=== PATIENT | female | born 1940 | race Caucasian/White ===

== ENCOUNTER 2017-11-13 15:00 | Outpatient (RCR) | payer MEDICARE, SELFPAY ==
--- NOTE | 2017-11-13 15:00 | DT_ITS ---
This patient was seen during an EMR downtime November 13, 2017 - November 20, 2017. This patient may have a combination of paper and electronic documentation or all paper documentation. All documentation is viewable within the e-chart portion of [employer] for each patient visit.
--- NOTE | 2017-11-22 08:08 | HP.PTEVAL_ITS ---
Patient's Visit Information KYLIE ECHAVARRIA is a 76 year old F referred to Physical Therapy by Zia Alex with a diagnosis of Leg length discrepancy. Date of Evaluation: 11/13/17 Physical Therapist: Sammy Loomis PT, - Visit Plan Plan: Skilled therapy is not necessary at this time. Discharge - Subjective Subjective: Pt reports she has noticed a leg length discrepancy for years. Pt reports she never had pain or was bothered by it, so she just put it off. Pt notices when she walks, her L pant leg drags on the ground. Pt believes her L LE is shorter than her R. 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 Pt is not diabetic, but notes since her LB surgery that her LE neuropathy is worse. Pt reports her major goal is to get orthotics fit for her shoe to equal out her legs. - Pain LE's Pain Intensity (Out of 10): 5 - Objective Neuro: B LE sensation is hyposensitive from L4-5. B patellar reflex= 1/3. B LE ROM: B LE ROM is WNL and equal bilaterally. Leg length discr: B LE's are equal in length in both sitting, supine, and standing postures. MMT: 5/5 throughout. Gait: Pt ambulates with mild trendelenberg pattern indicating core weakness - Rehabilitation Potential Physical Therapy Diagnosis: Pt has normal leg length Rehabilitation Potential: Good - Anticipated Interventions Thank you for the opportunity to evaluate your patient. For Medicare and Medicare HMO plans, please review the plan of care and approve it. It will need to be FAXED BACK to us at [phone] for Medicare purposes. Please let me know if there are questions or concerns regarding this plan of care. Physician Signature: Date:
== END 2017-11-13 19:00 | disposition home or self-care (01) ==
LOC: PT 15:00
PROVIDERS: Family Provider Family Medicine; PCP Family Medicine; Visit Provider Family Medicine
DX: M21.70 Unequal limb length (acquired), unspecified site (principal)
CPT/HCPCS: 97161; G8978; G8979; G8980

== ENCOUNTER → 2018-05-17 11:30 | Outpatient (CLI) | payer MEDICARE, SELFPAY ==
[2018-05-17 13:40] LABS: Absolute Neutrophil Count 4.8 X10^3/uL (2.0-7.7); Basophil# 0.05 X10^3/uL; Basophil% 0.6 % (0-1); Eosinophil# 0.29 X10^3/uL; Eosinophils% 3.4 % (0-5); Hematocrit 47.4 % (37-47); Hemoglobin 15.4 g/dl (12.0-15.0); Lymphocyte % 31.9 % (19-41); Mean Corp Hgb Conc 32.5 g/gl (32-36); Mean Corpuscular Hgb 31.2 pg (27.0-32.0); Monocyte# 0.65 X10^3/uL; Monocyte% 7.7 % (0-10); Neutrophil # 4.76 X10^3/uL (2.7-7.7); Neutrophil % 56.3 % (47-70); POSITIVE COUNT NO; POSITIVE DIFFERENTIAL NO; POSITIVE MORPHOLOGY NO; Platelet Count 281 K/mm3 (150-450); RBC Distribution Width CV 12.6 % (11.6-14.6); Red Blood Count 4.94 M/mm3 (4.2-5.4); White Blood Count 8.5 K/mm3 (4.4-11.0)
[2018-05-17 14:09] LABS: ALB/GLOB Ratio 0.8 RATIO (0.9-2.4); AST(SGOT) 45 U/L (15-37); Alanine Aminotransfer ALT/SGPT 49 U/L (13-56); Albumin, Serum 3.7 g/dL (3.2-5.0); Alkaline Phosphatase 98 U/L (45-117); Anion Gap 7 (5-15); BUN 21 mg/dL (7-18); BUN/Creat Ratio 19.3 RATIO (10-20); Calcium,Total 9.9 mg/dL (8.5-10.1); Chloride 103 mmol/L (98-107); Creatinine, Serum 1.09 mg/dL (0.55-1.02); EST Glomerular Filtration Rate 52 mL/min (>60); Est Glom Filt Rate - Afr Amer 63 mL/min (>60); Ferritin 204 ng/mL (8-252); Globulin 4.7 g/dL (2.2-4.2); Glucose 107 mg/dL (74-106); Potassium 4.2 mmol/L (3.5-5.1); Protein, Total 8.4 g/dL (6.4-8.2); Sodium Level 140 mmol/L (136-145); Thyroid Stim Hormone (TSH) 2.11 uIU/mL (0.358-3.74)
[2018-05-17 14:19] LABS: Vitamin B12 519 pg/mL (211-911)
== END ==
PROVIDERS: Family Provider Family Medicine; PCP Family Medicine; Visit Provider Family Medicine
DX: R53.83 Other fatigue (principal)
CPT/HCPCS: 36415; 80053; 82607; 82728; 84443; 85025

== ENCOUNTER → 2018-05-30 13:03 | Outpatient (CLI) | payer MEDICARE, SELFPAY ==
--- NOTE | 2018-05-30 13:06 | ECHOCS_ITS ---
Reason For Study: PHTN Procedure This was a 2D Doppler, Color Flow transthoracic echocardiogram. Exam performed in department. Left Ventricle Normal size and thickness. The estimated ejection fraction is 65 %. Stage 1 diastolic dysfunction. No regional wall motion abnormalities noted. Right Ventricle Normal size and thickness. Normal systolic function. Atria Normal left atrium. Normal right atrium. Normal atrial septum. Mitral Valve The mitral valve is structurally normal. No prolapse or stenosis seen. Tricuspid Valve Normal tricuspid valve. Trivial tricuspid valve insufficiency. Right ventricular systolic pressure estimated to be 31 mmHg. Aortic Valve Trisinus/trileaflet aortic valve. Mild focal aortic valve thickening. There is no aortic stenosis. Pulmonic Valve Normal pulmonic valve. Great Vessels Normal aortic root. Normal arch. Normal inferior vena cava. Inferior vena cava collapse with sniff. Pericardium/Pleural No pericardial effusion. Medication Definity0.4ml given slow IV push to enhance endocardial definition. MMode/2D Measurements & Calculations LVIDd: 4.2 cm IVSd: 0.75 cm Ao root diam: 3.4 cm LVIDs: 2.6 cm LVPWd: 0.77 cm LA dimension: 3.0 cm RVDd: 3.4 cm FS: 37.7 % LAV(MOD-bp): 27.1 ml LVAd ap4: 26.0 cm2 SV(MOD-sp4): 45.5 ml LAV(MOD-bp) Indexed: 13.3 ml/m2 EDV(MOD-sp4): 75.3 ml LAV(MOD-sp2): 29.2 ml EDV(sp4-el): 78.2 ml LAV(MOD-sp4): 25.2 ml LVAs ap4: 14.6 cm2 ESV(MOD-sp4): 29.8 ml ESV(sp4-el): 29.5 ml EF(MOD-sp4): 60.4 % EF(sp4-el): 62.3 % SV(sp4-el): 48.7 ml LA A4 area: 12.5 cm2 RA A4 area: 13.4 cm2 Doppler Measurements & Calculations MV E max olvin: 59.1 cm/sec Lat Peak E' Olvin: 10.0 cm/sec Med Peak E' Olvin: 5.1 cm/sec MV A max olvin: 97.8 cm/sec E/E' lat: 5.9 E/E' med: 11.6 MV E/A: 0.60 Ao V2 max: 146.8 cm/sec LV V1 max: 108.8 cm/sec PA V2 max: 104.1 cm/sec Ao max P.6 mmHg LV V1 max P.7 mmHg Ao V2 mean: 106.3 cm/sec Ao mean P.0 mmHg Ao V2 VTI: 29.0 cm TR max olvin: 255.1 cm/sec TR max P.0 mmHg Interpretation Summary The estimated ejection fraction is 65 %. Stage 1 diastolic dysfunction. Trivial tricuspid valve insufficiency. Right ventricular systolic pressure estimated to be 31 mmHg. Compared to echo report dated 11/23/2011, no appreciable changes noted. Ordering Physician: Zia Alex Referring Physician: Zia Alex Performed By: Yuridia Abbasi, JAZMÍN, RVT
--- OUTSIDE RECORDS SUMMARY | 2018-08-31 18:28 | XMS RPT_ITS ---
:1940 Author Organization [facility] Care Team Providers Name Role Phone JOSE ALEX MD. Primary Care Unavailable VERONICA ROMERO Attending Unavailable VERONICA ROMERO Referring Unavailable Jose Alex Attending Unavailable Jose Alex Referring Unavailable Jose Alex Primary Care Unavailable Jesus Fernandez Attending Unavailable Jose Alex Referring Unavailable Jose Alex Attending Unavailable Jose Alex Primary Care Unavailable Jose Alex Attending Unavailable Jose Alex Primary Care Unavailable PROBLEMS PROBLEMS DATE TYPE CONDITION / CODE ATTENDING STATUS SOURCE 05/21/2018 Unknown R53.83 - Other Jose Alex Active [place] [facility] R53.83(ICD-10) Hospital Repository 01/17/2018 Unknown M21.70 - Unequal Jose Alex Active [place] limb length Community (acquired), Hospital unspecified site Repository / M21.70(ICD-10) PROCEDURES PROCEDURES No Procedure Records FoundRESULTS RESULTS ECHO, COMPLETE W/ Observed: 05/30/2018 Status: F Source: [place] CONTRAST 3:28 PM [facility] REPOSITORY [facility] Cardiovascular Services [address] [place] [address] Echo Complete W/ Contrast 05/30/18 1320 MR#: [id number] Acct: [id number] Name: KYLIE ECHAVARRIA Rep #: [id number] : 1940 77 From: Jesus Fernandez MD Attending Dr: Jose Alex MD Status: REG CLI Ordering Dr: Jose Alex MD Date: 05/30/18 Location: [facility] Sex: F C Admitted: Reason For Study: PHTN Procedure This was a 2D Doppler, Color Flow transthoracic echocardiogram. Exam performed in department. Left Ventricle Normal size and thickness. The estimated ejection fraction is 65 %. Stage 1 diastolic dysfunction. No regional wall motion abnormalities noted. Right Ventricle Normal size and thickness. Normal systolic function. Atria Normal left atrium. Normal right atrium. Normal atrial septum. Mitral Valve The mitral valve is structurally normal. No prolapse or stenosis seen. Tricuspid Valve Normal tricuspid valve. Trivial tricuspid valve insufficiency. Right ventricular systolic pressure estimated to be 31 mmHg. Aortic Valve Trisinus/trileaflet aortic valve. Mild focal aortic valve thickening. There is no aortic stenosis. Pulmonic Valve Normal pulmonic valve. Great Vessels Normal aortic root. Normal arch. Normal inferior vena cava. Inferior vena cava collapse with sniff. Pericardium/Pleural No pericardial effusion. Medication Definity0.4ml given slow IV push to enhance endocardial definition. MMode/2D Measurements AND Calculations LVIDd: 4.2 cm IVSd: 0.75 cm Ao root diam: 3.4 cm LVIDs: 2.6 cm LVPWd: 0.77 cm LA dimension: 3.0 cm RVDd: 3.4 cm FS: 37.7 % LAV(MOD-bp): 27.1 ml LVAd ap4: 26.0 cm2 SV(MOD-sp4): 45.5 ml LAV(MOD-bp) Indexed: 13.3 ml/m2 EDV(MOD-sp4): 75.3 ml LAV(MOD-sp2): 29.2 ml EDV(sp4-el): 78.2 ml LAV(MOD-sp4): 25.2 ml LVAs ap4: 14.6 cm2 ESV(MOD-sp4): 29.8 ml ESV(sp4-el): 29.5 ml EF(MOD-sp4): 60.4 % EF(sp4-el): 62.3 % SV(sp4-el): 48.7 ml LA A4 area: 12.5 cm2 RA A4 area: 13.4 cm2 Doppler Measurements AND Calculations MV E max olvin: 59.1 cm/sec Lat Peak E' Olvin: 10.0 cm/sec Med Peak E' Olvin: 5.1 cm/sec MV A max olvin: 97.8 cm/sec E/E' lat: 5.9 E/E' med: 11.6 MV E/A: 0.60 Ao V2 max: 146.8 cm/sec LV V1 max: 108.8 cm/sec PA V2 max: 104.1 cm/sec Ao max P.6 mmHg LV V1 max P.7 mmHg Ao V2 mean: 106.3 cm/sec Ao mean P.0 mmHg Ao V2 VTI: 29.0 cm TR max olvin: 255.1 cm/sec TR max P.0 mmHg Interpretation Summary The estimated ejection fraction is 65 %. Stage 1 diastolic dysfunction. Trivial tricuspid valve insufficiency. Right ventricular systolic pressure estimated to be 31 mmHg. Compared to echo report dated 11/23/2011, no appreciable changes noted. Ordering Physician: Jose Alex Referring Physician: Jose Alex Performed By: Yuridia Abbais, JAZMÍN, RVT 05/30/18 1528 Date Jesus Fernandez MD CC: Jose Alex MD Date Dictated: 05/30/18 1320 Date Transcribed: 05/30/18 1528 Sample Grinder: Signed CBC W/DIFF, AUTOMATED Collected: 05/17/2018 Status: F Source: [place] 11:31 AM [facility] REPOSITORY TYPE CODE TESTS RESULT OUT OF RANGE REFERENCE UNITS LAB L100.1000 4.4-11.0 K/mm3 Normal WBC 8.5 LAB L100.1200 4.2-5.4 M/mm3 Normal RBC 4.94 LAB L100.1300 12.0-15.0 g/dl High HGB 15.4 LAB L100.1400 37-47 % High HCT 47.4 LAB L100.1500 81-99 fL Normal MCV 96.0 LAB L100.1600 27.0-32.0 pg Normal MCH 31.2 LAB L100.1700 32-36 g/gl Normal MCHC 32.5 LAB L100.1810 11.6-14.6 % Normal RDW CV 12.6 LAB L100.1820 35.1-43.9 fl High RDW SD 44.0 LAB L100.1900 150-450 K/mm3 Normal PLT 281 LAB L100.2000 6.2-12.0 fl Normal MPV 9.0 LAB L100.2100 47-70 % Normal NEUT% 56.3 LAB L100.2200 19-41 % Normal LY% 31.9 LAB L100.2300 0-10 % Normal MONO% 7.7 LAB L100.2400 0-5 % Normal EO% 3.4 LAB L100.2500 0-1 % Normal BASO% 0.6 LAB L100.2550 0.0-0.9 % Normal IM GRAN % 0.100 Result Comment: IG% - Immature Granulocytes (promyelocytes, myelocytes and metamyelocytes) > 1% indicates that a LEFT SHIFT is Present. LAB L100.2620 2.0-7.7 X10 3/uL Normal Absolute Neut 4.8 LAB L100.2720 0.83-4.51 X10 3/ul Normal Absolute Lymph 2.70 Performed By: #### L100.0100 #### [facility] [place], [address] COMPREHENSIVE METABOLIC Collected: 05/17/2018 Status: F Source: [facility] 11:31 AM [facility] REPOSITORY TYPE CODE TESTS RESULT OUT OF RANGE REFERENCE UNITS LAB L501.0100 74-106 mg/dL High GLU 107 Result Comment: Fasting Glucose result from 100 to 125 mg/dL suggests IMPAIRED HOMEOSTASIS per A.D.A. criteria. Please note revised GLUCOSE reference range effective 2017. LAB L501.1000 7-18 mg/dL High BUN 21 LAB L501.1100 0.55-1.02 mg/dL High CREAT,SERUM 1.09 Result Comment: The validity of the calculated GFR AND GFRAA in patients over 70 years has not been determined. Clinical correlation is essential. LAB L501.1110 >60 mL/min Low EST GFR 52 Result Comment: Non- GFR Calc LAB L501.1115 >60 mL/min Normal EST GFR - AA 63 Result Comment: GFR Calc LAB L501.1300 10-20 RATIO Normal BUN/CRE 19.3 LAB L501.1500 6.4-8.2 g/dL High T PROT 8.4 LAB L501.1800 3.2-5.0 g/dL Normal ALB 3.7 LAB L501.1950 2.2-4.2 g/dL High GLOB 4.7 LAB L501.2000 0.9-2.4 RATIO Low A/G 0.8 LAB L501.2200 8.5-10.1 mg/dL CA Normal 9.9 LAB L501.4100 15-37 U/L High AST 45 LAB L501.4305 45-117 U/L Normal ALK P 98 LAB L501.4405 13-56 U/L Normal ALT 49 LAB L501.4600 0.20-1.00 mg/dL T Normal BILI 0.40 LAB L501.5300 136-145 mmol/L NA Normal 140 LAB L501.5600 3.5-5.1 mmol/L K Normal 4.2 LAB L501.5900 98-107 mmol/L CL Normal 103 LAB L501.6100 21.0-32.0 mmol/L Normal CO2 30.0 LAB L501.6200 5-15 Normal GAP 7 Performed By: #### L500.4050, L501.9520, L503.6550 #### [facility] [address] [facility] [place], [place], [id number] THYROID STIM HORMONE Collected: 05/17/2018 Status: F Source: [place] (T[facility]) 11:31 AM [facility] REPOSITORY TYPE CODE TESTS RESULT OUT OF RANGE REFERENCE UNITS LAB L501.9520 0.358-3.74 uIU/mL Normal TSH 2.11 Performed By: #### L500.4050, L501.9520, L503.6550 #### [facility] [address] [facility] [place], [place], [id number] FERRITIN Collected: 05/17/2018 Status: F Source: [place] 11:31 AM [facility] REPOSITORY TYPE CODE TESTS RESULT OUT OF RANGE REFERENCE UNITS LAB L503.6550 8-252 ng/mL Normal FERRITIN 204 Performed By: #### L500.4050, L501.9520, L503.6550 #### [facility] [address] [place], [address] VITAMIN B12 Collected: 05/17/2018 Status: F Source: [place] 11:31 AM [facility] REPOSITORY TYPE CODE TESTS RESULT OUT OF RANGE REFERENCE UNITS LAB L503.0105 211-911 pg/mL Normal Vitamin B12 519 Performed By: #### L503.0105 #### [facility] [address] [place], [address] DOWNTIME REPORT Observed: 11/30/2017 Status: F Source: [place] 12:00 PM [facility] Medical Records Department [address] [address] Downtime Report MR#: [id number] Acct: [id number] Name: KYLIE ECHAVARRIA Rep #: [id number] : 1940 76 From: [place] PCP: Jose Alex MD Status: REG RCR This patient was seen during an EMR downtime November 13, 2017 - November 20, 2017. This patient may have a combination of paper and electronic documentation or all paper documentation. All documentation is viewable within the e-chart portion of [employer] for each patient visit. INITAL EVALUATION (1) Observed: 11/22/2017 Status: F Source: [place] - PT 8:08 AM [facility] Physical Therapy [facility] [address] [facility] [address] [place] [address] Fax REHABILITATION SERVICES INITIAL EVALUATION MR#: [id number] Acct: [id number] Name: KYLIE ECHAVARRIA Rep #: [id number] : 1940 76 From: Sammy Loomis PT, ATC Referring Dr.: Jose Alex MD Status: REG RCR Insurance: [employer] MEDICARE PPO SELF PAY INSURANCE Patient's Visit Information KYLIE ECHAVARRIA is a 76 year old F referred to Physical Therapy by Jose Alex with a diagnosis of Leg length discrepancy. Date of Evaluation: 11/13/17 Physical Therapist: Sammy Loomis PT, - Visit Plan Plan: Skilled therapy is not necessary at this time. Discharge - Subjective Subjective: Pt reports she has noticed a leg length discrepancy for years. Pt reports she never had pain or was bothered by it, so she just put it off. Pt notices when she walks, her L pant leg drags on the ground. Pt believes her L LE is shorter than her R. 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 Pt is not diabetic, but notes since her LB surgery that her LE neuropathy is worse. Pt reports her major goal is to get orthotics fit for her shoe to equal out her legs. - Pain LE's Pain Intensity (Out of 10): 5 - Objective Neuro: B LE sensation is hyposensitive from L4-5. B patellar reflex= 1/3. B LE ROM: B LE ROM is WNL and equal bilaterally. Leg length discr: B LE's are equal in length in both sitting, supine, and standing postures. MMT: 5/5 throughout. Gait: Pt ambulates with mild trendelenberg pattern indicating core weakness - Rehabilitation Potential Physical Therapy Diagnosis: Pt has normal leg length Rehabilitation Potential: Good - Anticipated Interventions Thank you for the opportunity to evaluate your patient. For Medicare and Medicare HMO plans, please review the plan of care and approve it. It will need to be FAXED BACK to us at [phone] for Medicare purposes. Please let me know if there are questions or concerns regarding this plan of care. Physician Signature: Date: <Electronically signed by Sammy Loomis PT, ATC> 11/22/17 0808 CC: Jose Alex MD [facility] Signed For Medicare only, by signing this I certify the plan of care. Physicians Signature Date ALLERGIES ALLERGIES No Allergies Records FoundENCOUNTERS ENCOUNTERS ADMIT/DISCHARGE ACCOUNT NUMBER ADMITTING ENCOUNTER LOCATION SOURCE CLASS 05/30/2018 [id number] Ambulatory [facility] ding:[facility] Repository 05/30/2018 [id number] Ambulatory [facility] Repository 05/17/2018 [id number] Ambulatory [facility] ding:[facility] Repository 11/13/2017/11/14/19 [id number] Ambulatory [address] ding:PT Repository 10/16/2017/03/28/20 [id number] Ambulatory BBuilding:[address] Repository PAYERS PAYERS ENCOUNTER GUARANTOR PAYER SUBSCRIBER SOURCE 05/30/2018 LEYDI Patton Primary KYLIE J [place] [id number] Insurance:HUMANA STRAUSBAUGHDOB: Community [employer] MEDICARE PPOPolicy [id number], Number: Repository [place] [address]Hcs: [id number] Date:9412-64-25[address] ) [id number] [place] [id number]: 05/30/2018 Secondary NOT GIVENUNK [place] Insurance:SELF PAY [facility] Number: Effective Repository Date:2018-05-22 05/30/2018 LEYDI Patton Primary KYLIE J [place] [id number] Insurance:HUMANA STRAUSBAUGHDOB: Community [employer]CH MEDICARE PPOPolicy [id number], Number: Repository [place] [address]Evz: [id number] Date:6152-03-08RT [address] ) [address], [place] [address]DG: 05/30/2018 Secondary NOT GIVENUNK [place] Insurance:SELF PAY [facility] Number: Effective Repository Date:2018-05-30 05/17/2018 LEYDI Patton Primary KYLIE J [place] [id number] Insurance:HUMANA STRAUSBAUGHDOB: Community [employer]CH MEDICARE PPOPolicy [id number], Number: Repository [place] [address]Cfs: [id number] Date:0571-41-14VG [address] () [address] [place] [phone]: 05/17/2018 Secondary NOT GIVENUNK [place] Insurance:SELF PAY [facility] Number: Effective Repository Date:2018-05-17 11/13/2017 DENNIS Primary KYLIE J [place] [id number] Insurance:HUMANA STRAUSBAUGHDOB: Community CH[employer]CH MEDICARE PPOPolicy [id number] [facility], Number: Repository [place] [address]Ind: [id number] Date:1065-41-85XX [address] () [address] [place] [phone]: 11/13/2017 Secondary NOT GIVENUNK [place] Insurance:SELF PAY [facility] Number: Effective Repository Date:2017-11-10 10/16/2017 KYLIE Patton Primary KYLIE Patton [facility] STRAUSBAUGHDOB: Insurance:HUMANA GOLD STRAUSBAUGHDOB: [facility] E CHOICE MEDICAREPolicy [id number] [place] [address] Number: [facility], [id number] [place], [place] [address]Drg: Date:2017-10-16 - [place] [address]Cvi: [id number] () Name:N[address] Box (HP)Tel: [address] [place] [address] [phone] () [phone]:
== END ==
PROVIDERS: Family Provider Family Medicine; PCP Family Medicine; Referring Provider Family Medicine; Visit Provider Family Medicine
DX: I27.0 Primary pulmonary hypertension (principal)
CPT/HCPCS: 93306; Q9957; A4216; C8929

== ENCOUNTER → 2019-02-14 11:24 | Outpatient (CLI) | payer MEDICARE, SELFPAY ==
[2019-02-14 14:22] LABS: Absolute Lymphocyte Count 2.31 X10^3/uL (0.83-4.51); Absolute Neutrophil Count 10.7 X10^3/uL (2.0-7.7); Basophil# 0.06 X10^3/uL; Basophil% 0.4 % (0-1); Eosinophil# 0.31 X10^3/uL; Eosinophils% 2.2 % (0-5); Hemoglobin 14.4 g/dL (12.0-15.0); Lymphocyte # 2.31 X10^3/ul (4.0); Lymphocyte % 16.4 % (19-41); Mean Corp Hgb Conc 32.7 g/dL (32-36); Mean Corpuscular Hgb 30.5 pg (27.0-32.0); Mean Corpuscular Volume 93.2 fL (81-99); Mean Platelet Vol. 9.7 fl (6.2-12.0); Monocyte# 0.68 X10^3/uL; Monocyte% 4.8 % (0-10); NRBC Flagged by Analyzer 0 % (0-5); Neutrophil % 75.8 % (47-70); Platelet Count 241 K/mm3 (150-450); RBC Distribution Width CV 12.8 % (11.6-14.6); RBC Distribution Width SD 44.2 fl (35.1-43.9); Red Blood Count 4.72 M/mm3 (4.2-5.4); White Blood Count 14.1 K/mm3 (4.4-11.0)
[2019-02-14 14:51] LABS: ALB/GLOB Ratio 0.8 RATIO (0.9-2.4); AST(SGOT) 48 U/L (15-37); Alanine Aminotransfer ALT/SGPT 56 U/L (13-56); Albumin, Serum 3.3 g/dL (3.2-5.0); Alkaline Phosphatase 88 U/L (45-117); Anion Gap 7 (5-15); BUN 20 mg/dL (7-18); BUN/Creat Ratio 20.6 RATIO (10-20); Calcium,Total 9.2 mg/dL (8.5-10.1); Chloride 106 mmol/L (98-107); Creatinine, Serum 0.97 mg/dL (0.55-1.02); EST Glomerular Filtration Rate 59 mL/min (>60); Est Glom Filt Rate - Afr Amer 71 mL/min (>60); Globulin 4.4 g/dL (2.2-4.2); Glucose 103 mg/dL (74-106); Protein, Total 7.7 g/dL (6.4-8.2); Sodium Level 140 mmol/L (136-145)
== END ==
PROVIDERS: Family Provider Family Medicine; PCP Family Medicine; Referring Provider Family Medicine; Visit Provider Family Medicine
DX: G25.81 Restless legs syndrome (principal); E88.81 Metabolic syndrome and other insulin resistance
CPT/HCPCS: 36415; 80053; 85025

== ENCOUNTER 2019-07-15 09:37 | Emergency (ER) | payer MEDICARE, SELFPAY ==
[2019-07-15 09:38] VITALS: BP 151/98; PULSE 73; RESP 18; TEMP 36.7; O2SAT 98; BMI 30.7
--- NOTE | 2019-07-15 09:47 | ED.VIS.INJ ---
History of Present Illness Chief Complaint: Fall Informant: Patient, Family Onset: Today Mechanism/Context: Fall Quality of Pain: Dull, Aching, Throbbing Location: Left shoulder/arm Current Severity: Moderate Maximum Severity: Severe Worsened by: Any movement Relieved by: Nothing Associated Symptoms: Loss of function. Negative for: Parasthesias, Weakness, Inability to ambulate, Loss of consciousness Narrative: Patient is an elderly woman who lost her balance and fell onto her left side. She states she fell onto her left shoulder. She is holding her left arm internally rotated and a deducted. She denies head trauma. There is no report of loss of conscious. She denies neck pain. She denies paresthesia, anesthesia or motor weakness. She is not on a anticoagulant. She denies cardiac respiratory symptoms. Prior similar symptoms: No Recent Illness/Hospitalization: No - Past Medical History (1) Restless leg syndrome Status: Acute Past Medical History - Allergies and Home Meds Allergies/Adverse Reactions: Allergies No Known Allergies Allergy (Verified 07/15/19 09:38) Primary Care Physician: Zia Alex MD [Primary Care Provider] - Prior records reviewed: Yes Surgical History: total knee arthroplasty - Right and left Lives: Spouse/ Significant Other Smoking Status: Never smoker Alcohol: None Drugs: None Review of Systems Cardiovascular: Denies: Chest pain, Palpitations Respiratory: Denies: Dyspnea, Cough, Dyspnea on exertion Musculoskeletal: Reports: Swelling, Extremity Pain. Denies: Myalgias, Arthralgias, Neck pain, Back pain Skin: Denies: Rash, Abrasions, Wounds Neurological: Denies: Weakness, Parasthesia, Numbness Hematologic: Denies: Easy bruising, Easy bleeding Physical Exam Vital Signs/Narrative: Vital Signs Temp Pulse Resp BP Pulse Ox 07/15/19 09:38 98.0 F 73 18 151/98 H 98 Inital Vital Signs reviewed: Yes General: Well nourished, Well developed, Obese, - - Patient is in obvious discomfort Head: Normocephalic, Atraumatic. Negative for: Tenderness Eyes: Perrl, EOMI. Negative for: Pale conjunctiva, Scleral icterus ENT: No trauma. Negative for: Otorrhea, Nasal trauma, Nasal septal hematoma Neck: Nontender, Full ROM. Negative for: Spinal Tenderness, Paraspinal Tenderness Cardiovascular: Regular rate, Regular rhythm, No murmurs, Normal S1, Normal S2 Respiratory: No distress, CTA bilaterally, Chest nontender Rectal: Deferred Back: Nontender. Negative for: CVA Tenderness - Right, CVA Tenderness - Left Extremeties: There is pain palpation over the proximal humerus. There is no pain the patient over the clavicle or AC joint. There is no pain the patient over the lateral medial epicondyle. There is no pain the patient over the lateral process. There is no pain the patient over the radial head. There is no pain the patient over the distal radius or ulna. There is no pain the patient over the carpal bones or metacarpal bones. Axillary, median, radial and ulnar function intact. Radial pulses palpable and symmetric. Skin: Normal color, No rash Neurological: Alert, Oriented x3, Cranial nerves II-XII grossly intact, Normal Strength, Normal Sensation Psychological: Normal affect - Glascow Coma Scale Eye Opening: Spontaneous Motor: Obeys Commands Verbal: Oriented Coma Scale Total: 15 Diagnostic/Tx/Re-eval Chest X-Ray - ED: 2 View, Read by ED Physician, - - Three-view x-ray of the shoulder reveals a nondisplaced proximal humeral fracture at the surgical neck. There is no associated fracture of the clavicle and there is no widening of the AC joint. Tray was interpreted by me at 1025. 07/15/19 10:12 Shoulder min 2 Views [RAD] Stat - Medical Decision Making B was established and she was medicated with IV Zofran and morphine for her nausea and pain. X-ray of the shoulder was obtained to evaluate for fracture, fracture dislocation versus ligamentous/soft tissue injury. ED Disposition - Plan for ED Patient: Disposition: Home or Assisted Living Diagnosis: Nondisplaced fracture of proximal end of humerus Instructions: FRACTURE, Shoulder Prescriptions: Hydrocodone Bitart/Apap 5-325 [[place] 5MG-325MG] 1 tab PO Q6H PRN PRN 3 Days #10 tab PRN Reason: Pain Prescription Printed Referrals: Zia Alex MD [Primary Care Provider] - Po Douglass MD [STAFF PHYSICIAN] - 1 Week
[2019-07-15] MEDS: Morphine 4 MG/ML Syringe IV (10:02)
[2019-07-15] MEDS: Ondansetron 4 MG/2 ML Vial IV (10:02)
--- NOTE | 2019-07-15 10:12 | RAD_ITS ---
STUDY: X-RAY - LEFT SHOULDER REASON FOR EXAM: Female, 78 years old. Fell last night TECHNIQUE: 2 view(s) of the shoulder. COMPARISON: None. FINDINGS: Normal glenohumeral articulation. Normal acromioclavicular joint. Normal acromion. Comminuted nondisplaced fracture of the surgical neck of the humerus with extension to the greater tuberosity. Soft tissue swelling. Normal visualized pulmonary apex. RAD/Shoulder min 2 Views IMPRESSION: Nondisplaced transverse fracture of the surgical neck of the humerus with extension to the greater tuberosity. Electronically Signed: Dirk Esparza, at 10:45 EST , Service support ,
== END 2019-07-15 11:03 | disposition home or self-care (01) ==
PROVIDERS: Emergency Provider Emergency Medicine; PCP Family Medicine
DX: S42.215A Unspecified nondisplaced fracture of surgical neck of left humerus, initial encounter for closed fracture (principal); W19.XXXA Unspecified fall, initial encounter; Y93.9 Activity, unspecified; Y92.9 Unspecified place or not applicable; E66.9 Obesity, unspecified; G25.81 Restless legs syndrome
CPT/HCPCS: 73030; 96374; 96375; 99283; J7050; A4216; J2405

== ENCOUNTER → 2019-08-15 11:44 | Outpatient (CLI) | payer MEDICARE, SELFPAY ==
[2019-08-15 15:42] LABS: Absolute Lymphocyte Count 2.43 X10^3/uL (0.83-4.51); Absolute Neutrophil Count 3.2 X10^3/uL (2.0-7.7); Basophil# 0.06 X10^3/uL; Basophil% 0.9 % (0-1); Eosinophil# 0.33 X10^3/uL; Hematocrit 44.7 % (37-47); Hemoglobin 14.4 g/dL (12.0-15.0); Lymphocyte # 2.43 X10^3/ul (4.0); Lymphocyte % 37.1 % (19-41); Mean Corp Hgb Conc 32.2 g/dL (32-36); Mean Corpuscular Hgb 30.8 pg (27.0-32.0); Mean Corpuscular Volume 95.5 fL (81-99); Mean Platelet Vol. 9.1 fl (6.2-12.0); Monocyte# 0.54 X10^3/uL; Monocyte% 8.2 % (0-10); NRBC Flagged by Analyzer 0 % (0-5); Neutrophil # 3.18 X10^3/uL (2.7-7.7); Neutrophil % 48.6 % (47-70); Platelet Count 272 K/mm3 (150-450); RBC Distribution Width CV 13.2 % (11.6-14.6); RBC Distribution Width SD 45.9 fl (35.1-43.9); Red Blood Count 4.68 M/mm3 (4.2-5.4); White Blood Count 6.6 K/mm3 (4.4-11.0)
[2019-08-15 16:11] LABS: ALB/GLOB Ratio 0.9 RATIO (0.9-2.4); AST(SGOT) 30 U/L (15-37); Alanine Aminotransfer ALT/SGPT 34 U/L (13-56); Albumin, Serum 3.7 g/dL (3.2-5.0); Alkaline Phosphatase 99 U/L (45-117); Anion Gap 6 (5-15); BUN 17 mg/dL (7-18); BUN/Creat Ratio 18.7 RATIO (10-20); Calcium,Total 9.1 mg/dL (8.5-10.1); Chloride 105 mmol/L (98-107); Creatinine, Serum 0.91 mg/dL (0.55-1.02); EST Glomerular Filtration Rate 64 mL/min (>60); Est Glom Filt Rate - Afr Amer 77 mL/min (>60); Globulin 4.2 g/dL (2.2-4.2); Glucose 96 mg/dL (74-106); Potassium 3.8 mmol/L (3.5-5.1); Protein, Total 7.9 g/dL (6.4-8.2); Sodium Level 139 mmol/L (136-145); Thyroid Stim Hormone (TSH) 1.27 uIU/mL (0.358-3.74)
[2019-08-15 17:24] LABS: Hemoglobin A1c 5.9 % (4.2-6.3)
== END ==
PROVIDERS: PCP Family Medicine; Referring Provider Family Medicine; Visit Provider Family Medicine
DX: E88.81 Metabolic syndrome and other insulin resistance (principal); R94.6 Abnormal results of thyroid function studies; E66.9 Obesity, unspecified
CPT/HCPCS: 36415; 80053; 83036; 84443; 85025

== ENCOUNTER → 2020-02-18 08:35 | Outpatient (CLI) | payer MEDICARE, SELFPAY ==
[2020-02-18 10:31] LABS: Vitamin D,25 Hydroxy 39.8 ng/mL
[2020-02-18 10:33] LABS: Hemoglobin A1c 5.8 % (3.8-5.6)
[2020-02-18 10:45] LABS: ALB/GLOB Ratio 0.8 RATIO (0.9-2.4); AST(SGOT) 32 U/L (15-37); Alanine Aminotransfer ALT/SGPT 29 U/L (13-56); Albumin, Serum 3.6 g/dL (3.2-5.0); Alkaline Phosphatase 82 U/L (45-117); Anion Gap 6 (5-15); BUN 22 mg/dL (7-18); Calcium,Total 8.8 mg/dL (8.5-10.1); Chloride 104 mmol/L (98-107); EST Glomerular Filtration Rate 51 mL/min (>60); Est Glom Filt Rate - Afr Amer 62 mL/min (>60); Globulin 4.3 g/dL (2.2-4.2); Glucose 106 mg/dL (74-106); Potassium 3.7 mmol/L (3.5-5.1); Protein, Total 7.9 g/dL (6.4-8.2); Sodium Level 138 mmol/L (136-145); Thyroid Stim Hormone (TSH) 2.32 uIU/mL (0.358-3.74)
== END ==
PROVIDERS: PCP Family Medicine; Referring Provider Family Medicine; Visit Provider Family Medicine
DX: E88.81 Metabolic syndrome and other insulin resistance (principal); E55.9 Vitamin D deficiency, unspecified; R53.83 Other fatigue
CPT/HCPCS: 36415; 80053; 82306; 83036; 84443

== ENCOUNTER 2020-07-21 09:49 | Outpatient (RCR) | payer MEDICARE, SELFPAY | END 2020-07-21 23:59 | LOC: IMMUN 09:49 | PROVIDERS: PCP Family Medicine; Referring Provider Family Medicine; Visit Provider Family Medicine | DX: Z23 Encounter for immunization (principal) | CPT/HCPCS: 0011A; 0012A ==

== ENCOUNTER → 2020-08-18 10:09 | Outpatient (CLI) | payer MEDICARE, SELFPAY ==
--- NOTE | 2020-08-18 10:32 | RAD_ITS ---
STUDY: X-RAY CHEST REASON FOR EXAM: Female, 79 years old. PULMONARY HYPERTENSION TECHNIQUE: PA and lateral views of the chest. COMPARISON: 2016 FINDINGS: There are interstitial fibrotic changes of the lungs. There is no demonstrated pleural abnormality. Normal size heart. Normal mediastinum and maggie. Normal visualized pulmonary arteries. Normal visualized aortic arch and descending thoracic aorta. Normal visualized thoracic spine. Old healed left humeral fracture There is no demonstrated abnormality of the visualized soft tissue structures of the upper abdomen. RAD/Chest PA and Lateral IMPRESSION: Chronic interstitial changes, no superimposed acute pulmonary process Electronically Signed: Tarik Shook MD at 10:56 EST , Service support ,
[2020-08-18 12:26] LABS: ALB/GLOB Ratio 0.9 RATIO (0.9-2.4); AST(SGOT) 31 U/L (15-37); Alanine Aminotransfer ALT/SGPT 34 U/L (13-56); Albumin, Serum 3.8 g/dL (3.2-5.0); Alkaline Phosphatase 76 U/L (45-117); Anion Gap 6 (5-15); BUN 19 mg/dL (7-18); BUN/Creat Ratio 17.8 RATIO (10-20); Calcium,Total 9.6 mg/dL (8.5-10.1); Chloride 104 mmol/L (98-107); Creatinine, Serum 1.07 mg/dL (0.55-1.02); EST Glomerular Filtration Rate 53 mL/min (>60); Est Glom Filt Rate - Afr Amer 64 mL/min (>60); Globulin 4.2 g/dL (2.2-4.2); Glucose 100 mg/dL (74-106); Potassium 3.7 mmol/L (3.5-5.1); Sodium Level 139 mmol/L (136-145)
[2020-08-18 12:46] LABS: Hemoglobin A1c 5.6 % (3.8-5.6)
== END ==
PROVIDERS: PCP Family Medicine; Referring Provider Family Medicine; Visit Provider Family Medicine
DX: E88.81 Metabolic syndrome and other insulin resistance (principal); I27.0 Primary pulmonary hypertension
CPT/HCPCS: 36415; 71046; 80053; 83036

== ENCOUNTER → 2020-08-20 09:40 | Outpatient (CLI) | payer MEDICARE, SELFPAY ==
--- NOTE | 2020-08-20 09:45 | NM_ITS ---
CLINICAL: 79-year-old female with reported history of painful partial right knee arthroplasty operated approximately 9 years previous. LIMITED 99m Tc MDP THREE PHASE BONE SCINTIGRAPHY COMPARISON: None available FINDINGS: Following the intravenous administration of 26.0 mCi of 99m Tc MDP, three-phase bone acquisitions of the knee articulations reveal: 1. The flow and immediate static blood pool acquisitions demonstrate symmetric-normal arterial and venous phase distribution of the radiopharmaceutical to the bilateral knee articulations. 2. Delayed images depict increased tracer concentration defined in the femoral and to lesser extent tibial components of the painful right knee and presumably asymptomatic left knee hemiarthroplasties. 3. Facilitated uptake is observed in the lateral tibial compartment of the right knee. The remaining limited skeletal structures are scintigraphically unremarkable. NM/Bone Scan Three Phase IMPRESSION: 1. The increase in tracer uptake defined in the femoral and tibial components of the symptomatic right knee hemiarthroplasty is consistent with a high likelihood of loosening in the setting of operative intervention > 2 years prior to the current presentation. If infection is a diagnostic consideration, correlation with labeled leukocyte imaging is recommended 2. Increased radiopharmaceutical concentration observed in the lateral tibial compartment of the right knee is most consistent with degenerative arthritis. Enhanced tracer distribution defined in the tibial and femoral components of the apparent asymptomatic left knee hemiarthroplasty is most consistent with normal postsurgical change. Electronically Signed: Bill Hammond DO at 23:09 EST Tel , Service support ,
== END ==
PROVIDERS: PCP Family Medicine; Referring Provider Specialist; Visit Provider Specialist
DX: Z96.651 Presence of right artificial knee joint (principal)
CPT/HCPCS: 78315

== ENCOUNTER → 2020-08-31 09:46 | Outpatient (CLI) | payer MEDICARE, SELFPAY ==
[2020-08-31 12:04] LABS: Erythrocyte Sedimentation Rate 13 mm/hr (0-30)
[2020-08-31 12:07] LABS: Absolute Lymphocyte Count 2.78 X10^3/uL (0.83-4.51); Absolute Neutrophil Count 5.1 X10^3/uL (2.0-7.7); Basophil# 0.11 X10^3/uL; Basophil% 1.2 % (0-1); Eosinophil# 0.34 X10^3/uL; Eosinophils% 3.8 % (0-5); Hematocrit 46.4 % (37-47); Hemoglobin 15.1 g/dL (12.0-15.0); Lymphocyte # 2.78 X10^3/ul (4.0); Lymphocyte % 30.9 % (19-41); Mean Corp Hgb Conc 32.5 g/dL (32-36); Mean Corpuscular Hgb 30.9 pg (27.0-32.0); Mean Corpuscular Volume 94.9 fL (81-99); Mean Platelet Vol. 8.9 fl (6.2-12.0); Monocyte# 0.67 X10^3/uL; Monocyte% 7.5 % (0-10); NRBC Flagged by Analyzer 0 % (0-5); Neutrophil # 5.07 X10^3/uL (2.7-7.7); Neutrophil % 56.4 % (47-70); Platelet Count 284 K/mm3 (150-450); RBC Distribution Width CV 12.9 % (11.6-14.6); RBC Distribution Width SD 43.8 fl (35.1-43.9); Red Blood Count 4.89 M/mm3 (4.2-5.4)
[2020-08-31 12:34] LABS: CRP < 2.90 mg/L (0.0-3.0)
== END ==
PROVIDERS: PCP Family Medicine; Referring Provider Specialist; Visit Provider Specialist
DX: T84.032A Mechanical loosening of internal right knee prosthetic joint, initial encounter (principal)
CPT/HCPCS: 36415; 85025; 85652; 86140

== ENCOUNTER → 2020-10-12 12:34 | Outpatient (CLI) | payer MEDICARE, SELFPAY ==
[2020-10-12 15:33] LABS: Anion Gap 7 (5-15); BUN 20 mg/dL (7-18); BUN/Creat Ratio 18.2 RATIO (10-20); Calcium,Total 9.7 mg/dL (8.5-10.1); Chloride 101 mmol/L (98-107); EST Glomerular Filtration Rate 51 mL/min (>60); Est Glom Filt Rate - Afr Amer 62 mL/min (>60); Glucose 99 mg/dL (74-106); Magnesium 2.3 mg/dL (1.6-2.6); Potassium 3.7 mmol/L (3.5-5.1); Sodium Level 138 mmol/L (136-145)
[2020-10-12 15:43] LABS: Microalbumin,Random Urine 18.6 mg/L (NO RANGE EST.); Microalbumin:Creatinine Ratio 13.1 mg/g CRE (<30 mg/g CRE)
== END ==
PROVIDERS: PCP Family Medicine; Referring Provider Family Medicine; Visit Provider Family Medicine
DX: R79.89 Other specified abnormal findings of blood chemistry (principal)
CPT/HCPCS: 80048; 82043; 82570; 83735

== ENCOUNTER → 2021-05-31 12:12 | Outpatient (CLI) | payer MEDICARE, SELFPAY ==
[2021-05-31 15:22] LABS: Absolute Lymphocyte Count 3.28 X10^3/uL (0.83-4.51); Absolute Neutrophil Count 11.5 X10^3/uL (2.0-7.7); Basophil# 0.09 X10^3/uL; Basophil% 0.5 % (0-1); Eosinophil# 0.13 X10^3/uL; Eosinophils% 0.8 % (0-5); Hematocrit 41.9 % (37-47); Hemoglobin 14.2 g/dL (12.0-15.0); Lymphocyte # 3.28 X10^3/ul (0.83-4.51); Lymphocyte % 19.4 % (19-41); Mean Corp Hgb Conc 33.9 g/dL (32-36); Mean Corpuscular Hgb 30.9 pg (27.0-32.0); Mean Corpuscular Volume 91.1 fL (81-99); Mean Platelet Vol. 9.5 fl (6.2-12.0); Monocyte# 1.81 X10^3/uL; Monocyte% 10.7 % (0-10); NRBC Flagged by Analyzer 0 % (0-5); Neutrophil # 11.53 X10^3/uL (2.7-7.7); POSITIVE DIFFERENTIAL YES; Platelet Count 310 K/mm3 (150-450); RBC Distribution Width CV 12.2 % (11.6-14.6); RBC Distribution Width SD 41.1 fl (35.1-43.9)
[2021-05-31 15:24] LABS: Differential Indicated SCAN CRITERIA MET
[2021-05-31 15:48] LABS: Vitamin B12 837 pg/mL (211-911)
[2021-05-31 15:52] LABS: ALB/GLOB Ratio 0.5 RATIO (0.9-2.4); AST(SGOT) 22 U/L (15-37); Alanine Aminotransfer ALT/SGPT 29 U/L (13-56); Alkaline Phosphatase 95 U/L (45-117); Anion Gap 13 (5-15); BUN 13 mg/dL (7-18); BUN/Creat Ratio 9.9 RATIO (10-20); Calcium,Total 9.7 mg/dL (8.5-10.1); Chloride 95 mmol/L (98-107); Creatinine, Serum 1.31 mg/dL (0.55-1.02); EST Glomerular Filtration Rate 42 mL/min (>60); Est Glom Filt Rate - Afr Amer 50 mL/min (>60); Globulin 5.6 g/dL (2.2-4.2); Glucose 99 mg/dL (74-106); Potassium 3.3 mmol/L (3.5-5.1); Protein, Total 8.6 g/dL (6.4-8.2); Sodium Level 133 mmol/L (136-145)
[2021-05-31 15:54] LABS: PTHIN 54.1 pg/mL (18.4-80.1)
[2021-05-31 16:01] LABS: Hemoglobin A1c 5.5 % (3.8-5.6)
[2021-05-31 18:24] LABS: Platelet Estimate ADEQUATE (ADEQ); Red Cell Morphology NORM C+C NORMAL (NORM C&C)
[2021-06-02 09:41] LABS: Pathologist Review Reviewed
[2021-06-02 16:34] LABS: ANTINUCLEAR ANTIBODIES DIRECT Negative (Negative)
[2021-06-06 22:06] LABS: PROEL- A/G Ratio 0.7 (0.7-1.7); PROEL- Albumin 3.1 g/dL (2.9-4.4); PROEL- Alpha-1 Globulin 0.5 g/dL (0.0-0.4); PROEL- Alpha-2 Globulin 1.3 g/dL (0.4-1.0); PROEL- Beta Globulin 1.4 g/dL (0.7-1.3); PROEL- Gamma Globulin 1.4 g/dL (0.4-1.8); PROEL- Globulin, Total 4.6 g/dL (2.2-3.9); PROEL- TOTAL PROTEIN 7.7 g/dL (6.0-8.5)
[2021-06-07 14:53] LABS: Copper, Serum or Plasma 170 ug/dL (80-158); Zinc, Plasma or Serum 74 ug/dL (44-115)
== END ==
PROVIDERS: PCP Family Medicine; Visit Provider Family Medicine
DX: G62.9 Polyneuropathy, unspecified (principal); E88.81 Metabolic syndrome and other insulin resistance; R53.81 Other malaise
CPT/HCPCS: 36415; 80053; 82525; 82607; 82746; 83036; 83970; 84165; 84630; 85025; 86038; 86140

== ENCOUNTER → 2021-06-02 09:07 | Outpatient (CLI) | payer MEDICARE, SELFPAY ==
[2021-06-02 09:12] LABS: Mucous, Urine 0 SEEN /hpf (<or=2+)
--- NOTE | 2021-06-02 09:17 | RAD_ITS ---
EXAM: XR CHEST, 2 VIEWS : 1940 CLINICAL INDICATION: malaise, chills, high CRP and WBC TECHNIQUE: Frontal and lateral views of the chest. This report was created using [employer] report generation technology. COMPARISON: 08/18/2020 FINDINGS: LUNGS AND PLEURAL SPACES: Unremarkable. No consolidation or edema. No pneumothorax. No effusion. HEART: Unremarkable. Cardiac silhouette not enlarged. MEDIASTINUM: Central airways and mediastinal contour are unremarkable. BONES/JOINTS: Unremarkable. SOFT TISSUES: Unremarkable. RAD/Chest PA and Lateral IMPRESSION: No radiographic evidence of acute cardiopulmonary disease. at 1807 Reported and signed by: Tico Cristobal MD Electronically Signed: Tico Cristobal MD at 18:06 EST Tel , Service support ,
[2021-06-02 10:14] LABS: Color, Urine Yellow (Yellow); Glucose, Dipstick Normal (Normal); Ketone-Dipstick Negative (Negative); Leukocyte Esterase-Dipstick 500 /ul (Negative); Nitrite-Dipstick Positive (Negative); Occult Blood-Urine 50 /ul (Negative); Protein-Dipstick 30 mg/dl (Negative); Specific Gravity, Urine 1.005 (1.002-1.030); Urine Bilirubin Dipstick Negative (Negative); Urine Clarity Sl. Cloudy (Clear); Urine Urobilinogen Normal (Normal)
[2021-06-02 10:20] LABS: Bacteria 2+ /hpf (None Seen); Red Blood Cells-Urine 0-5 SEEN /hpf (0-5); Squamous Epithelial Cells - UA 0-5 SEEN /hpf (5-10); White Blood Cells 25-50 SEEN /hpf (0-5)
== END ==
PROVIDERS: PCP Family Medicine; Referring Provider Family Medicine; Visit Provider Family Medicine
DX: R53.81 Other malaise (principal)
CPT/HCPCS: 71046; 81001; 87086; 87088; 87186

== ENCOUNTER → 2021-06-10 08:49 | Outpatient (CLI) | payer MEDICARE, SELFPAY ==
[2021-06-10 10:56] LABS: ALB/GLOB Ratio 0.6 RATIO (0.9-2.4); AST(SGOT) 26 U/L (15-37); Alanine Aminotransfer ALT/SGPT 32 U/L (13-56); Albumin, Serum 3.1 g/dL (3.2-5.0); Alkaline Phosphatase 83 U/L (45-117); Anion Gap 8 (5-15); BUN 16 mg/dL (7-18); BUN/Creat Ratio 14.4 RATIO (10-20); Calcium,Total 9.5 mg/dL (8.5-10.1); Chloride 101 mmol/L (98-107); Creatinine, Serum 1.11 mg/dL (0.55-1.02); EST Glomerular Filtration Rate 50 mL/min (>60); Est Glom Filt Rate - Afr Amer 61 mL/min (>60); Globulin 5.2 g/dL (2.2-4.2); Glucose 122 mg/dL (74-106); Protein, Total 8.3 g/dL (6.4-8.2); Sodium Level 138 mmol/L (136-145)
[2021-06-15 05:07] LABS: Ceruloplasmin 33.5 mg/dL (19.0-39.0)
[2021-06-15 17:58] LABS: Copper, Serum or Plasma 145 ug/dL (80-158)
== END ==
PROVIDERS: PCP Family Medicine; Visit Provider Family Medicine
DX: E88.81 Metabolic syndrome and other insulin resistance (principal); G62.9 Polyneuropathy, unspecified
CPT/HCPCS: 36415; 80053; 82390; 82525

== ENCOUNTER 2021-08-23 10:38 | Outpatient (CLI) | payer MEDICARE, SELFPAY ==
[2021-08-23 12:31] LABS: ALB/GLOB Ratio 0.8 RATIO (0.9-2.4); AST(SGOT) 24 U/L (15-37); Alanine Aminotransfer ALT/SGPT 25 U/L (13-56); Albumin, Serum 3.5 g/dL (3.2-5.0); Alkaline Phosphatase 76 U/L (45-117); Anion Gap 4 (5-15); BUN 20 mg/dL (7-18); BUN/Creat Ratio 17.5 RATIO (10-20); Calcium,Total 9.6 mg/dL (8.5-10.1); Chloride 107 mmol/L (98-107); Creatinine, Serum 1.14 mg/dL (0.55-1.02); EST Glomerular Filtration Rate 49 mL/min (>60); Est Glom Filt Rate - Afr Amer 59 mL/min (>60); Globulin 4.4 g/dL (2.2-4.2); Glucose 102 mg/dL (74-106); Potassium 4.6 mmol/L (3.5-5.1); Protein, Total 7.9 g/dL (6.4-8.2); Sodium Level 140 mmol/L (136-145)
[2021-08-25 06:08] LABS: Ceruloplasmin 24.4 mg/dL (19.0-39.0)
[2021-08-25 13:34] LABS: Copper, Serum or Plasma 109 ug/dL (80-158)
== END 2021-08-23 23:59 | disposition home or self-care (01) ==
LOC: MFPLAB 10:41
PROVIDERS: PCP Family Medicine; Visit Provider Family Medicine
DX: E88.81 Metabolic syndrome and other insulin resistance (principal); G62.9 Polyneuropathy, unspecified
CPT/HCPCS: 36415; 80053; 82390; 82525

== ENCOUNTER → 2021-12-21 | Outpatient (CLI) | payer MEDICARE, SELFPAY ==
--- NOTE | 2021-12-21 13:31 | BI_ITS ---
MAMMOGRAPHY - BILATERAL SCREENING REASON FOR EXAM: Female, 81 years old. Routine annual screening examination. PERTINENT HISTORY: Right retroareolar breast lump. TECHNIQUE: Digital bilateral breast joselito (3D mammographic acquisition) in the CC and MLO projections. 2-D mediolateral oblique (MLO) and craniocaudad (CC) views of both breasts were obtained. CAD: Full Field Digital Mammography with Computer Added Detection was performed. COMPARISON: Comparison is made with prior study dated 04/19/2011. FINDINGS: Breast Composition: The breasts are almost entirely fatty. The palpable lump in the retroareolar region of the right breast corresponds to a 3 cm x 2.8 cm spiculated nodule. There is retraction of the areolar complex. Biopsy recommended. No other significant abnormalities are identified. BI/SCRN MAMM (CAD)W/JOSELITO BILAT IMPRESSION: The palpable abnormality corresponds to a 3 cm x 2.8cm spiculated nodule in the retroareolar region of the right breast with retraction of the overlying areolar complex. Biopsy recommended. ASSESSMENT CATEGORY: BIRADS Category 5: Highly Suggestive of Malignancy - Appropriate Action Should Be Taken. A letter regarding these results will be sent to the patient by the facility within 30 days. Approximately 10% of breast cancers are not detected by mammography. A normal mammogram should not delay biopsy of a clinically suspicious abnormality. [id number] Electronically Signed: Dirk Esparza MD at 14:36 EDT ,
== END | disposition home or self-care (01) ==
PROVIDERS: PCP Family Medicine; Visit Provider Family Medicine
DX: Z12.31 Encounter for screening mammogram for malignant neoplasm of breast (principal)
CPT/HCPCS: 77063; 77067

== ENCOUNTER → 2021-12-27 | Outpatient (CLI) | payer MEDICARE, SELFPAY ==
--- NOTE | 2021-12-27 10:58 | US_ITS ---
STUDY: ULTRASOUND BREAST - RIGHT REASON FOR EXAM: Female, 81 years old. Abnormal screening mammogram. TECHNIQUE: Axial and longitudinal images of the RIGHT breast were performed with a high resolution ultrasound transducer. # OF IMAGES: 25 COMPARISON: Comparison is made with prior mammogram dated 12/21/2021. FINDINGS: RIGHT Breast: The mammographic abnormality corresponds to a 2.2 cm x 1.6 cm x 1.5 cm hypoechoic spiculated heterogeneous mass in the retroareolar region with the nipple retraction. There is increased vascularity within the lesion. Biopsy recommended. US/Breast Limited Unilateral IMPRESSION: The mammographic abnormality corresponds to 2.2 cm x 1.6 cm x 1.5 cm heterogeneous complex irregular mass with retraction of the nipple and increased vascularity in the retroareolar region of the breast. Biopsy is recommended. ASSESSMENT CATEGORY: BIRADS Category 5: Highly Suggestive of Malignancy - Appropriate Action Should Be Taken. A letter regarding these results will be sent to the patient by the facility within 30 days. Electronically Signed: Dirk Esparza MD at 12:02 EDT ,
== END | disposition home or self-care (01) ==
LOC: OPUS 10:57
PROVIDERS: PCP Family Medicine; Visit Provider Surgery
DX: N63.0 Unspecified lump in unspecified breast (principal); R92.8 Other abnormal and inconclusive findings on diagnostic imaging of breast
CPT/HCPCS: 76642

== ENCOUNTER → 2021-12-28 | Outpatient (CLI) | payer MEDICARE, SELFPAY ==
--- NOTE | 2021-12-28 | BRBX_PTH ---
PATIENT: KYLIE ECHAVARRIA [facility] U#:[id number] AGE/SX: 81/F ROOM: RE12/28/[address]: Dr. Marvin Dodd MD : 1940 BED: DIS: 12/28/2021 SPEC #: [id number] RECD: 12/28/21 08:46 STATUS: WILLA REJovani #: [id number] ESTUARDO: 12/28/21 00:[address]: Marvin Dodd DEPT: SURGICAL PATHOLOGY RECD BY: Rodríguez Dickinson ENTERED: 12/28/21 08:46 SP TYPE: BREAST BX OTHR DR: Dr. Zia Alex MD Tissues: Right breast, NOS Procedures: Surgery Specimen Level IV HEADER OPERATION: Right breast biopsy PRE-OP DIAGNOSIS: Abnormal right breast ultrasound TISSUE SUBMITTED: Right breast tissue FIXATION TIME: 6.5 hours MICROSCOPIC DIAGNOSIS Right breast, ultrasound-guided core biopsy: Invasive ductal carcinoma with the following characteristics: Maximal length ? 9.5 millimeters Nuclear grade ? 1 See comment. AM:fabricio 12/29/2021 COMMENT Immunohistochemistry ([id number]) supports the above diagnosis. MICROSCOPIC DESCRIPTION Slides are reviewed. GROSS DESCRIPTION Received in fixative is one container labeled with the patient's name and designated right breast. The specimen consists of a single core of red-garnica tissue measuring 1.3 x 0.1 cm. The specimen is totally submitted in one cassette. / AM:fabricio 12/28/2021 TC:0 CPT: 88156
--- NOTE | 2021-12-28 | IMM_PTH ---
PATIENT: KYLIE ECHAVARRIA LOC: [facility] U#:[id number] AGE/SX: 81/F ROOM: RE12/28/[address]: Dr. Marvin Dodd MD : 1940 BED: DIS: 12/28/2021 SPEC #: [id number] RECD: 12/29/21 12:07 STATUS: WILLA REQ #: [id number] ESTUARDO: 12/28/21 00:[address]: Marvin Dodd DEPT: IMMUNOHISTOCHEMISTRY RECD BY: Margo Lan ENTERED: 12/29/21 12:09 SP TYPE: IMMUNO OTHR DR: Dr. Zia Alex MD Tissues: Right breast, NOS Procedures: CALPONIN-1 (add) CK5-6 (add) CK8 (add) STEINBERG-2 (add) E-CAD (add) HER2 LUKAS (add) KI-67 (add) P53 (add) NM (add) P40 (add) ER (initial) PHYSICIAN & [address] [address] SPECIMEN INFORMATION: Tissue Source: Right breast biopsy Clinical Info: Abnormal right breast ultrasound Specimen Number: [id number] CPT code: 72638, 10129 x7, 65179 x3 METHODOLOGY: Deparaffinized sections of prefer/formalin-fixed tissue or PAP/DQ stained slides are incubated with monoclonal/polyclonal antibodies/oligonucleotide probes. Localization is made via biotin free immunoperoxidase method. Appropriate controls are performed and reacted as expected. Results on target cell population are indicated in the following table: RESULTS: ANTIBODY / CLONE RESULT P53 (DO-7) negative Ki-67 (30-9) positive, 75% CK8 (69wybcX14) positive CK5-6 (D5 & 1684) negative Calponin-1 (TY347H) negative P40 (BC28) negative E-Cad (ECH-6) positive STEINBERG-2 (SP21) positive MORPHOMETRIC ANALYSIS ER (clone 6F11) >90%, strong intensity NM (clone 16/1E2) 2% Her-2Neu (clone CB11) 0 The prognostic test for HER2 is performed on formalin-fixed paraffin embedded tissue. A 3+ (positive) staining pattern is defined as intense, homogeneous, complete, circumferential membranous staining in >10% of contiguous tumor cells. A similar weak (2+) staining pattern is interpreted as equivocal. JAVIER follow-up testing is recommended for all equivocal cases. Positivity/negativity for ER/NM is reported if > or < 1% of the tumor cells are immuno- reactive, respectively. The ASCO/CAP criteria is used for scoring. Reference: Journal of Clinical Oncology, 2013; 31:4559-9341 & 2010; 16:6488-7411. Duration of fixation: 6.5 Hrs; Sample Adequate: Yes. These assays have not been validated on decalcified tissues. Results should be interpreted with caution given the likelihood of false negativity on decalcified specimens. These tests were developed and their performance characteristics determined by [facility]. They may not have been cleared or approved by the U.S. Food and Drug Administration. The FDA has determined that such clearance or approval is not necessary. The above immunohistochemical/dualISH markers are ordered and reviewed by the Pathologist. INTERPRETATION: Right breast, core biopsy: Invasive ductal carcinoma, nuclear grade I. Positive for estrogen receptors (favorable prognostic indicator). Positive for progesterone receptors (favorable prognostic indicator). Negative for overexpression of RCW6hff. AM:fabricio 12/30/2021
== END | disposition home or self-care (01) ==
PROVIDERS: PCP Family Medicine; Visit Provider Surgery
DX: C50.911 Malignant neoplasm of unspecified site of right female breast (principal)
CPT/HCPCS: 88305; 88341; 88342

== ENCOUNTER → 2022-01-05 | Outpatient (CLI) | payer MEDICARE, SELFPAY ==
--- NOTE | 2022-01-05 08:08 | BD_ITS ---
STUDY: DUAL ENERGY X-RAY ABSORPTIOMETRY / DXA REASON FOR EXAM: Female, 81 years old. SCREENING TECHNIQUE: Bone Mineral Density (BMD) measurements of lumbar spine and left hip were obtained. COMPARISON: Comparison is made with prior study dated 04/19/2011. FINDINGS: Lumbar Spine (L1-L4): g/cm2 (0.819) / T-score (-1.5) / Z-score (1.1) Findings are suggestive of osteopenia with a low fracture risk. Left Femur Total: g/cm2 (0.747) / T-score (-1.6) / Z-score (0.5) Left Femoral Neck: g/cm2 (0.633) / T-score (-1.9) / Z-score (0.4) The T-Scores on the most recent prior examination were: Lumbar Spine (L1-L4): There has been improvement of bone density since the previous examination. Left Femur Total: which represents a worsening of 6.7%. BD/Dexa Bone Density Study IMPRESSION: The patient is considered osteopenic as outlined below according to World [place]int[place] Organization (WHO) criteria with a moderate fracture risk. There has been worsening of bone density since the previous examination. Reference Information: The T-score is the number of standard deviations above or below the standard which is normal for young adults at their peak bone mineral density. The World Health Organization (WHO) interprets the T-scores as follows: Above -1 Normal bone density Between -1 and -2.5 Osteopenia Equal to / or below -2.5 Osteoporosis As a practical clinical guideline, osteopenia may be graded as follows: Mild -1 through -1.5 Moderate -1.6 through -2.0 Severe -2.1 through -2.4 The Z-score is the number of standard deviations above or below age-matched controls. A Z-score of less than -1.5 would be considered abnormal. References: 1. NIH Osteoporosis and Related Bone Diseases www osteo.org 2. International Society for Clinical Densitometry www iscd.org 3. National Osteoporosis Foundation www nof.org Electronically Signed: Dirk Esparza MD at 10:21 EDT ,
== END | disposition home or self-care (01) ==
PROVIDERS: PCP Family Medicine; Visit Provider Internal Medicine Medical Oncology
DX: C50.919 Malignant neoplasm of unspecified site of unspecified female breast (principal); Z13.820 Encounter for screening for osteoporosis; Z78.0 Asymptomatic menopausal state
CPT/HCPCS: 36415; 77080; 80053; 83615; 85025

== ENCOUNTER → 2022-01-06 | Outpatient (CLI) | payer MEDICARE, SELFPAY ==
--- NOTE | 2022-01-06 16:22 | CT_ITS ---
STUDY: CT CHEST, ABDOMEN T PELVIS WITH CONTRAST REASON FOR EXAM: Female, 81 years old. Staging breast ca RADIATION DOSAGE (If Supplied By Facility): CTDIvol = ( 17.85 ) mGy, DLP = ( 1683.47 ) mGycm TECHNIQUE: Transaxial imaging was performed following intravenous administration of IV 100mL Isovue-300. Individualized dose optimization techniques were used for this CT. COMPARISON: No relevant priors. FINDINGS: CHEST There is a 3.3 cm x 2.3 cm mass in the retroareolar region of the right breast. A tissue clip marker is seen within it. There is a 9.2 mm hypodensity in the anterior aspect of the right lobe of liver as well as a subcentimeter hypodensity in the lateral aspect of the midpole. Mild degree of increased interstitial markings at the lung bases suggests a mild degree of scarring. There is no demonstrated pleural abnormality. There are calcifications of the coronary arteries. Normal mediastinum. Normal hilar regions. Normal unenhanced pulmonary arteries. Atherosclerotic plaque formation of the aortic arch. There are multi-level degenerative changes of the thoracic spine. There is no demonstrated abnormality of the visualized upper abdomen. ABDOMEN Mild linear scarring at the lung bases. Coronary artery calcification. Normal liver. Normal gallbladder and extrahepatic biliary system. Normal spleen. Normal pancreas. Normal bilateral adrenal glands. Small bilateral parapelvic cysts. There is a small hiatal hernia. Normal small intestine. There are scattered colonic diverticula consistent with diverticulosis. The appendix is visualized and appears normal. There is diffuse atherosclerotic calcification of the abdominal aorta, without a demonstrated aneurysm. Normal inferior vena cava. Normal retroperitoneum. Normal abdominal wall. There are diffuse degenerative changes of the visualized lumbar spine. PELVIS Normal urinary bladder. There is no pelvic fluid. There is no pelvic lymphadenopathy or mass lesion. There is diffuse atherosclerotic calcification of the pelvic arteries. CT/CT Chest, Abd, Pel w/Contrast IMPRESSION: 3.3 cm x 2.3 cm right retroareolar breast mass. Small bilateral parapelvic renal cysts. Scattered sigmoid diverticula. Electronically Signed: Dirk Esparza MD at 8:42 EDT ,
[2022-01-06 16:55] LABS: CREATININE FINGERSTICK < 0.9 mg/dL (0.55-1.02); EGFR FINGERSTICK > 60.0000 mL/min (>60)
== END | disposition home or self-care (01) ==
LOC: CT 16:21
PROVIDERS: PCP Family Medicine; Referring Provider Internal Medicine Medical Oncology; Visit Provider Internal Medicine Medical Oncology
DX: C50.111 Malignant neoplasm of central portion of right female breast (principal)
CPT/HCPCS: 71260; 74177; Q9967

== ENCOUNTER → 2022-01-11 | Outpatient (CLI) | payer MEDICARE, SELFPAY ==
--- NOTE | 2022-01-11 08:04 | NM_ITS ---
CLINICAL: 81-year-old female with history of carcinoma of the breast. WHOLE BODY 99m Tc MDP RADIONUCLIDE BONE SCINTIGRAPHY COMPARISON: Limited bone scan report 08/20/2020 FINDINGS: Following the intravenous administration of 25.1 mCi of 99m Tc MDP, whole body bone images reveal: 1. Increased radiopharmaceutical concentration is identified in the third-fifth lumbar vertebra, the left sacroiliac joint, the acromioclavicular, sternoclavicular and glenohumeral compartments of both shoulders, the bilateral mid and forefoot, the patellofemoral compartment of the right knee. 2. Enhanced radiopharmaceutical concentration is identified in the medial, lateral femoral and proximal and distal tibial components of the right knee arthroplasty, the medial component of the left knee hemiarthroplasty. 3. The remaining skeletal structures are with normal-appearing renal images and urinary bladder activity identified. NM/Bone Scan Whole Body IMPRESSION: 1. The increase in tracer concentration identified in the lumbar spine, bilateral shoulders, the left sacroiliac joint, the mid and forefoot bilaterally and patellofemoral compartment of the right knee is most consistent with degenerative arthritis. 2. Increased uptake identified in the femoral and tibial components of the right knee arthroplasty and medial component of the left knee hemiarthroplasty are most consistent with normal postsurgical change in the absence of pain and discomfort. If an infectious etiology is a diagnostic consideration, correlation with labeled leukocyte imaging is recommended. 3. Compared to the limited bone scintigraphy study dated 08/20/2020, there is interim performance of a right knee total arthroplasty demonstrate increased uptake in the tibial component and unchanged increased activity in the left knee hemiarthroplasty. Electronically Signed: Bill Hammond, at 14:58 EDT ,
== END | disposition home or self-care (01) ==
PROVIDERS: PCP Family Medicine; Referring Provider Internal Medicine Medical Oncology; Visit Provider Internal Medicine Medical Oncology
DX: C50.111 Malignant neoplasm of central portion of right female breast (principal)
CPT/HCPCS: 78306; A9503

== ENCOUNTER 2022-01-13 15:23 | Observation (INO) | payer MEDICARE, SELFPAY ==
--- NOTE | 2022-01-11 10:53 | EKG12_ITS ---
Test Reason : PREOP Blood Pressure : / mmHG Vent. Rate : 090 BPM Atrial Rate : 090 BPM P-R Int : 184 ms QRS Dur : 074 ms QT Int : 350 ms P-R-T Axes : 086 020 036 degrees QTc Int : 428 ms Normal sinus rhythm Normal ECG Confirmed by DOM LARRY, BRENDON ([id number]), script editor CODY LEWIS ([id number]) on 01/12/2022 9:11:54 AM Referred By: Marvin Dodd Confirmed By:BRENDON FERNANDES MD
--- NOTE | 2022-01-11 10:54 | RAD_ITS ---
INDICATION: PREOP EXAMINATION/TECHNIQUE: X-RAY - XR Chest 2 Views COMPARISON: None. FINDINGS: LINES/DEVICES: None. LUNGS: No consolidation, edema or effusion. No pneumothorax. MEDIASTINUM AND CARDIOVASCULAR STRUCTURES: Cardiac silhouette not enlarged. Central airways and mediastinal contour are unremarkable. BONES AND SOFT TISSUES: Unremarkable. RAD/Chest PA and Lateral IMPRESSION: No radiographic evidence of acute cardiopulmonary disease. Electronically Signed: Gato Blake MD at 12:55 EDT ,
[2022-01-13] VITALS (9 sets, daily range): BP systolic 140–159; BP diastolic 66–83; PULSE 72–88; RESP 16–18; TEMP 35.9–37.1; O2SAT 93–100; BMI 29.4
--- NOTE | 2022-01-13 | AXNB_PTH ---
PATIENT: KYLIE ECHAVARRIA LOC: [facility] U#:[id number] AGE/SX: 81/F [place] [facility] [place]: Dr. Marvin Dodd MD : 1940 BED: 1 DIS: 01/14/2022 SPEC #: [id number] RECD: 01/13/22 13:12 STATUS: WILLA PRATTJovani #: [id number] ESTUARDO: 01/13/22 00:[address]: Marvin Dodd DEPT: SURGICAL PATHOLOGY RECD BY: Margo Lan ENTERED: 01/13/22 13:58 SP TYPE: AX NODE BX OTHR DR: Dr. Zia Alex MD Tissues: A - Axillary lymph node, NOS B - Right breast, NOS Procedures: Frozen Section (charge) Frozen Section Add'l ([facility]) Surgery Specimen Level V Surgery Specimen Level HEADER OPERATION: Mastectomy with sentinel lymph node biopsy, radiotracer PRE-OP DIAGNOSIS: Lump of right breast TISSUE SUBMITTED: A - Right axillary sentinel lymph node, FS, B ? Right breast, additional sentinel lymph node marked with double silk suture attached to specimen, single silk suture morales apex of axillary lymph node dissection FROZEN SECTION DIAGNOSIS A. Right axillary sentinel lymph node, biopsy: One lymph node, positive for metastatic carcinoma. SJ:fabricio 01/13/2022 Case has been reviewed in consultation with Dr. Deras who concurs with the above diagnosis. IDC:AM MICROSCOPIC DIAGNOSIS A. Right axillary sentinel lymph node, biopsy: One lymph node, positive for macrometastatic carcinoma. See comment. B. Right breast, radical mastectomy: Invasive ductal carcinoma. Five lymph nodes positive for macrtometastatic carcinoma, one lymph node positive for micrometastatic carcinoma and one lymph node positive for isolated tumor cells out of 21 lymph nodes. See cancer summary in the comment section. :fabricio 01/18/2022 COMMENT A. The metastatic focus measures 1.6 cm in greatest dimension (measured microscopically). Focal necrosis is also noted. Focal extranodal extension is noted measuring 0.3 cm in greatest dimension. B. The additional sentinel lymph node is also positive for metastatic carcinoma and the metastatic focus measures 1 cm in greatest dimension. Focal extranodal extension s also noted measuring 0.4 x 0.3 cm (measured microscopically). Please also see immunohistochemistry report ([id number]). INVASIVE BREAST CANCER SUMMARY: Procedure ? radical mastectomy Specimen laterality - right Tumor: Site ? central Size ? 3.5 x 2.5 x 2.5 cm Histologic type - invasive ductal carcinoma, not otherwise specified. Histologic Grade ([place] grade): Glandular/tubular differentiation - score 2 Nuclear pleomorphism - score 1 Mitotic count ? score 1 Overall grade - 1 (score of 4) Focality - single focus of invasive carcinoma. Ductal carcinoma in situ ? not identified Lobular carcinoma in situ (LCIS) ? not identified Tumor extension: Skin ? present, invasive carcinoma directly invades into the dermis without skin ulceration in the area of nipple areolar complex. Nipple ? ductal carcinoma in situ does not involve nipple epidermis. Skeletal muscle ? no skeletal muscle is present. Margins: Invasive carcinoma margin ? uninvolved by invasive carcinoma. Distance from closest margin - Invasive carcinoma is 4.0 cm away closest posterior margin. Regional lymph nodes: Number of lymph nodes examined ? 22 Number of sentinel lymph nodes examined - 2 Number of lymph nodes with macrometastases ? 6 (including 2 sentinel lymph nodes, specimens A & B) Number of lymph nodes with micrometastases ? 1 Number of lymph nodes with isolated tumor cells ? 1 Size of largest metastatic deposit ? 1.6 cm Extranodal extension ? present Extent of extranodal extension ? 0.4 x 0.3 cm. Distant metastasis ? not applicable Additional pathologic findings ? focal minimal fibrocystic changes. Ancillary studies - previously performed ([id number] / [id number]). ER ? positive (>95%, strong intensity) IA ? positive (2%) Her2 deb ? negative (0) Microcalcifications ? not identified Clinical history - Please make reference to previous specimen ([id number]) right breast, ultrasound-guided core biopsy with diagnosis of invasive ductal carcinoma. Radiologic findings ? abnormal right breast ultrasound. PATHOLOGIC STAGE: pT2 pN2a pMx The above summary is in compliance with [employer] [place] [employer] [employer] (CAP) Cancer Protocols Checklist and [place] Joint Committee on Cancer (AJCC), Staging Manual, 8th Ed. Case has been reviewed in consultation with Dr. Deras who concurs with the above diagnosis. IDC:AM MICROSCOPIC DESCRIPTION Slides are reviewed. GROSS DESCRIPTION A - Received fresh for frozen section diagnosis labeled with the patient's name is a specimen designated sentinel lymph node. The specimen consists of three pieces of adipose tissue measuring in aggregate 8.5 x 5.5 x 2 cm. One lymph node is identified measuring 3 cm in greatest dimension. Cell[employer]per sections are submitted in four cassettes as follows: 1-3 - one serially sectioned lymph node, FS, 4??fibrous tissue. / SJ:rg 01/13/2022 B - Received in fixative is one container labeled with the patient's name and designated right breast. The specimen consists of a radical mastectomy with attached axillary fat tail. A sentinel lymph node is identified by a suture. The breast specimen measures 23 x 14 x 7 cm and weighs 832 gm. The axillary fat tail measures 25 x 4 x 2 cm. An ellipse of pink-garnica skin is present on the anterior surface measuring 19.5 x 12 cm. The nipple and areola are indurated and firm in appearance. The area of induration in this region measures 3.3 x 1.5 cm. The specimen is differentially inked as follows: posterior - black, superior - blue, inferior - green. The specimen is serially sectioned to reveal a firm, egv-qbom-fuiqm mass in the subareolar region measuring 3.5 x 2.5 x 2.5 cm. The tumor is 4.0 cm away from closest posterior margin. The remainder of the breast parenchyma is garnica-yellow with occasional fibrous streaks. No other mass lesions are identified. The central lymph node at suture is?identified. Cell[employer] Helper sections are submitted in 18 cassettes as follows: 1 - nipple and areola, 2??perpendicular superior, inferior and posterior margins, 3 - perpendicular medial margin, 4??perpendicular lateral margin, 5-7 - tumor, 8-10 - credit representative sections of uninvolved breast parenchyma adjacent to and away from tumor, 12 - central lymph node identified by suture, 13-18 - nodule from axillary fat pad as follows: 13 - multiple nodules, 14?- multiple nodules, 15 - multiple nodules, 16 - multiple nodules, 17 - multiple nodules, 18 - one possible nodule. Note, sections will be submitted after additional fixation. / AM:fabricio 01/14/2022 TC:0 CPT: 32889, 31419, 17090, [id number]
--- NOTE | 2022-01-13 | IMM_PTH ---
PATIENT: KYLIE ECHAVARRIA LOC: MS3 U#:[id number] AGE/SX: 81/F ROOM: MS307 RE01/13/[address]: Dr. Marvin Dodd MD : 1940 BED: 1 DIS: 01/14/2022 SPEC #: [id number] RECD: 01/18/22 12:31 STATUS: WILLA RIANNA #: [id number] ESTUARDO: 01/13/22 00:[address]: Marvin Dodd DEPT: IMMUNOHISTOCHEMISTRY RECD BY: Margo Lan ENTERED: 01/18/22 12:32 SP TYPE: IMMUNO OTHR DR: Dr. Zia Alex MD Tissues: B - Right breast, NOS Procedures: CK7 (add) CK8 (add) Pankeratin (initial) Pankeratin (add) PHYSICIAN & INSTITUTION [place] [id number] SPECIMEN INFORMATION: Tissue Source: B ? Right breast Clinical Info: Right breast lump Specimen Number: [id number] B13, B15-B18 CPT code: 47185, 33639 x12 METHODOLOGY: Deparaffinized sections of prefer/formalin-fixed tissue or PAP/DQ stained slides are incubated with monoclonal/polyclonal antibodies/oligonucleotide probes. Localization is made via biotin free immunoperoxidase method. Appropriate controls are performed and reacted as expected. Results on target cell population are indicated in the following table: RESULTS: ANTIBODY / CLONE RESULT Block B13 AE1-3 (AE1/AE3/PCK26) positive (micrometastasis) CK7 (OV-TL12/30) positive, rare cells CK8 ([id number]) positive (micrometastasis) Block B15 AE1-3 (AE1/AE3/PCK26) negative CK7 (OV-TL12/30) negative Block B16 AE1-3 (AE1/AE3/PCK26) negative CK7 (OV-TL12/30) negative Block B17 AE1-3 (AE1/AE3/PCK26) positive (isolated tumor cells) CK7 (OV-TL12/30) negative CK8 ([id number]) positive (isolated tumor cells) Block B18 AE1-3 (AE1/AE3/PCK26) negative CK7 (OV-TL12/30) negative CK8 ([id number]) negative These tests were developed and their performance characteristics determined by [facility]. They may not have been cleared or approved by the U.S. Food and Drug Administration. The FDA has determined that such clearance or approval is not necessary. The above immunohistochemical/dualISH markers are ordered and reviewed by the Pathologist. INTERPRETATION: Right breast, radical mastectomy: One lymph node positive for micrometastasis and one lymph nodes positive for isolated tumor cells out of 16 lymph nodes. SJ:fabricio 01/19/2022 Case has been reviewed in consultation with Dr. Deras who concurs with the above diagnosis. IDC:AM
[2022-01-13] MEDS: Lactated Ringers 1,000 ML 15 ML IV (09:18)
--- NOTE | 2022-01-13 09:30 | NM_ITS ---
STUDY: NM Injection Procedure. DATE OF EXAM: 01/13/2022. CLINICAL INDICATION: ] Breast cancer. COMPARISON: Comparison is made to previous films from RADIOPHARMACEUTICAL: 1.1 mCi FINDINGS: The procedure, risks, alternatives and complications were explained to the patient and informed consent was obtained. The patient was placed supine on the table. Physical examination of the right breast was performed and the mass was delineated after which the periareolar region was prepped and draped in the usual sterile manner. The TECHNETIUM radiopharmaceutical loaded in 4 different syringes was then injected subcutaneously in the periareolar tissues at 12, 3, 6 and 9 o''clock positions with no immediate complications. . Sterile dressing was placed. The patient tolerated the procedure well with no immediate complications. NM/Lymph Node Injection Only IMPRESSION: Periareolar injection for Adams lymph node biopsy. Electronically Signed: Gato Blake MD at 11:34 EDT ,
--- NOTE | 2022-01-13 09:55 | HP.PCM_ITS ---
History and Physical Date of Admission: 01/13/22 Dental Practitioner Required: No Is patient in pain?: No Allergies No Known Allergies Allergy (Verified 12/30/21 14:27) Medications ergocalciferol (vitamin D2) 1,250 mcg (50,000 unit) capsule PO 12/28/21 [History Confirmed 12/30/21] ropinirole 5 mg tablet 5 mg PO QHS 12/28/21 [History Confirmed 12/30/21] PFSH Surgical History? History of colonoscopy (~09/2020) History of total right knee replacement Family History? Father Diabetes Kidney disease Social History? Smoking Status:? Never smoker HPI HPI HPI: KYLIE ECHAVARRIA, is a 81 F who presents to the office today for surgical follow-up of an ultrasound-guided needle core right retroareolar breast biopsy that I performed for her on December 28, 2021. 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 Progesterone receptor only 2%.? HER2/deb is 0. My notes from December 28 2021 reflect the following Visit Reasons:?R BREAST BIRADS 5 Chief Complaint: right breast biopsy Dental Practitioner Required: No Is patient in pain?: No Allergies No Known Allergies Allergy (Verified 12/28/21 07:04) Medications ergocalciferol (vitamin D2) 1,250 mcg (50,000 unit) capsule PO 12/28/21 [History Confirmed 12/28/21] ropinirole 5 mg tablet 5 mg PO QHS 12/28/21 [History Confirmed 12/28/21] Is last menstrual period known: No Post menopausal: Yes Patient : No PFSH Surgical History?(Updated 12/28/21 @ 07:03 by Patricia Berkowitz) History of colonoscopy (~09/2020) History of total right knee replacement Family History?(Updated 12/28/21 @ 07:03 by Patricia Berkowitz) Father Diabetes Kidney disease Social History Smoking Status:? Never smoker HPI HPI HPI: KYLIE ECHAVARRIA, is a 81 F who presents to the office today for consultation regarding an abnormal right breast mammogram and right breast mass.? The patient is referred by Dr. Zia Alex and a written copy of my surgical consult recommendations will be returned to him.? The patient had immunologic's testing there was no monoclonal protein identified.? On December 21, 2021 at the [facility] she had bilateral screening mammography.? There was a 3 x 2.8 cm spiculated nodule retroareolar right breast with retraction of the areolar complex.? BI-RADS Category 5.Ultrasound was performed December 27, 2021.? This demonstrates a 2.2 x 1.6 x 1.5 cm hypoechoic spiculated heterogenous mass in the retroareolar area of the right breast with nipple retraction.? Biopsy recommended BI-RADS Category 5.? Her previously obtained mammogram was April 19, 2011. 81-year-old female.? G3, .? Menarche at age 14.? First child born when she was 20.? She did not breast-feed.? No previous breast biopsies.? Not been on any estrogen replacement therapy 3.? Family history negative for breast cancer but positive with the daughter had ovarian cancer. Patient literally just couple weeks ago noticed tenderness of the right breast.? She then obtained the right breast mammogram and ultrasound as noted above.? She is not seek medical attention very often and it is apparent from above that her previous mammogram was 2010. She otherwise states that she enjoys good health.? She denies chest pain or shortness of breath no unexpected weight loss. She has not had a recent colonoscopy ROS General General: No weight change, appetite, fatigue, colon cancer, breast cancer or weakness HEENT HEENT: No difficulty swallowing, eye injury, eye surgery, swollen glands or hoarseness Endo Endocrine: No thyroid disease, diabetes mellitus, thyroid cancer, Hair loss, heat intolerance or cold intolerance Breast Breast: Yes right breast lump, abnormal mammogram and abnormal US; No left breast lump, nipple discharge, breast pain or breast enlargement Musc Musculoskeletal: No back problems, arthritis, rheumatoid arthritis, gout or joint pain Cardio Cardiovascular: No murmur, pacemaker, heart disease, atrial fibrillation, high blood pressure, heart attack, heart stent, palpitations, shortness of breat with exertion or chest pain Psych Psychiatric: No depression, anxiety or hearing voices Resp Respiratory: No shortness of breath, No sleep apnea, No cough, No COPD, No asthma, No emphysema and No wheezing Gastro Gastrointestinal: No abdominal pain, No nausea or vomiting, No diarrhea, No constipation, No blood in stool, No acid reflux, No hemorrhoids, No ulcers, No gallbladder problem and No black,tarry stools Thierry Hematologic: No blood thinners, No blood disorders, No bleeding, No anemia and No blood clots Neuro Neurologic: No weakness Exam Const General: cooperative, healthy appearing, comfortable and no acute distress Nutritional Appearance: overweight Orientation: alert, awake and oriented x3 HENMT Head: normal to inspection Eyes General: appearance normal, both eyes and all related structures Neck Neck: normal visual inspection Carotids: normal carotid upstroke and no bruits Chest Other: Right breast: Retraction the nipple involvement of the nipple areolar complex with a firm mass, the remainder of the outer aspect of the breast unremarkable.? I am absolutely unable to palpate right axillary or clavicular lymph nodes Left breast: No focal mass, no nipple discharge, no axillary clavicular adenopathy Resp Effort & Inspection: normal respiratory effort Auscultation: clear to auscultation bilaterally Cardio Rate: regular rate Rhythm: regular rhythm GI Inspection: normal to inspection Other: Soft, nontender, no hepatosplenomegaly Musc Cervical Spine: normal cervical lordosis Skin General: no rashes or lesions noted Neuro General: patient alert, patient awake and patient oriented x3 Extrem General: normal to inspection and no calf tenderness bilaterally Psych Appearance: grossly normal Office Procedures Biopsy Provider Documentation Ultrasound-guided needle core right breast retroareolar biopsy Timeout and informed consent was obtained.? The patient taken the procedure room placed supine the table.? A right shoulder roll was placed.? The right breast was sterilely prepped and draped.? 1% lidocaine mixed 50-50 with 0.5% Marcaine was used as local anesthetic.? 5 cc was used.? A small stab incision was made at 9:00 14-gauge Monopty needle was advanced under ultrasound guidance single core was obtained.? The core appeared to be solid throughout.? A marking clip was left in position.? Pressure was held for hemostasis.? Steri-Strip Telfa OpSite dressing applied.? She was given activity wound care instructions.? The specimen was immediately submitted in formalin for analysis. Marvin Dodd M.D., F.A.C.S. Biopsy Breast Biopsy: [id number] US Guidance Procedure Time Out Time Out Informed consent given: Yes Consent signed: Yes Time out checklist: patient, procedure, site marked/identified, positioning of patient, supplies available, allergies confirmed and team agrees on procedure Time out staff in room: Yes Time out verified: Yes Time out date: 12/28/21 Time out time: 07:07 Assessment and Plan Assessment and Plan (1) Lump of right breast: ?Status:?Acute ?Plan: 81-year-old female with findings highly suspicious for right retroareolar breast cancer with involvement of the nipple areolar complex. We had a brief discussion comparing contrasting breast conservation surgery and mastectomy.? The patient is leaning toward mastectomy with sentinel lymph node biopsy. I will want to involve hematology oncology preprocedure.? She has had previous experience with Dr Kemp and requests the same. She has had an opportunity ask and have questions answered.? We will scheduled return to the office to help confirm surgical technique.? We will obtain the hematology oncology consultation.? I very much appreciate the opportunity of assisting with her surgical care.? She otherwise appears to be a good surgical candidate. Copy: Dr. Zia Dodd M.D., F.A.C.S. ROS General General: No weight change, appetite, fatigue, colon cancer, breast cancer or weakness HEENT HEENT: No difficulty swallowing, eye injury, eye surgery, swollen glands or h oarseness Endo Endocrine: No thyroid disease, diabetes mellitus, thyroid cancer, Hair loss, heat intolerance or cold intolerance Breast Breast: Yes right breast lump, abnormal mammogram and abnormal US; No left breast lump, nipple discharge, breast pain or breast enlargement Musc Musculoskeletal: No back problems, arthritis, rheumatoid arthritis, gout or joint pain Cardio Cardiovascular: No murmur, pacemaker, heart disease, atrial fibrillation, high blood pressure, heart attack, heart stent, palpitations, shortness of breat with exertion or chest pain Psych Psychiatric: No depression, anxiety or hearing voices Resp Respiratory: No shortness of breath, No sleep apnea, No cough, No COPD, No asthma, No emphysema and No wheezing Gastro Gastrointestinal: No abdominal pain, No nausea or vomiting, No diarrhea, No constipation, No blood in stool, No acid reflux, No hemorrhoids, No ulcers, No gallbladder problem and No black,tarry stools Thierry Hematologic: No blood thinners, No blood disorders, No bleeding, No anemia and No blood clots Neuro Neurologic: No weakness Assessment and Plan Assessment and Plan (1) Breast cancer: ?Status:?Acute ?Plan: With the patient's daughter present we discussed treatment options.? The patient has a at least 2.2 cm diameter invasive ductal carcinoma involving the areolar tissue with retraction of the nipple.? I have discussed with her the potential for breast conservation treatment surgery but that would require a transverse elliptical excision that would remove the nipple and areola and a significant mount of breast tissue.? I compared and contrasted that to a right total mastectomy.? We discussed nuclear tracer and blue dye sentinel lymph node biopsy as well as conversion to a level 1 and 2 axillary lymph node dissection if indicated.? The patient obviously is very much interested in her stage and is interested in whether there is any metastatic disease.? Clinically I am not detecting anything in her right axilla. At the completion of discussion I recommended the patient that we obtain a bilateral breast MRI.? I recommend to her that we obtain consultation from Dr. Gordon Kemp and she concurs.? She has decided however that she would like to have a right total mastectomy.? This would be done in conjunction with nuclear tracer and blue dye right axillary sentinel lymph node biopsy with axillary lymph node dissection if indicated.? She is aware of the technique, benefit, risk, alternatives.? We will obtain MRI in consultation preoperatively however. I appreciate the ongoing opportunity of assisting with her surgical care Copy: Dr. Zia Alex and Dr. Gordon Dodd M.D., F.A.C.S. I have re-examined the patient. There are no clinical changes since date of exam. Marvin Dodd M.D., F.A.C.S.
--- NOTE | 2022-01-13 11:55 | DCINST_ITS ---
Discharge Instructions Procedure Breast Surgery Diet Discharge Diet: No restrictions Activity Discharge Activity: May Not Drive (for 2-3 days or while taking narcotic pain meds.) and May Not Shower May shower in (days): 1 Lifting Restrictions: 10 pounds for 1 week. Dressing / Incision Call your doctor if your incision/area has: Continuous Slow Oozing and Sudden Increased Bleeding Call your doctor if you observe: Fever of 101 or Higher Suture Line Care: Avoid Pulling/Pushing and Avoid Pinching/Bending Remove Dressing in: 1 day Additional Dressing/Incision Instructions:: Please remove your dressings daily. Drain sites should be cleansed with a Q-tip and peroxide at the site. Apply dry gauze and tape back to the drain site and dry gauze to simply gently protect the incision. Reapply the elastic bias ply wrap. Follow Up Care Please Follow Up With: Marvin Dodd MD When: Wednesday 01/17; please call [phone] for appt. Please call also 1 hour prior to appt to notify us of amount of drain output Test Results: Test results from this visit will be discussed in further detail at your follow- up appointment, if applicable. Discharge Plan Admission Admit Date/Time: 01/13/22 15:23 Primary Reason for Your Visit: Right breast cancer Attending Provider: Marvin Dodd Primary Care Provider: Zia Alex Discharge Orders/Prescriptions Prescriptions: New hydrocodone-acetaminophen 5-325 mg tablet 1 tab PO Q6H PRN (Reason: pain) 2 Days Qty: 5 0RF Continued ergocalciferol (vitamin D2) 1,250 mcg (50,000 unit) capsule 50,000 unit PO QWEEK ropinirole 5 mg tablet 5 mg PO QHS Rx Instructions: administer 1-3 hours before bedtime multivitamin Tablet 1 tab PO DAILY Held omega-3 fatty acids Capsule 1,000 mg PO DAILY Hold Instructions: Resume on 02/05/22. Referrals / Follow Up: Zia Alex MD [Primary Care Provider] - Disposition Disposition (needs filled in before D/C Order can be placed): Home, Self Care
[2022-01-13] MEDS: Cefazolin 2 GM in 0.9% Normal Saline 100 ML IV (12:05)
[2022-01-13] MEDS: Isosulfan Blue 1% 5 ML Vial (12:20)
--- NOTE | 2022-01-13 15:02 | OP.PCM_ITS ---
Report of Operation Date of Procedure: 01/13/22 Pre-Operative Diagnosis: Invasive ductal carcinoma right breast retroareolar 11 o'clock position Post-Operative Diagnosis: This is Dr. Carcinoma right breast retroareolar 11 o'clock position with positive sentinel lymph node metastasis Surgery/Procedure Performed:: Right axillary blue dye and nuclear tracer sentinel lymph node biopsy with subsequent conversion of right total mastectomy to a right modified radical mastectomy including level 1 and level 2 axillary lymph node dissection Description of Surgical Findings:: Timeout informed consent was obtained. 81-year-old female was taken to the operating room placed supine on the table underwent general anesthesia the right arm was carefully wrapped with soft roll and placed at right angles to the table she had already had nuclear tracer injected the right breast was prepped with alcohol and then 2 and half cc of isosulfan blue dye was injected. Massage was performed for 3 minutes. The right breast and axilla were sterilely prepped and draped. A transverse elliptical excision was drawn out and then the superior flap was created using sharp and electrocautery dissection. This allowed access then to the axilla and using both blue dye and neoprobe nuclear tracer a sentinel node was identified it was dissected free and sent immediately for frozen section. By palpation there appeared to be a secondary sentinel node but it this point in the procedure we have received notification that the first sentinel node was positive. Therefore a level 1 level 2 axillary lymph node dissection was felt to be warranted. A double-ended silk suture was placed to estrella the secondary sentinel node which was left in the lymph node packet to be taken out en bloc. Superior and inferior flaps had been created while awaiting for the frozen section. The breast tissue was taken off the pectoralis major taking the pectoralis fascia with the specimen. Having dissected now over to the right chest I would like to do a level 1 2 axillary lymph node dissection. The axillary vein and subscapularis and serratus anterior chest wall and latissimus dorsi were used as margins. The tissue within these margins were dissected free with blunt sharp and electrocautery dissection. Generous use of hemostatic clips were used for hemostasis. The thoracodorsal nerve was clearly identified and protected. Long thoracic nerve of Camacho identified and protected. The dissection was then inserted from superior to inferior. Unfortunately a branch of the intercostal brachial cutaneous nerve to the upper arm had to be sacrificed due to involvement. The more inferior branch was preserved and dissected free to upper arm. Then swept the tissue from the posterior attachments with ongoing sharp dissection careful electrocautery dissection and generous use of hemoclips. The tissue was excised en bloc with the breast specimen. A single silk suture was placed at the apex of the axillary dissection. There was felt to be an additional firm palpable node within this packet of material. The chest wall was irrigated with sterile water. Hemostasis was assured with electrocautery. Because of the dissection in the right axilla I did place Flose al high in the right axillary area. I exited 2 LAUREANO drains through stab incisions inferior to the lower flap in a lateral position. I secured this to the skin with 3-0 nylon. The axillary drain was cut to the and shortened. The medial drain was placed to the inferior and superior flaps. I then used 3-0 Vicryl in a pleating technique to try to pleat both the superior and inferior skin flaps to the chest wall. The subdermal tissues were approximated with the same as the skin edges were approximated. Skin edges appear to be nicely viable. Good approximation was achieved. There was not felt to be any undue tension. Skin prep Steri-Strips Telfa 4 x 4's ABDs and then bias ply wrap was applied. Sponge and instrument and needle counts were reported to certainly be correct. Specimen included right axillary sentinel lymph node followed by right modified radical mastectomy specimen including level 1 and level 2 lymph nodes excised en bloc. Drains included to 15 round LAUREANO drains 1 to the chest wall and 1 to the axilla The patient was taken to recovery room in satisfactory edition apparent complication Synoptic Portion: Element Response Options Operation performed with curative intent. Yes Tracer(s) used to identify sentinel nodes in the upfront surgery (non- neoadjuvant) setting (select all that apply). Dye and radioactive tracer Tracer(s) used to identify sentinel nodes in the neoadjuvant setting (select all that apply). Not applicable All nodes (colored or non-colored) present at the end of a dye-filled lymphatic channel were removed. Yes All significantly radioactive nodes were removed. Yes All palpably suspicious nodes were removed. He has Biopsy-proven positive nodes marked with clips prior to chemotherapy were identified and removed. Not applicable Synoptic Portion: Element Response Options Operation performed with curative intent. Yes Resection was performed within the boundaries of the axillary vein, chest wall (serratus anterior), and latissimus dorsi. Yes Nerves identified and preserved during dissection (select all that apply) long thoracic nerve of Camacho and thoracodorsal nerve and branches of the intercostal brachial cutaneous nerve as dictated Level III nodes were removed. No Surgeon: Marvin Dodd Type of Anesthesia: General Anesthesiologist: Jose Rafael Ding
[2022-01-13] MEDS: Pramipexole Di-HCl 0.5 MG Tablet 1.5 MG PO (20:57)
[2022-01-14 00:44] VITALS: BMI 29.4
[2022-01-14 03:04] VITALS: BP 128/53; PULSE 74; RESP 16; TEMP 37.1; O2SAT 94
[2022-01-14 04:44] VITALS: BP 120/51; PULSE 70; RESP 18; TEMP 37.1; O2SAT 96; BMI 29.4
--- NOTE | 2022-01-14 05:55 | PN.SURG_ITS ---
Subjective Subjective Patient states that she is doing well. She is comfortable. No specific concerns Objective Data Objective Data Vital Signs: Vital Signs Temp Pulse Resp BP Pulse Ox O2 Del Method 98.8 F 74 16 128/53 H 94 Room Air 01/14/22 03:04 01/14/22 03:04 01/14/22 03:04 01/14/22 03:04 01/14/22 03:04 01/14/22 03:04 Oxygen Delivery Method Room Air Weight: 184 lb 15.485 oz Body Mass Index (BMI) 29.4 Intake & Output: Intake and Output for Last 24 Hours 01/12/22 01/13/22 01/14/22 23:59 23:59 23:59 Intake Total 110 / 110 Output Total 50 / 50 Balance 60 / 60 Radiography Diagnostic Testing: Radiology Impression Mccune Node 01/13/22 09:30 IMPRESSION: Periareolar injection for Mccune lymph node biopsy. Electronically Signed: Gato Blake MD at 11:34 EDT Reading Location ID and State: [facility] / [place] Tel , Service support , Physical Exam Narrative Right chest wall skin flaps appear to be clean and dry. LAUREANO output is moderate and serosanguineous. No evidence of blood Assessment & Plan Assessment/Plan (1) Breast cancer: PLAN: Clinically patient is doing well status post right axillary sentinel node biopsy with then subsequent conversion to a right modified radical mastectomy including a right axillary level 1 and level 2 lymph node dissection. Anticipate dressing change today and subsequent discharge. Anticipate likely office follow-up on Monday. Marvin Dodd M.D., F.A.C.S.
[2022-01-14] MEDS: 0.9% Saline Lock 10 ML Syringe IV (10:51)
[2022-01-14] MEDS: HYDROcodone Bitartrate/Apap 5/325 Tablet PO (11:07)
[2022-01-14 11:27] VITALS: BP 117/68; PULSE 74; RESP 18; TEMP 36.8; O2SAT 94
--- NOTE | 2022-01-14 13:37 | WOUNDNOTE ---
Dressing change and LAUREANO drain care completed with daughter. drain sites cleaned with peroxide. placed split gauze followed by woven gauze pads and secured the entire dressings with paper tape. placed ABD pad across the right chest incision. steri strips are dry and intact. reapplied the soft cotton roll. pt and daughter aware to record LAUREANO drainage and bring the record to the follow up visit. pt denies further questions or concerns at this time.
== END 2022-01-14 13:38 | disposition home or self-care (01) ==
LOC: MS3 17:40 → SDC 01-14 10:58
PROVIDERS: Admitting Provider Surgery; PCP Family Medicine; Referring Provider Surgery; Visit Provider Surgery
PROC: (CPT 19307; principal; 2022-01-13 11:45)
DX: C50.411 Malignant neoplasm of upper-outer quadrant of right female breast (principal); C77.3 Secondary and unspecified malignant neoplasm of axilla and upper limb lymph nodes; G25.81 Restless legs syndrome; G47.30 Sleep apnea, unspecified
CPT/HCPCS: 19307; 00404; 38792; 71046; 88305; 88307; 88309; 88331; 88332; 88341; 88342; 93005; 99218; 99251; A9541; J7120; A4216; G0378; G0463; J2405; Q9968

== ENCOUNTER → 2022-01-21 | Outpatient (CLI) | payer MEDICARE, SELFPAY ==
--- NOTE | 2022-01-21 | FLU_PTH ---
PATIENT: KYLIE ECHAVARRIA LOC: [facility] U#:[id number] AGE/SX: 81/F ROOM: RE01/21/[address]: Dr. Marvin Dodd MD : 1940 BED: DIS: 01/21/2022 SPEC #: [id number] RECD: 01/21/22 11:54 STATUS: WILLA REJovani #: [id number] ESTUARDO: 01/21/22 00:[address]: Marvin Dodd DEPT: CYTOLOGY RECD BY: Daisy Gongora ENTERED: 01/24/22 10:46 SP TYPE: Fluid OTHR DR: Dr. Zia Alex MD Tissues: Chest wall, NOS Procedures: Special Stain Group II Surgery Specimen Level IV Cytospin Fluid HEADER OPERATION: Right mastectomy PRE-OP DIAGNOSIS: Right chest wall seroma TISSUE SUBMITTED: Right chest wall seroma DIAGNOSIS CYTOLOGY Right chest wall seroma (cytospins and cell block): Negative for malignant cells. Acute inflammation. AM:am 01/25/2022 CYTOLOGY STUDY Slides are reviewed. CYTOLOGY GROSS Received is 50 ml of red radha cloudy fluid labeled with the patient's name and and designated per the requisition as right chest wall seroma. Submitted for cytology preparation including cell block. CW:yamilka 01/24/22 TC:2 CPT: 45820, 90784
== END | disposition home or self-care (01) ==
LOC: LABSPEC 13:07
PROVIDERS: PCP Family Medicine; Visit Provider Surgery
DX: S20.211A Contusion of right front wall of thorax, initial encounter (principal)
CPT/HCPCS: 87070; 87075; 87205; 88108; 88305; 88313

== ENCOUNTER 2022-03-08 13:36 | Outpatient (RCR) | payer MEDICARE, SELFPAY ==
--- NOTE | 2022-03-09 08:24 | HP.OTEVAL_ITS ---
Patient's Visit Information KYLIE ECHAVARRIA is a 81 year old F, referred to Occupational Therapy by Dr. Gordon Kemp MD, with a diagnosis of Malignant neoplasm of female breast unspecified site. Date of Evaluation: 03/08/22 Occupational Therapist: Kinga Wyatt, CELIR/Sharif, CHT - Subjective This 81 year old female was seen for OT eval with dx of malignant neoplam female breast- pt underwent post right axillary sentinel node biopsy with then subsequent conversion to a right modified radical mastectomy including a right axillary level 1 and level 2 lymph node dissection on 2021. Pt arrives today as precaution for 22 lymph node removal during procedure- Pt states she feels she is doing well- no concerns but would like to know precautions and what she needs to do if she develops swelling in her right UE. - ROM ROM Comments: pt demo ROM WNL - Lymphedema (Circumferential Measure) MCP: right 19.5cm left 19cm Wrist: right 15cm left 15cm Lower forearm: right 18.5cm left 18.5cm Largest forearm: right 24cm left 23.5cm Elbow: right 25cm left 25cm Largest humerus: right 30cm left 29.5cm Axcillary: right 32cm left 30cm - Sensation Sensation Comments: denies - Quick DASH-Disab of Arm,Shoulder& Hand Quick DASH Score: 11.3625 - Goals Demonstrate adequate knowledge of self-massage by 2nd week: Yes Demonstrate adequate knowledge skin care/prec by 2nd week: Yes Demonstrate adequate knowledge therapeutic exercises by d/c: Yes Select approp compression garment w/donning/care/wear by d/c: Yes Voice need to replace compression garment every 4-6mo by dc: Yes - Rehabilitation General Assessment: Pt arrives to OT in need of ed. on OT services to ed. pt on lymphedema precautions, signs , symptoms and use of compression garment of 20-30 mmHg if she develops swelling of her right arm. pt receptive to information and agreed to keep an eye on her arm for swelling or concerns. Therapist also ed. pt on lymph stimulation exercises and self manual lymph massage and scar massage- pt was given handout and demo understanding and agree to HEP. Rehabilitation Potential: Good - Anticipated Interventions Education re Diagnosis, Manual Lymph Drainage, Education re Life-long lymphedema Management, Education re Skin Care and Precautions, Education re Self Massage Techniques, Education re Correct Donning Tech,Care&Wearing Sched Comp Garments, Home Program - Visit Plan TEXT: Thank you for the opportunity to evaluate your patient. For Medicare and Medicare HMO plans, please review the plan of care and approve it. It will need to be FAXED BACK to us at [phone] for Medicare purposes. Please let me know if there are questions or concerns regarding this plan of care. Physician Signature: Date:
--- NOTE | 2022-05-24 13:20 | HP.OT.NRP ---
KYLIE ECHAVARRIA was seen in my office for initial evaluation on 03/08/22. The following Plan of Care was established for this patient: Anticipated Interventions: Education re Diagnosis, Manual Lymph Drainage, Education re Life-long lymphedema Management, Education re Skin Care and Precautions, Education re Self Massage Techniques, Education re Correct Donning Tech,Care&Wearing Sched Comp Garments, Home Program This patient was last seen in our office 03/08/22. Pertinent comments regarding their Occupational therapy will appear below: Pt was seen for OT eval only. no further apts have been scheduled and at this time pt is d/c due to time lapse in services. At this point I will be discontinuing this patient from occupational therapy. I would be happy to see this patient again in the future if found appropriate by the physician. Thank you! Kinga Wyatt, OTR/L, CHT
== END 2022-03-08 19:00 | disposition home or self-care (01) ==
LOC: OT 13:36
PROVIDERS: PCP Family Medicine; Referring Provider Internal Medicine Medical Oncology; Visit Provider Internal Medicine Medical Oncology
DX: C50.919 Malignant neoplasm of unspecified site of unspecified female breast (principal)
CPT/HCPCS: 97166; 97530

== ENCOUNTER → 2022-09-28 | Outpatient (CLI) | payer MEDICARE, SELFPAY ==
[2022-09-28 10:15] LABS: Absolute Lymphocyte Count 2.18 X10^3/uL (0.83-4.51); Absolute Neutrophil Count 5.5 X10^3/uL (2.0-7.7); Basophil# 0.09 X10^3/uL; Eosinophil# 0.61 X10^3/uL; Eosinophils% 6.7 % (0-5); Hematocrit 44.8 % (37-47); Hemoglobin 14.4 g/dL (12.0-15.0); Lymphocyte # 2.18 X10^3/ul (0.83-4.51); Lymphocyte % 23.8 % (19-41); Mean Corp Hgb Conc 32.1 g/dL (32-36); Mean Corpuscular Volume 99.6 fL (81-99); Mean Platelet Vol. 8.9 fl (6.2-12.0); Monocyte# 0.68 X10^3/uL; Monocyte% 7.4 % (0-10); NRBC Flagged by Analyzer 0 % (0-5); Neutrophil # 5.54 X10^3/uL (2.7-7.7); Neutrophil % 60.4 % (47-70); Platelet Count 250 K/mm3 (150-450); RBC Distribution Width CV 11.6 % (11.6-14.6); RBC Distribution Width SD 42.3 fl (35.1-43.9); White Blood Count 9.2 K/mm3 (4.4-11.0)
[2022-09-28 10:32] LABS: ALB/GLOB Ratio 0.8 RATIO (0.9-2.4); AST(SGOT) 25 U/L (15-37); Alanine Aminotransfer ALT/SGPT 25 U/L (13-56); Albumin, Serum 3.3 g/dL (3.2-5.0); Alkaline Phosphatase 68 U/L (45-117); Anion Gap 4 (5-15); BUN 26 mg/dL (7-18); BUN/Creat Ratio 24.1 RATIO (10-20); Calcium,Total 9.3 mg/dL (8.5-10.1); Chloride 107 mmol/L (98-107); Creatinine, Serum 1.08 mg/dL (0.55-1.02); EST Glomerular Filtration Rate 52 mL/min (>60); Est Glom Filt Rate - Afr Amer 63 mL/min (>60); Globulin 4.4 g/dL (2.2-4.2); Glucose 112 mg/dL (74-106); Potassium 3.9 mmol/L (3.5-5.1); Protein, Total 7.7 g/dL (6.4-8.2); Sodium Level 136 mmol/L (136-145)
[2022-09-28 11:12] LABS: Hemoglobin A1c 5.4 % (3.8-5.6)
== END | disposition home or self-care (01) ==
LOC: MFPLAB 08:45
PROVIDERS: PCP Family Medicine; Referring Provider Family Medicine; Visit Provider Family Medicine
DX: E88.81 Metabolic syndrome and other insulin resistance (principal)
CPT/HCPCS: 36415; 80053; 83036; 85025

== ENCOUNTER → 2023-11-15 | Outpatient (CLI) | payer MEDICARE, SELFPAY ==
--- NOTE | 2023-11-15 14:49 | VDLE_ITS ---
Reason For Study: BLE Swelling RIGHT LEFT GSV is normal. GSV is normal. CFV is compressible, spontaneous, phasic, CFV is compressible, spontaneous, phasic, competent and demonstrates normal competent, and demonstrates normal augmentation. augmentation. FV is compressible, spontaneous, phasic, FV is compressible, spontaneous, phasic, competent and demonstrates normal competent and demonstrates normal augmentation. augmentation. POP V is compressible, spontaneous, phasic, POP V is compressible, spontaneous, phasic, competent and demonstrates normal competent and demonstrates normal augmentation. augmentation. T/P Trunk is compressible. T/P Trunk is compressible. PTV is compressible. PTV is compressible. RT PerV is compressible. LT PerV is compressible. Procedure This is a venous duplex using B-mode, color flow and spectral Doppler. Exam performed in department. The exam was diagnostic. A preliminary report was called and/or faxed to [facility] / Dr. Kemp. VL/Venous Duplex US - Mihir Extrem Interpretation Summary Deep veins of the lower extremities are bilaterally patent and compressible seg mentally. There is no evidence of deep vein thrombosis on either side. Valvular competence appears in tact within the proximal deep venous systems bilaterally. The great saphenous veins appear bila terally patent and compressible segmentally. Ordering Physician: Gordon Kemp Referring Physician: Gordon Kemp Performed By: Jose Rafael Rosales, RVT
--- NOTE | 2023-11-15 15:30 | RAD_ITS ---
STUDY: X-RAY CHEST REASON FOR EXAM: Female, 82 years old. HX OF BREAST CA TECHNIQUE: Frontal and lateral views of the chest. COMPARISON: None. FINDINGS: The lungs are hyperexpanded. There are coarsened interstitial markings suggestive of mild chronic fibrosis. No gross focal infiltrates. No gross effusions. Normal size heart. Normal mediastinum and maggie. Normal visualized pulmonary arteries. Normal visualized aortic arch and descending thoracic aorta. Normal visualized thoracic spine. Normal visualized ribs, clavicles, and shoulders. There is no demonstrated abnormality of the visualized soft tissue structures of the upper abdomen. There are clips in the right axilla consistent with lymphadenectomy for breast cancer. RAD/Chest PA and Lateral IMPRESSION: There are findings consistent with COPD. There is no evidence of acute chest disease. Electronically Signed: James Logna MD at 17:09 EDT ,
== END | disposition home or self-care (01) ==
PROVIDERS: PCP Family Medicine; Referring Provider Internal Medicine Medical Oncology; Visit Provider Internal Medicine Medical Oncology
DX: C50.111 Malignant neoplasm of central portion of right female breast (principal); Z17.0 Estrogen receptor positive status [ER+]; M79.89 Other specified soft tissue disorders
CPT/HCPCS: 71046; 93970

== ENCOUNTER → 2024-10-15 | Outpatient (CLI) | payer MEDICARE, SELFPAY ==
[2024-10-15 17:48] LABS: Absolute Lymphocyte Count 3.06 X10^3/uL (0.83-4.51); Absolute Neutrophil Count 3.8 X10^3/uL (2.0-7.7); Basophil# 0.07 X10^3/uL; Basophil% 0.9 % (0-1); Eosinophil# 0.27 X10^3/uL; Eosinophils% 3.4 % (0-5); Hematocrit 44.6 % (37-47); Lymphocyte # 3.06 X10^3/ul (0.83-4.51); Mean Corp Hgb Conc 33.6 g/dL (32-36); Mean Corpuscular Hgb 31.3 pg (27.0-32.0); Mean Corpuscular Volume 93.1 fL (81-99); Monocyte# 0.59 X10^3/uL; Monocyte% 7.5 % (0-10); NRBC Flagged by Analyzer 0 % (0-5); Neutrophil # 3.83 X10^3/uL (2.7-7.7); Neutrophil % 48.9 % (47-70); Platelet Count 235 K/mm3 (150-450); RBC Distribution Width CV 12.6 % (11.6-14.6); RBC Distribution Width SD 43.2 fl (35.1-43.9); Red Blood Count 4.79 M/mm3 (4.2-5.4); White Blood Count 7.8 K/mm3 (4.4-11.0)
[2024-10-15 19:12] LABS: Anion Gap 12 (5-15); BUN 11 mg/dL (4-19); BUN/Creat Ratio 9.4 RATIO (10-20); Calcium,Total 10.1 mg/dL (7.6-11.0); Carbon Dioxide 26.6 mmol/L (21.0-32.0); Chloride 101 mmol/L (98-108); EST Glomerular Filtration Rate 45 (>60); Ferritin 309 ng/mL (22-378); Glucose 88 mg/dL (70-99); Magnesium 2.1 mg/dL (1.5-2.2); Potassium 3.5 mmol/L (3.3-5.1); Sodium Level 139 mmol/L (133-145); Vitamin B12 527 pg/mL (180-914)
[2024-10-15 19:57] LABS: Hemoglobin A1c 5.6 % (<=5.6)
== END | disposition home or self-care (01) ==
LOC: MFPLAB 14:16
PROVIDERS: PCP Family Medicine; Referring Provider Family Medicine; Visit Provider Family Medicine
DX: E87.6 Hypokalemia (principal); E88.810 Metabolic syndrome; F98.8 Other specified behavioral and emotional disorders with onset usually occurring in childhood and adolescence; R53.83 Other fatigue
CPT/HCPCS: 36415; 80048; 82607; 82728; 82746; 83036; 83735; 84443; 85025

== ENCOUNTER → 2025-01-24 | Outpatient (CLI) | payer MEDICARE, SELFPAY ==
[2025-01-24 15:26] LABS: Hematocrit 42.4 % (37-47); Hemoglobin 14.1 g/dL (12.0-15.0); Immature Granulocytes Count 0.020 X10^3/uL (0.0-0.0); Mean Corp Hgb Conc 33.3 g/dL (32-36); Mean Corpuscular Volume 93.4 fL (81-99); Mean Platelet Vol. 9.2 fl (6.2-12.0); NRBC Flagged by Analyzer 0 % (0-5); Platelet Count 197 K/mm3 (150-450); RBC Distribution Width CV 12.6 % (11.6-14.6); RBC Distribution Width SD 43.2 fl (35.1-43.9); Red Blood Count 4.54 M/mm3 (4.2-5.4); White Blood Count 8.1 K/mm3 (4.4-11.0)
[2025-01-24 15:51] LABS: Anion Gap 12 (5-15); BUN 16 mg/dL (4-19); BUN/Creat Ratio 13.3 RATIO (10-20); Calcium,Total 9.5 mg/dL (7.6-11.0); Carbon Dioxide 25.5 mmol/L (21.0-32.0); Chloride 101 mmol/L (98-108); Glucose 104 mg/dL (70-99); Potassium 3.9 mmol/L (3.3-5.1)
== END | disposition home or self-care (01) ==
LOC: MTLAB 13:50
PROVIDERS: PCP Family Medicine; Referring Provider Urology; Visit Provider Urology
DX: F98.8 Other specified behavioral and emotional disorders with onset usually occurring in childhood and adolescence (principal); R35.1 Nocturia
CPT/HCPCS: 36415; 80048; 85025

== ENCOUNTER 2025-03-05 22:20 | Inpatient (IN) | payer MEDICARE, SELFPAY ==
--- OUTSIDE RECORDS SUMMARY | 2025-03-05 22:27 | XMS RPT_ITS | CCD ---
Author Organization [facility] Care Team Providers Care Paving Rammer Name Role Phone Blaien LARRY, Augustin Olivia Unavailable JOSE ALEX MD Primary Care Physician Ubaldo PT, Kalpana Unavailable Unavailable Dr. Jose Alex Primary Care Provider Dr. Jose Alex Referring Provider Dr. Marvin Dodd Attending Provider Dr. Gordon Kemp Attending Provider Dr. Marvin Dodd Referring Provider Dr. Marvin Dodd Other Provider Dr. Marvin Dodd Admit Provider CASANDRA Robertson Attending Provider Dinorah Colon Attending Provider Unavailabl e Dr. Jose Alex Primary Care Provider [phone] Marvin Dodd Attending Provider Dr. Marvin Dodd Referring Provider Dr. Jose Alex Referring Provider CASANDRA Robertson Attending Provider Dr. Gordon Kemp Attending Provider LAURO Dixon NP Attending Provider Dr. Jose Alex Primary Care Provider [phone] Jose Alex Referring Provider Dr. Gordon Kemp Attending Provider Alex MD, Dr. Jose Primary Care Provider Isai LARRY, Dr. Lizarraga Attending Provider Isai LARRY, Dr. Lizarraga Referring Provider Viridiana LARRY, Dr. Leyva Attending Provider Viridiana LARRY, Dr. Leyva Referring Provider Montserrat LARRY, Dr. Hearn Attending Provider Montserrat LARRY, Dr. Hearn Attending Provider Montserrat LARRY, Dr. Hearn Referring Provider Alex, Jose Referring Unavailable Alex, Jose Primary Care Unavailable Nadiya Mariano Attending Unavailable Nadiya Mariano Attending Unavailable Alex, Jose Referring Unavailable Alex, Jose Primary Care Unavailable Alex, Jose Attending Unavailable Alex, Jose Referring Unavailable Alex, Jose Primary Care Unavailable Nadiya Mariano Attending Unavailable Nadiya Mariano Referring Unavailable Alex, Jose Primary Care Unavailable Alex, Jose Primary Care Unavailable PraGordon marti Attending Unavailable PraGordon marti Referring Unavailable Gordon Kemp Attending Unavailable Alex, Jose Referring Unavailable Alex, Jose Primary Care Unavailable Prafigueroa, Gordon Attending Unavailable Alex, Jose Referring Unavailable Alex, Jose Primary Care Unavailable Allergies Allergy Classification Reported Allergen(s) Allergy Type Date of Onset Reaction(s) Facility (1 source) LEAVES; Translations: [LEAVES] allergy to substance 7 [facility] Work Phone: Medications Current Medications Medication Drug Class(es) Dates Sig (Normalized) Sig (Original) aspirin 81 mg chewable tablet (2 sources) Platelet Aggregation Inhibitor, Nonsteroidal Anti-inflammatory Drug Start: 09-23-2020 take 1 tablet by mouth twice daily at mealtime aspirin 81 mg oral tablet, chewable Dose : 81 mg = 1 tab(s), Oral, BIDM, Take 81 mg aspirin twice daily with food for 4 weeks postoperatively for DVT prophylaxis, # 60 tab(s), 0 Refill(s), Pharmacy: [facility]/pharmacy #[id number], 165.1, cm, 09/22/20 16:42:00 EDT, Height, kg, 09/22/20 16:42:00 EDT,... Start Date: 09/23/20 Status: Ordered celecoxib 200 mg oral capsule (1 source) Nonsteroidal Anti-inflammatory Drug Start: 02-11-2025 Celecoxib 200 mg capsule Active mg PO February 11, 2025 12:00am Cholecalciferol (2 sources) Vitamin D Start: 09-07-2020 Vitamin D (3) 45 units oral capsule qDay, 0 Refill(s) Start Date: 09/07/20 Status: Ordered desmopressin acetate 0.2 mg oral tablet (3 sources) Vasopressin Analog, Factor VIII Activator Start: 01-13-2025 take 1 tablet by mouth once Desmopressin 0.2 mg tablet Active 0.2 mg PO ONCE 30 0 January 13, 2025 12:00am oxyquinoline sulfate 0.06411 mg/mg / sodium dodecyl sulfate 0.0001 mg/mg vaginal gel (1 source) Start: 02-11-2025 Oxyquinoline-Sod.Pascual ryl Sulfat (Trimo-Huertas Jelly) 0.025-0.01 % gel Active NMA VAGINAL February 11, 2025 12:00am famotidine 20 mg oral tablet (2 sources) Histamine-2 Receptor Antagonist Start: 09-23-2020 famotidine 20 mg oral tablet Dose : 20 mg = 1 tab(s), Oral, qDay, # 30 tab(s), 0 Refill(s), Pharmacy: [facility]/pharmacy #[id number], 165.1, cm, 09/22/20 16:42:00 EDT, Height, kg, 09/22/20 16:42:00 EDT, Dosing Weight Start Date: 09/23/20 Status: Ordered gabapentin 600 mg oral tablet (5 sources) Anti-epileptic Agent Start: 05-15-2024 take 1 tablet by mouth at bedtime Gabapentin 600 mg tablet Active 600 mg PO AT BEDTIME May 15, 2024 1:00am Lidocaine 4 % adhesive patch,medicated (5 sources) Start: 05-27-2024 Lidocaine 4 % adhesive patch,medicated Active 1 NMA TOPICAL daily as needed for pain 10 May 27, 2024 1:00am Start: 05-27-2024 Lidocaine 4 % adhesive patch,medicated Active 1 NMA TOPICAL daily as needed for pain May 27, 2024 1:00am mastectomy bra (17 sources) Start: 12-13-2023 mastectomy bra Active 0 .Route .MEDSUPPLY 3 0 May 24, 2023 4:23pm Malignant neoplasm of breast History of right mastectomy Malignant neoplasm of unspecified site of unspecified female breast Acquired absence of right breast and nipple As directed Start: 05-24-2023 mastectomy bra Active 0 .Route .MEDSUPPLY 3 May 24, 2023 4:23pm As directed Start: 12-08-2022 End: 05-24-2023 mastectomy bra Discontinued 0 .Route .MEDSUPPLY 3 0 December 08, 2022 8:39am May 24, 2023 4:23pm Malignant neoplasm of breast History of right mastectomy Malignant neoplasm of unspecified site of unspecified female breast Acquired absence of right breast and nipple As directed Start: 12-08-2022 End: 05-24-2023 mastectomy bra Discontinued 0 .Route .MEDSUPPLY 3 December 08, 2022 8:39am May 24, 2023 4:23pm As directed Start: 02-24-2022 End: 12-08-2022 mastectomy bra Discontinued 0 .Route .MEDSUPPLY 3 0 February 24, 2022 12:00am December 08, 2022 8:39am Malignant neoplasm of breast History of right mastectomy Malignant neoplasm of unspecified site of unspecified female breast Acquired absence of right breast and nipple As directed Start: 02-24-2022 End: 12-08-2022 mastectomy bra Discontinued 0 .Route .MEDSUPPLY 3 February 24, 2022 12:00am December 08, 2022 8:39am As directed Start: 02-24-2022 mastectomy bra Active 0 .Route .MEDSUPPLY 3 February 24, 2022 12:00am As directed Start: 02-24-2022 mastectomy bra Active 0 .Route .MEDSUPPLY 3 February 23, 2022 11:00pm As directed 24 hr methylphenidate hydrochloride 54 mg extended release oral tablet (2 sources) Central Nervous System Stimulant Start: 09-07-2020 take 1 tablet by mouth every hour, then take 1 tablet by mouth once daily in the morning Concerta 54 mg/24 hr oral tablet, extended release Dose : 54 mg = 1 tab(s), Oral, qAM, 0 Refill(s) Start Date: 09/07/20 Status: Ordered Multivitamin preparation (9 sources) Start: 01-06-2022 take 1 tablet by mouth once daily Multivitamin Active 1 TABLET PO DAILY January 05, 2022 11:00pm Start: 01-06-2022 take 1 tablet by julissa th once daily Multivitamin Active 1 TABLET PO DAILY January 06, 2022 12:00am Start: 09-07-2020 take 1 tablet by julissa th once daily Multivitamin Dose = 1 tab(s), Oral, Daily, 0 Refill(s) Start Date: 09/07/20 Status: Ordered Multivitamin Tablet (5 sources) Start: 01-06-2022 Multivitamin Tablet Active 1 {tbl} PO DAILY January 06, 2022 12:00am nabumetone 750 mg oral tablet (5 sources) Nonsteroidal Anti-inflammatory Drug Start: 05-15-2024 take 1 tablet by mouth twice daily Nabumetone 750 mg tablet Active 750 mg PO TWICE A DAY May 15, 2024 1:00am nystatin 100 unt/mg topical ointment (1 source) Polyene Antifungal Start: 02-11-2025 Nystatin 10 0,000 unit/gram ointment Active TOPICAL February 11, 2025 12:00am [place]-3 Fatty Acids (5 sources) Start: 01-06-2022 take 1000 mg by mouth once daily [place]-3 Fatty Acids Active 1000 MG PO DAILY January 05, 2022 11:00pm Start: 01-06-2022 take 1000 mg by mouth once marcos ly [place]-3 Fatty Acids Active 1000 MG PO DAILY January 06, 2022 12:00am [place]-3 Fatty Acids (Fish Oil) Capsule (2 sources) Start: 01-06-2022 take 1 capsule by mouth once daily [place]-3 Fatty Acids (Fish Oil) Capsule Active 1000 MG PO DAILY January 06, 2022 12:00am [place]-3 Fatty Acids Capsule (5 sources) Start: 01-06-2022 take 1 capsule by mouth once daily [place]-3 Fatty Acids Capsule Active 1000 mg PO DAILY January 06, 2022 12:00am On Hold: Resume on 02/05/22. potassium chloride 20 meq extended release oral tablet (20 sources) Start: 11-15-2023 take 1 tablet by mouth once daily Potassium Chloride 20 mEq tablet extended release Active 20 meq PO DAILY 7 0 November 15, 2023 12:00am Start: 06-02-2022 End: 12-07-2022 take 2 tablets by mouth once daily Potassium Chloride 20 mEq tablet extended release Discontinued 40 meq PO DAILY 60 0 July 06, 2022 9:27am December 07, 2022 1:57pm Start: 06-02-2022 End: 07-06-2022 take 40 mEq by mouth once daily Potassium Chloride Act errol 40 MEQ PO DAILY 60 July 06, 2022 9:27am Start: 03-31-2022 End: 06-02-2022 take 1 tablet by mouth once daily Potassium Chloride 20 mEq tablet extended release Discontinued 20 meq PO DAILY 14 0 April 14, 2022 4:26pm June 02, 2022 5:15pm Right breast prosthesis (12 sources) Start: 05-24-2023 Right breast p rosthesis Active 0 .Route .MEDSUPPLY 1 0 May 24, 2023 4:22pm Malignant neoplasm of breast History of right mastectomy Malignant neoplasm of unspecified site of unspecified female breast Acquired absence of right breast and nipple As directed Start: 05-24-2023 Right breast p rosthesis Active 0 .Route .MEDSUPPLY 1 May 24, 2023 4:22pm As directed Start: 02-24-2022 End: 05-24-2023 Right breast prosthesis Disc ontinued 0 .Route .MEDSUPPLY 1 0 February 24, 2022 12:00am May 24, 2023 4:23pm Malignant neoplasm of breast History of right mastectomy Malignant neoplasm of unspecified site of unspecified female breast Acquired absence of right breast and nipple As directed Start: 02-24-2022 End: 05-24-2023 Right breast prosthesis Disc ontinued 0 .Route .MEDSUPPLY 1 February 24, 2022 12:00am May 24, 2023 4:23pm As directed Start: 02-24-2022 Right breast p rosthesis Active 0 .Route .MEDSUPPLY February 24, 2022 12:00am As directed Start: 02-24-2022 Right breast p rosthesis Active 0 .Route .MEDSUPPLY February 23, 2022 11:00pm As directed rOPINIRole 5 mg oral tablet (20 sources) Nonergot Dopamine Agonist Start: 12-28-2021 End: 12-04-2024 take 1 tablet by mouth in the morning, then take 1 tablet by mouth in the evening, then take 2 tablets by mouth at bedtime Ropinirole 5 mg tablet Active 0.5 mg PO AT BEDTIME May 15, 2024 2:34pm 1 tab in am, 1 tab in evening, and 2 tabs at bedtime Start: 09-07-2020 rOPINIRole 0.5 mg oral tablet Dose : 0.5 mg = 1 tab(s), Oral, TID, 0 Refill(s) Start Date: 09/07/20 Status: Ordered Start: 05-22-2017 ROPINIROLE HCL 0.5 MG TABS takes 1 tablet at bedtime ROPINIROLE HCL [id number] Nydia Chen LPN Completed/Discontinued Medications Medication Drug Class(es) Dates Sig (Normalized) Sig (Original) abemaciclib 150 mg oral tablet (7 sources) Start: 04-14-2022 End: 12-07-2022 take 1 tablet by mouth once daily Abemaciclib (Verzenio) 150 mg tablet Discontinued 150 mg PO DAILY April 14, 2022 12:00am December 07, 2022 1:56pm acetaminophen 325 mg / HYDROcodone bitartrate 5 mg oral tablet (20 sources) Opioid Agonist Start: 01-21-2022 End: 01-24-2022 Hydrocodone-Acetami nophen 5-325 mg tablet Discontinued 1 {tbl} PO EVERY 6 HOURS as needed for pain 10 3 0 January 21, 2022 January 23, 2022 12:00am January 24, 2022 12:04am Malignant neoplasm of breast Malignant neoplasm of unspecified site of unspecified female breast Start: 01-21-2022 End: 01-24-2022 take 1 tablet by mouth every six hours Hydrocodone-Acetaminophen Discontinued 1 TABLET PO EVERY 6 HOURS 10 3 January 21, 2022 January 24, 2022 12:04am Start: 01-14-2022 End: 01-19-2022 Hydrocodone-Acetaminophen 5- 325 mg tablet Discontinued 1 {tbl} PO EVERY 6 HOURS as needed for pain 5 2 0 January 14, 2022 January 19, 2022 8:12am Malignant neoplasm of breast Malignant neoplasm of unspecified site of unspecified female breast Start: 01-14-2022 End: 01-19-2022 take 1 tablet by mouth every six hours Hydrocodone-Acetaminophen Discontinued 1 TABLET PO EVERY 6 HOURS 5 2 January 14, 2022 January 19, 2022 8:12am Start: 07-15-2019 End: 07-18-2019 Hydrocodone-Acetaminophen 1 TABLET tablet Discontinued 1 {tbl} PO EVERY 6 HOURS NEEDED as needed for Pain 10 3 0 July 15, 2019 July 17, 2019 1:00am July 18, 2019 1:08am Nondisplaced fracture of proximal end of humerus Start: 07-15-2019 End: 07-18-2019 take 1 tablet by mouth every six hours as needed Hydrocodone-Acetaminophen Discontinued 1 TABLET PO EVERY 6 HOURS NEEDED 10 3 July 15, 2019 July 18, 2019 1:08am amoxicillin 875 mg / clavulanate 125 mg oral tablet (15 sources) Penicillin-class Antibacterial Start: 01-21-2022 End: 03-01-2022 Amoxicillin-Pot Clavulanate 875-125 mg tablet Discontinued 1 {tbl} PO TWICE A DAY 6 0 January 27, 2022 12:00am March 01, 2022 1:03pm Start: 01-21-2022 End: 03-01-2022 take 1 tablet by mouth twice daily Amoxicillin-Pot Clavulanate Discontinued 1 TABLET PO TWICE A DAY 6 January 27, 2022 12:00am March 01, 2022 1:03pm anastrozole 1 mg oral tablet (14 sources) Aromatase Inhibitor Start: 02-18-2022 End: 12-07-2022 take 1 tablet by mouth once daily Anastrozole 1 mg tablet Discontinued 1 mg PO DAILY 90 3 May 12, 2022 5:23pm December 07, 2022 1:56pm ergocalciferol 1.25 mg oral capsule (14 sources) Provitamin D2 Compound Start: 12-28-2021 End: 12-07-2022 Ergocalciferol (Vitamin D2) 1,250 mcg (50,000 unit) capsule Discontinued 30061 U PO EVERY WEEK December 28, 2021 12:00am December 07, 2022 1:56pm Start: 12-28-2021 take 49778 [IU] by m outh every week Ergocalciferol (Vitamin D2) Active 13448 UNIT PO EVERY WEEK December 28, 2021 12:00am furosemide 20 mg oral tablet (1 source) Loop Diuretic Start: 05-22-2017 FUROSEMIDE 20 MG TABS takes 1 tablet as needed for swelling FUROSEMIDE [id number] Nydia Chen PERSONNEL INTERVIEWER ibuprofen 200 mg oral tablet (1 source) Nonsteroidal Anti-inflammatory Drug Start: 10-09-2017 ADVIL 200 MG TABS take 1 to 2 tablets every 6 hours as needed IBUPROFEN [id number] Augustin Valladares MD LORazepam 1 mg oral tablet (1 source) Benzodiazepine Start: 05-22-2017 LORAZEPAM 1 MG TABS takes 1 tablet at bedtime LORAZEPAM [id number] Nydia Chen PERSONNEL INTERVIEWER ondansetron 8 mg disintegrating oral tablet (14 sources) Serotonin-3 Receptor Antagonist Start: 02-24-2022 End: 12-07-2022 Ondansetron 8 mg tablet,disintegra ting Discontinued 0 .ROUTE .COMPLEX 30 2 May 16, 2022 1:00pm December 07, 2022 1:57pm Malignant neoplasm of breast Malignant neoplasm of unspecified site of unspecified female breast DISSOLVE 1 TABLET ON THE TONGUE EVERY 8 HOURS NEEDED FOR NAUSEA AND VOMITING potassium gluconate 2 meq oral tablet (1 source) Start: 05-22-2017 POTASSIUM GLUCONATE 2 MEQ TABS take 1 tablet when taking lasix POTASSIUM GLUCONATE [id number] Augustin Valladares MD predniSONE 10 mg oral tablet (12 sources) Start: 08-31-2022 End: 12-07-2022 take 1 tablet by mouth once Prednisone 10 mg tablet Discontinued 10 mg PO ONCE 14 0 September 01, 2022 4:47pm December 07, 2022 1:57pm tamoxifen 20 mg oral tablet (20 sources) Estrogen Agonist/Antagonist Start: 05-24-2024 End: 11-26-2024 take 1 tablet by mouth twice daily Tamoxifen 20 mg tablet Discontinued 20 mg PO TWICE A DAY 180 90 3 June 03, 2024 1:34pm November 26, 2024 3:04pm Start: 02-07-2024 End: 05-07-2024 take 1 tablet by mouth twice daily Tamoxifen 20 mg tablet Discontinued 20 mg PO TWICE A DAY 180 90 0 February 07, 2024 12:00am May 06, 2024 1:00am May 07, 2024 1:08am Start: 12-07-2022 End: 08-18-2023 take 1 tablet by mouth twice daily Tamoxifen 20 mg tablet Discontinued 20 mg PO TWICE A DAY 180 30 0 July 19, 2023 1:27pm August 17, 2023 1:00am August 18, 2023 1:05am Problems Active Problems Problem Classification Problem Date Documented Date Episodic/Chronic Administrative/social admission (8 sources) Patient encounter status; Translations: [Counseling, unspecified] Episodic Allergic reactions (9 sources) Hand eczema; Translations: [Dermatitis, unspecified] 09-14-2022 Episodic Comment on above: Has resolved. Cancer of breast (20 sources) Malignant tumor of breast ; Translations: [Malignant neoplasm of unspecified site of unspecified female breast] Chronic Comment on above: S/P R mastectomy, Tu mor size 3.5cm, central portion, grade 1, Lymph nodes 6/22 involved, ER positive 95%, MT positive 2%, Her2 negative, Ki-67 positive 75%.Pathology stage pT2 pN2a. Prognostic stage IIIA.Started Anastrozole and Verzenio on 03/03/2022, stopped on 08/03/2022 because of stiffness in joints, rashes on the dorsum of fingers.Lost her hair.Rashes on the hands healed.ctDNA on 08/03/2022 is negative. ctDNA on 11/09/2022 was 44.Stated Tamoxifen on 12/07/2022. ctDNA on 01/04/2023 was 0.78.ctDNA on 03/12/2023 was 0.Comes for follow up. Feeling well.Labs reviewed, OK for therapy. S/P R mastectomy, Tu mor size 3.5cm, central portion, grade 1, Lymph nodes 6/22 involved, ER positive 95%, MT positive 2%, Her2 negative, Ki-67 positive 75%.Pathology stage pT2 pN2a. Prognostic stage IIIA.Started Anastrozole and Verzenio on 03/03/2022, stopped on 08/03/2022 because of stiffness in joints, rashes on the dorsum of fingers.Lost her hair.Rashes on the hands healed.ctDNA on 08/03/2022 is negative. ctDNA on 11/09/2022 was 44.Stated Tamoxifen on 12/07/2022. ctDNA on 01/04/2023 was 0.78.ctDNA on 03/12/2023 was 0.Comes for follow up. Feeling well.No evidence of disease clinically.Labs reviewed, OK for therapy. Complications of surgical procedures or medical care (13 sources) Postoperative seroma; Translations: [Postoperative seroma] Episodic Disorders usually diagnosed in infancy, childhood, or adolescence (1 source) Other specified behavioral and emotional disorders with onset usually occurring in childhood and adolescence; Translations: [Other specified behavioral and emotional disorders with onset usually occurring in childhood and adolescence] Onset: 02-01-2025 Chronic Fracture of upper limb (15 sources) Fracture of upper end of humerus; Translations: [Unspecified fracture of upper end of unspecified humerus, initial encounter for closed fracture] 07-16-2019 Episodic Genitourinary symptoms and ill-defined conditions (6 sources) Urge incontinence of urine; Translations: [Urge incontinence] Onset: 02-11-2025 01-16-2025 Chronic Genitourinary symptoms and ill-defined conditions (12 sources) Nocturia; Translations: [Nocturia] Onset: 01-13-2025 01-13-2025 Episodic Nonmalignant breast conditions (20 sources) Breast lump; Translations: [Unspecified lump in the right breast, unspecified quadrant] Episodic Other connective tissue disease (5 sources) Swelling of right lower limb; Translations: [Other specified soft tissue disorders] 11-15-2023 Episodic Other hereditary and degenerative nervous system conditions (15 sources) Restless legs; Translations: [Restless legs syndrome] 07-15-2019 Chronic Other nervous system disorders (8 sources) Post-mastectomy pain; Translations: [Other acute postprocedural pain] 01-21-2022 Episodic Other nervous system disorders (1 source) Other acute postprocedural pain; Translations: [Other acute postoperative pain] Episodic Other non-traumatic joint disorders (1 source) Pain in right knee; Translations: [Pain of joint of knee] Episodic Other non-traumatic joint disorders (7 sources) Joint pain; Translations: [Pain in unspecified joint] 09-14-2022 Episodic Comment on above: Has resolved. Other non-traumatic joint disorders (7 sources) Pain in unspecified joint; Translations: [Pain in joint, site unspecified] Episodic Other skin disorders (6 sources) Loss of hair; Translations: [Nonscarring hair loss, unspecified] 07-20-2022 Episodic Comment on above: May be due to Anastr berthaole and Verfrandyio. It is better now. Other skin disorders (4 sources) Nonscarring hair loss, unspecified; Translations: [Alopecia, unspecified] 07-20-2022 Episodic Spondylosis; intervertebral disc disorders; other back problems (1 source) Degeneration of lumbar intervertebral disc; Translations: [Other intervertebral disc degeneration, lumbar region] Onset: 05-22-2017 05-22-2017 Chronic Unclassified (1 source) Other specified postprocedural states; Translations: [Other specified postprocedural states] Onset: 07-07-2017 07-10-2017 Past or Other Problems Problem Classification Problem Date Documented Da te Episodic/Chronic Cancer of breast (2 sources) Personal history of malignant neoplasm of breast; Translations: [Personal history of malignant neoplasm of breast] Onset: 11-26-2024 Episodic Fluid and electrolyte disorders (16 sources) Hypokalemia; Translations: [Hypokalemia] Onset: 10-20-2024 Episodic Residual codes; unclassified (7 sources) History of right mastectomy; Translations: [Acquired absence of right breast and nipple] Onset: 06-12-2021 02-24-2022 Episodic Residual codes; unclassified (1 source) Acquired absence of right breast and nipple; Translations: [Acquired absence of breast and nipple] Onset: 06-12-2021 Episodic Unclassified (1 source) Problem Results Test Name Value Interpretation Reference Range Facility MR/GAILroland 02-11-2025 MR/ELAINE [facility] [address] [place] [address], [address] [place] [address] OFFICE VISIT Date of Service: 02/11/25 MR#: [id number] Acct: [id number] Name: KYLIE ECHAVARRIA Rep #: [id number] : 1940 Provider: Dr. Nadiya Bey i, MD Age/Sex: 84/F Location: [facility] [place] Status: Signed Intake Vital Signs 11/26/24 14:38 01/13/25 11:47 02/11/25 11:01 Height 5 ft 6 in 5 ft 6 in 5 ft 6 in Weight: 164 lb 164 lb BMI 26.4 26.4 BP 116/66 122/82 H Pulse 78 64 Temp 98 F 98 F Intake Visit Reasons: PTNS Chief Complaint: PTNS Vehicle Damage Appraiser Required: No Is patient in pain?: No Allergies No Known Allergies Allergy (Verified 11/26/24 14:42) Medications ???Medication ???Instructions ???Recorded ???Confirmed ???Type multivitamin 1 tab PO DAILY 01/06/22 02/11/25 H istory omega-3 fatty acids 1,000 mg PO DAILY 01/06/22 5 History Held on 01/14/22. Instructions: Resume on 02/05/22. Right breast prosthesis #1 ea 05/24/23 02/11/25 Rx mastectomy bra #3 ea 05/24/23 02/11/25 Rx potassium chloride 20 mEq 20 meq PO DAILY #7 tabs 11/15/23 0 02/11/25 Rx tablet,extended release gabapentin 600 mg tablet 600 mg PO QHS 05/15/24 02/11/25 Hi story nabumetone 750 mg tablet 750 mg PO BID 05/15/24 02/11/25 Hi story ropinirole 5 mg tablet 0.5 mg PO QHS 05/15/24 02/11/25 Hi story lidocaine 4 % topical patch 1 patch topical QDAY PRN pain #10 05/27/24 02/11/25 Rx ea tamoxifen 20 mg tablet 20 mg PO BID 90 days #180 tabs 02/11/25 Rx celecoxib 200 mg capsule mg PO 02/11/25 02/11/25 History desmopressin 0.2 mg tablet 0.2 mg PO ONCE #90 tabs 02/11/25 Rx nystatin 100,000 unit/gram topical topical 02/11/25 02/11/25 Histor y ointment oxyquinoline 0.025 %-sodium lauryl 1 ea vaginal 2XW #113.4 grams Rx sulfate 0.01 % vaginal gel (Trimo-Huertas Jelly) oxyquinoline 0.025 %-sodium lauryl ea vaginal 02/11/25 02/11/25 His tory sulfate 0.01 % vaginal gel (Trimo-Huertas Jelly) Have you fallen in the past year?: No Nurse's Note: Patient wanted her pessary put back in today. [facility] Medical History Urge incontinence Urgency of micturition Aromatase inhibitor-associat ed arthralgia Encounter for education Wears hearing aid Post-menopausal Restless legs Non-smoker Sleep apnea History of pain when walking History of edema History of echocardiogram Surgical History History of right mastectomy ( 01/2022) History of lumbar surgery History of colonoscopy ( 09/2020) History of total right knee replacement Family History Father Diabetes Kidney disease Daughter Cancer Mets ovarian Social History Smoking Status: Never smoker HPI HPI Urology Chief Complaint: PTNS Details: KYLIE ECHAVARRIA, is a 84 F. She is voiding about 6-8 time during the day and 2 times at night. The incontinence is improving. She is going through 0-2 pads a day. She is continuing to work on level one management with diet, fluid control and bladder training. She is not having any issues with her skin or ankle after treatments. She would like the pessary reinserted today. ROS Const Constitutional: No chills, fatigue, fever(s), headache(s), night sweats, weakness, weight change, abnormal sleep pattern or change in appetite Eyes Eyes: No change in vision ENT ENT: No headache(s) or dry mouth Resp Respiratory: No cough, chest congestion, shortness of breath or wheezing Cardio Cardiology: Positive for other (No chest pain.); No shortness of breath, irregular heart rhythm or lightheadedness Gastro GI: Positive for other (No nausea.); No abdominal pain, change in bowel habits, constipation, diarrhea or vomiting Musc Musculoskeletal: No abnormal gait Skin Skin: No yellowing of the eye, lesions, itchy eyes, rash or skin ulcer Neuro Neurology: No abnormal gait, confusion, dizziness, weakness, headache(s) or memory loss Psych Psychiatric: No abnormal sleep pattern, No change in appetite, No confusion and No memory loss Endo Endocrine: No fatigue, increased thirst/drinking or weight change Aller/Imm Allergy/Immunologi c: No itchy eyes or wheezing Thierry/Lymp Hematologic/Lympha tic: No easy bleeding, easy bruising or enlarged lymph nodes Exam Const General: cooperative, healthy appearing, comfortable and no acute distress [facility] Head: normocephalic and atraumatic Ears: hearing grossly normal bilaterally and external ears normal Nose: external nose normal Eyes General: appearance normal, both eyes and all related structures Neck Neck: normal visual inspection and trach (more content not included)... Normal [facility] Absolute lymphocyte countOrd ered By: Nadiya Mariano on 01-24-2025 Lymphocytes Auto (Unsp spec) [#/Vol] 3.34 10*3/uL 0.83-4.51 [facility] Absolute neutrophil countOrd ered By: Nadiya Mariano on 01-24-2025 Neutrophils (Bld) [#/Vol] 3.5 10*3/uL 2.0-7.7 [facility] Anion gap in Serum or Plasma Ordered By: Nadiya Mariano on 01-24-2025 Anion gap [Moles/Vol] 12 mmol/L 10-24 [facility] Automated lymphocyte count a s percentage of total leukocytesOrdered By: Nadiya Mariano on 01-24-2025 Lymphocytes/100 WBC Auto (Unsp spec) 41.2 % High 19-41 [facility] BUN/creatinine ratioOrdered By: Nadiya Mariano on 01-24-2025 Urea nitrogen/Creatinine [Mass ratio] 13.3 mg/mg 03-31 [facility] Basic Metabolic Profile (BMP )on 01-24-2025 BUN/CRE 13.3 RATIO Normal 03-31 [facility] Comment on above: Order Comment: DR. Lilo JEFFREY ORDERED CBCD Performed By: #### L 500.2500, L100.0100 ####[facility] [address] [place], [address] Calcium [Mass/Vol] 9.5 mg/dL Normal 7.6-11.0 [facility] Comment on above: Order Comment: DR. Lilo JEFFREY ORDERED CBCD Performed By: #### L 500.2500, L100.0100 ####[facility] [address] [place], [address] Chloride [Moles/Vol] 101 mmol/L Normal 98-108 [facility] [place] Comment on above: Order Comment: DR. Lilo JEFFREY ORDERED CBCD Performed By: #### L 500.2500, L100.0100 ####[facility] [address] [place], [address] CO2 [Moles/Vol] 25.5 mmol/L Normal 21.0-32.0 [facility] Comment on above: Order Comment: DR. Lilo JEFFREY ORDERED CBCD Performed By: #### L 500.2500, L100.0100 ####[facility] [address] [place], [address] Creatinine [Mass/Vol] 1.20 mg/dL Normal 0.70-1.20 [facility] Comment on above: Order Comment: DR. Lilo JEFFREY ORDERED CBCD Performed By: #### L 500.2500, L100.0100 ####[facility] [address] [place], [address] GAP 12 Normal 5-15 [facility] Comment on above: Order Comment: DR. Lilo JEFFREY ORDERED CBCD Performed By: #### L 500.2500, L100.0100 ####[facility] [address] [place], [address] GFR/1.73 sq M.predicted among non-blacks MDRD (S/P/Bld) [Vol rate/Area] 45 mL/min/{1.73_m2} Low >60 [facility] Comment on above: Order Comment: DR. Lilo JEFFREY ORDERED CBCD Result Comment: mL/m in/1.73m2 CKD-EPI Creatinine Equation (2020) Performed By: #### L 500.2500, L100.0100 ####[facility] [address] [place], [address] Glucose [Mass/Vol] 104 mg/dL High 70-99 [facility] Comment on above: Order Comment: DR. Lilo JEFFREY ORDERED CBCD Performed By: #### L 500.2500, L100.0100 ####[facility] [address] [place], [address] Potassium [Moles/Vol] 3.9 mmol/L Normal 3.3-5.1 [facility] Comment on above: Order Comment: DR. Lilo JEFFREY ORDERED CBCD Performed By: #### L 500.2500, L100.0100 ####[facility] [address] [place], [address] Sodium [Moles/Vol] 138 mmol/L Normal 133-145 [facility] Comment on above: Order Comment: DR. Lilo JEFFREY ORDERED CBCD Performed By: #### L 500.2500, L100.0100 ####[facility] [address] [place], [address] Urea nitrogen [Mass/Vol] 16 mg/dL Normal 4-19 [facility] Comment on above: Order Comment: DR. Lilo JEFFREY ORDERED CBCD Performed By: #### L 500.2500, L100.0100 ####[facility] [address] [place], [address] Basophil percentageOrdered B y: Nadiya Mariano on 01-24-2025 Basophils/100 WBC (Bld) 0.7 % 0-1 [facility] CBC W/Diff, Automatedon 01-10 Absolute Lymph 3.34 X10 3/uL Normal 0.83-4.51 [facility] Comment on above: Order Comment: DR. Lilo JEFFREY ORDERED CBCD Performed By: #### L 500.2500, L100.0100 ####[facility] [address] [place], [address] Absolute Neut 3.5 X10 3/uL Normal 2.0-7.7 [facility] Comment on above: Order Comment: DR. Lilo JEFFREY ORDERED CBCD Performed By: #### L 500.2500, L100.0100 ####[facility] [address] [place], [address] Basophils/100 WBC (Bld) 0.7 % Normal 0-1 [facility] Comment on above: Order Comment: DR. Liol JEFFREY ORDERED CBCD Performed By: #### L 500.2500, L100.0100 ####[facility] [address] [place], [address] Eosinophils/100 WBC (Bld) 4.8 % Normal 0-5 [facility] Comment on above: Order Comment: DR. Lilo JEFFREY ORDERED CBCD Performed By: #### L 500.2500, L100.0100 ####[facility] [address] [place], [address] Erythrocyte distribution width (RBC) [Ratio] 12.6 % Normal 11.6-14.6 [facility] Comment on above: Order Comment: DR. Lilo JEFFREY ORDERED CBCD Performed By: #### L 500.2500, L100.0100 ####[facility] [address] [place], [address] Hematocrit (Bld) [Volume fraction] 42.4 % Normal 37-47 [facility] Comment on above: Order Comment: DR. Lilo JEFFREY ORDERED CBCD Performed By: #### L 500.2500, L100.0100 ####[facility] [address] [place], [address] Hemoglobin (Bld) [Mass/Vol] 14.1 g/dL Normal 12.0-15.0 [facility] Comment on above: Order Comment: DR. Lilo JEFFREY ORDERED CBCD Performed By: #### L 500.2500, L100.0100 ####[facility] [address] [place], [address] IG% 0.200 Normal 0.0-0.9 [facility] Comment on above: Order Comment: DR. Lilo JEFFREY ORDERED CBCD Result Comment: IG% - Immature Granulocytes (promyelocytes, myelocytes and metamyelocytes) > 1% indicates that a LEFT SHIFT is Present. Performed By: #### L 500.2500, L100.0100 ####[facility] [address] [place], [address] Lymphocytes/100 WBC (Bld) 41.2 % High 19-41 [facility] Comment on above: Order Comment: DR. Lilo JEFFREY ORDERED CBCD Performed By: #### L 500.2500, L100.0100 ####[facility] [address] [place], [address] MCH (RBC) [Entitic mass] 31.1 pg Normal 27.0-32.0 [facility] Comment on above: Order Comment: DR. Llio JEFFREY ORDERED CBCD Performed By: #### L 500.2500, L100.0100 ####[facility] [address] [place], [address] MCHC (RBC) [Mass/Vol] 33.3 g/dL Normal 32-36 [facility] Comment on above: Order Comment: DR. Lilo JEFFREY ORDERED CBCD Performed By: #### L 500.2500, L100.0100 ####[facility] [address] [place], [address] MCV (RBC) [Entitic vol] 93.4 fL Normal 81-99 [facility] [place] Comment on above: Order Comment: DR. Lilo JEFFREY ORDERED CBCD Performed By: #### L 500.2500, L100.0100 ####[facility] [address] [place], [address] Monocytes/100 WBC (Bld) 9.6 % Normal 0-10 [facility] [place] Comment on above: Order Comment: DR. Lilo JEFFREY ORDERED CBCD Performed By: #### L 500.2500, L100.0100 ####[facility] [address] [place], [address] Neutrophils/100 WBC (Bld) 43.5 % Low 47-70 [facility] Comment on above: Order Comment: DR. Lilo JEFFREY ORDERED CBCD Performed By: #### L 500.2500, L100.0100 ####[facility] [address] [place], [address] Nucleated RBC (Bld) [#/Vol] 0 10*3/uL Normal 0-5 [facility] Comment on above: Order Comment: DR. Lilo JEFFREY ORDERED CBCD Performed By: #### L 500.2500, L100.0100 ####[facility] [address] [place], [address] Platelet mean volume (Bld) [Entitic vol] 9.2 fL Normal 6.2-12.0 [facility] Comment on above: Order Comment: DR. Lilo JEFFREY ORDERED CBCD Performed By: #### L 500.2500, L100.0100 ####[facility] [address] [place], [address] Platelets (Bld) [#/Vol] 197 10*3/uL Normal 150-450 [facility] Comment on above: Order Comment: DR. Lilo JEFFREY ORDERED CBCD Performed By: #### L 500.2500, L100.0100 ####[facility] [address] [place], [address] RBC (Bld) [#/Vol] 4.54 10*6/uL Normal 4.2-5.4 [facility] Comment on above: Order Comment: DR. Lilo JEFFREY ORDERED CBCD Performed By: #### L 500.2500, L100.0100 ####[facility] [address] [place], [address] RDW SD 43.2 fl Normal 35.1-43.9 [facility] Comment on above: Order Comment: DR. Lilo JEFFREY ORDERED CBCD Performed By: #### L 500.2500, L100.0100 ####[facility] [address] [place], [place], [address] WBC (Bld) [#/Vol] 8.1 10*3/uL Normal 4.4-11.0 [facility] Comment on above: Order Comment: DR. Lilo JEFFREY ORDERED CBCD Performed By: #### L 500.2500, L100.0100 ####[facility] [address] [place], [place], [address] Carbon dioxide, total [Moles /volume] in Central venous bloodOrdered By: Nadiya Mariano on 01-24-2025 CO2 [Moles/Vol] 25.5 mmol/L 21.0-32.0 [facility] Chloride assayOrdered By: Modesto Mariano on 01-24-2025 Chloride [Moles/Vol] 101 mmol/L 98-108 [facility] [place] Eosinophil percentageOrdered By: Nadiya Mariano on 01-24-2025 Eosinophils/100 WBC (Bld) 4.8 % 0-5 [facility] Erythrocyte distribution wid th ratioOrdered By: Nadiya Mariano on 01-24-2025 Erythrocyte distribution width (RBC) [Ratio] 12.6 % 11.6-14.6 [facility] Erythrocyte distribution wid th standard deviationOrdered By: Nadiya Mariano on 01-24-2025 Erythrocyte distribution width (RBC) [Ratio] 43.2 fl 35.1-43.9 [facility] Glomerular filtration rate ( GFR) estimation/1.73 sq m using serum, plasma, or whole bOrdered By: Nadiya Mariano on 01-24-2025 GFR/1.73 sq M.predicted among non-blacks MDRD (S/P/Bld) [Vol rate/Area] 45 mL/min/{1.73_m2} Low >60 [facility] Comment on above: mL/min/1.73m2 CKD-EP I Creatinine Equation (2020) Hematocrit Auto (Bld) [Volum e fraction]Ordered By: Nadiya Mariano on 01-24-2025 Hematocrit (Bld) [Volume fraction] 42.4 % 37-47 [facility] Hemoglobin measurementOrdere d By: Nadiya Mariano on 01-24-2025 Hemoglobin (Bld) [Mass/Vol] 14.1 g/dL 12.0-15.0 [facility] Immature granulocytes/100 WB C Auto (Bld)Ordered By: Nadiya Mariano on 01-24-2025 Immature granulocytes/100 WBC (Bld) 0.200 % 0.0-0.9 [facility] Comment on above: IG% - Immature Granu locytes (promyelocytes, myelocytes and metamyelocytes) > 1% indicates that a LEFT SHIFT is Present. MCV (mean corpuscular volume ) determinationOrdered By: Nadiya Mariano on 01-24-2025 MCV (RBC) [Entitic vol] 93.4 fL 81-99 [facility] Mean corpuscular hemoglobin (MCH) determinationOrdered By: Nadiya Mariano on 01-24-2025 MCH (RBC) [Entitic mass] 31.1 pg 27.0-32.0 [facility] Mean corpuscular hemoglobin concentration (MCHC) determinationOrdered By: Nadiya Mariano on 01-24-2025 MCHC (RBC) [Mass/Vol] 33.3 g/dL 32-36 [facility] Mean platelet volume determi nationOrdered By: Nadiya Mariano on 01-24-2025 Platelet mean volume (Bld) [Entitic vol] 9.2 fL 6.2-12.0 [facility] Monocyte percentageOrdered B y: Nadiya Mariano on 01-24-2025 Monocytes/100 WBC (Bld) 9.6 % 0-10 [facility] Neutrophil percentageOrdered By: Nadiya Mariano on 01-24-2025 Neutrophils/100 WBC (Bld) 43.5 % Low 47-70 [facility] Nucleated red blood cell per centageOrdered By: Nadiya Mariano on 01-24-2025 Nucleated RBC/100 WBC (Bld) [Ratio] 0 % 0-5 [facility] Platelet countOrdered By: Modesto Mariano on 01-24-2025 Platelets (Bld) [#/Vol] 197 10*3/uL 150-450 [facility] Potassium measurement (mass/ volume)Ordered By: Nadiya Mariano on 01-24-2025 Potassium (Unsp spec) [Mass/Vol] 3.9 mmol/L 3.3-5.1 [facility] RBC Auto (Bld) [#/Vol]Ordere d By: Nadiya Mariano on 01-24-2025 RBC (Bld) [#/Vol] 4.54 10*6/uL 4.2-5.4 [facility] Serum creatinine measurement (mass/volume)Ordered By: Nadiya Mariano on 01-24-2025 Creatinine [Mass/Vol] 1.20 mg/dL 0.70-1.20 [facility] Serum glucose measurement (m ass/volume)Ordered By: Nadiya Mariano on 01-24-2025 Glucose [Mass/Vol] 104 mg/dL High 70-99 [facility] Serum or plasma calcium alie urement (mass/volume)Ordered By: Nadiya Mariano on 01-24-2025 Calcium [Mass/Vol] 9.5 mg/dL 7.6-11.0 [facility] Serum or plasma urea nitroge n measurement (mass/volume)Ordered By: Nadiya Mariano on 01-24-2025 Urea nitrogen [Mass/Vol] 16 mg/dL 4-19 [facility] Sodium levelOrdered By: Ksota Mariano on 01-24-2025 Sodium [Moles/Vol] 138 mmol/L 133-145 [facility] White blood cell (WBC) count Ordered By: Nadiya Mariano on 01-24-2025 WBC (Bld) [#/Vol] 8.1 10*3/uL 4.4-11.0 [facility] MR/BMSFrancine 01-13-2025 MR/BMSSHAKEEL [facility] [address] [facility], [address] [place] [address] OFFICE VISIT Date of Service: 01/13/25 MR#: [id number] Acct: [id number] Name: KYLIE ECHAVARRIA Rep #: [id number] : 1940 Provider: Dr. 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 Nadiya Mariano MD) Urge incontinence Urgency of micturition Aromatase inhibitor-associat ed arthralgia Encounter for education Wears hearing aid Post-menopausal Restless legs Non-smoker Sleep apnea History of pain when walking History of edema History of echocardiogram Surgical History History of right mastectomy ( 01/2022) History of lumbar surgery History of colonoscopy ( 09/2020) History of total right knee replacement Family History Father Diabetes Kidney disease Daughter Cancer Mets ovarian Social History Smoking Status: Never smoker HPI HPI Urology Chief Complaint: Monthly PTNS Details: KYLIE ECHAVARRIA, is a 84 F. She is voiding about 6-8 time during the day and 1-2 times at night. The incontinence is improving. She is going through 1-2 pads a day. She is really frustrated with most of the leakage happening during the night. We discussed different options. She has failed multiple medications. She is agreeable to a trial of low-dose desmopressin. The side effects were discussed including the delusional effect with neurologic changes. She knows that she needs to have her blood work performed in 1 week. She is continuing to work on level one management with diet, fluid control and bladder training. She is not having any issues with her skin or ankle after treatments. She is happy with this treatment plan. ROS Const Constitutional: No chills, fatigue, fever(s), headache(s), night sweats, weakness, weight change, abnormal sleep pattern or change in appetite Eyes Eyes: No change in vision ENT ENT: No headache(s) or dry mouth Resp Respiratory: No cough, chest congestion, shortness of breath or wheezing Cardio Cardiology: Positive for other (No chest pain.); No shortness of breath, irregular heart rhythm or lightheadedness Gastro GI: Positive for other (No nausea.); No abdominal pain, change in bowel habits, constipation, diarrhea or vomiting Musc Musculoskeletal: No abnormal gait Skin Skin: No yellowing of the eye, lesions, itchy eyes, rash or skin ulcer Neuro Neurology: No abnormal gait, confusion, dizziness, weakness, headache(s) or memory loss Psych Psychiatric: No abnormal sleep pattern, No change in appetite, No confusion and No memory loss Endo Endocrine: No fatigue, increased thirst/drinking or weight change Aller/Imm Allergy/Immunologi c: No itchy eyes or wheezing Thierry/Lymp Hematologic/Lympha tic: No easy bleeding, easy bruising or enlarged lymph nodes Exam Const General: cooperative, healthy appearing, comfortable and no acute distress [facility] Head: normocephalic and atraumatic Ears: hearing grossly normal bilaterally and external ears normal Nose: external nose normal Eyes General: appearance normal, both eyes and all related structures Neck Neck: normal visual inspection and trachea midline Chest Chest palpation inspection: normal inspection of the chest Resp Effort Inspection: normal respiratory effort, able to speak in complete sentences and symmetric chest movement Cardio Rate: regular rate GI Inspection: normal to inspection Palpation: soft and nontender General: No CVA tenderness Skin General: no rashes or lesions noted Neuro General: patient alert, patient awake, patient oriented x3 and CN's II-XI intact bilaterally Extrem General: normal to inspection Psych Appearance: grossly normal and well kempt Mental Status: mental status grossly normal Office Procedures PTNS Procedure Completed: Yes PTNS: Percutaneous tibial nerve stimulation (PTNS) was prescribed for overactive bladder symptoms of urinary urgency, frequency and urge incontinence.???Th e needle electrode was inserted into the lower, inner aspec (more content not included)... Normal [facility] Absolute lymphocyte countOrd ered By: Gordon Kemp on 11-26-2024 Lymphocytes Auto (Unsp spec) [#/Vol] 2.98 10*3/uL 0.83-4.51 [facility] Absolute neutrophil countOrd ered By: Gordon Diopfigueroa on 11-26-2024 Neutrophils (Bld) [#/Vol] 2.9 10*3/uL 2.0-7.7 [facility] Anion gap in Serum or Plasma Ordered By: Gordon Kemp on 11-26-2024 Anion gap [Moles/Vol] 12 mmol/L 5-15 [facility] Automated lymphocyte count a s percentage of total leukocytesOrdered By: Gordon Chikisfigueroa on 11-26-2024 Lymphocytes/100 WBC Auto (Unsp spec) 43.6 % High 19-41 [facility] BUN/creatinine ratioOrdered By: [facility] on 11-26-2024 Urea nitrogen/Creatinine [Mass ratio] 7.2 mg/mg Low 10-20 [facility] Basophil percentageOrdered B y: Gordon Kemp on 11-26-2024 Basophils/100 WBC (Bld) 1.0 % 0-1 [facility] Bilirubin, totalOrdered By: Gordon Kemp on 11-26-2024 Bilirubin [Mass/Vol] 0.30 mg/dL 0.00-1.30 [facility] CBC W/Diff, Automatedon 11-10 Absolute Lymph 2.98 X10 3/uL Normal 0.83-4.51 [facility] Comment on above: Performed By: #### L 100.0100, L500.4050, L504.2610 ####[facility] [address] [place], [address] Absolute Neut 2.9 X10 3/uL Normal 2.0-7.7 [facility] Comment on above: Performed By: #### L 100.0100, L500.4050, L504.2610 ####[facility] [address] [place], [address] Basophils/100 WBC (Bld) 1.0 % Normal 0-1 [facility] Comment on above: Performed By: #### L 100.0100, L500.4050, L504.2610 ####[facility] [address] [place], [address] Eosinophils/100 WBC (Bld) 4.1 % Normal 0-5 [facility] Comment on above: Performed By: #### L 100.0100, L500.4050, L504.2610 ####[facility] [address] [place], [address] Erythrocyte distribution width (RBC) [Ratio] 12.8 % Normal 11.6-14.6 [facility] Comment on above: Performed By: #### L 100.0100, L500.4050, L504.2610 ####[facility] [address] [place], [address] Hematocrit (Bld) [Volume fraction] 44.6 % Normal 37-47 [facility] Comment on above: Performed By: #### L 100.0100, L500.4050, L504.2610 ####[facility] [address] [place], [address] Hemoglobin (Bld) [Mass/Vol] 14.6 g/dL Normal 12.0-15.0 [facility] Comment on above: Performed By: #### L 100.0100, L500.4050, L504.2610 ####[facility] [address] [place], [address] IG% 0.300 Normal 0.0-0.9 [facility] Comment on above: Result Comment: IG% - Immature Granulocytes (promyelocytes, myelocytes and metamyelocytes) > 1% indicates that a LEFT SHIFT is Present. Performed By: #### L 100.0100, L500.4050, L504.2610 ####[facility] [address] [place], [address] Lymphocytes/100 WBC (Bld) 43.6 % High 19-41 [facility] Comment on above: Performed By: #### L 100.0100, L500.4050, L504.2610 ####[facility] [address] [place], [address] MCH (RBC) [Entitic mass] 30.5 pg Normal 27.0-32.0 [facility] Comment on above: Performed By: #### L 100.0100, L500.4050, L504.2610 ####[facility] [address] [place], [address] MCHC (RBC) [Mass/Vol] 32.7 g/dL Normal 32-36 [facility] Comment on above: Performed By: #### L 100.0100, L500.4050, L504.2610 ####[facility] [address] [place], [address] MCV (RBC) [Entitic vol] 93.1 fL Normal 81-99 [facility] Comment on above: Performed By: #### L 100.0100, L500.4050, L504.2610 ####[facility] [address] [place], [address] Monocytes/100 WBC (Bld) 8.5 % Normal 0-10 [facility] Comment on above: Performed By: #### L 100.0100, L500.4050, L504.2610 ####[facility] [address] [place], [address] Neutrophils/100 WBC (Bld) 42.5 % Low 47-70 [facility] Comment on above: Performed By: #### L 100.0100, L500.4050, L504.2610 ####[facility] [address] [place], [address] Nucleated RBC (Bld) [#/Vol] 0 10*3/uL Normal 0-5 [facility] Comment on above: Performed By: #### L 100.0100, L500.4050, L504.2610 ####[facility] [address] [place], [address] Platelet mean volume (Bld) [Entitic vol] 8.6 fL Normal 6.2-12.0 [facility] Comment on above: Performed By: #### L 100.0100, L500.4050, L504.2610 ####[facility] [address] [place], [address] Platelets (Bld) [#/Vol] 218 10*3/uL Normal 150-450 [facility] Comment on above: Performed By: #### L 100.0100, L500.4050, L504.2610 ####[facility] [address] [place], [address] RBC (Bld) [#/Vol] 4.79 10*6/uL Normal 4.2-5.4 [facility] Comment on above: Performed By: #### L 100.0100, L500.4050, L504.2610 ####[facility] [address] [place], [address] RDW SD 43.8 fl Normal 35.1-43.9 [facility] Comment on above: Performed By: #### L 100.0100, L500.4050, L504.2610 ####[facility] [address] [place], [address] WBC (Bld) [#/Vol] 6.8 10*3/uL Normal 4.4-11.0 [facility] Comment on above: Performed By: #### L 100.0100, L500.4050, L504.2610 ####[facility] [address] [place], [address] Carbon dioxide, total [Moles /volume] in Central venous bloodOrdered By: Gordon Kemp on 11-26-2024 CO2 [Moles/Vol] 24.5 mmol/L 21.0-32.0 [facility] Chloride assayOrdered By: Karen Kemp on 11-26-2024 Chloride [Moles/Vol] 101 mmol/L 98-108 [facility] [place] Comprehensive Metabolic Prof ilon 11-26-2024 Albumin [Mass/Vol] 4.1 g/dL Normal 3.4-4.8 [facility] Comment on above: Performed By: #### L 100.0100, L500.4050, L504.2610 ####[facility] [address] [place], [address] Albumin/Globulin [Mass ratio] 1.1 {ratio} Normal 0.9-2.4 [facility] Comment on above: Performed By: #### L 100.0100, L500.4050, L504.2610 ####[facility] [address] [place], [address] ALK PHOS 59 U/L Normal 35-104 [facility] Comment on above: Performed By: #### L 100.0100, L500.4050, L504.2610 ####[facility] [address] [place], [address] ALT [Catalytic activity/Vol] 30 U/L Normal <=34 [facility] Comment on above: Performed By: #### L 100.0100, L500.4050, L504.2610 ####[facility] [address] [place], [address] AST [Catalytic activity/Vol] 40 U/L High <=31 [facility] Comment on above: Performed By: #### L 100.0100, L500.4050, L504.2610 ####[facility] [address] [place], [address] Bilirubin [Mass/Vol] 0.30 mg/dL Normal 0.00-1.30 [facility] Comment on above: Performed By: #### L 100.0100, L500.4050, L504.2610 ####[facility] [address] [place], [address] BUN/CRE 7.2 RATIO Low 10-20 [facility] Comment on above: Performed By: #### L 100.0100, L500.4050, L504.2610 ####[facility] [address] [place], [address] Calcium [Mass/Vol] 9.5 mg/dL Normal 7.6-11.0 [facility] Comment on above: Performed By: #### L 100.0100, L500.4050, L504.2610 ####[facility] [address] [place], [address] Chloride [Moles/Vol] 101 mmol/L Normal 98-108 [facility] Comment on above: Performed By: #### L 100.0100, L500.4050, L504.2610 ####[facility] [address] [place], [address] CO2 [Moles/Vol] 24.5 mmol/L Normal 21.0-32.0 [facility] Comment on above: Performed By: #### L 100.0100, L500.4050, L504.2610 ####[facility] [address] [place], [address] Creatinine [Mass/Vol] 1.20 mg/dL Normal 0.70-1.20 [facility] Comment on above: Performed By: #### L 100.0100, L500.4050, L504.2610 ####[facility] [address] [place], [address] ECRCL 39.14 ml/min Low 50-250 [facility] Comment on above: Performed By: #### L 100.0100, L500.4050, L504.2610 ####[facility] [address] [place], [address] GAP 12 Normal 5-15 [facility] Comment on above: Performed By: #### L 100.0100, L500.4050, L504.2610 ####[facility] [address] [place], [address] GFR/1.73 sq M.predicted among non-blacks MDRD (S/P/Bld) [Vol rate/Area] 45 mL/min/{1.73_m2} Low >60 [facility] Comment on above: Result Comment: mL/m in/1.73m2 CKD-EPI Creatinine Equation (2020) Performed By: #### L 100.0100, L500.4050, L504.2610 ####[facility] [address] [place], [address] Globulin (S) [Mass/Vol] 3.6 g/dL Normal 2.2-4.2 [facility] Comment on above: Performed By: #### L 100.0100, L500.4050, L504.2610 ####[facility] [address] [place], [address] Glucose [Mass/Vol] 113 mg/dL High 70-99 [facility] Comment on above: Performed By: #### L 100.0100, L500.4050, L504.2610 ####[facility] [address] [place], [address] Potassium [Moles/Vol] 3.5 mmol/L Normal 3.3-5.1 [facility] Comment on above: Performed By: #### L 100.0100, L500.4050, L504.2610 ####[facility] [address] [place], [address] Sodium [Moles/Vol] 137 mmol/L Normal 133-145 [facility] Comment on above: Performed By: #### L 100.0100, L500.4050, L504.2610 ####[facility] [address] [place], [address] T PROT 7.7 g/dL Normal 5.9-8.4 [facility] Comment on above: Performed By: #### L 100.0100, L500.4050, L504.2610 ####[facility] [address] [place], [address] Urea nitrogen [Mass/Vol] 9 mg/dL Normal 4-19 [facility] Comment on above: Performed By: #### L 100.0100, L500.4050, L504.2610 ####[facility] [address] [place], [address] Eosinophil percentageOrdered By: Gordon Kemp on 11-26-2024 Eosinophils/100 WBC (Bld) 4.1 % 0-5 [facility] Erythrocyte distribution wid th ratioOrdered By: Gordon Kemp on 11-26-2024 Erythrocyte distribution width (RBC) [Ratio] 12.8 % 11.6-14.6 [facility] Erythrocyte distribution wid th standard deviationOrdered By: Gordon Kemp on 11-26-2024 Erythrocyte distribution width (RBC) [Ratio] 43.8 fl 35.1-43.9 [facility] Glomerular filtration rate ( GFR) estimation/1.73 sq m using serum, plasma, or whole bOrdered By: Gordon Kemp on 11-26-2024 GFR/1.73 sq M.predicted among non-blacks MDRD (S/P/Bld) [Vol rate/Area] 45 mL/min/{1.73_m2} Low >60 [facility] Comment on above: mL/min/1.73m2 CKD-EP I Creatinine Equation (2020) Hematocrit Auto (Bld) [Volum e fraction]Ordered By: Gordon Kemp on 11-26-2024 Hematocrit (Bld) [Volume fraction] 44.6 % 37-47 [facility] Hemoglobin measurementOrdere d By: Gordon Kemp on 11-26-2024 Hemoglobin (Bld) [Mass/Vol] 14.6 g/dL 12.0-15.0 [facility] Immature granulocytes/100 WB C Auto (Bld)Ordered By: Gordon Kemp on 11-26-2024 Immature granulocytes/100 WBC (Bld) 0.300 % 0.0-0.9 [facility] Comment on above: IG% - Immature Granu locytes (promyelocytes, myelocytes and metamyelocytes) > 1% indicates that a LEFT SHIFT is Present. LDHon 11-26-2024 LDH 197 U/L Normal 84-246 [facility] Comment on above: Order Comment: 1 Performed By: #### L 100.0100, L500.4050, L504.2610 ####[facility] [address] [place], [address] Laboratory - Chemistry and C hemistry - challengeOrdered By: Gordon Kemp on 11-26-2024 AST [Catalytic activity/Vol] 40 U/L High <32 [facility] Lactate dehydrogenase (LDH) measurementOrdered By: Gordon Kemp on 11-26-2024 LDH [Catalytic activity/Vol] 197 U/L 84-246 [facility] MCV (mean corpuscular volume ) determinationOrdered By: Gordon Kemp on 11-26-2024 MCV (RBC) [Entitic vol] 93.1 fL 81-99 [facility] Mean corpuscular hemoglobin (MCH) determinationOrdered By: Gordon Kemp on 11-26-2024 MCH (RBC) [Entitic mass] 30.5 pg 27.0-32.0 [facility] Mean corpuscular hemoglobin concentration (MCHC) determinationOrdered By: Gordon Kemp on 11-26-2024 MCHC (RBC) [Mass/Vol] 32.7 g/dL 32-36 [facility] Mean platelet volume determi nationOrdered By: Gordon Kemp on 11-26-2024 Platelet mean volume (Bld) [Entitic vol] 8.6 fL 6.2-12.0 [facility] Monocyte percentageOrdered B y: Gordon Kemp on 11-26-2024 Monocytes/100 WBC (Bld) 8.5 % 0-10 [facility] Neutrophil percentageOrdered By: Gordon Kemp on 11-26-2024 Neutrophils/100 WBC (Bld) 42.5 % Low 47-70 [facility] Nucleated red blood cell per centageOrdered By: Gordon Kemp on 11-26-2024 Nucleated RBC/100 WBC (Bld) [Ratio] 0 % 0-5 [facility] Oncology Visit Reporton 11-10 Oncology Visit Report [facility] [place] [address] OFFICE VISIT Date of Service: 11/26/24 1438 MR#: [id number] Acct: [id number] Name: KYLIE ECHAVARRIA Rep #: [id number] : 1940 From: Gordon Kemp MD Age/Sex: 83/F Location: [facility] Status: Signed HPI Subjective Date of Service 11/26/24 Chief Complaint F/u for R breast cancer and therapy. History of Present Illness 83-year-old woman felt a lump in the right breast, mammogram on 12/21/2021 showed a 3 cm of retroareolar mass. Ultrasound on 12/27/2021 showed 2.2 cm retroareolar mass. She had an ultrasound guided core biopsy of the right breast mass on 12/28/2021. Pathology showed invasive ductal carcinoma, grade 1, ER positive, HER2 negative. CT showed R breast mass with no evidence of metastatic disease. She had R MRM and axillary dissection on 01/13/2022. Still has dressing on the R mastectomy wound. S/P R mastectomy and axillary dissection, Tumor size 3.5cm, central portion, grade 1, Lymph nodes 12/01 involved, ER positive 95%, MT positive??? 2%, Her2??? negative, Ki-67 positive 75%. Pathology stage pT2 pN2a. Prognostic stage IIIA. She had a seroma on the mastectomy fossa which was drained. Declined adjuvant chemotherapy and radiation. She started Anastrozole and Verzenio on 03/03/2022. She started with Verzenio 150mg daily, and start twice daily on 04/28/2022. Verzenio was decreased to 150mg daily because of tiredness, joint stiffness, redness of the fingers on 07/20/2022. Had joint stiffness and redness, desquamation on dorsum of fingers with ulceration which is making it difficult for her to function so Verzenio and Anastrozole was put on hold on 08/03/2022. ct DNA was requested which was negative. She was on observation. ct DNA was repeated on 11/09/2022 which was 44. She started Tamoxifen on 12/07/2022. ct DNA in March 2023 was negative. Remains on Tamoxifen and comes for follow up. Feels well. [facility] Medical History Aromatase inhibitor-associat ed arthralgia Encounter for education Wears hearing aid Post-menopausal Restless legs Non-smoker Sleep apnea History of pain when walking History of edema History of echocardiogram Surgical History History of right mastectomy ( 01/2022) History of lumbar surgery History of colonoscopy ( 09/2020) History of total right knee replacement Family History Father Diabetes Kidney disease Daughter Cancer Mets ovarian Social History Smoking Status: Never smoker ROS Constitutional Constitutional: Reports systems reviewed and no addt'l complaints, except as documented Eyes Eyes: Reports systems reviewed and no addt'l complaints, except as documented ENT HEENT: Reports systems reviewed and no addt'l complaints, except as documented Cardiovascular Cardiovascular: Reports systems reviewed and no addt'l complaints, except as documented Respiratory/Chest Respiratory/Chest: Reports systems reviewed and no addt'l complaints, except as documented Gastrointestinal Gastrointestinal: Reports systems reviewed and no addt'l complaints, except as documented Genitourinary Genitourinary: Reports systems reviewed and no addt'l complaints, except as documented Musculoskeletal Musculoskeletal: Reports systems reviewed and no addt'l complaints, except as documented Integumentary Integumentary: Reports systems reviewed and no addt'l complaints, except as documented Neurologic Neurologic: Reports systems reviewed and no addt'l complaints, except as documented Psychiatric Psychiatric: Reports systems reviewed and no addt'l complaints, except as documented Endocrine Endocrinology: Reports systems reviewed and no addt'l complaints, except as documented Hematologic/Lympha tic Hematologic/Lympha tic: Reports systems reviewed and no addt'l complaints, except as documented Allergic/Immunolog ic Allergic/Immunolog ic: Reports systems reviewed and no addt'l complaints, except as documented Intake Vital Signs 05/15/24 13:26 11/26/24 14:38 Height 5 ft 6 in 5 ft 6 in Weight: 78.953 kg BMI 28.0 BP 149/68 H Blood Pressure Location Lt brachial Position Sitting Respiration 18 Pulse 94 Pulse Source Monitor Temp 98.1 F Temperature Source Temporal Artery Pulse Oximetry (%) 96 Oxygen Delivery Method room air Intake Is patient in pain?: No Allergies No Known Allergies Allergy (Verified 11/26/24 14:42) Medications ???Medication ???Instructions ???Recorded ???Confirmed ???Type multivitamin 1 tab PO DAILY 01/06/22 11/26/24 H istory omega-3 fatty acids 1,000 mg PO DAILY 01/06/22 5 History He (more content not included)... Normal [facility] Platelet countOrdered By: Karen Kemp on 11-26-2024 Platelets (Bld) [#/Vol] 218 10*3/uL 150-450 [facility] Potassium measurement (mass/ volume)Ordered By: Gordon Kemp on 11-26-2024 Potassium (Unsp spec) [Mass/Vol] 3.5 mmol/L 3.3-5.1 [facility] RBC Auto (Bld) [#/Vol]Ordere d By: Gordon Kemp on 11-26-2024 RBC (Bld) [#/Vol] 4.79 10*6/uL 4.2-5.4 [facility] Serum creatinine measurement (mass/volume)Ordered By: Gordon Kemp on 11-26-2024 Creatinine [Mass/Vol] 1.20 mg/dL 0.70-1.20 [facility] Serum globulin measurementOr dered By: Gordon Kemp on 11-26-2024 Globulin (S) [Mass/Vol] 3.6 g/dL 2.2-4.2 [facility] Serum glucose measurement (m ass/volume)Ordered By: Gordon Kemp on 11-26-2024 Glucose [Mass/Vol] 113 mg/dL High 70-99 [facility] Serum or plasma alanine medel otransferase (ALT) measurementOrdered By: Gordon Kemp on 11-26-2024 ALT [Catalytic activity/Vol] 30 U/L <35 [facility] Serum or plasma albumin alie urement (mass/volume)Ordered By: Gordon Kemp on 11-26-2024 Albumin [Mass/Vol] 4.1 g/dL 3.4-4.8 [facility] Serum or plasma albumin/glob ulin mass ratioOrdered By: Gordon Kemp on 11-26-2024 Albumin/Globulin [Mass ratio] 1.1 {ratio} 0.9-2.4 [facility] Serum or plasma alkaline anthony sphatase measurementOrdered By: Gordon Kemp on 11-26-2024 ALP [Catalytic activity/Vol] 59 U/L 35-104 [facility] Serum or plasma calcium alie urement (mass/volume)Ordered By: Gordon Kemp on 11-26-2024 Calcium [Mass/Vol] 9.5 mg/dL 7.6-11.0 [facility] Serum or plasma urea nitroge n measurement (mass/volume)Ordered By: Gordon Kemp on 11-26-2024 Urea nitrogen [Mass/Vol] 9 mg/dL 4-19 [facility] Sodium levelOrdered By: Jaydon Kemp on 11-26-2024 Sodium [Moles/Vol] 137 mmol/L 133-145 [facility] Total proteinOrdered By: Felice Kemp on 11-26-2024 Protein [Mass/Vol] 7.7 g/dL 5.9-8.4 [facility] White blood cell (WBC) count Ordered By: Gordon Kemp on 11-26-2024 WBC (Bld) [#/Vol] 6.8 10*3/uL 4.4-11.0 [facility] Absolute lymphocyte countOrd ered By: Jose Alex on 10-15-2024 Lymphocytes Auto (Unsp spec) [#/Vol] 3.06 10*3/uL 0.83-4.51 [facility] Absolute neutrophil countOrd ered By: Jose Alex on 10-15-2024 Neutrophils (Bld) [#/Vol] 3.8 10*3/uL 2.0-7.7 [facility] Anion gap in Serum or Plasma Ordered By: Jose Alex on 10-15-2024 Anion gap [Moles/Vol] 12 mmol/L 5-15 [facility] Automated lymphocyte count a s percentage of total leukocytesOrdered By: Jose Alex on 10-15-2024 Lymphocytes/100 WBC Auto (Unsp spec) 39.0 % -41 [facility] BUN/creatinine ratioOrdered By: Jose Alex on 10-15-2024 Urea nitrogen/Creatinine [Mass ratio] 9.4 mg/mg Low 10-20 [facility] Basic Metabolic Profile (BMP )on 10-15-2024 BUN/CRE 9.4 RATIO Low 10-20 [facility] Comment on above: Order Comment: Order Date: 10/15/24 Order Info: 666-06 - BMP Order Info: [id number] - MG Order Info: 3 - TSH Order Info: [id number] - CARLOS Order Info: 8 - FOLS Performed By: #### L 501.5200, L501.9520, L100.0100, L503.6550, L500.2500, L501.9985 #### [facility] [address] [place], [address] Calcium [Mass/Vol] 10.1 mg/dL Normal 7.6-11.0 [facility] Comment on above: Order Comment: Order Date: 10/15/24 Order Info: 666-06 - BMP Order Info: [id number] - MG Order Info: 3 - TSH Order Info: [id number] - CARLOS Order Info: 8 - FOLS Performed By: #### L 501.5200, L501.9520, L100.0100, L503.6550, L500.2500, L501.9985 #### [facility] [address] [place], [address] Chloride [Moles/Vol] 101 mmol/L Normal 98-108 [facility] Comment on above: Order Comment: Order Date: 10/15/24 Order Info: 666-06 - BMP Order Info: [id number] - MG Order Info: 3 - TSH Order Info: [id number] - CARLOS Order Info: 8 - FOLS Performed By: #### L 501.5200, L501.9520, L100.0100, L503.6550, L500.2500, L501.9985 #### [facility] [address] [place], [address] CO2 [Moles/Vol] 26.6 mmol/L Normal 21.0-32.0 [facility] Comment on above: Order Comment: Order Date: 10/15/24 Order Info: 1 - BMP Order Info: [id number] - MG Order Info: 3 - TSH Order Info: [id number] - CARLOS Order Info: 8 - FOLS Performed By: #### L 501.5200, L501.9520, L100.0100, L503.6550, L500.2500, L501.9985 #### [facility] [address] [place], [place], [id number] (247) Creatinine [Mass/Vol] 1.20 mg/dL Normal 0.70-1.20 [facility] Comment on above: Order Comment: Order Date: 10/15/24 Order Info: 666-06 - BMP Order Info: [id number] - MG Order Info: [id number] - TSH Order Info: [id number] - CARLOS Order Info: 8 - FOLS Performed By: #### L 501.5200, L501.9520, L100.0100, L503.6550, L500.2500, L501.9985 #### [facility] [address] [place], [address] GAP 12 Normal 5-15 [facility] Comment on above: Order Comment: Order Date: 10/15/24 Order Info: 666-1 - BMP Order Info: [id number] - MG Order Info: [id number] - TSH Order Info: [id number] - CARLOS Order Info: [id number] - FOLS Performed By: #### L 501.5200, L501.9520, L100.0100, L503.6550, L500.2500, L501.9985 #### [facility] [address] [place], [address] GFR/1.73 sq M.predicted among non-blacks MDRD (S/P/Bld) [Vol rate/Area] 45 mL/min/{1.73_m2} Low >60 [facility] Comment on above: Order Comment: Order Date: 10/15/24 Order Info: 666-06 - BMP Order Info: [id number] - MG Order Info: 3 - TSH Order Info: 4 - CARLOS Order Info: 228-8 - FOLS Result Comment: mL/m in/1.73m2 CKD-EPI Creatinine Equation (2020) Performed By: #### L 501.5200, L501.9520, L100.0100, L503.6550, L500.2500, L501.9985 #### [facility] [address] [place], [address] Glucose [Mass/Vol] 88 mg/dL Normal 70-99 [facility] Comment on above: Order Comment: Order Date: 10/15/24 Order Info: 666-06 - BMP Order Info: [id number] - MG Order Info: 3 - TSH Order Info: 4 - CARLOS Order Info: [id number] - FOLS Performed By: #### L 501.5200, L501.9520, L100.0100, L503.6550, L500.2500, L501.9985 #### [facility] [address] [place], [address] Potassium [Moles/Vol] 3.5 mmol/L Normal 3.3-5.1 [facility] Comment on above: Order Comment: Order Date: 10/15/24 Order Info: 666-06 - BMP Order Info: [id number] - MG Order Info: 3 - TSH Order Info: 4 - CARLOS Order Info: 228-8 - FOLS Performed By: #### L 501.5200, L501.9520, L100.0100, L503.6550, L500.2500, L501.9985 #### [facility] [address] [place], [address] Sodium [Moles/Vol] 139 mmol/L Normal 133-145 [facility] Comment on above: Order Comment: Order Date: 10/15/24 Order Info: 06- - BMP Order Info: [id number] - MG Order Info: 3 - TSH Order Info: [id number] - CARLOS Order Info: 8 - FOLS Performed By: #### L 501.5200, L501.9520, L100.0100, L503.6550, L500.2500, L501.9985 #### [facility] [address] [place], [place], [id number] Urea nitrogen [Mass/Vol] 11 mg/dL Normal 4-19 [facility] Comment on above: Order Comment: Order Date: 10/15/24 Order Info: 06 - BMP Order Info: [id number] - MG Order Info: 3 - TSH Order Info: [id number] - CARLOS Order Info: [id number] - FOLS Performed By: #### L 501.5200, L501.9520, L100.0100, L503.6550, L500.2500, L501.9985 #### [facility] [address] [place], [place], [id number] Basophil percentageOrdered B y: Jose Alex on 10-15-2024 Basophils/100 WBC (Bld) 0.9 % 0-1 [facility] CBC W/Diff, Automatedon Absolute Lymph 3.06 X10 3/uL Normal 0.83-4.51 [facility] Comment on above: Order Comment: Order Date: 10/15/24 Order Info: [id number] - CBCD Performed By: #### L 501.5200, L501.9520, L100.0100, L503.6550, L500.2500, L501.9985 #### [facility] [address] [place], [address] Absolute Neut 3.8 X10 3/uL Normal 2.0-7.7 [facility] Comment on above: Order Comment: Order Date: 10/15/24 Order Info: [id number] - CBCD Performed By: #### L 501.5200, L501.9520, L100.0100, L503.6550, L500.2500, L501.9985 #### [facility] [address] [place], [address] Basophils/100 WBC (Bld) 0.9 % Normal 0-1 [facility] Comment on above: Order Comment: Order Date: 10/15/24 Order Info: [id number] - CBCD Performed By: #### L 501.5200, L501.9520, L100.0100, L503.6550, L500.2500, L501.9985 #### [facility] [address] [place], [address] Eosinophils/100 WBC (Bld) 3.4 % Normal 0-5 [facility] Comment on above: Order Comment: Order Date: 10/15/24 Order Info: [id number]- - CBCD Performed By: #### L 501.5200, L501.9520, L100.0100, L503.6550, L500.2500, L501.9985 #### [facility] [address] [place], [address] Erythrocyte distribution width (RBC) [Ratio] 12.6 % Normal 11.6-14.6 [facility] Comment on above: Order Comment: Order Date: 10/15/24 Order Info: [id number] - CBCD Performed By: #### L 501.5200, L501.9520, L100.0100, L503.6550, L500.2500, L501.9985 #### [facility] [address] [place], [address] Hematocrit (Bld) [Volume fraction] 44.6 % Normal 37-47 [facility] Comment on above: Order Comment: Order Date: 10/15/24 Order Info: [id number] - CBCD Performed By: #### L 501.5200, L501.9520, L100.0100, L503.6550, L500.2500, L501.9985 #### [facility] [address] [place], [address] Hemoglobin (Bld) [Mass/Vol] 15.0 g/dL Normal 12.0-15.0 [facility] Comment on above: Order Comment: Order Date: 10/15/24 Order Info: [id number] - CBCD Performed By: #### L 501.5200, L501.9520, L100.0100, L503.6550, L500.2500, L501.9985 #### [facility] [address] [place], [address] IG% 0.300 Normal 0.0-0.9 [facility] Comment on above: Order Comment: Order Date: 10/15/24 Order Info: [id number] - CBCD Result Comment: IG% - Immature Granulocytes (promyelocytes, myelocytes and metamyelocytes) > 1% indicates that a LEFT SHIFT is Present. Performed By: #### L 501.5200, L501.9520, L100.0100, L503.6550, L500.2500, L501.9985 #### [facility] [address] [place], [address] Lymphocytes/100 WBC (Bld) 39.0 % Normal 19-41 [facility] Comment on above: Order Comment: Order Date: 10/15/24 Order Info: [id number] - CBCD Performed By: #### L 501.5200, L501.9520, L100.0100, L503.6550, L500.2500, L501.9985 #### [facility] [address] [place], [address] MCH (RBC) [Entitic mass] 31.3 pg Normal 27.0-32.0 [facility] Comment on above: Order Comment: Order Date: 10/15/24 Order Info: [id number]- - CBCD Performed By: #### L 501.5200, L501.9520, L100.0100, L503.6550, L500.2500, L501.9985 #### [facility] [address] [place], [address] MCHC (RBC) [Mass/Vol] 33.6 g/dL Normal 32-36 [facility] Comment on above: Order Comment: Order Date: 10/15/24 Order Info: [id number]- - CBCD Performed By: #### L 501.5200, L501.9520, L100.0100, L503.6550, L500.2500, L501.9985 #### [facility] [address] [place], [address] MCV (RBC) [Entitic vol] 93.1 fL Normal 81-99 [facility] Comment on above: Order Comment: Order Date: 10/15/24 Order Info: [id number]- - CBCD Performed By: #### L 501.5200, L501.9520, L100.0100, L503.6550, L500.2500, L501.9985 #### [facility] [address] [place], [address] Monocytes/100 WBC (Bld) 7.5 % Normal 0-10 [facility] Comment on above: Order Comment: Order Date: 10/15/24 Order Info: 0184- - CBCD Performed By: #### L 501.5200, L501.9520, L100.0100, L503.6550, L500.2500, L501.9985 #### [facility] [address] [place], [address] Neutrophils/100 WBC (Bld) 48.9 % Normal 47-70 [facility] Comment on above: Order Comment: Order Date: 10/15/24 Order Info: [id number] - CBCD Performed By: #### L 501.5200, L501.9520, L100.0100, L503.6550, L500.2500, L501.9985 #### [facility] [address] [place], [address] Nucleated RBC (Bld) [#/Vol] 0 10*3/uL Normal 0-5 [facility] Comment on above: Order Comment: Order Date: 10/15/24 Order Info: [id number]- - CBCD Performed By: #### L 501.5200, L501.9520, L100.0100, L503.6550, L500.2500, L501.9985 #### [facility] [address] [place], [address] Platelet mean volume (Bld) [Entitic vol] 9.0 fL Normal 6.2-12.0 [facility] Comment on above: Order Comment: Order Date: 10/15/24 Order Info: [id number] - CBCD Performed By: #### L 501.5200, L501.9520, L100.0100, L503.6550, L500.2500, L501.9985 #### [facility] [address] [place], [address] Platelets (Bld) [#/Vol] 235 10*3/uL Normal 150-450 [facility] Comment on above: Order Comment: Order Date: 10/15/24 Order Info: [id number] - CBCD Performed By: #### L 501.5200, L501.9520, L100.0100, L503.6550, L500.2500, L501.9985 #### [facility] [address] [place], [address] RBC (Bld) [#/Vol] 4.79 10*6/uL Normal 4.2-5.4 [facility] Comment on above: Order Comment: Order Date: 10/15/24 Order Info: [id number] - CBCD Performed By: #### L 501.5200, L501.9520, L100.0100, L503.6550, L500.2500, L501.9985 #### [facility] [address] [place], [address] RDW SD 43.2 fl Normal 35.1-43.9 [facility] Comment on above: Order Comment: Order Date: 10/15/24 Order Info: [id number] - CBCD Performed By: #### L 501.5200, L501.9520, L100.0100, L503.6550, L500.2500, L501.9985 #### [facility] [address] [place], [place], [id number] [phone] WBC (Bld) [#/Vol] 7.8 10*3/uL Normal 4.4-11.0 [facility] Comment on above: Order Comment: Order Date: 10/15/24 Order Info: [id number] - CBCD Performed By: #### L 501.5200, L501.9520, L100.0100, L503.6550, L500.2500, L501.9985 #### [facility] [address] [place], [address] Carbon dioxide, total [Moles /volume] in Central venous bloodOrdered By: Jose Alex on 10-15-2024 CO2 [Moles/Vol] 26.6 mmol/L 21.0-32.0 [facility] Chloride assayOrdered By: Ted Alex on 10-15-2024 Chloride [Moles/Vol] 101 mmol/L 98-108 [facility] [place] Eosinophil percentageOrdered By: Jose Alex on 10-15-2024 Eosinophils/100 WBC (Bld) 3.4 % 0-5 [facility] Erythrocyte distribution wid th ratioOrdered By: Jose Alex on 10-15-2024 Erythrocyte distribution width (RBC) [Ratio] 12.6 % 11.6-14.6 [facility] Erythrocyte distribution wid th standard deviationOrdered By: Jose Alex on 10-15-2024 Erythrocyte distribution width (RBC) [Ratio] 43.2 fl 35.1-43.9 [facility] Ferritinon 10-15-2024 Ferritin [Mass/Vol] 309 ng/mL Normal 22-378 [facility] Comment on above: Order Comment: Order Date: 10/15/24 Order Info: [id number] - BMP Order Info: [id number] - MG Order Info: [id number] - TSH Order Info: [id number] - CARLOS Order Info: [id number] - FOLS Performed By: #### L 501.5200, L501.9520, L100.0100, L503.6550, L500.2500, L501.9985 #### [facility] [address] [place], [address] Folate [Moles/volume] in Ser um or PlasmaOrdered By: Jose Alex on 10-15-2024 Folate [Moles/Vol] 11.60 ng/mL 4.60-34.80 [facility] Folates,Serum (Folic Acid)on 10-15-2024 FOLATES,SERUM 11.60 ng/mL Normal 4.60-34.80 [facility] Comment on above: Order Comment: N Performed By: #### L 503.0106, L506.0200 ####[facility] [address] [place], [place], [id number] Glomerular filtration rate ( GFR) estimation/1.73 sq m using serum, plasma, or whole bOrdered By: Jose Alex on 10-15-2024 GFR/1.73 sq M.predicted among non-blacks MDRD (S/P/Bld) [Vol rate/Area] 45 mL/min/{1.73_m2} Low >60 [facility] Comment on above: mL/min/1.73m2 CKD-EP I Creatinine Equation (2020) Hematocrit Auto (Bld) [Volum e fraction]Ordered By: Jose Alex on 10-15-2024 Hematocrit (Bld) [Volume fraction] 44.6 % 37-47 [facility] Hemoglobin A1con 10-15-2024 HbA1c (Bld) [Mass fraction] 5.6 % Normal <=5.6 [facility] Comment on above: Order Comment: Order Date: 10/15/24 Order Info: [id number] - A1C Result Comment: Norm al < 5.7 % Prediabetic 5.7 - 6.4 % Diabetic >or= 6.5 % Please note range changes. Performed By: #### L 501.5200, L501.9520, L100.0100, L503.6550, L500.2500, L501.9985 #### [facility] [address] [place], [address] Hemoglobin A1c percentageOrd ered By: Jose Alex on 10-15-2024 HbA1c (Bld) [Mass fraction] 5.6 % <5.7 [facility] Comment on above: Normal < 5.7 % Predi abetic 5.7 - 6.4 % Diabetic >or= 6.5 % Please note range changes. Hemoglobin measurementOrdere d By: Jose Alex on 10-15-2024 Hemoglobin (Bld) [Mass/Vol] 15.0 g/dL 12.0-15.0 [facility] Immature granulocytes/100 WB C Auto (Bld)Ordered By: Jose Alex on 10-15-2024 Immature granulocytes/100 WBC (Bld) 0.300 % 0.0-0.9 [facility] Comment on above: IG% - Immature Granu locytes (promyelocytes, myelocytes and metamyelocytes) > 1% indicates that a LEFT SHIFT is Present. MCV (mean corpuscular volume ) determinationOrdered By: Jose Alex on 10-15-2024 MCV (RBC) [Entitic vol] 93.1 fL 81-99 [facility] Magnesiumon 10-15-2024 Magnesium [Mass/Vol] 2.1 mg/dL Normal 1.5-2.2 [facility] [place] Comment on above: Order Comment: Order Date: 10/15/24 Order Info: [id number] - BMP Order Info: [id number] - MG Order Info: [id number] - TSH Order Info: [id number] - CARLOS Order Info: [id number] - FOLS Performed By: #### L 501.5200, L501.9520, L100.0100, L503.6550, L500.4813, L501.9985 #### [facility] [address] [place], [address] Magnesium measurement (mass/ volume)Ordered By: Jose Alex on 10-15-2024 Magnesium (Unsp spec) [Mass/Vol] 2.1 mg/dL 1.5-2.2 [facility] Mean corpuscular hemoglobin (MCH) determinationOrdered By: Jose Alex on 10-15-2024 MCH (RBC) [Entitic mass] 31.3 pg 27.0-32.0 [facility] Mean corpuscular hemoglobin concentration (MCHC) determinationOrdered By: Jose Alex on 10-15-2024 MCHC (RBC) [Mass/Vol] 33.6 g/dL 32-36 [facility] Mean platelet volume determi nationOrdered By: Jose Alex on 10-15-2024 Platelet mean volume (Bld) [Entitic vol] 9.0 fL 6.2-12.0 [facility] Monocyte percentageOrdered B y: Jose Alex on 10-15-2024 Monocytes/100 WBC (Bld) 7.5 % 0-10 [facility] Neutrophil percentageOrdered By: Jose Alex on 10-15-2024 Neutrophils/100 WBC (Bld) 48.9 % 47-70 [facility] Nucleated red blood cell per centageOrdered By: Jose Alex on 10-15-2024 Nucleated RBC/100 WBC (Bld) [Ratio] 0 % 0-5 [facility] Platelet countOrdered By: Ted Alex on 10-15-2024 Platelets (Bld) [#/Vol] 235 10*3/uL 150-450 [facility] Potassium measurement (mass/ volume)Ordered By: Jose Alex on 10-15-2024 Potassium (Unsp spec) [Mass/Vol] 3.5 mmol/L 3.3-5.1 [facility] RBC Auto (Bld) [#/Vol]Ordere d By: Jose Alex on 10-15-2024 RBC (Bld) [#/Vol] 4.79 10*6/uL 4.2-5.4 [facility] Serum creatinine measurement (mass/volume)Ordered By: Jose Alex on 10-15-2024 Creatinine [Mass/Vol] 1.20 mg/dL 0.70-1.20 [facility] Serum glucose measurement (m ass/volume)Ordered By: Jose Alex on 10-15-2024 Glucose [Mass/Vol] 88 mg/dL 70-99 [facility] Serum or plasma calcium alie urement (mass/volume)Ordered By: Jose Alex on 10-15-2024 Calcium [Mass/Vol] 10.1 mg/dL 7.6-11.0 [facility] Serum or plasma ferritin mer surement (mass/volume)Ordered By: Jose Alex on 10-15-2024 Ferritin [Mass/Vol] 309 ng/mL 22-378 [facility] Serum or plasma urea nitroge n measurement (mass/volume)Ordered By: Jose Alex on 10-15-2024 Urea nitrogen [Mass/Vol] 11 mg/dL 4-19 [facility] Sodium levelOrdered By: Jose Alex on 10-15-2024 Sodium [Moles/Vol] 139 mmol/L 133-145 [facility] TSH DL <= 0.005 mIU/L QnOrde red By: Jose Alex on 10-15-2024 TSH Qn 2.080 uIU/mL 0.300-4.200 [facility] Thyroid Stim Hormone (TSH)on 10-15-2024 TSH 2.080 uIU/mL Normal 0.300-4.200 [facility] Comment on above: Order Comment: Order Date: 10/15/24 Order Info: [id number] - BMP Order Info: [id number] - MG Order Info: [id number] - TSH Order Info: [id number] - CARLOS Order Info: [id number] - FOLS Performed By: #### L 501.5200, L501.9520, L100.0100, L503.6550, L500.2500, L501.9985 #### [facility] [address] [place], [address] Vitamin B12on 10-15-2024 Cobalamin (Vitamin B12) [Mass/Vol] 527 pg/mL Normal 180-914 [facility] Comment on above: Order Comment: Order Date: 10/15/24Order Info: [id number] - BMPOrder Info: [id number] - MGOrder Info: [id number] - TSHOrder Info: [id number] - FEROrder Info: [id number] - FOLS Performed By: #### L 503.0106, L506.0200 ####[facility] [address] [place], [address] Vitamin B12 ser/plasOrdered By: Jose Alex on 10-15-2024 Cobalamin (Vitamin B12) [Mass/Vol] 527 pg/mL 180-914 [facility] White blood cell (WBC) count Ordered By: Jose Alex on 10-15-2024 WBC (Bld) [#/Vol] 7.8 10*3/uL 4.4-11.0 [facility] CBC W/Diff, Automatedon 12-0 Absolute Lymph 2.58 X10 3/uL Normal 0.83-4.51 [facility] Comment on above: Performed By: #### L 504.2610, L100.0100, L500.4050 ####[facility] [address] [place], [address] Absolute Neut 3.6 X10 3/uL Normal 2.0-7.7 [facility] Comment on above: Performed By: #### L 504.2610, L100.0100, L500.4050 ####[facility] [address] [place], [address] Basophils/100 WBC (Bld) 1.0 % Normal 0-1 [facility] Comment on above: Performed By: #### L 504.2610, L100.0100, L500.4050 ####[facility] [address] [place], [address] Eosinophils/100 WBC (Bld) 5.1 % High 0-5 [facility] Comment on above: Performed By: #### L 504.2610, L100.0100, L500.4050 ####[facility] [address] [place], [address] Erythrocyte distribution width (RBC) [Ratio] 13.2 % Normal 11.6-14.6 [facility] Comment on above: Performed By: #### L 504.2610, L100.0100, L500.4050 ####[facility] [address] [place], [address] Hematocrit (Bld) [Volume fraction] 43.3 % Normal 37-47 [facility] Comment on above: Performed By: #### L 504.2610, L100.0100, L500.4050 ####[facility] [address] [place], [address] Hemoglobin (Bld) [Mass/Vol] 14.3 g/dL Normal 12.0-15.0 [facility] Comment on above: Performed By: #### L 504.2610, L100.0100, L500.4050 ####[facility] [address] [place], [address] IG% 0.400 Normal 0.0-0.9 [facility] Comment on above: Result Comment: IG% - Immature Granulocytes (promyelocytes, myelocytes and metamyelocytes) > 1% indicates that a LEFT SHIFT is Present. Performed By: #### L 504.2610, L100.0100, L500.4050 ####[facility] [address] [place], [address] Lymphocytes/100 WBC (Bld) 35.4 % Normal 19-41 [facility] Comment on above: Performed By: #### L 504.2610, L100.0100, L500.4050 ####[facility] [address] [place], [address] MCH (RBC) [Entitic mass] 31.0 pg Normal 27.0-32.0 [facility] Comment on above: Performed By: #### L 504.2610, L100.0100, L500.4050 ####[facility] [address] [place], [address] MCHC (RBC) [Mass/Vol] 33.0 g/dL Normal 32-36 [facility] Comment on above: Performed By: #### L 504.2610, L100.0100, L500.4050 ####[facility] [address] [place], [address] MCV (RBC) [Entitic vol] 93.7 fL Normal 81-99 [facility] [place] Comment on above: Performed By: #### L 504.2610, L100.0100, L500.4050 ####[facility] [address] [place], [address] Monocytes/100 WBC (Bld) 8.6 % Normal 0-10 [facility] Comment on above: Performed By: #### L 504.2610, L100.0100, L500.4050 ####[facility] [address] [place], [address] Neutrophils/100 WBC (Bld) 49.5 % Normal 47-70 [facility] Comment on above: Performed By: #### L 504.2610, L100.0100, L500.4050 ####[facility] [address] [place], [address] Nucleated RBC (Bld) [#/Vol] 0 10*3/uL Normal 0-5 [facility] Comment on above: Performed By: #### L 504.2610, L100.0100, L500.4050 ####[facility] [address] [place], [address] Platelet mean volume (Bld) [Entitic vol] 8.4 fL Normal 6.2-12.0 [facility] Comment on above: Performed By: #### L 504.2610, L100.0100, L500.4050 ####[facility] [address] [place], [address] Platelets (Bld) [#/Vol] 188 10*3/uL Normal 150-450 [facility] Comment on above: Performed By: #### L 504.2610, L100.0100, L500.4050 ####[facility] [address] [place], [address] RBC (Bld) [#/Vol] 4.62 10*6/uL Normal 4.2-5.4 [facility] Comment on above: Performed By: #### L 504.2610, L100.0100, L500.4050 ####[facility] [address] [place], [address] RDW SD 44.7 fl High 35.1-43.9 [facility] Comment on above: Performed By: #### L 504.2610, L100.0100, L500.4050 ####[facility] [address] [place], [address] WBC (Bld) [#/Vol] 7.3 10*3/uL Normal 4.4-11.0 [facility] Comment on above: Performed By: #### L 504.2610, L100.0100, L500.4050 ####[facility] [address] [place], [address] Comprehensive Metabolic Prof ilon 05-15-2024 Albumin [Mass/Vol] 3.3 g/dL Normal 3.2-5.0 [facility] Comment on above: Order Comment: 1 Performed By: #### L 504.2610, L100.0100, L500.4050 ####[facility] [address] [place], [address] Albumin/Globulin [Mass ratio] 0.8 {ratio} Low 0.9-2.4 [facility] Comment on above: Order Comment: 1 Performed By: #### L 504.2610, L100.0100, L500.4050 ####[facility] [address] [place], [address] ALK P 58 U/L Normal 45-117 [facility] Comment on above: Order Comment: 1 Performed By: #### L 504.2610, L100.0100, L500.4050 ####[facility] [address] [place], [address] ALT [Catalytic activity/Vol] 26 U/L Normal 13-56 [facility] Comment on above: Order Comment: 1 Performed By: #### L 504.2610, L100.0100, L500.4050 ####[facility] [address] [place], [address] AST [Catalytic activity/Vol] 27 U/L Normal 15-37 [facility] Comment on above: Order Comment: 1 Performed By: #### L 504.2610, L100.0100, L500.4050 ####[facility] [address] [place], [address] Bilirubin [Mass/Vol] 0.50 mg/dL Normal 0.20-1.00 [facility] [place] Comment on above: Order Comment: 1 Result Comment: For patients on eltrombopag therapy, use of Dimension [place] TBIL is not recommended. Performed By: #### L 504.2610, L100.0100, L500.4050 ####[facility] [address] [place], [address] BUN/CRE 9.2 RATIO Low 10-20 [facility] Comment on above: Order Comment: 1 Performed By: #### L 504.2610, L100.0100, L500.4050 ####[facility] [address] [place], [address] CA,Total 9.0 mg/dL Normal 8.5-10.1 [facility] Comment on above: Order Comment: 1 Performed By: #### L 504.2610, L100.0100, L500.4050 ####[facility] [address] [place], [address] Chloride [Moles/Vol] 106 mmol/L Normal 98-107 [facility] [place] Comment on above: Order Comment: 1 Performed By: #### L 504.2610, L100.0100, L500.4050 ####[facility] [address] [place], [address] CO2 [Moles/Vol] 26.0 mmol/L Normal 21.0-32.0 [facility] Comment on above: Order Comment: 1 Performed By: #### L 504.2610, L100.0100, L500.4050 ####[facility] [address] [place], [address] Creatinine [Mass/Vol] 1.31 mg/dL High 0.55-1.02 [facility] Comment on above: Order Comment: 1 Result Comment: The validity of the calculated GFR GFRAA in patients over 70 years has not been determined. Clinical correlation is essential. Performed By: #### L 504.2610, L100.0100, L500.4050 ####[facility] [address] [place], [address] ECRCL 36.01 ml/min Normal [facility] Comment on above: Order Comment: 1 Performed By: #### L 504.2610, L100.0100, L500.4050 ####[facility] [address] [place], [address] EST GFR - AA 50 mL/min Low >60 [facility] Comment on above: Order Comment: 1 Result Comment: Afri can Citizen [place] GFR Calc Performed By: #### L 504.2610, L100.0100, L500.4050 ####[facility] [address] [place], [address] GAP 8 Normal 5-15 [facility] Comment on above: Order Comment: 1 Performed By: #### L 504.2610, L100.0100, L500.4050 ####[facility] [address] [place], [address] GFR/1.73 sq M.predicted among non-blacks MDRD (S/P/Bld) [Vol rate/Area] 41 mL/min/{1.73_m2} Low >60 [facility] Comment on above: Order Comment: 1 Result Comment: Non- GFR Calc Performed By: #### L 504.2610, L100.0100, L500.4050 ####[facility] [address] [place], [address] Globulin (S) [Mass/Vol] 4.4 g/dL High 2.2-4.2 [facility] Comment on above: Order Comment: 1 Performed By: #### L 504.2610, L100.0100, L500.4050 ####[facility] [address] [place], [address] Glucose [Mass/Vol] 141 mg/dL High 74-106 [facility] Comment on above: Order Comment: 1 Result Comment: Fast ing Glucose result greater than or equal to 126 mg/dL suggests DIABETES MELLITUS per A.D.A. criteria. Performed By: #### L 504.2610, L100.0100, L500.4050 ####[facility] [address] [place], [address] Potassium [Moles/Vol] 3.2 mmol/L Low 3.5-5.1 [facility] Comment on above: Order Comment: 1 Performed By: #### L 504.2610, L100.0100, L500.4050 ####[facility] [address] [place], [address] Sodium [Moles/Vol] 139 mmol/L Normal 136-145 [facility] Comment on above: Order Comment: 1 Performed By: #### L 504.2610, L100.0100, L500.4050 ####[facility] [address] [place], [address] T PROT 7.7 g/dL Normal 6.4-8.2 [facility] Comment on above: Order Comment: 1 Performed By: #### L 504.2610, L100.0100, L500.4050 ####[facility] [address] [place], [address] Urea nitrogen [Mass/Vol] 12 mg/dL Normal 7-18 [facility] Comment on above: Order Comment: 1 Performed By: #### L 504.2610, L100.0100, L500.4050 ####[facility] [address] [place], [address] LDHon 05-15-2024 LDH 185 U/L Normal 84-246 [facility] Comment on above: Order Comment: 1 Performed By: #### L 504.2610, L100.0100, L500.4050 ####[facility] [address] [place], [address] Lactate dehydrogenase (LDH) measurementOrdered By: Gordon Kemp on 05-15-2024 LDH [Catalytic activity/Vol] 185 U/L 84-246 [facility] Oncology Visit Reporton Oncology Visit Report [facility] [facility] [address] [place] [address] OFFICE VISIT Date of Service: 05/15/24 1325 MR#: [id number] Acct: [id number] Name: KYLIE ECHAVARRIA Rep #: [id number] : 1940 From: Gordon Kemp MD Age/Sex: 83/F Location: [facility] Status: Signed HPI Subjective Date of Service 05/15/24 Chief Complaint F/u for R breast cancer and therapy. History of Present Illness 83-year-old woman felt a lump in the right breast, mammogram on 12/21/2021 showed a 3 cm of retroareolar mass. Ultrasound on 12/27/2021 showed 2.2 cm retroareolar mass. She had an ultrasound guided core biopsy of the right breast mass on 12/28/2021. Pathology showed invasive ductal carcinoma, grade 1, ER positive, HER2 negative. CT showed R breast mass with no evidence of metastatic disease. She had R MRM and axillary dissection on 01/13/2022. Still has dressing on the R mastectomy wound. S/P R mastectomy and axillary dissection, Tumor size 3.5cm, central portion, grade 1, Lymph nodes 12/01 involved, ER positive 95%, MT positive??? 2%, Her2??? negative, Ki-67 positive 75%. Pathology stage pT2 pN2a. Prognostic stage IIIA. She had a seroma on the mastectomy fossa which was drained. Declined adjuvant chemotherapy and radiation. She started Anastrozole and Verzenio on 03/03/2022. She started with Verzenio 150mg daily, and start twice daily on 04/28/2022. Verzenio was decreased to 150mg daily because of tiredness, joint stiffness, redness of the fingers on 07/20/2022. Had joint stiffness and redness, desquamation on dorsum of fingers with ulceration which is making it difficult for her to function so Verzenio and Anastrozole was put on hold on 08/03/2022. ct DNA was requested which was negative. She was on observation. ct DNA was repeated on 11/09/2022 which was 44. She started Tamoxifen on 12/07/2022. ct DNA in March 2023 was negative. Remains on Tamoxifen and comes for follow up. Feels well. [facility] Medical History Aromatase inhibitor-associat ed arthralgia Encounter for education Wears hearing aid Post-menopausal Restless legs Non-smoker Sleep apnea History of pain when walking History of edema History of echocardiogram Surgical History History of right mastectomy ( 01/2022) History of lumbar surgery History of colonoscopy ( 09/2020) History of total right knee replacement Family History Father Diabetes Kidney disease Daughter Cancer Mets ovarian Social History Smoking Status: Never smoker Intake Vital Signs 11/15/23 14:08 05/15/24 13:26 Height 5 ft 6 in 5 ft 6 in Weight: 85.531 kg BMI 30.4 BP 144/86 H Blood Pressure Location Lt brachial Position Sitting Respiration 18 Pulse 95 Pulse Source Monitor Temp 98.8 F Temperature Source Temporal Artery Pulse Oximetry (%) 94 Oxygen Delivery Method room air Intake Is patient in pain?: No Allergies No Known Allergies Allergy (Verified 05/15/24 13:33) Medications ???Medication ???Instructions ???Recorded ???Confirmed ???Type multivitamin 1 tab PO DAILY 01/06/22 11/15/23 History omega-3 fatty acids 1,000 mg PO DAILY 01/06/22 11/15/23 History Right breast prosthesis #1 ea 05/24/23 11/15/23 Rx mastectomy bra #3 ea 05/24/23 11/15/23 Rx potassium chloride 20 mEq 20 meq PO DAILY #7 tabs 11/15/23 11/15/23 Rx tablet,extended release gabapentin 600 mg tablet 600 mg PO QHS 05/15/24 05/15/24 History nabumetone 750 mg tablet 750 mg PO BID 05/15/24 05/15/24 History ropinirole 5 mg tablet 0.5 mg PO QHS 05/15/24 05/15/24 History Have you fallen in the past year?: No Central Venous Access Central Venous Access: No Exam Physical Exam Const alert, oriented x3 and no apparent distress HEENT normocephalic, external ears normal and external nose normal Eyes conjunctivae normal and no scleral icterus Neck supple Lymph Lymphatic: no lymphadenopathy noted Chest Chest Narrative: +R mastectomy Resp normal respiratory effort and clear to auscultation bilaterally Cardio regular rate, regular rhythm, S1 normal heart sound and S2 normal heart sound GI normal to inspection, nondistended, normoactive bowel sounds Back/Spine no CVA tenderness and thoracic and lumbar spine normal to inspection Extremity normal to inspection Extremity Narrative: + pitting edema R lower leg. Neuro oriented x3, CN's II-XII intact bilaterally and moves all extremities Psych mental status grossly normal Coding Level of Care Code Off vis,est,level 3 Exam Problem Focused Diagnoses Malignant neoplasm of central portion of right breast in fema (more content not included)... Normal [facility] No Panel InformationOrdered By: Gordon Kemp on 03-08-2023 Miscellaneous Test Comment MAILED SPECIMEN [facility] Absolute lymphocyte countOrd ered By: Dr. Alex on 09-28-2022 Lymphocytes Auto (Unsp spec) [#/Vol] 2.18 10*3/uL 0.83-4.51 [facility] Basophil percentageOrdered B y: Dr. Alex on 09-28-2022 Basophils/100 WBC (Bld) 1.0 % 0-1 [facility] Bilirubin [Mass/Vol] 0.30 mg/dL 0.20-1.00 [facility] Comment on above: For patients on eltr ombopag therapy, use of Dimension [place] TBIL is not recommended. Chloride [Moles/Vol] 107 mmol/L 98-107 [facility] Eosinophils/100 WBC (Bld) 6.7 % 0-5 [facility] Glucose [Mass/Vol] 112 mg/dL 74-106 [facility] Comment on above: Fasting Glucose resu lt from 100 to 125 mg/dL suggests IMPAIRED HOMEOSTASIS per A.D.A. criteria. Neutrophils (Bld) [#/Vol] 5.5 10*3/uL 2.0-7.7 [facility] Neutrophils/100 WBC (Bld) 60.4 % 47-70 [facility] Potassium [Moles/Vol] 3.9 mmol/L 3.5-5.1 [facility] Protein [Mass/Vol] 7.7 g/dL 6.4-8.2 [facility] Sodium [Moles/Vol] 136 mmol/L 136-145 [facility] WBC (Bld) [#/Vol] 9.2 10*3/uL 4.4-11.0 [facility] Blood erythrocytes count (nu mber/volume)Ordered By: Dr. Alex on 09-28-2022 RBC (Bld) [#/Vol] 4.50 10*6/uL 4.2-5.4 [facility] Blood hemoglobin measurement (mass/volume)Ordered By: Dr. Alex on 09-28-2022 Hemoglobin (Bld) [Mass/Vol] 14.4 g/dL 12.0-15.0 [facility] Blood lymphocytes/100 leukoc ytesOrdered By: Dr. Alex on 09-28-2022 Lymphocytes/100 WBC (Bld) 23.8 % 19-41 [facility] Blood monocytes/100 leukocyt esOrdered By: Dr. Alex on 09-28-2022 Monocytes/100 WBC (Bld) 7.4 % 0-10 [facility] Blood platelet mean volumeOr dered By: Dr. Alex on 09-28-2022 Platelet mean volume (Bld) [Entitic vol] 8.9 fL 6.2-12.0 [facility] Determination of erythrocyte mean corpuscular volume (MCV)Ordered By: Dr. Alex on 09-28-2022 MCV (RBC) [Entitic vol] 99.6 fL 81-99 [facility] Hematocrit Auto (Bld) [Volum e fraction]Ordered By: Dr. Alex on 09-28-2022 Hematocrit (Bld) [Volume fraction] 44.8 % 37-47 [facility] Laboratory - Chemistry and C hemistry - challengeOrdered By: Dr. Alex on 09-28-2022 ALP [Catalytic activity/Vol] 68 U/L 45-117 [facility] ALT [Catalytic activity/Vol] 25 U/L 13-56 [facility] CO2 [Moles/Vol] 25.0 mmol/L 21.0-32.0 [facility] Globulin (S) [Mass/Vol] 4.4 g/dL 2.2-4.2 [facility] Urea nitrogen/Creatinine [Mass ratio] 24.1 mg/mg 10-20 [facility] Laboratory - Hematology and Cell countsOrdered By: Dr. Alex on 09-28-2022 Erythrocyte distribution width (RBC) [Entitic vol] 42.3 fL 35.1-43.9 [facility] Erythrocyte distribution width (RBC) [Ratio] 11.6 % 11.6-14.6 [facility] Immature granulocytes/100 WBC (Bld) 0.700 % 0.0-0.9 [facility] Comment on above: IG% - Immature Granu locytes (promyelocytes, myelocytes and metamyelocytes) > 1% indicates that a LEFT SHIFT is Present. MCH (RBC) [Entitic mass] 32.0 pg 27.0-32.0 [facility] Nucleated RBC/100 WBC (Bld) [Ratio] 0 % 0-5 [facility] MCHC Auto (RBC) [Mass/Vol]Or dered By: Dr. Alex on 09-28-2022 MCHC (RBC) [Mass/Vol] 32.1 g/dL 32-36 [facility] No Panel InformationOrdered By: Dr. Alex on 09-28-2022 Estimated GFR (MDRD) Amer 63 mL/min >60 [facility] Comment on above: GFR Calc Estimated GFR (MDRD) Non-Af Amer 52 mL/min >60 [facility] Comment on above: Non- GFR Calc Platelets bldOrdered By: Dr. Alex on 09-28-2022 Platelets (Bld) [#/Vol] 250 10*3/uL 150-450 [facility] Serum or plasma albumin alie urement (mass/volume)Ordered By: Dr. Alex on 09-28-2022 Albumin [Mass/Vol] 3.3 g/dL 3.2-5.0 [facility] Serum or plasma albumin/glob ulin mass ratioOrdered By: Dr. Alex on 09-28-2022 Albumin/Globulin [Mass ratio] 0.8 {ratio} 0.9-2.4 [facility] Serum or plasma calcium alie urement (mass/volume)Ordered By: Dr. Alex on 09-28-2022 Calcium [Mass/Vol] 9.3 mg/dL 8.5-10.1 [facility] Serum or plasma creatinine m easurement (mass/volume)Ordered By: Dr. Alex on 09-28-2022 Creatinine [Mass/Vol] 1.08 mg/dL 0.55-1.02 [facility] Comment on above: The validity of the calculated GFR & GFRAA in patients over 70 years has not been determined. Clinical correlation is essential. Serum or plasma urea nitroge n measurement (mass/volume)Ordered By: Dr. Alex on 09-28-2022 Urea nitrogen [Mass/Vol] 26 mg/dL 7-18 [facility] Thin prep Papanicolaou smear with manual screeningOrdered By: Dr. Alex on 09-28-2022 Thin prep Papanicolaou smear with manual screening 25 U/L 15-37 [facility] Thin prep Papanicolaou smear with manual screening 4 5-15 [facility] Whole blood hemoglobin A1c/t otal hemoglobin ratio (mass fraction)Ordered By: Dr. Alex on 09-28-2022 HbA1c (Bld) [Mass fraction] 5.4 % 3.8-5.6 [facility] Comment on above: Normal < 5.7 % Predi abetic 5.7 - 6.4 % Diabetic >or= 6.5 % Please note range changes. Absolute lymphocyte countOrd ered By: Dr. Kemp on 08-31-2022 Lymphocytes Auto (Unsp spec) [#/Vol] 2.37 10*3/uL 0.83-4.51 [facility] Basophil percentageOrdered B y: Dr. Kemp on 08-31-2022 Basophils/100 WBC (Bld) 1.2 % 0-1 [facility] Bilirubin [Mass/Vol] 0.40 mg/dL 0.20-1.00 [facility] Comment on above: For patients on eltr ombopag therapy, use of Dimension [place] TBIL is not recommended. Chloride [Moles/Vol] 104 mmol/L 98-107 [facility] Eosinophils/100 WBC (Bld) 6.0 % 0-5 [facility] Glucose [Mass/Vol] 122 mg/dL 74-106 [facility] Comment on above: Fasting Glucose resu lt from 100 to 125 mg/dL suggests IMPAIRED HOMEOSTASIS per A.D.A. criteria. LDH [Catalytic activity/Vol] 225 U/L 84-246 [facility] Neutrophils (Bld) [#/Vol] 3.2 10*3/uL 2.0-7.7 [facility] Neutrophils/100 WBC (Bld) 46.8 % 47-70 [facility] Potassium [Moles/Vol] 3.5 mmol/L 3.5-5.1 [facility] Protein [Mass/Vol] 8.1 g/dL 6.4-8.2 [facility] Sodium [Moles/Vol] 138 mmol/L 136-145 [facility] WBC (Bld) [#/Vol] 6.7 10*3/uL 4.4-11.0 [facility] Blood erythrocytes count (nu mber/volume)Ordered By: Dr. Kemp on 08-31-2022 RBC (Bld) [#/Vol] 4.24 10*6/uL 4.2-5.4 [facility] Blood hemoglobin measurement (mass/volume)Ordered By: Dr. Kemp on 08-31-2022 Hemoglobin (Bld) [Mass/Vol] 14.2 g/dL 12.0-15.0 [facility] Blood lymphocytes/100 leukoc ytesOrdered By: Dr. Kemp on 08-31-2022 Lymphocytes/100 WBC (Bld) 35.3 % 19-41 [facility] Blood monocytes/100 leukocyt esOrdered By: Dr. Kemp on 08-31-2022 Monocytes/100 WBC (Bld) 10.0 % 0-10 [facility] Blood platelet mean volumeOr dered By: Dr. Kemp on 08-31-2022 Platelet mean volume (Bld) [Entitic vol] 8.3 fL 6.2-12.0 [facility] Determination of erythrocyte mean corpuscular volume (MCV)Ordered By: Dr. Kemp on 08-31-2022 MCV (RBC) [Entitic vol] 99.8 fL 81-99 [facility] Erythrocyte sedimentation ra teOrdered By: Dr. Kemp on 08-31-2022 ESR (Bld) [Velocity] 27 mm/h 0-30 [facility] Hematocrit Auto (Bld) [Volum e fraction]Ordered By: Dr. Kemp on 08-31-2022 Hematocrit (Bld) [Volume fraction] 42.3 % 37-47 [facility] Laboratory - Chemistry and C hemistry - challengeOrdered By: Dr. Kemp on 08-31-2022 ALP [Catalytic activity/Vol] 73 U/L 45-117 [facility] ALT [Catalytic activity/Vol] 27 U/L 13-56 [facility] CO2 [Moles/Vol] 27.0 mmol/L 21.0-32.0 [facility] Globulin (S) [Mass/Vol] 4.6 g/dL 2.2-4.2 [facility] Urea nitrogen/Creatinine [Mass ratio] 17.1 mg/mg 10-20 [facility] Laboratory - Hematology and Cell countsOrdered By: Dr. Kemp on 08-31-2022 Erythrocyte distribution width (RBC) [Entitic vol] 42.2 fL 35.1-43.9 [facility] Erythrocyte distribution width (RBC) [Ratio] 11.5 % 11.6-14.6 [facility] Immature granulocytes/100 WBC (Bld) 0.700 % 0.0-0.9 [facility] Comment on above: IG% - Immature Granu locytes (promyelocytes, myelocytes and metamyelocytes) > 1% indicates that a LEFT SHIFT is Present. MCH (RBC) [Entitic mass] 33.5 pg 27.0-32.0 [facility] Nucleated RBC/100 WBC (Bld) [Ratio] 0 % 0-5 [facility] MCHC Auto (RBC) [Mass/Vol]Or dered By: Dr. Kemp on 08-31-2022 MCHC (RBC) [Mass/Vol] 33.6 g/dL 32-36 [facility] No Panel InformationOrdered By: Dr. Kemp on 08-31-2022 Estimated GFR (MDRD) Amer 61 mL/min >60 [facility] Comment on above: GFR Calc Estimated GFR (MDRD) Non-Af Amer 50 mL/min >60 [facility] Comment on above: Non- GFR Calc Platelets bldOrdered By: Dr. Kemp on 08-31-2022 Platelets (Bld) [#/Vol] 262 10*3/uL 150-450 [facility] Serum or plasma albumin alie urement (mass/volume)Ordered By: Dr. Kemp on 08-31-2022 Albumin [Mass/Vol] 3.5 g/dL 3.2-5.0 [facility] Serum or plasma albumin/glob ulin mass ratioOrdered By: Dr. Kemp on 08-31-2022 Albumin/Globulin [Mass ratio] 0.8 {ratio} 0.9-2.4 [facility] Serum or plasma calcium alie urement (mass/volume)Ordered By: Dr. Kemp on 08-31-2022 Calcium [Mass/Vol] 9.5 mg/dL 8.5-10.1 [facility] Serum or plasma creatinine m easurement (mass/volume)Ordered By: Dr. Kemp on 08-31-2022 Creatinine [Mass/Vol] 1.11 mg/dL 0.55-1.02 [facility] Comment on above: The validity of the calculated GFR & GFRAA in patients over 70 years has not been determined. Clinical correlation is essential. Serum or plasma urea nitroge n measurement (mass/volume)Ordered By: Dr. Kemp on 08-31-2022 Urea nitrogen [Mass/Vol] 19 mg/dL 7-18 [facility] Thin prep Papanicolaou smear with manual screeningOrdered By: Dr. Kemp on 08-31-2022 Thin prep Papanicolaou smear with manual screening 32 U/L 15-37 [facility] Thin prep Papanicolaou smear with manual screening 7 5-15 [facility] No Panel InformationOrdered By: Dr. Kemp on 08-03-2022 Miscellaneous Test Comment MAILED SPECIMEN [facility] Blood manual differential co mment interpretation (narrative result)Ordered By: Dr. Kemp on 06-02-2022 Manual differential comment Aristides (Bld) [Interp] SCANNED [facility] Comment on above: AUTO DIFF OK Absolute lymphocyte counton 05-12-2022 Lymphocytes Auto (Unsp spec) [#/Vol] 2.64 10*3/uL 0.83-4.51 [facility] Work Phone: Basophil percentageon 2021 Basophils/100 WBC (Bld) 1.9 % 0-1 [facility] Work Phone: Bilirubin [Mass/Vol] 0.40 mg/dL 0.20-1.00 [facility] Work Phone: Comment on above: For patients on eltr ombopag therapy, use of Dimension [place] TBIL is not recommended. Chloride [Moles/Vol] 102 mmol/L 98-107 [facility] Work Phone: [phone] Eosinophils/100 WBC (Bld) 4.7 % 0-5 [facility] Work Phone: [phone] Glucose [Mass/Vol] 94 mg/dL 74-106 [facility] Work Phone: Neutrophils (Bld) [#/Vol] 2.4 10*3/uL 2.0-7.7 [facility] Work Phone: [phone] Neutrophils/100 WBC (Bld) 41.4 % 47-70 [facility] Work Phone: [phone] Potassium [Moles/Vol] 3.0 mmol/L 3.5-5.1 [facility] Work Phone: [phone] Protein [Mass/Vol] 8.3 g/dL 6.4-8.2 [facility] Work Phone: Sodium [Moles/Vol] 139 mmol/L 136-145 [facility] Work Phone: [phone] WBC (Bld) [#/Vol] 5.8 10*3/uL 4.4-11.0 [facility] Work Phone: [phone] Blood erythrocytes count (nu mber/volume)on 05-12-2022 RBC (Bld) [#/Vol] 4.22 10*6/uL 4.2-5.4 [facility] Work Phone: [phone] Blood hemoglobin measurement (mass/volume)on 05-12-2022 Hemoglobin (Bld) [Mass/Vol] 13.2 g/dL 12.0-15.0 [facility] Work Phone: Blood lymphocytes/100 leukoc yteson 05-12-2022 Lymphocytes/100 WBC (Bld) 45.9 % 19-41 [facility] Work Phone: Blood monocytes/100 leukocyt eson 05-12-2022 Monocytes/100 WBC (Bld) 5.4 % 0-10 [facility] Work Phone: Blood platelet adequacy dete ction by light microscopyOrdered By: Dr. Kemp on 05-12-2022 Platelets LM Ql (Bld) ADEQUATE ADEQ [facility] Blood platelet mean volumeon 05-12-2022 Platelet mean volume (Bld) [Entitic vol] 8.8 fL 6.2-12.0 [facility] Work Phone: Determination of erythrocyte mean corpuscular volume (MCV)on 05-12-2022 MCV (RBC) [Entitic vol] 95.7 fL 81-99 [facility] Work Phone: Hematocrit Auto (Bld) [Volum e fraction]on 05-12-2022 Hematocrit (Bld) [Volume fraction] 40.4 % 37-47 [facility] Work Phone: Laboratory - Chemistry and C hemistry - challengeon 05-12-2022 ALP [Catalytic activity/Vol] 74 U/L 45-117 [facility] Work Phone: ALT [Catalytic activity/Vol] 23 U/L 13-56 [facility] Work Phone: CO2 [Moles/Vol] 31.0 mmol/L 21.0-32.0 [facility] Work Phone: Globulin (S) [Mass/Vol] 4.8 g/dL 2.2-4.2 [facility] Work Phone: Urea nitrogen/Creatinine [Mass ratio] 10.9 mg/mg 10-20 [facility] Work Phone: Laboratory - Hematology and Cell countsOrdered By: Dr. Kemp on 05-12-2022 Anisocytosis Ql (Bld) RARE [facility] Laboratory - Hematology and Cell countson 05-12-2022 Erythrocyte distribution width (RBC) [Entitic vol] 51.2 fL 35.1-43.9 [facility] Work Phone: Erythrocyte distribution width (RBC) [Ratio] 14.6 % 11.6-14.6 [facility] Work Phone: Immature granulocytes/100 WBC (Bld) 0.700 % 0.0-0.9 [facility] Work Phone: Comment on above: IG% - Immature Granu locytes (promyelocytes, myelocytes and metamyelocytes) > 1% indicates that a LEFT SHIFT is Present. MCH (RBC) [Entitic mass] 31.3 pg 27.0-32.0 [facility] Work Phone: Nucleated RBC/100 WBC (Bld) [Ratio] 0 % 0-5 [facility] Work Phone: MCHC Auto (RBC) [Mass/Vol]on 05-12-2022 MCHC (RBC) [Mass/Vol] 32.7 g/dL 32-36 [facility] Work Phone: Macrocytes detectionOrdered By: Dr. Kemp on 05-12-2022 Macrocytes Ql (Bld) RARE [facility] No Panel InformationOrdered By: Dr. Kemp on 05-12-2022 Atypical Lymphocytes 1+ % [facility] Reactive Lymphocytes 1+ [facility] No Panel Informationon 05-12 Estimated GFR (MDRD) Amer 51 mL/min >60 [facility] Work Phone: Comment on above: GFR Calc Estimated GFR (MDRD) Non-Af Amer 42 mL/min >60 [facility] Work Phone: Comment on above: Non- GFR Calc Platelets bldon 05-12-2022 Platelets (Bld) [#/Vol] 223 10*3/uL 150-450 [facility] Work Phone: RBC morphologyOrdered By: Dr Alize Kemp on 05-12-2022 RBC morphology finding Nom (Bld) N CHROM NORMAL NORM C&C [facility] Serum or plasma albumin alie urement (mass/volume)on 05-12-2022 Albumin [Mass/Vol] 3.5 g/dL 3.2-5.0 [facility] Work Phone: Serum or plasma albumin/glob ulin mass ratioon 05-12-2022 Albumin/Globulin [Mass ratio] 0.7 {ratio} 0.9-2.4 [facility] Work Phone: Serum or plasma calcium alie urement (mass/volume)on 05-12-2022 Calcium [Mass/Vol] 9.9 mg/dL 8.5-10.1 [facility] Work Phone: Serum or plasma creatinine m easurement (mass/volume)on 05-12-2022 Creatinine [Mass/Vol] 1.29 mg/dL 0.55-1.02 [facility] Work Phone: Comment on above: The validity of the calculated GFR & GFRAA in patients over 70 years has not been determined. Clinical correlation is essential. Serum or plasma urea nitroge n measurement (mass/volume)on 05-12-2022 Urea nitrogen [Mass/Vol] 14 mg/dL 7-18 [facility] Work Phone: Thin prep Papanicolaou smear with manual screeningon 05-12-2022 Thin prep Papanicolaou smear with manual screening 25 U/L 15-37 [facility] Work Phone: Thin prep Papanicolaou smear with manual screening 6 5-15 [facility] Work Phone: Thin prep Papanicolaou smear with manual screening 218 U/L 84-246 [facility] Work Phone: Laboratory - Chemistry and C hemistry - challengeOrdered By: Tisha Dixon on 04-28-2022 Magnesium [Mass/Vol] 2.3 mg/dL 1.6-2.6 [facility] Albumin Elph [Mass/Vol]Order ed By: Dr. Kemp on 03-31-2022 Albumin [Mass/Vol] 4.0 g/dL 2.9-4.4 [facility] Erythrocyte sedimentation ra lizbeth 03-31-2022 ESR (Bld) [Velocity] 70 mm/h 0-30 [facility] Work Phone: Interpretation of serum or p lasma protein pattern by immunofixation (narrative resultOrdered By: Dr. Kemp on 03-31-2022 Protein Fractions Immunofixation Aristides [Interp] See comment [facility] Comment on above: Result: Not Observed No Panel InformationOrdered By: Dr. Kemp on 03-31-2022 Addendum Document Comment . [facility] Comment on above: Protein electrophore sis scan will follow via computer,mail, or insurance verification clerk delivery. Free Lambda Light Chains, Quant 36.3 mg/L High 5.7-26.3 [facility] Serum [id number] measu rement by electrophoresisOrdered By: Dr. Kemp on 03-31-2022 Alpha 1 globulin Elph [Mass/Vol] 0.3 g/dL 0.0-0.4 [facility] Alpha 1 globulin Elph [Mass/Vol] 1.1 g/dL High 0.4-1.0 [facility] Serum immunoglobulin kappa l ight chains/immunoglobulin lambda light chains mass ratioOrdered By: Dr. Kemp on 03-31-2022 Immunoglobulin light chains.kappa/Immunoglobul in light chains.lambda (S) [Mass ratio] 1.46 0.26-1.65 [facility] Comment on above: Performed at: [address] Director: Juan Luis Carrillo PhD, Phone: [phone] Serum or plasma IgA measurem ent (mass/volume)Ordered By: Dr. Kemp on 03-31-2022 IgA [Mass/Vol] 586 mg/dL High 64-422 [facility] Serum or plasma IgG measurem ent (mass/volume)Ordered By: Dr. Kemp on 03-31-2022 IgG [Mass/Vol] 1658 mg/dL High 586-1602 [facility] Serum or plasma IgM measurem ent (mass/volume)Ordered By: Dr. Kemp on 03-31-2022 IgM [Mass/Vol] 119 mg/dL 26-217 [facility] Serum or plasma beta globuli n measurement by electrophoresis (mass/volume)Ordered By: Dr. Kemp on 03-31-2022 Beta globulin Elph [Mass/Vol] 1.4 g/dL High 0.7-1.3 [facility] Serum or plasma gamma globul in measurement by electrophoresis (mass/volume)Ordered By: Dr. Kemp on 03-31-2022 Gamma globulin Elph [Mass/Vol] 1.7 g/dL 0.4-1.8 [facility] Serum or plasma immunoelectr ophoresis interpretation (nominal result)Ordered By: Dr. Kemp on 03-31-2022 Interpretation IEP [Interp] Comment . [facility] Comment on above: No monoclonality det ected. Serum or plasma immunoglobul in kappa light chains measurement (mass/volume)Ordered By: Dr. Kemp on 03-31-2022 Immunoglobulin light chains.kappa [Mass/Vol] 53.0 mg/L High 3.3-19.4 [facility] Thin prep Papanicolaou smear with manual screeningOrdered By: Dr. Kemp on 03-31-2022 Thin prep Papanicolaou smear with manual screening 0.9 0.7-1.7 [facility] Total protein bloodOrdered B y: Dr. Kemp on 03-31-2022 Protein [Mass/Vol] 8.5 g/dL 6.0-8.5 [facility] Basophil percentageon 2021 Basophil percentage < 0.9 mg/dL 0.55-1.02 [facility] [place] Work Phone: No Panel Informationon 01-06 Bedside Estimated GFR (eGFR) > 60.0000 mL/min >60 [facility] Work Phone: Absolute lymphocyte counton 01-05-2022 Lymphocytes Auto (Unsp spec) [#/Vol] 2.22 10*3/uL 0.83-4.51 [facility] Work Phone: Basophil percentageon 2021 Basophils/100 WBC (Bld) 0.4 % 0-1 [facility] Work Phone: Bilirubin [Mass/Vol] 0.50 mg/dL 0.20-1.00 [facility] [place] Work Phone: [phone] Comment on above: For patients on eltr ombopag therapy, use of Dimension [place] TBIL is not recommended. Chloride [Moles/Vol] 104 mmol/L 98-107 [facility] [place] Work Phone: [phone] Eosinophils/100 WBC (Bld) 3.7 % 0-5 [facility] Work Phone: [phone] Glucose [Mass/Vol] 145 mg/dL 74-106 [facility] Work Phone: Comment on above: Fasting Glucose resu lt greater than or equal to 126 mg/dL suggests DIABETES MELLITUS per A.D.A. criteria. Neutrophils (Bld) [#/Vol] 5.9 10*3/uL 2.0-7.7 [facility] Work Phone: [phone] Neutrophils/100 WBC (Bld) 64.3 % 47-70 [facility] Work Phone: [phone] Potassium [Moles/Vol] 3.4 mmol/L 3.5-5.1 [facility] Work Phone: [phone] Protein [Mass/Vol] 8.5 g/dL 6.4-8.2 [facility] Work Phone: [phone] Sodium [Moles/Vol] 138 mmol/L 136-145 [facility] Work Phone: WBC (Bld) [#/Vol] 9.2 10*3/uL 4.4-11.0 [facility] Work Phone: Blood erythrocytes count (nu mber/volume)on 01-05-2022 RBC (Bld) [#/Vol] 4.80 10*6/uL 4.2-5.4 [facility] Work Phone: [phone] Blood hemoglobin measurement (mass/volume)on 01-05-2022 Hemoglobin (Bld) [Mass/Vol] 14.9 g/dL 12.0-15.0 [facility] Work Phone: [phone] Blood lymphocytes/100 leukoc yteson 01-05-2022 Lymphocytes/100 WBC (Bld) 24.2 % 19-41 [facility] Work Phone: Blood monocytes/100 leukocyt eson 01-05-2022 Monocytes/100 WBC (Bld) 6.7 % 0-10 [facility] Work Phone: Blood platelet mean volumeon 01-05-2022 Platelet mean volume (Bld) [Entitic vol] 8.7 fL 6.2-12.0 [facility] Work Phone: Determination of erythrocyte mean corpuscular volume (MCV)on 01-05-2022 MCV (RBC) [Entitic vol] 93.1 fL 81-99 [facility] Work Phone: Hematocrit Auto (Bld) [Volum e fraction]on 01-05-2022 Hematocrit (Bld) [Volume fraction] 44.7 % 37-47 [facility] Work Phone: Laboratory - Chemistry and C hemistry - challengeon 01-05-2022 ALP [Catalytic activity/Vol] 78 U/L 45-117 [facility] Work Phone: ALT [Catalytic activity/Vol] 27 U/L 13-56 [facility] Work Phone: CO2 [Moles/Vol] 29.0 mmol/L 21.0-32.0 [facility] Work Phone: Globulin (S) [Mass/Vol] 4.8 g/dL 2.2-4.2 [facility] Work Phone: Urea nitrogen/Creatinine [Mass ratio] 11.7 mg/mg 10-20 [facility] Work Phone: Laboratory - Hematology and Cell countson 01-05-2022 Erythrocyte distribution width (RBC) [Entitic vol] 43.5 fL 35.1-43.9 [facility]: Erythrocyte distribution width (RBC) [Ratio] 12.7 % 11.6-14.6 [facility] Work Phone: Immature granulocytes/100 WBC (Bld) 0.700 % 0.0-0.9 [facility] Work Phone: Comment on above: IG% - Immature Granu locytes (promyelocytes, myelocytes and metamyelocytes) > 1% indicates that a LEFT SHIFT is Present. MCH (RBC) [Entitic mass] 31.0 pg 27.0-32.0 [facility] Work Phone: Nucleated RBC/100 WBC (Bld) [Ratio] 0 % 0-5 [facility] Work Phone: MCHC Auto (RBC) [Mass/Vol]on 01-05-2022 MCHC (RBC) [Mass/Vol] 33.3 g/dL 32-36 [facility] Work Phone: No Panel Informationon 01-05 Estimated GFR (MDRD) Amer 55 mL/min >60 [facility] Work Phone: Comment on above: GFR Calc Estimated GFR (MDRD) Non-Af Amer 46 mL/min >60 [facility] Work Phone: Comment on above: Non- GFR Calc Platelets bldon 01-05-2022 Platelets (Bld) [#/Vol] 230 10*3/uL 150-450 [facility] Work Phone: Serum or plasma albumin alie urement (mass/volume)on 01-05-2022 Albumin [Mass/Vol] 3.7 g/dL 3.2-5.0 [facility] Work Phone: Serum or plasma albumin/glob ulin mass ratioon 01-05-2022 Albumin/Globulin [Mass ratio] 0.8 {ratio} 0.9-2.4 [facility] Work Phone: Serum or plasma calcium alie urement (mass/volume)on 01-05-2022 Calcium [Mass/Vol] 9.7 mg/dL 8.5-10.1 [facility] Work Phone: Serum or plasma creatinine m easurement (mass/volume)on 01-05-2022 Creatinine [Mass/Vol] 1.20 mg/dL 0.55-1.02 [facility] Work Phone: Comment on above: The validity of the calculated GFR & GFRAA in patients over 70 years has not been determined. Clinical correlation is essential. Serum or plasma urea nitroge n measurement (mass/volume)on 01-05-2022 Urea nitrogen [Mass/Vol] 14 mg/dL 7-18 [facility] Work Phone: Thin prep Papanicolaou smear with manual screeningon 01-05-2022 Thin prep Papanicolaou smear with manual screening 25 U/L 15-37 [facility] Work Phone: Thin prep Papanicolaou smear with manual screening 5 5-15 [facility] Work Phone: Thin prep Papanicolaou smear with manual screening 217 U/L 84-246 [facility] Work Phone: SPEon 10-20-2021 SPE Interpretation Normal serum protein electrophoresis pattern. No abnormality detected. Normal [facility] ([place]) Comment on above: Result Comment: Elec tronically Signed by: NIXON HICKS 10/20/2021 10:07 EDT Performed By: #### E NA1, TSH, VITB6, A1C, MMA #### [address] [address] #### IFES, SPE, B12, FOL #### [address] [address] SPEon 10-19-2021 Albumin 3.8 G/dL Normal 3.3-5.0 [facility] ([place]) Comment on above: Performed By: #### E NA1, TSH, VITB6, A1C, MMA #### [address] [address] #### IFES, SPE, B12, FOL #### [address] [address] Alpha 1 0.2 G/dL Normal 0.1-0.4 [facility] ([place] Comment on above: Performed By: #### E NA1, TSH, VITB6, A1C, MMA #### [place] [address] #### IFES, SPE, B12, FOL #### [place] [address] Alpha 2 1.0 G/dL Normal 0.6-1.2 [facility] ([place] Comment on above: Performed By: #### E NA1, TSH, VITB6, A1C, MMA #### [place] [address] #### IFES, SPE, B12, FOL #### [place] [address] Beta 1.0 G/dL Normal 0.6-1.3 [facility] ([place] Comment on above: Performed By: #### E NA1, TSH, VITB6, A1C, MMA #### [place] [address] #### IFES, SPE, B12, FOL #### [place] [address] Gamma 1.5 G/dL Normal 0.7-1.6 [facility] ([place] Comment on above: Performed By: #### E NA1, TSH, VITB6, A1C, MMA #### [place] [address] #### IFES, SPE, B12, FOL #### [place] [address] IFESon 10-18-2021 IFES Interpretation Immunofixation electrophoresis of serum shows the presence of only polyclonal immunoglobulins (IgG,A,M,[place] and Lambda), No monoclonal protein detected. Normal [facility] ([place]) Comment on above: Result Comment: Elec tronically Signed by: NIXON HICKS 10/18/2021 14:49 EDT Performed By: #### E NA1, TSH, VITB6, A1C, MMA #### [place] [address] #### IFES, SPE, B12, FOL #### [address] [address] RELM2kc 10-16-2021 Vitamin B6 Lvl 77.8 nmol/L Normal 20.0-125.0 [facility] ([place]) Comment on above: Result Comment: INTE RPRETIVE INFORMATION: Vitamin B6 (Pyridoxal 5-Phosphate) Pyridoxal 5'-phosphate measured in a specimen collected following an 8-hour or overnight fast accurately indicates vitamin B6 nutritional status. Non-fasting specimen concentration reflects recent vitamin intake. This test was developed and its performance characteristics determined by [facility] ([facility] It has not been cleared or approved by the [place] Food and Drug Administration. This test was performed in a CLIA certified laboratory and is intended for clinical purposes. Performed By: [facility] ([facility] [address] [place] [id number] Credit Review Officer: Anju Lamb MD Performed By: #### E NA1, TSH, VITB6, A1C, MMA #### [address] [address] #### IFES, SPE, B12, FOL #### [place] [id number] METon 10-14-2021 Methylmalonic Acid 297 nmol/L Normal 79-376 [facility] ([place]) Comment on above: Result Comment: This test was developed and its performance characteristics determined by [facility] It has not been cleared or approved by the FDA. [facility] is regulated under CLIA as qualified to perform high-complexity testing. This test is used for clinical purposes. It should not be regarded as investigational or for research. Performed By: [facility] [address] [place] [address] Animal Sticker: Marco Antonio Kirby III, M.D. CLIA#: [id number] Performed By: #### E NA1, TSH, VITB6, A1C, MMA #### [address] [address] #### IFES, SPE, B12, FOL #### [address] [address] ENA1on 10-13-2021 Centromere <0.2 Normal <1.0 [facility] ([place]) Comment on above: Result Comment: Anti -centromere antibody is used as in aid in diagnosis of systemic sclerosis. Clinical correlation is required. Test Methodology: Multiplex flow immunoassay. Performed By: [place] [address] Animal Sticker: Marco Antonio Kirby III, M.D. CLIA#: [id number] Performed By: #### E NA1, TSH, VITB6, A1C, MMA #### [place] [address] #### IFES, SPE, B12, FOL #### [place] [address] Centromere Ab Qualitative Negative Normal Negative [facility] ([place] Comment on above: Result Comment: Perf ormed By: [place] [address] Animal Sticker: Marco Antonio Kirby III, M.D. CLIA#: [id number] Performed By: #### E NA1, TSH, VITB6, A1C, MMA #### [place] [address] #### IFES, SPE, B12, FOL #### [place] [address] Chromatin Ab Qualitative Negative Normal Negative [facility] ([place] Comment on above: Result Comment: Perf ormed By: [place] [address] Animal Sticker: Marco Antonio Kirby III, M.D. CLIA#: [id number] Performed By: #### E NA1, TSH, VITB6, A1C, MMA #### [place] [address] #### IFES, SPE, B12, FOL #### [place] [address] Chromatin Antibody <0.2 Normal <1.0 [facility] ([place] Comment on above: Result Comment: Test Methodology: Multiplex flow immunoassay. Anti-chromatin antibody is used as an aid in diagnosis of systemic lupus erythematosus. Clinical correlation is required. Test Methodology: Multiplex flow immunoassay. Performed By: [place] [address] Animal Sticker: Marco Antonio Kirby III, M.D. CLIA#: [id number] Performed By: #### E NA1, TSH, VITB6, A1C, MMA #### [place] [address] #### IFES, SPE, B12, FOL #### [address] [address] KAREN 1 Antibody <0.2 Normal <1.0 [facility] ([place] Comment on above: Result Comment: Perf ormed By: [place] [address] Animal Sticker: Marco Antonio Kirby III, M.D. CLIA#: [id number] Performed By: #### E NA1, TSH, VITB6, A1C, MMA #### [place] [address] #### IFES, SPE, B12, FOL #### [place] [address] KAREN 1 Antibody Qual Negative Normal Negative [facility] ([place]) Comment on above: Result Comment: Anti -KAREN-1 antibody is used as an aid in diagnosis of polymyositis and dermatomyositis especially with pulmonary involvement. A negative result cannot rule out polymyositis or dermatomyositis. Clinical correlation is required. Test Methodology: Multiplex flow immunoassay. Performed By: [place] [address] Animal Sticker: Marco Antonio Kirby III, M.D. CLIA#: [id number] Performed By: #### E NA1, TSH, VITB6, A1C, MMA #### [place] [address] #### IFES, SPE, B12, FOL #### [address] [address] Ribosomal INCISING MACHINE OPERATOR <0.2 Normal <1.0 [facility] ([place] Comment on above: Result Comment: Perf ormed By: [place] [address] Animal Sticker: Marco Antonio Kirby III, M.D. CLIA#: [id number] Performed By: #### E NA1, TSH, VITB6, A1C, MMA #### [address] [address] #### IFES, SPE, B12, FOL #### [address] [address] Ribosomal INCISING MACHINE OPERATOR Qualitative Negative Normal Negative [facility] ([place] Comment on above: Result Comment: Anti -Ribosomal RNA (Ribosomal P) antibody is used as an aid in diagnosis of systemic autoimmune diseases especially systemic lupus erythematosus and mixed connective tissue disease. Cross-reactivity with Anti-alex antibody is not uncommon. Clinical correlation is required. Test Methodology: Multiplex flow immunoassay. Performed By: [place] [address] Animal Sticker: Marco Antonio Kirby III, M.D. CLIA#: [id number] Performed By: #### E NA1, TSH, VITB6, A1C, MMA #### [address] [address] #### IFES, SPE, B12, FOL #### [address] [address] INCISING MACHINE OPERATOR Antibody <0.2 Normal <1.0 [facility] ([place] Comment on above: Result Comment: Anti -INCISING MACHINE OPERATOR antibody is used as an aid in diagnosis of systemic autoimmune diseases especially systemic lupus erythematosus and mixed connective tissue disease. Cross-reactivity with Anti-alex antibody is not uncommon. Clinical correlation is required. Test Methodology: Multiplex flow immunoassay. Performed By: [facility] [address] [place] [address] Animal Sticker: Marco Antonio Kirby III, M.D. CLIA#: [id number] Performed By: #### E NA1, TSH, VITB6, A1C, MMA #### [address] [address] #### IFES, SPE, B12, FOL #### [address] [address] INCISING MACHINE OPERATOR Antibody Qualitative Negative Normal Negative [facility] ([place]) Comment on above: Result Comment: Perf ormed By: [place] [address] Animal Sticker: Marco Antonio Kirby III, M.D. CLIA#: [id number] Performed By: #### E NA1, TSH, VITB6, A1C, MMA #### [address] [address] #### IFES, SPE, B12, FOL #### [address] [address] Scleroderma Ab, IgG Qualitative Negative Normal Negative [facility] ([place] Comment on above: Result Comment: Perf ormed By: [place] [address] Animal Sticker: Marco Antonio Kirby III, M.D. CLIA#: [id number] Performed By: #### E NA1, TSH, VITB6, A1C, MMA #### [place] [address] #### IFES, SPE, B12, FOL #### [address] [address] Scleroderma IgG Ab <0.2 Normal <1.0 [facility] ([place] Comment on above: Result Comment: Scl- 70/Scleroderma antibody test is used as an aid in diagnosis of systemic sclerosis especially the diffuse cutaneous form. A negative result cannot rule out systemic sclerosis. The final interpretation should consider clinical picture and other test results such as anti-centromere antibody. Test Methodology: Multiplex flow immunoassay. Performed By: [facility] [address] [place] [address] Animal Sticker: Marco Antonio Kirby III, M.D. CLIA#: [id number] Performed By: #### E NA1, TSH, VITB6, A1C, MMA #### [place] [address] #### IFES, SPE, B12, FOL #### [address] [address] Sm Antibody <0.2 Normal <1.0 [facility] ([place] Comment on above: Result Comment: Perf ormed By: [place] [address] Animal Sticker: Marco Antonio Kirby III, M.D. CLIA#: [id number] Performed By: #### E NA1, TSH, VITB6, A1C, MMA #### [address] [address] #### IFES, SPE, B12, FOL #### [address] [address] Sm Antibody Qual Negative Normal Negative [facility] ([place] Comment on above: Result Comment: Anti -Sm (Alex) antibody is used as an aid in diagnosis of systemic lupus erythematosus and its presence is associated with renal disease. A negative result cannot rule out systemic lupus erythematosus. Clinical correlation is required. Test Methodology: Multiplex flow immunoassay. Performed By: [place] [address] Animal Sticker: Marco Antonio Kirby III, M.D. CLIA#: [id number] Performed By: #### E NA1, TSH, VITB6, A1C, MMA #### [address] [address] #### IFES, SPE, B12, FOL #### [address] [address] SS-A Antibody 0.3 AI Normal <1.0 [facility] ([place] Comment on above: Result Comment: Test Methodology: Multiplex flow immunoassay. Anti-SSA (anti-Ro) antibody is used as an aid in diagnosis of a variety of systemic autoimmune diseases, Sjogren's syndrome among others. Clinical correlation is required. Test Methodology: Multiplex flow immunoassay. Performed By: [place] [address] Animal Sticker: Marco Antonio Kirby III, M.D. CLIA#: [id number] Performed By: #### E NA1, TSH, VITB6, A1C, MMA #### [address] [address] #### IFES, SPE, B12, FOL #### [address] [address] SS-B Antibody <0.2 Normal <1.0 [facility] ([place] Comment on above: Result Comment: Anti -SSB (anti-La) antibody is used as an aid in diagnosis of a variety of systemic autoimmune diseases, especially for Sjogren's syndrome and systemic lupus erythematosus. Clinical correlation is required. Test Methodology: Multiplex flow immunoassay. Performed By: [place] [address] Animal Sticker: Marco Antonio Kirby III, M.D. CLIA#: [id number] Performed By: #### E NA1, TSH, VITB6, A1C, MMA #### [place] [address] #### IFES, SPE, B12, FOL #### [address] [address] SSA Antibody Qualitative Negative Normal Negative [facility] ([place] Comment on above: Result Comment: Perf ormed By: [place] [address] Animal Sticker: Marco Antonio Kirby III, M.D. CLIA#: [id number] Performed By: #### E NA1, TSH, VITB6, A1C, MMA #### [place] [address] #### IFES, SPE, B12, FOL #### [address] [address] SSB Antibody Qualitative Negative Normal Negative [facility] ([place] Comment on above: Result Comment: Perf ormed By: [place] [address] Animal Sticker: Marco Antonio Kirby III, M.D. CLIA#: [id number] Performed By: #### E NA1, TSH, VITB6, A1C, MMA #### [place] [address] #### IFES, SPE, B12, FOL #### [address] [address] A1Con 10-12-2021 HbA1c (Bld) [Mass fraction] 5.8 % Normal 4.3-6.4 [facility] ([place] Comment on above: Performed By: #### E NA1, TSH, VITB6, A1C, MMA #### [address] [address] #### IFES, SPE, B12, FOL #### [address] [address] B12on 10-12-2021 Cobalamin (Vitamin B12) [Mass/Vol] 521 pg/mL Normal 211-911 [facility] ([place] Comment on above: Performed By: #### E NA1, TSH, VITB6, A1C, MMA #### [address] [address] #### IFES, SPE, B12, FOL #### [address] [address] FOLon 10-12-2021 Folate 15.77 ng/mL Normal 5.38-24.00 [facility] ([place] Comment on above: Performed By: #### E NA1, TSH, VITB6, A1C, MMA #### [address] [address] #### IFES, SPE, B12, FOL #### [place] [address] LABORATORYOrdered By: [employer] on 10-12-2021 Cobalamin (Vitamin B12) [Mass/Vol] 521 pg/mL Invalid Interpretation Code 211 - 911 pg/mL ADM SS Folate [Mass/Vol] 15.77 ng/mL Invalid Interpretation Code 5.38 - 24.00 ng/mL ADM SS LABORATORYOrdered By: Chitra Lindsay on 10-12-2021 HbA1c (Bld) [Mass fraction] 5.8 % Invalid Interpretation Code 4.3 - 6.4 % AO ADM SS TSH Qn 1.72 m[IU]/L Invalid Interpretation Code 0.36 - 3.74 mcIU/mL AO ADM SS LABORATORYOrdered By: Connie Ruiz on 10-12-2021 Protein [Mass/Vol] 7.6 G/dL Invalid Interpretation Code 5.7 - 8.2 G/dL AH ADM SS SPEon 10-12-2021 Total Protein 7.6 G/dL Normal 5.7-8.2 [facility] ([place] Comment on above: Result Comment: No te - New Reference Range in effect 19 Performed By: #### E NA1, TSH, VITB6, A1C, MMA #### [place] [address] [place], [place] [address] #### IFES, SPE, B12, FOL #### [place] [address] TSHon 10-12-2021 TSH Qn 1.72 m[IU]/L Normal 0.36-3.74 [facility] ([place] Comment on above: Performed By: #### E NA1, TSH, VITB6, A1C, MMA #### [place] [address] [place], [place] [address] #### IFES, SPE, B12, FOL #### [place] [address] Clinical Summary: HMSPatient IDon 10-09-2017 OOP Invalid Interpretation Code [facility] [place] [facility] Work Phone: Office Visit: Postop - subse quent visit, Rm: 23on 10-09-2017 NEGATED: Highlighted rowDocumentation of current medications (procedure) Done Invalid Interpretation Code [facility] [place] [facility] Work Phone: Gram stain for investigation of transfusion reaction Microscopic observation Gram stain Nom (Unsp spec) [facility] Work Phone: Vital Signs Date Time Vital Sign Value Performing Clinician Facility 02-11-2025 11:01-0400 Body height 167.[address] Jose Alex MD Work Phone: [facility] 02-11-2025 11:01-0400 Body mass index (BMI) [Ratio] 26.4 kg/m2 Dr. Jose Alex MD Work Phone: [facility] 02-11-2025 11:01-0400 Body temperature 98 [degF] Dr. Jose Alex MD Work Phone: [facility] 02-11-2025 11:01-0400 Body weight 74.[address] Jose Alex MD Work Phone: [facility] 02-11-2025 11:01-0400 Diastolic blood pressure 82 mm[Hg] Dr. Jose Alex MD Work Phone: [facility] 02-11-2025 11:01-0400 Heart rate 64 /min Dr. Jose Alex MD Work Phone: 3(572)703-177[address] [place] [address] 02-11-2025 11:01-0400 Systolic blood pressure 122 mm[Hg] Dr. Jose Alex MD Work Phone: 2(708)224-202128 [address] 01-13-2025 11:47-0400 Body height 167.[address] Jose Alex MD Work Phone: 8(978)072-074598 [place] [address] 01-13-2025 11:47-0400 Body mass index (BMI) [Ratio] 26.4 kg/m2 Dr. Jose Alex MD Work Phone: 4(073)113-158728 [address] 01-13-2025 11:47-0400 Body temperature 98 [degF] Dr. Jose Alex MD Work Phone: 8(857)669-330228 [address] 01-13-2025 11:47-0400 Body weight 74.[address] Jose Alex MD Work Phone: 9(763)076-431996 [place] [address] 01-13-2025 11:47-0400 Diastolic blood pressure 66 mm[Hg] Dr. Jose Alex MD Work Phone: 6(979)252-369796 [place] [address] 01-13-2025 11:47-0400 Heart rate 78 /min Dr. Jose Alex MD Work Phone: 3(549)636-179296 [place] [address] 01-13-2025 11:47-0400 Systolic blood pressure 116 mm[Hg] Dr. Jose Alex MD Work Phone: 3(723)275-727696 [place] [address] 11-26-2024 14:38-0400 Body height 167.[address] Jose Alex MD Work Phone: 0(213)309-020096 [place] [address] 11-26-2024 14:38-0400 Body mass index (BMI) [Ratio] 28 kg/m2 Dr. Jose Alex MD Work Phone: 9(666)908-426696 [place] [address] 11-26-2024 14:38-0400 Body temperature 98.1 [degF] Dr. Jose Alex MD Work Phone: [phone] [address] [place] [address] 11-26-2024 14:38-0400 Body weight 78.[address] Jose Alex MD Work Phone: 0(345)[phone] [place] [address] 11-26-2024 14:38-0400 Diastolic blood pressure 68 mm[Hg] Dr. Jose Alex MD Work Phone: 2(616)006-102498 [place] [address] 11-26-2024 14:38-0400 Heart rate 94 /min Dr. Jose Alex MD Work Phone: 6(434)003-647798 [place] [address] 11-26-2024 14:38-0400 Respiratory rate 18 /min Dr. Jose Alex MD Work Phone: 2(499)094-346998 [place] [address] 11-26-2024 14:38-0400 SaO2% (BldA) [Mass fraction] 96 % Dr. Jose Alex MD Work Phone: 6(914)324-069798 [place] [address] 11-26-2024 14:38-0400 Systolic blood pressure 149 mm[Hg] Dr. Jose Alex MD Work Phone: 2(270)522-508298 [place] [address] 09-14-2022 15:09-0400 Body height 168.[address] oJse Alex Work Phone: 5(204)637-469998 [place] [address] 09-14-2022 15:03-0400 Body mass index (BMI) [Ratio] 28.3 kg/m2 Dr. Jose Alex Work Phone: 0(610)102-779798 [place] [address] 09-14-2022 15:03-0400 Body temperature 98.2 [degF] Dr. Jose Alex Work Phone: 9(290)648-325298 [place] [address] 09-14-2022 15:03-0400 Body weight 80.[address] Jose Alex Work Phone: 8(673)532-066496 [place] [address] 09-14-2022 15:03-0400 Diastolic blood pressure 87 mm[Hg] Dr. Jose Alex Work Phone: [facility] 09-14-2022 15:03-0400 Heart rate 90 /min Dr. Jose Alex Work Phone: [facility] 09-14-2022 15:03-0400 Respiratory rate 17 /min Dr. Jose Alex Work Phone: [facility] 09-14-2022 15:03-0400 SaO2% (BldA) [Mass fraction] 97 % Dr. Jose Alex Work Phone: [facility] 09-14-2022 15:03-0400 Systolic blood pressure 160 mm[Hg] Dr. Jose Alex Work Phone: [facility] 08-31-2022 14:48-0400 Body mass index (BMI) [Ratio] 28.1 kg/m2 Dr. Jose Alex Work Phone: [facility] 08-31-2022 14:48-0400 Body temperature 98.2 [degF] Dr. Jsoe Alex Work Phone: [facility] 08-31-2022 14:48-0400 Body weight 80.[address] Jose Alex Work Phone: [facility] 08-31-2022 14:48-0400 Diastolic blood pressure 91 mm[Hg] Dr. Jose Alex Work Phone: [facility] 08-31-2022 14:48-0400 Heart rate 92 /min Dr. Jose Alex Work Phone: [facility] 08-31-2022 14:48-0400 Respiratory rate 17 /min Dr. Jose Alex Work Phone: [facility] 08-31-2022 14:48-0400 SaO2% (BldA) [Mass fraction] 94 % Dr. Jose Alex Work Phone: [facility] 08-31-2022 14:48-0400 Systolic blood pressure 157 mm[Hg] Dr. Jose Alex Work Phone: [facility] 08-03-2022 13:19-0500 Body mass index (BMI) [Ratio] 27.3 kg/m2 Dr. Jose Alex Work Phone: [facility] 08-03-2022 13:19-0500 Body temperature 98.2 [degF] Dr. Jose Alex Work Phone: [facility] 08-03-2022 13:19-0500 Body weight 78.[address] Jose Alex Work Phone: [facility] 08-03-2022 13:19-0500 Diastolic blood pressure 73 mm[Hg] Dr. Jose Alex Work Phone: 3(633)537-691296 [place] [address] 08-03-2022 13:19-0500 Heart rate 80 /min Dr. Jose Alex Work Phone: 7(757)571-110696 [place] [address] 08-03-2022 13:19-0500 Respiratory rate 17 /min Dr. Jose Alex Work Phone: [facility] 08-03-2022 13:19-0500 SaO2% (BldA) [Mass fraction] 97 % Dr. Jose Alex Work Phone: [facility] 08-03-2022 13:19-0500 Systolic blood pressure 151 mm[Hg] Dr. Jose Alex Work Phone: [facility] 07-20-2022 14:56-0500 Body mass index (BMI) [Ratio] 27.5 kg/m2 Dr. Jose Alex Work Phone: [facility] 07-20-2022 14:56-0500 Body temperature 97.5 [degF] Dr. Jose Alex Work Phone: [facility] 07-20-2022 14:56-0500 Body weight 78.[address] Jose Alxe Work Phone: [facility] 07-20-2022 14:56-0500 Diastolic blood pressure 87 mm[Hg] Dr. Jose Alex Work Phone: [facility] 07-20-2022 14:56-0500 Heart rate 95 /min Dr. Jose Alex Work Phone: [facility] 07-20-2022 14:56-0500 Respiratory rate 17 /min Dr. Jose Alex Work Phone: [facility] 07-20-2022 14:56-0500 SaO2% (BldA) [Mass fraction] 94 % Dr. Jose Alex Work Phone: [facility] 07-20-2022 14:56-0500 Systolic blood pressure 144 mm[Hg] Dr. Jose Alex Work Phone: [facility] 05-12-2022 16:12-0500 Body height 168.[address] Jose Alex Work Phone: [facility] Work Phone: 05-12-2022 16:03-0500 Body mass index (BMI) [Ratio] 29.2 kg/m2 Dr. Jose Alex Work Phone: [facility] Work Phone: 05-12-2022 16:03-0500 Body temperature 98.2 [degF] Dr. Jose Alex Work Phone: [facility] Work Phone: 05-12-2022 16:03-0500 Body weight 83.[address] Jose Alex Work Phone: [facility] Work Phone: 05-12-2022 16:03-0500 Diastolic blood pressure 88 mm[Hg] Dr. Jose Alex Work Phone: [facility] Work Phone: 05-12-2022 16:03-0500 Heart rate 105 /min Dr. Jose Alex Work Phone: [facility] Work Phone: 05-12-2022 16:03-0500 Respiratory rate 16 /min Dr. Jose Alex Work Phone: [facility] Work Phone: 05-12-2022 16:03-0500 Systolic blood pressure 169 mm[Hg] Dr. Jose Alex Work Phone: [facility] Work Phone: 04-28-2022 16:19-0500 Body mass index (BMI) [Ratio] 28.3 kg/m2 Dr. Jose Alex Work Phone: [facility] Work Phone: 04-28-2022 16:19-0500 Body temperature 89.6 [degF] Dr. Jose Alex Work Phone: [facility] Work Phone: 04-28-2022 16:19-0500 Body weight 80.[address] Jose Alex Work Phone: [facility] Work Phone: 04-28-2022 16:19-0500 Diastolic blood pressure 79 mm[Hg] Dr. Jose Alex Work Phone: [facility] Work Phone: 04-28-2022 16:19-0500 Heart rate 82 /min Dr. Jose Alex Work Phone: [facility] Work Phone: 04-28-2022 16:19-0500 Respiratory rate 16 /min Dr. Jose Alex Work Phone: [facility] Work Phone: 04-28-2022 16:19-0500 SaO2% (BldA) [Mass fraction] 98 % Dr. Jose Alex Work Phone: [facility] Work Phone: 04-28-2022 16:19-0500 Systolic blood pressure 131 mm[Hg] Dr. Jose Alex Work Phone: [facility] Work Phone: 04-14-2022 15:55-0400 Body mass index (BMI) [Ratio] 29.2 kg/m2 Dr. Jose Alex Work Phone: [facility] Work Phone: 04-14-2022 15:55-0400 Body temperature 97.4 [degF] Dr. Jose Alex Work Phone: [facility] Work Phone: 04-14-2022 15:55-0400 Body weight 83.[address] Jose Alex Work Phone: [facility] Work Phone: 04-14-2022 15:55-0400 Diastolic blood pressure 78 mm[Hg] Dr. Jose Alex Work Phone: [facility] Work Phone: 04-14-2022 15:55-0400 Heart rate 87 /min Dr. Jose Alex Work Phone: [facility] Work Phone: 04-14-2022 15:55-0400 Respiratory rate 16 /min Dr. Jose Alex Work Phone: [facility] Work Phone: 04-14-2022 15:55-0400 SaO2% (BldA) [Mass fraction] 94 % Dr. Jose Alex Work Phone: [facility] Work Phone: 04-14-2022 15:55-0400 Systolic blood pressure 144 mm[Hg] Dr. Jose Alex Work Phone: [facility] Work Phone: 03-31-2022 15:43-0400 Body mass index (BMI) [Ratio] 28.5 kg/m2 Dr. Jose Alex Work Phone: [facility] Work Phone: 03-31-2022 15:43-0400 Body temperature 97.3 [degF] Dr. Jose Alex Work Phone: [facility] Work Phone: 03-31-2022 15:43-0400 Body weight 81.[address] Jose Alex Work Phone: [facility] Work Phone: 03-31-2022 15:43-0400 Diastolic blood pressure 83 mm[Hg] Dr. Jose Alex Work Phone: [facility] Work Phone: 03-31-2022 15:43-0400 Heart rate 99 /min Dr. Jose Alex Work Phone: [facility] Work Phone: 03-31-2022 15:43-0400 Respiratory rate 15 /min Dr. Jose Alex Work Phone: [facility] Work Phone: 03-31-2022 15:43-0400 SaO2% (BldA) [Mass fraction] 98 % Dr. Jose Alex Work Phone: [facility] Work Phone: 03-31-2022 15:43-0400 Systolic blood pressure 136 mm[Hg] Dr. Jose Alex Work Phone: [facility] Work Phone: 03-17-2022 16:00-0400 Body mass index (BMI) [Ratio] 28.8 kg/m2 Dr. Jose Alex Work Phone: [facility] Work Phone: 03-17-2022 16:00-0400 Body temperature 98.3 [degF] Dr. Jose Alex Work Phone: [facility] Work Phone: 03-17-2022 16:00-0400 Body weight 82.[address] Jose Alex Work Phone: [facility] Work Phone: 03-17-2022 16:00-0400 Heart rate 90 /min Dr. Jose Alex Work Phone: [facility] Work Phone: 03-17-2022 16:00-0400 Respiratory rate 16 /min Dr. Jose Alex Work Phone: [facility] Work Phone: 03-17-2022 16:00-0400 SaO2% (BldA) [Mass fraction] 96 % Dr. Jose Alex Work Phone: [facility] Work Phone: 02-24-2022 15:37-0400 Body mass index (BMI) [Ratio] 28.8 kg/m2 Dr. Jose Alex Work Phone: [facility] Work Phone: 02-24-2022 15:37-0400 Body temperature 98.5 [degF] Dr. Jose Alex Work Phone: [facility] Work Phone: 02-24-2022 15:37-0400 Body weight 82.[address] Jose Alex Work Phone: [facility] Work Phone: 02-24-2022 15:37-0400 Diastolic blood pressure 72 mm[Hg] Dr. Jose Alex Work Phone: [facility] Work Phone: 02-24-2022 15:37-0400 Heart rate 81 /min Dr. Jose Alex Work Phone: [facility] Work Phone: 02-24-2022 15:37-0400 Respiratory rate 16 /min Dr. Jose Alex Work Phone: [facility] Work Phone: 02-24-2022 15:37-0400 SaO2% (BldA) [Mass fraction] 98 % Dr. Jose Alex Work Phone: [facility] Work Phone: 02-24-2022 15:37-0400 Systolic blood pressure 127 mm[Hg] Dr. Jose Alex Work Phone: [facility] Work Phone: 02-16-2022 16:32-0400 Body mass index (BMI) [Ratio] 28.8 kg/m2 Dr. Jose Alex Work Phone: [facility] Work Phone: 02-16-2022 16:32-0400 Body temperature 98.2 [degF] Dr. Jose Alex Work Phone: [facility] Work Phone: 02-16-2022 16:32-0400 Body weight 82.[address] Jose Alex Work Phone: [facility] Work Phone: 02-16-2022 16:32-0400 Diastolic blood pressure 74 mm[Hg] Dr. Jose Alex Work Phone: [facility] Work Phone: 02-16-2022 16:32-0400 Heart rate 92 /min Dr. Jose Alex Work Phone: [facility] Work Phone: 02-16-2022 16:32-0400 Respiratory rate 16 /min Dr. Jose Alex Work Phone: [facility] Work Phone: 02-16-2022 16:32-0400 SaO2% (BldA) [Mass fraction] 98 % Dr. Jose Alex Work Phone: [facility] Work Phone: 02-16-2022 16:32-0400 Systolic blood pressure 126 mm[Hg] Dr. Jose Alex Work Phone: [facility] Work Phone: 02-10-2022 10:24-0400 Body mass index (BMI) [Ratio] 28.7 kg/m2 Dr. Jose Alex Work Phone: [facility] Work Phone: 02-10-2022 10:24-0400 Body temperature 98.6 [degF] Dr. Jose Alex Work Phone: [facility] Work Phone: 02-10-2022 10:24-0400 Body weight 81.[address] Jose Alex Work Phone: [facility] Work Phone: 02-10-2022 10:24-0400 Diastolic blood pressure 87 mm[Hg] Dr. Jose Alex Work Phone: [facility] Work Phone: 02-10-2022 10:24-0400 Heart rate 92 /min Dr. Jose Alex Work Phone: [facility] Work Phone: 02-10-2022 10:24-0400 Respiratory rate 15 /min Dr. Jose Alex Work Phone: [facility] Work Phone: 02-10-2022 10:24-0400 SaO2% (BldA) [Mass fraction] 98 % Dr. Jose Alex Work Phone: [facility] Work Phone: 02-10-2022 10:24-0400 Systolic blood pressure 147 mm[Hg] Dr. Jose Alex Work Phone: [facility] Work Phone: 01-21-2022 09:51-0400 Body temperature 97.6 [degF] Dr. Jose Alex Work Phone: [facility] Work Phone: 01-21-2022 09:51-0400 Diastolic blood pressure 78 mm[Hg] Dr. Jose Alex Work Phone: [facility] Work Phone: 01-21-2022 09:51-0400 Heart rate 105 /min Dr. Jose Alex Work Phone: [facility] Work Phone: 01-21-2022 09:51-0400 Respiratory rate 16 /min Dr. Jose Alex Work Phone: [facility] Work Phone: 01-21-2022 09:51-0400 SaO2% (BldA) [Mass fraction] 96 % Dr. Jose Alex Work Phone: [facility] Work Phone: 01-21-2022 09:51-0400 Systolic blood pressure 138 mm[Hg] Dr. Jose Alex Work Phone: [facility] Work Phone: 01-14-2022 11:27-0400 Body temperature 98.2 [degF] Dr. Jose Alex Work Phone: [facility] Work Phone: 01-14-2022 11:27-0400 Diastolic blood pressure 68 mm[Hg] Dr. Jose Alex Work Phone: [facility] Work Phone: 01-14-2022 11:27-0400 Heart rate 74 /min Dr. Jose Alex Work Phone: [facility] Work Phone: 01-14-2022 11:27-0400 Respiratory rate 18 /min Dr. Jose Alex Work Phone: [facility] Work Phone: 01-14-2022 11:27-0400 SaO2% (BldA) [Mass fraction] 94 % Dr. Jose Alex Work Phone: [facility] Work Phone: 01-14-2022 11:27-0400 Systolic blood pressure 117 mm[Hg] Dr. Jose Alex Work Phone: [facility] Work Phone: 01-13-2022 16:44-0400 Body height 168.[address] Jose Alex Work Phone: [facility] Work Phone: 01-13-2022 16:44-0400 Body mass index (BMI) [Ratio] 29.4 kg/m2 Dr. Jose Alex Work Phone: [facility] Work Phone: 01-13-2022 16:44-0400 Body weight 83.[address] Jose Alex Work Phone: [facility] Work Phone: 01-03-2022 16:15-0400 Body height 168.[address] Jose Alex Work Phone: [facility] Work Phone: 01-03-2022 16:15-0400 Body mass index (BMI) [Ratio] 29.5 kg/m2 Dr. Jose Alex Work Phone: [facility] Work Phone: 01-03-2022 16:15-0400 Body temperature 98.2 [degF] Dr. Jose Alex Work Phone: [facility] Work Phone: 01-03-2022 16:15-0400 Body weight 84.[address] Jose Alex Work Phone: [facility] Work Phone: 01-03-2022 16:15-0400 Diastolic blood pressure 83 mm[Hg] Dr. Jose Alex Work Phone: [facility] Work Phone: 01-03-2022 16:15-0400 Heart rate 85 /min Dr. Jose Alex Work Phone: [facility] Work Phone: 01-03-2022 16:15-0400 Respiratory rate 15 /min Dr. Jose Alex Work Phone: [facility] Work Phone: 01-03-2022 16:15-0400 SaO2% (BldA) [Mass fraction] 97 % Dr. Jose Alex Work Phone: [facility] Work Phone: 01-03-2022 16:15-0400 Systolic blood pressure 140 mm[Hg] Dr. Jose Alex Work Phone: [facility] Work Phone: 12-28-2021 07:03-0400 Body height 168.[address] Jose Alex Work Phone: [facility] Work Phone: 12-28-2021 07:03-0400 Body mass index (BMI) [Ratio] 29.6 kg/m2 Dr. Jose Alex Work Phone: [facility] Work Phone: 12-28-2021 07:03-0400 Body temperature 97.8 [degF] Dr. Jose Alex Work Phone: [facility] Work Phone: 12-28-2021 07:03-0400 Body weight 84.[address] Jose Alex Work Phone: [facility] Work Phone: 12-28-2021 07:03-0400 Diastolic blood pressure 76 mm[Hg] Dr. Jose Alex Work Phone: [facility] Work Phone: 12-28-2021 07:03-0400 Heart rate 96 /min Dr. Jose Alex Work Phone: [facility] Work Phone: 12-28-2021 07:03-0400 Respiratory rate 18 /min Dr. Jose Alex Work Phone: [facility] Work Phone: 12-28-2021 07:03-0400 SaO2% (BldA) [Mass fraction] 98 % Dr. Jose Alex Work Phone: [facility] Work Phone: 12-28-2021 07:03-0400 Systolic blood pressure 136 mm[Hg] Dr. Jose Alex Work Phone: [facility] Work Phone: NEGATED: Highlighted [id number] 08:53-0400 BMI (Body Mass Index) 33.8 kg/m2 Kaliemarisela Corona PERSONNEL INTERVIEWER [facility] [place] [facility] Work Phone: NEGATED: Highlighted [id number] 08:53-0400 BP Diastolic 79 mm[Hg] Kalie Chloe PERSONNEL INTERVIEWER [facility] [place] [facility] Work Phone: NEGATED: Highlighted [id number] 08:53-0400 BP Diastolic 83 mm[Hg] Kalie Chloe PERSONNEL INTERVIEWER [facility] Work Phone: NEGATED: Highlighted [id number] 08:53-0400 BP Systolic 146 mm[Hg] Kalie Chloe PERSONNEL INTERVIEWER [facility] Work Phone: NEGATED: Highlighted [id number] 08:53-0400 BP Systolic 135 mm[Hg] Kalie Chloe PERSONNEL INTERVIEWER [facility] Work Phone: NEGATED: Highlighted [id number] 08:53-0400 Height 170.18 cm Kalie Chloe PERSONNEL INTERVIEWER [facility] Work Phone: NEGATED: Highlighted [id number] 08:53-0400 Height 170 cm Kalie Chloe PERSONNEL INTERVIEWER [facility] Work Phone: NEGATED: Highlighted [id number] 08:53-0400 Pulse (Heart Rate) 81 /min Kalie Chloe PERSONNEL INTERVIEWER [facility] Work Phone: NEGATED: Highlighted [id number] 08:53-0400 Weight 97.52 kg Kalie Chloe PERSONNEL INTERVIEWER [facility] Work Phone: NEGATED: Highlighted [id number] 08:53-0400 Weight 98 kg Kalie Chloe PERSONNEL INTERVIEWER [facility] [place] [facility] Work Phone: Encounters Encounter Date Encounter Type Care Provider Facility Start: 02-11-2025 End: 02-11-[address] Nadiya Mariano MD -[facility] Work Phone: Start: 02-11-2025 End: 02-11-[address] Jose Alex MD Work Phone: -[facility] Start: 01-24-2025 End: 01-24-[address] Jose Alex MD Work Phone: -[facility] Start: 01-24-2025 End: 01-24-[address] Nadiya Mariano MD -[facility] Work Phone: Start: 01-24-2025 End: 01-24-2025 ambulatory Nadiya Mariano Facility:[facility] Start: 01-13-2025 End: 01-13-[address] Nadiya Mariano MD -[facility] Work Phone: Start: 01-13-2025 End: 01-13-[address] Jose Alex MD Work Phone: -[facility] Start: 12-10-2024 Non-patient / Non-visit Dr. Nadiya osorio MD -[facility] Work Phone: Start: 11-26-[address] Gordon Kemp MD -[facility] Start: 11-26-2024 End: 11-26-[address] Gordon Kemp MD -[facility] Work Phone: Start: 11-26-2024 End: 11-26-[address] Jose Alex MD Work Phone: [facility] Work Phone: Start: 10-15-2024 End: 10-15-[address] Jose Alex MD Work Phone: [facility] Work Phone: Start: 10-15-2024 End: 10-15-[address] [facility] Start: 10-15-2024 End: 10-15-2024 ambulatory Jose Alex Facility:[facility] Start: 05-15-2024 End: 05-15-2024 ambulatory Gordon Chikisfigueroa Facility:[facility] Start: 09-28-2022 End: 09-28-[address] Jose Alex Work Phone: [facility] Work Phone: Start: 09-28-2022 End: 09-28-[address] Jose Alex Work Phone: [facility] Start: 09-14-2022 End: 09-14-[address] Jose Alex Work Phone: [facility] Start: 08-31-[address] Jose Alex Work Phone: [facility] Start: 08-31-2022 End: 08-31-[address] Jose Alex Work Phone: [facility] Start: 08-03-2022 End: 08-03-[address] Jose Alex Work Phone: [facility] Start: 07-20-2022 End: 07-20-[address] Jose Alex Work Phone: [facility] Start: 05-12-2022 End: 05-12-[address] Jose Alex Work Phone: [facility] Start: 05-12-[address] Jose Alex Work Phone: [facility] Start: 04-28-2022 End: 04-28-[address] Jose Alex Work Phone: [facility] Start: 04-14-2022 End: 04-14-[address] Jose Alex Work Phone: [facility] Start: 03-31-2022 End: 03-31-[address] Jose Alex Work Phone: [facility] Start: 03-17-2022 End: 03-17-[address] Jose Alex Work Phone: [facility] Start: 03-08-2022 End: 03-08-[address] Jose Alex Work Phone: [facility] Work Phone: Start: 03-08-2022 End: 03-08-[address] Jose Alex Work Phone: [facility] Start: 03-01-2022 End: 03-01-[address] Jose Alex Work Phone: [facility] Start: 02-24-2022 End: 02-24-[address] Jose Alex Work Phone: [facility] Start: 02-16-2022 End: 02-16-[address] Jose Alex Work Phone: [facility] Start: 02-10-2022 End: 02-10-[address] Jose Alex Work Phone: [facility] Start: 02-10-2022 End: 02-10-[address] Jose Alex Work Phone: [facility] Start: 02-01-2022 End: 02-01-[address] Jose Alex Work Phone: [facility] Start: 01-27-2022 End: 01-27-[address] Jose Alex Work Phone: [facility] Start: 01-24-2022 End: 01-24-[address] Jose Alex Work Phone: [facility] Start: 01-21-2022 End: 01-21-[address] Jose Alex Work Phone: [facility]-Laboratory, Specimen Start: 01-21-2022 Non-patient / Non-visit Dr. Ted Alex Work Phone: [facility] Start: 01-21-2022 End: 01-21-[address] Jose Alex Work Phone: [facility] Start: 01-19-2022 End: 01-19-[address] Jose Alex Work Phone: [facility] Start: 01-14-2022 Non-patient / Non-visit Dr. Ted Alex Work Phone: [facility] Start: 01-13-2022 End: 01-14-2022 Evaluation and management of inpatient Dr. Jose Alex Work Phone: [facility]Medical Surgical 3 Start: 01-13-2022 Non-patient / Non-visit Dr. Ted Alex Work Phone: [facility] Start: 01-11-2022 End: 01-11-[address] Jose Alex Work Phone: [facility] [facility] Start: 01-06-2022 End: 01-06-[address] Jose Alex Work Phone: [facility]-Cat Scan, [facility] Start: 01-05-2022 End: 01-05-[address] Jose Alex Work Phone: [facility]-Outpatient Bone Densitometry Start: 01-05-[address] Jose Alex Work Phone: [facility] Start: 01-03-2022 End: 01-03-[address] Jose Alex Work Phone: [facility] Start: 12-30-2021 End: 12-30-[address] Jose Alex Work Phone: [facility] Start: 12-28-2021 End: 12-28-[address] Jose Alex Work Phone: [facility]-Laboratory, Specimen Start: 12-28-2021 End: 12-28-[address] Jose Alex Work Phone: [facility] Start: 12-27-2021 End: 12-27-[address] Jose Alex Work Phone: [facility]-Outpatient Pavilion Ultrasound Start: 12-21-2021 End: 12-21-2021 Patient encounter procedure [facility]-Outpatient Breast Imaging Start: 10-29-2021 End: 11-16-2021 Physical therapy management MARIANGEL BOOTHE PA-C [facility] Start: 10-12-2021 End: 10-12-2021 Patient encounter procedure ARIEL ROMAN MD [facility] Start: 10-09-2017 End: 10-09-2017 Patient encounter procedure Augustin Valladares MD Work Phone: [facility] Work Phone: Start: 10-09-2017 End: 10-09-2017 Pt evaluation Augustin Valladares MD Work Phone: [facility] Work Phone: Procedures Date Procedure Procedure Detail Performing Clinician Start: 11-26-[address] Jose Alex MD Work Phone: Start: 05-15-2024 Measurement of renal function Dr. Jose Alex MD Work Phone: Comment on above: GFR Calc Start: 03-31-2022 Allergen spec ige cr ude allergen extract each Dr. Jose Alex MD Work Phone: Start: 01-13-2022 Mastectomy Modified Radical Axil Node (Right) Dr. Jose Alex Work Phone: Start: 01-13-2022 Radionuclide sentine l lymph node study Dr. Jose Alex Work Phone: Start: 01-11-2022 Plain chest X-ray Dr. Marquita Alex Work Phone: Start: 01-11-2022 Radionuclide whole b graciela bone study Dr. Jose Alex Work Phone: Start: 01-06-2022 CT of chest and abdomen Dr. Jose Alex Work Phone: Start: 01-05-2022 Dual energy X-ray absorptiometry Dr. Jose Alex Work Phone: Start: 12-27-[address] Jose Alex Work Phone: Start: 12-21-2021 Screening mammography Start: 09-22-2020 Structure of right k nee (body structure) ARIEL ROMAN MD Start: 10-09-2017 End: 10-09-2017 BMI documented as above normal parameters - follow-up documented Augustin Valladares MD Work Phone: Start: 10-09-2017 End: 10-09-2017 Current medications documented Augustin Valladares MD Work Phone: Start: 10-09-2017 End: 10-09-2017 Pain assessment documented as positive - follow-up documented Augustin Valladares MD Work Phone: Start: 10-09-2017 End: 10-09-2017 Tobacco non-user Augustin Valladares MD Work Phone: Bacterial culture Dr. Jose jeffrey Work Phone: Colonoscopy ARIEL ROMAN MD Investigation of tra nsfusion reaction Dr. Jose Alex Work Phone: Laminectomy ARIEL ROMAN MD Comment on above: LUMBAR Unicompartmental kne e joint prosthesis (physical object) ARIEL ROMAN MD Comment on above: JOSE Plan of Treatment Date Care Activity Detail Author Start: 11-26-2024 [facility] Start: 02-17-2022 Patient referral [facility] Work Phone: Start: 01-21-2022 Bacteria identified in Body fluid by Culture [facility] Work Phone: Start: 01-14-2022 Patient discharge [facility] Work Phone: Start: 01-14-2022 [facility] Work Phone: Start: 01-13-2022 Following clinical pathway protocol [facility] Work Phone: Start: 01-13-2022 End: 01-13-2022 [facility] Work Phone: Start: 01-13-2022 Catheterization of vein [facility] Work Phone: Start: 01-13-2022 Deep breathing and coughing exercises [facility] Work Phone: Start: 01-13-2022 Elevation of head of bed [facility] Work Phone: Start: 01-13-2022 Following clinical pathway protocol [facility] Work Phone: Start: 01-13-2022 Incentive spirometry [facility] Work Phone: Start: 01-13-2022 Patient education [facility] Work Phone: Start: 01-13-2022 Taking patient vital signs [facility] Work Phone: Start: 01-13-2022 Vital signs measurements [facility] Work Phone: Start: 01-13-2022 Wound care [facility] Work Phone: Start: 01-13-2022 Admission procedure [facility] Work Phone: Start: 01-13-2022 Anesthesia radical/modified radical breast ANESTH SURGERY OF BREAST [facility] Work Phone: Start: 01-13-2022 Mast modf rad w/ax lymph nod w/wo pect/marc min MAST MOD RAD [facility] Work Phone: Start: 01-13-2022 Patient referral to dietitian [facility] Work Phone: Start: 12-28-2021 Patient referral [facility] Work Phone: Start: 10-09-2017 End: 10-09-2017 Appointment [facility] [place] [facility] Work Phone: Anaerobic microbial culture [facility] Work Phone: Basic metabolic 2008 panel with ionized calcium - Serum or Plasma [facility] Blood chemistry [facility] Work Phone: Cancer Ag 125 [Units/volume] in Serum or Plasma [facility] Cancer Ag 15-3 [Pres ence] in Serum or Plasma [facility] Cancer Ag 27-29 [Pre sence] in Serum or Plasma [facility] Carcinoembryonic Ag [Mass/volume] in Serum or Plasma [facility] CBC W Auto Different ial panel - Blood [facility] Work Phone: CBC W Auto Different ial panel - Blood [facility] Comprehensive metabo lic 2000 panel - Serum or Plasma [facility] Lactate dehydrogenas e measurement [facility] Lactate dehydrogenas e measurement [facility] LDH [facility] Work Phone: MR Breast - bilatera l WO and W contrast IV [facility] Work Phone: NM Lymph node Views [facility] Work Phone: NM Whole body Bone Views [facility] Work Phone: Patient Education \[email or web address] PtEduc ation\[email or web address].pdf [facility] Work Phone: Patient referral [facility] Work Phone: Immunizations Immunization Date Immunization Notes Care Provider Fa cility 08-21-2020 Covid ([facility]) [facility] 07-21-2020 Covid ([facility]) [facility] No information available. Kalie Corona LPN [facility] Work Phone: Payers Date Payer Category Payer Self-pay [id number] 2013 Medicare [id number] Medicare [id number] Unknown [id number] Unknown [id number] Unknown [id number] Unknown [id number] Unknown [id number] Unknown [id number] Unknown [id number] Social History Date Type Detail Facility Start: 07-15-2019 End: 01-24-2022 Assertion Unknown if ever smoked [facility] Work Phone: Start: 09-07-2020 End: 01-24-2022 Tobacco smoking status Never smoked tobacco (finding) [facility] Sex Assigned At Sex [facility] Start: 07-15-2019 None [facility] Start: 07-15-2019 Spouse/ Signif icant Other [facility] Start: 1940 Sex Assigned At Female [facility] Medical Equipment Procedure Code Equipment Code Equipment Origin al Text Equipment Identifier Dates SEALANT,FLOSEAL HEMOSTATIC 5ML FDA Start: 01-13-2022 SUTURE,LIGA CLIP SM LT-100 FDA Start: 01-13-2022 SUTURE,LIGA CLIP SM LT-100 FDA Start: 01-13-2022 SUTURE,LIGA CLIP MED LT200 FDA Start: 01-13-2022 SUTURE,LIGA CLIP MED LT200 FDA Start: 01-13-2022 SUTURE,LIGA CLIP MED LT200 FDA Start: 01-13-2022 SUTURE,LIGA CLIP MED LT200 FDA Start: 01-13-2022 SUTURE,LIGA CLIP MED LT200 FDA Start: 01-13-2022 SUTURE,LIGA CLIP MED LT200 FDA Start: 01-13-2022 SUTURE,LIGA CLIP SM LT-100 FDA Start: 01-13-2022 SUTURE,LIGA CLIP SM LT-100 FDA Start: 01-13-2022 SEALANT,FLOSEAL HEMOSTATIC 5ML FDA Start: 01-13-2022 SUTURE,LIGA CLIP SM LT-100 FDA Start: 01-13-2022 SUTURE,LIGA CLIP SM LT-100 FDA Start: 01-13-2022 SUTURE,LIGA CLIP MED LT200 FDA Start: 01-13-2022 SUTURE,LIGA CLIP MED LT200 FDA Start: 01-13-2022 SUTURE,LIGA CLIP MED LT200 FDA Start: 01-13-2022 SUTURE,LIGA CLIP MED LT200 FDA Start: 01-13-2022 SUTURE,LIGA CLIP MED LT200 FDA Start: 01-13-2022 SUTURE,LIGA CLIP MED LT200 FDA Start: 08-04-2022 SUTURE,LIGA CLIP SM LT-100 FDA Start: 01-13-2022 SUTURE,LIGA CLIP SM LT-100 FDA Start: 01-13-2022 SEALANT,FLOSEAL HEMOSTATIC 5ML FDA Start: 01-13-2022 SUTURE,LIGA CLIP SM LT-100 FDA Start: 01-13-2022 SUTURE,LIGA CLIP SM LT-100 FDA Start: 01-13-2022 SUTURE,LIGA CLIP MED LT200 FDA Start: 01-13-2022 SUTURE,LIGA CLIP MED LT200 FDA Start: 01-13-2022 SUTURE,LIGA CLIP MED LT200 FDA Start: 01-13-2022 SUTURE,LIGA CLIP MED LT200 FDA Start: 01-13-2022 SUTURE,LIGA CLIP MED LT200 FDA Start: 01-13-2022 SUTURE,LIGA CLIP MED LT200 FDA Start: 01-13-2022 SUTURE,LIGA CLIP SM LT-100 FDA Start: 01-13-2022 SUTURE,LIGA CLIP SM LT-100 FDA Start: 01-13-2022 SEALANT,FLOSEAL HEMOSTATIC 5ML FDA Start: 01-13-2022 SUTURE,LIGA CLIP SM LT-100 FDA Start: 01-13-2022 SUTURE,LIGA CLIP SM LT-100 FDA Start: 01-13-2022 SUTURE,LIGA CLIP MED LT200 FDA Start: 01-13-2022 SUTURE,LIGA CLIP MED LT200 FDA Start: 01-13-2022 SUTURE,LIGA CLIP MED LT200 FDA Start: 01-13-2022 SUTURE,LIGA CLIP MED LT200 FDA Start: 01-13-2022 SUTURE,LIGA CLIP MED LT200 FDA Start: 01-13-2022 SUTURE,LIGA CLIP MED LT200 FDA Start: 01-13-2022 SUTURE,LIGA CLIP SM LT-100 FDA Start: 01-13-2022 SUTURE,LIGA CLIP SM LT-100 FDA Start: 01-13-2022 SEALANT,FLOSEAL HEMOSTATIC 5ML FDA Start: 01-13-2022 SUTURE,LIGA CLIP SM LT-100 FDA Start: 01-13-2022 SUTURE,LIGA CLIP SM LT-100 FDA Start: 01-13-2022 SUTURE,LIGA CLIP MED LT200 FDA Start: 01-13-2022 SUTURE,LIGA CLIP MED LT200 FDA Start: 01-13-2022 SUTURE,LIGA CLIP MED LT200 FDA Start: 01-13-2022 SUTURE,LIGA CLIP MED LT200 FDA Start: 01-13-2022 SUTURE,LIGA CLIP MED LT200 FDA Start: 01-13-2022 SUTURE,LIGA CLIP MED LT200 FDA Start: 01-13-2022 SUTURE,LIGA CLIP SM LT-100 FDA Start: 01-13-2022 SUTURE,LIGA CLIP SM LT-100 FDA Start: 01-13-2022 SEALANT,FLOSEAL HEMOSTATIC 5ML FDA Start: 01-13-2022 SUTURE,LIGA CLIP SM LT-100 FDA Start: 01-13-2022 SUTURE,LIGA CLIP SM LT-100 FDA Start: 01-13-2022 SUTURE,LIGA CLIP MED LT200 FDA Start: 01-13-2022 SUTURE,LIGA CLIP MED LT200 FDA Start: 01-13-2022 SUTURE,LIGA CLIP MED LT200 FDA Start: 01-13-2022 SUTURE,LIGA CLIP MED LT200 FDA Start: 01-13-2022 SUTURE,LIGA CLIP MED LT200 FDA Start: 01-13-2022 SUTURE,LIGA CLIP MED LT200 FDA Start: 01-13-2022 SUTURE,LIGA CLIP SM LT-100 FDA Start: 01-13-2022 SUTURE,LIGA CLIP SM LT-100 FDA Start: 01-13-2022 SEALANT,FLOSEAL HEMOSTATIC 5ML FDA Start: 01-13-2022 SUTURE,LIGA CLIP SM LT-100 FDA Start: 01-13-2022 SUTURE,LIGA CLIP SM LT-100 FDA Start: 01-13-2022 SUTURE,LIGA CLIP MED LT200 FDA Start: 01-13-2022 SUTURE,LIGA CLIP MED LT200 FDA Start: 01-13-2022 SUTURE,LIGA CLIP MED LT200 FDA Start: 01-13-2022 SUTURE,LIGA CLIP MED LT200 FDA Start: 01-13-2022 SUTURE,LIGA CLIP MED LT200 FDA Start: 01-13-2022 SUTURE,LIGA CLIP MED LT200 FDA Start: 01-13-2022 SUTURE,LIGA CLIP SM LT-100 FDA Start: 01-13-2022 SUTURE,LIGA CLIP SM LT-100 FDA Start: 01-13-2022 SEALANT,FLOSEAL HEMOSTATIC 5ML FDA Start: 01-13-2022 SUTURE,LIGA CLIP SM LT-100 FDA Start: 01-13-2022 SUTURE,LIGA CLIP SM LT-100 FDA Start: 01-13-2022 SUTURE,LIGA CLIP MED LT200 FDA Start: 01-13-2022 SUTURE,LIGA CLIP MED LT200 FDA Start: 01-13-2022 SUTURE,LIGA CLIP MED LT200 FDA Start: 01-13-2022 SUTURE,LIGA CLIP MED LT200 FDA Start: 01-13-2022 SUTURE,LIGA CLIP MED LT200 FDA Start: 01-13-2022 SUTURE,LIGA CLIP MED LT200 FDA Start: 01-13-2022 SUTURE,LIGA CLIP SM LT-100 FDA Start: 01-13-2022 SUTURE,LIGA CLIP SM LT-100 FDA Start: 01-13-2022 SEALANT,FLOSEAL HEMOSTATIC 5ML FDA Start: 01-13-2022 SUTURE,LIGA CLIP SM LT-100 FDA Start: 01-13-2022 SUTURE,LIGA CLIP SM LT-100 FDA Start: 01-13-2022 SUTURE,LIGA CLIP MED LT200 FDA Start: 01-13-2022 SUTURE,LIGA CLIP MED LT200 FDA Start: 01-13-2022 SUTURE,LIGA CLIP MED LT200 FDA Start: 01-13-2022 SUTURE,LIGA CLIP MED LT200 FDA Start: 01-13-2022 SUTURE,LIGA CLIP MED LT200 FDA Start: 01-13-2022 SUTURE,LIGA CLIP MED LT200 FDA Start: 01-13-2022 SUTURE,LIGA CLIP SM LT-100 FDA Start: 01-13-2022 SUTURE,LIGA CLIP SM LT-100 FDA Start: 01-13-2022 SEALANT,FLOSEAL HEMOSTATIC 5ML FDA Start: 01-13-2022 SUTURE,LIGA CLIP SM LT-100 FDA Start: 01-13-2022 SUTURE,LIGA CLIP SM LT-100 FDA Start: 01-13-2022 SUTURE,LIGA CLIP MED LT200 FDA Start: 01-13-2022 SUTURE,LIGA CLIP MED LT200 FDA Start: 01-13-2022 SUTURE,LIGA CLIP MED LT200 FDA Start: 01-13-2022 SUTURE,LIGA CLIP MED LT200 FDA Start: 01-13-2022 SUTURE,LIGA CLIP MED LT200 FDA Start: 01-13-2022 SUTURE,LIGA CLIP MED LT200 FDA Start: 01-13-2022 SUTURE,LIGA CLIP SM LT-100 FDA Start: 01-13-2022 SUTURE,LIGA CLIP SM LT-100 FDA Start: 01-13-2022 Goals Date Patient Goal Desired Activity /State Functional Status Date Assessment Result Facility 01-14-2022 Functional status Activity Abili ty With Assist of 1 [facility] Work Phone: 01-13-2022 Functional status Patient Activity Ambula rickie [facility] Work Phone: 10-29-2021 Functional Status Objective: Cardiovascular screen: BP: HR: 84 BPM O2 sat: 94% Gait: Antalgic with stiff legged gait ont he R no excess pronation noted with walking on the R while wearing shoes Weight bearing status: no current restrictions. Observation in standing: no excess varus or valgus noted R knee Effusion: min anterior knee effusion Foot: Pes planus mild on the R. Pt is wearing [employer] 6 shoes with custom orthotics that do provide rigit arch support Functional Strength: ASLR 2-3 deg R Palpation: Tender to Palpation levar medial aspect of R knee joint in the area of pes anserine, Some tenderness noted on the medial aspect of the joint as well. No excess warmth or redness noted or obvious signs of infection. [facility] Mental Status Date Assessment Result Facility 01-14-2022 Cognitive function Voice/Name [facility] Work Phone: Clinical Notes 10-12-2021 to 11-26-2024 Note Date & Type Note Facility 11-26-2024 Evaluation note Diagnosis Onset Date Resolution Breast cancer chronic November 26, 2024 1:38pm Urgency of micturition acute 2024 11:08am [facility] Work Phone: 1(669) 970-402506-17-2025 Evaluation note* Diagnosis Onset Date Resolution Status Admit Date Breast cancer chronic November 26, 2024 1:38pm Nocturia acute January 13 11:08am Urge incontinence acute January 13, 2025 11:08am [facility] Work Phone: [phone] Evaluation note* Diagnosis Onset Date Resolution Status Admit Date Breast cancer chronic November 26, 2024 1:38pm Nocturia acute January 13 11:08am Urge incontinence acute January 13, 2025 11:08am Nocturia acute February 11, 2025 9:22am Urge incontinence acute Sept2024 9:22am [facility] Work Phone: 1(823) 166-908605-03-2022 Evaluation + Plan note Diagnostic Tests Pending * NIMCO (serum) 10/12/21 * Methylmalonic Acid 10/12/21 * ENA1 Panel 10/12/21 * Vitamin B6 Level 10/12/21 [facility] Evaluation noteNo assessment information available [facility] Work Phone: evaluation note* Diagnosis Onset Date Resolution Status Lump of right breast acute [facility] Work Phone: evaluation note* Diagnosis Onset Date Resolution Status Lump of right breast acute Breast cancer acute [facility] Work Phone: Evaluation note* Diagnosis Onset Date Resolution Status Lump of right breast acute Breast cancer acute Breast cancer acute [facility] Work Phone: evaluation note* Diagnosis Onset Date Resolution Status Lump of right breast acute Breast cancer acute Breast cancer acute Breast cancer acute [facility] Work Phone: Evaluation note* Diagnosis Onset Date Resolution Status Lump of right breast acute Breast cancer acute Breast cancer acute Breast cancer acute Breast cancer acute Post-mastectomy pain acute Breast cancer acute Seroma, postoperative acute [facility] Work Phone: Evaluation note* Diagnosis Onset Date Resolution Status Breast cancer acute Seroma, postoperative acute Seroma, postoperative acute Seroma, postoperative acute Breast cancer acute Seroma, postoperative acute Breast cancer acute Breast cancer acute Encounter for education acut e History of right mastectomy 2021 acute Breast cancer acute Breast cancer acute Hypokalemia acute Aromatase inhibitor-associated arthralgia acute Breast cancer acute Hypokalemia acute Aromatase inhibitor-associated arthralgia acute Breast cancer acute Aromatase inhibitor-associated arthralgia acute Breast cancer acute [facility] Work Phone: Evaluation note* Diagnosis Onset Date Resolution Status Loss of hair acute 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 Hand dermatitis acute Loss of hair acute 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 Hand dermatitis acute Loss of hair acute 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 Hand dermatitis acute Loss of hair acute Aromatase inhibitor-associated arthralgia chronic Breast cancer [facility] Work Phone: Evaluation note* Diagnosis Onset Date Resolution Status Admit Date Breast cancer chronic November 26, 2024 1:38pm [facility] Work Phone: Hospital course Narrative No data available for this section [facility] Hospital Discharge instructions No data available for this section [facility] Progress note No data available for this section [facility] Reason for referral (narrative)No reason for referral [facility]: Instructions Instruction Description Start Date CompletedPlease follow-up wi th Primary Care Physician or Feller Operator for treatment or adjustment of medication regarding elevated blood pressure.Patient advised to follow-up with Primary Care Physician for BMI management. Advance Directives No Advanced Directives Records Found Advance Directive Response Recorded Date/ Time Living Will Yes July 15 11:04am Power of Maintenance Of Way Superintendent Yes July 15, 2019 11:04am Advance Directive Response Recorded Date/ Time Living Will Yes January 06, 2022 1:08pm Power of Maintenance Of Way Superintendent Yes January 06 1:08pm Advance Directive Response Recorded Date/ Time Name of Medical Power of Maintenance Of Way Superintendent DAUGHTER-PARUL STANLEY January 13, 2022 4:44pm Living Will Yes January 13, 2022 4:44pm Power of Maintenance Of Way Superintendent Yes January 13 4:44pm Advance Directive Response Recorded Date/ Time Living Will Yes January 13, 2022 3:44pm Power of Maintenance Of Way Superintendent Yes January 13 3:44pm Advance Directive Response Recorded Date/ Time Living Will Yes January 13, 2022 4:44pm Power of Maintenance Of Way Superintendent Yes January 13 4:44pm Advance Directive Response Recorded Date/ Time Living Will Yes July 15 11:04am Do you have a Healthcare Power of Maintenance Of Way Superintendent? Yes July 15, 2019 11:04am Assessments There may be information available, but it has not been provided by the sender. Review of System There may be information available, but it has not been provided by the sender. Family History No Family History Records Found Relationship Condition Age at Onset Recorded Date/T sil father Diabetes mellitus Unknown Kidney disorder Unknown Relationship Condition Age at Onset Recorded Date/T sil father Diabetes mellitus Unknown Kidney disorder Unknown daughter Malignant neoplasm Unknown Summary Purpose Chief Complaint and Reason for Visit Chief Complaint SCREENING Chief Complaint SCREENING Other abnormal and inconclusive findings on diagno R BREAST BIRADS 5 ABNORMAL BREAST US- RIGHT Reason for Visit Lump of right breast Chief Complaint SCREENING Other abnormal and inconclusive findings on diagno R BREAST BIRADS 5 ABNORMAL BREAST US- RIGHT BREAST BIOPSY 12/28 Reason for Visit Lump of right breast Breast cancer Chief Complaint SCREENING Other abnormal and inconclusive findings on diagno R BREAST BIRADS 5 ABNORMAL BREAST US- RIGHT BREAST BIOPSY 12/28 NEW-BREAST CA C50.111 IV CONTRAST ONLY C50.111 Reason for Visit Lump of right breast Breast cancer Breast cancer Chief Complaint SCREENING Other abnormal and inconclusive findings on diagno R BREAST BIRADS 5 ABNORMAL BREAST US- RIGHT BREAST BIOPSY 12/28 NEW-BREAST CA C50.111 IV CONTRAST ONLY C50.111 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 WITH SLN BX RADIOTRACER INJ RT MASTECTOMY WITH SLN BX RADIOTRACER INJ RT MASTECTOMY WITH SLN BX RADIOTRACER INJ Reason for Visit Lump of right breast Breast cancer Breast cancer Breast cancer Chief Complaint SCREENING Other abnormal and inconclusive findings on diagno R BREAST BIRADS 5 ABNORMAL BREAST US- RIGHT BREAST BIOPSY 12/28 NEW-BREAST CA C50.111 IV CONTRAST ONLY C50.111 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 WITH SLN BX RADIOTRACER INJ RT MASTECTOMY WITH SLN BX RADIOTRACER INJ RT MASTECTOMY WITH SLN BX RADIOTRACER INJ Mastectomy & SLN BX 01/13 RC CK Drains post op pain/swelling Amb Documentation f/u 01/21 ov post op pain/swelling Reason for Visit Lump of right breast Breast cancer Breast cancer Breast cancer Breast cancer Post-mastectomy pain Breast cancer Seroma, postoperative Chief Complaint f/u 8/12 ov post op pain/swelling PAIN / SWELLING WOUND CHECK 4WKS NO LABS WOUND CHECK 1WK NO LABS CHEMO ED - ANASTROZOLE WOUND CHECK LYMPHEDEMA/RX HERE 4WKS NO LABS 2WKS LABS 2WKS LABS 2WK LABS MED ONC 2 WKS - LABS Reason for Visit Breast cancer Seroma, postoperative Seroma, postoperative Seroma, postoperative Breast cancer Seroma, postoperative Breast cancer Breast cancer Encounter for education History of right mastectomy Breast cancer Breast cancer Hypokalemia Aromatase inhibitor-associated arthralgia Breast cancer Hypokalemia Aromatase inhibitor-associated arthralgia Breast cancer Aromatase inhibitor-associated arthralgia Breast cancer Chief Complaint 4WKS LABS 2WKS LABS(RESIDUAL DISEASE TEST TO BE DONE) 4WKS LABS MED ONC 2WKS NO LABS MUST RESIDUAL TEST Reason for Visit Loss of hair Aromatase inhibitor-associated arthralgia Breast cancer Hand dermatitis Loss of hair Aromatase inhibitor-associated arthralgia Breast cancer Hand dermatitis Loss of hair Aromatase inhibitor-associated arthralgia Breast cancer Hand dermatitis Loss of hair Aromatase inhibitor-associated arthralgia Breast cancer Chief Complaint Admit Date 6MO LABS November 26, 2024 1:38 pm MED ONC November 26, 2024 2:15 pm Reason for Visit Admit Date Breast cancer November 26, 2024 1:38 pm Chief Complaint Admit Date 6MO LABS November 26, 2024 1:38 pm MED ONC November 26, 2024 2:15 pm PTNS monthly January 13, 2025 11: 08am Reason for Visit Admit Date Breast cancer November 26, 2024 1:38 pm Urgency of micturition January 13, 2025 11:08am Chief Complaint Admit Date 6MO LABS November 26, 2024 1:38 pm MED ONC November 26, 2024 2:15 pm PTNS monthly January 13, 2025 11: 08am EDMUNDO HIGH January 24, 2 025 1:48pm Reason for Visit Admit Date Breast cancer November 26, 2024 1:38 pm Nocturia January 13, 2025 11: 08am Urge incontinence January 13, 2025 11: 08am Chief Complaint Admit Date 6MO LABS November 26, 2024 1:38 pm MED ONC November 26, 2024 2:15 pm PTNS monthly January 13, 2025 11: 08am EDMUNDO HIGH January 24, 2 025 1:48pm PTNS February 11, 2025 9:22am Reason for Visit Admit Date Breast cancer November 26, 2024 1:38 pm Nocturia January 13, 2025 11: 08am Urge incontinence January 13, 2025 11: 08am Nocturia February 11, 2025 9:22am Urge incontinence February 11, 2025 9:22am Additional Source Comments Care Team (unrecognized sect ion and content) Team Status: Active Member Role Status Dates Dr. Jose Alex MD Family Provider Active Dr. Jose Alex MD Primary Care Provider Active Team Status: Inactive Member Role Status Dates Dr. Jose Alex MD Primary Care Provider, Referring P rovider Active Dr. Gordon Kemp MD Attending Provider Active Team Status: Active Member Role Status Dates Dr. Jose Alex MD Primary Care Provider Active Dr. Gordon Kemp MD Attending Provider, Referring Pro vider Active Team Status: Inactive Member Role Status Dates Dr. Jose Alex MD Primary Care Provide r, Attending Provider, Referring Provider Active Team Status: Inactive Member Role Status Dates Dr. Jose Alex MD Primary Care Provider Active Start: October 15, 2024 End: October 15, 2024 Dr. oJse Alex MD Attending Provider Active St art: October 15, 2024 End: October 15, 2024 Dr. Jose Alex MD Referring Provider Active St art: October 15, 2024 End: October 15, 2024 Team Status: Active Member Role Status Dates Dr. Jose Alex MD Primary Care Provider Active Team Status: Inactive Member Role Status Dates Dr. Jose Alex MD Primary Care Provider Active Start: November 26, 2024 End: November 26, 2024 Dr. Jose Alex MD Referring Provider Active St art: November 26, 2024 End: November 26, 2024 Dr. Gordon Kemp MD Attending Provider Active S tart: November 26, 2024 End: November 26, 2024 Team Status: Active Member Role Status Dates Dr. Jose Alex MD Primary Care Provider Active Start: November 26, 2024 Dr. Gordon Kemp MD Attending Provider Active S tart: November 26, 2024 Dr. Gordon Kemp MD Referring Provider Active S tart: November 26, 2024 Team Status: Active Member Role/Relationship Status Dates Dr. Jose Alex MD Primary Care Provider Active Team Status: Inactive Member Role/Relationship Status Dates Dr. Jose Alex MD Primary Care Provider Active Start: October 15, 2024 End: October 15, 2024 Dr. Jose Alex MD Attending Provider Active St art: October 15, 2024 End: October 15, 2024 Dr. Jose Alex MD Referring Provider Active St art: October 15, 2024 End: October 15, 2024 Team Status: Inactive Member Role/Relationship Status Dates Dr. Jose Alex MD Primary Care Provider Active Start: November 26, 2024 End: November 26, 2024 Dr. Jose Alex MD Referring Provider Active St art: November 26, 2024 End: November 26, 2024 Dr. Gordon Kemp MD Attending Provider Active S tart: November 26, 2024 End: November 26, 2024 Team Status: Active Member Role/Relationship Status Dates Dr. Jose Alex MD Primary Care Provider Active Start: November 26, 2024 Dr. Gordon Kemp MD Attending Provider Active S tart: November 26, 2024 Dr. Gordon Kemp MD Referring Provider Active S tart: November 26, 2024 Team Status: Inactive Member Role/Relationship Status Dates Dr. Jose Alex MD Primary Care Provider Active Start: December 10, 2024 Dr. Nadiya Mariano MD Attending Provider Active Start: December 10, 2024 Team Status: Inactive Member Role/Relationship Status Dates Dr. Jose Alex MD Primary Care Provider Active Start: January 13, 2025 End: January 13, 2025 Dr. oJse Alex MD Referring Provider Active St art: January 13, 2025 End: January 13, 2025 Dr. Nadiya Mariano MD Attending Provider Active Start: January 13, 2025 End: January 13, 2025 Team Status: Inactive Member Role/Relationship Status Dates Dr. Jose Alex MD Primary Care Provider Active Start: January 24, 2025 End: January 24, 2025 Dr. Nadiya Mariano MD Attending Provider Active Start: January 24, 2025 End: January 24, 2025 Dr. Nadiya Mariano MD Referring Provider Active Start: January 24, 2025 End: January 24, 2025 Team Status: Inactive Member Role/Relationship Status Dates Dr. Jose Alex MD Primary Care Provider Active Start: February 11, 2025 End: February 11, 2025 Dr. Jose Alex MD Referring Provider Active St art: February 11, 2025 End: February 11, 2025 Dr. Nadiya Mariano MD Attending Provider Active Start: February 11, 2025 End: February 11, 2025 INFORMATION SOURCE (unrecogn ized section and content) DATE CREATED AUTHOR 11/17/2021 [facility] ([place] DATE CREATED AUTHOR AUTHOR'S ORGANIZ ATION 03/01/2025 [facility] Goals (unrecognized section and content) Goals may be documented in a n alternate section FOR RECORDS PERTAINING TO PATIENTS WHO ARE OR HAVE BEEN ENROLLED IN A CHEMICAL DEPENDENCY/SUBSTANCEABUSE PROGRAM, SOME INFORMATION MAY BE OMITTED. This clinical summary was aggregated from multiple sources. Caution should be exercised in using it in the provision of clinical care. This summary normalizes information from multiple sources, and as a consequence, information in this document may materially change the coding, format and clinical context of patient data. In addition, data may be omitted in some cases. CLINICAL DECISIONS SHOULD BE BASED ON THE PRIMARY CLINICAL RECORDS. [employer] [facility]. provides no warranty or guarantee of the accuracy or completeness of information in this document.
[2025-03-05 22:28] VITALS: BP 138/103; PULSE 69; RESP 16; TEMP 36.7; O2SAT 96
[2025-03-05 22:32] VITALS: BMI 28.0
[2025-03-05 22:35] VITALS: BP 99/52; PULSE 67; RESP 22; O2SAT 94
--- NOTE | 2025-03-05 22:35 | ECHOD_ITS ---
Reason For Study Reason For Study: HTN, SEPSIS Procedure This was a 2D Doppler, Color Flow transthoracic echocardiogram. Exam performed portable in ICU/CCU. Left Ventricle Normal LV size. Left ventricular systolic function is normal. Stage 1 diastolic dysfunction. No regional wall motion abnormalities noted. Right Ventricle Normal RV size. Normal systolic function. Atria Normal left atrium. Normal right atrium. Mitral Valve Normal mitral valve. Tricuspid Valve Normal tricuspid valve. Mild (1+) tricuspid valve insufficiency. Pulmonary artery systolic pressure is 35 mmHg. Aortic Valve Trisinus/trileaflet aortic valve. Mild focal aortic valve calcification. Pulmonic Valve Normal pulmonic valve. Great Vessels Normal aortic root. The pulmonary artery is normal size. Inferior vena cava collapse with respiration. Pericardium/Pleural No pericardial effusion. MMode/2D Measurements & Calculations LVIDd: 4.4 cm IVSd: 1.0 cm Ao root diam: 3.0 cm LVIDs: 2.6 cm LVPWd: 1.0 cm RVDd: 3.6 cm FS: 40.8 % asc Aorta Diam: 3.4 cm LAV(MOD-bp): 56.9 ml LVAd ap4: 19.8 cm2 LAV(MOD-bp) Indexed: 29.8 ml/m2 LVLd ap4: 7.8 cm LAV(MOD-sp2): 55.1 ml EDV(MOD-sp4): 43.2 ml LAV(MOD-sp4): 53.2 ml EDV(sp4-el): 42.8 ml LVAs ap4: 10.0 cm2 LVLs ap4: 6.5 cm ESV(MOD-sp4): 14.1 ml ESV(sp4-el): 13.0 ml EF(MOD-sp4): 67.4 % EF(sp4-el): 69.6 % LVAd ap2: 21.5 cm2 SV(MOD-sp4): 29.1 ml SV(MOD-sp2): 32.4 ml LVLd ap2: 8.0 cm SI(MOD-sp4): 15.3 ml/m2 SI(MOD-sp2): 17.0 ml/m2 EDV(MOD-sp2): 48.0 ml EDV(sp2-el): 49.4 ml LVAs ap2: 11.0 cm2 LVLs ap2: 6.8 cm ESV(MOD-sp2): 15.6 ml ESV(sp2-el): 15.1 ml EF(MOD-sp2): 67.5 % SV(sp4-el): 29.8 ml LA dimension(2D): 3.7 cm LA A4 area: 18.3 cm2 TAPSE: 2.1 cm Time Measurements MV dec time: 0.21 sec Doppler Measurements & Calculations MV E max olvin: 78.4 cm/sec Lat Peak E' Olvin: 9.2 cm/sec Med Peak E' Olvin: 9.0 cm/sec MV A max olvin: 103.7 cm/sec E/E' lat: 8.6 E/E' med: 8.7 MV E/A: 0.76 MV V2 max: 104.4 cm/sec MV P1/2t max olvin: 90.2 cm/sec Ao V2 max: 166.1 cm/sec MV max P.4 mmHg MV P1/2t: 72.9 msec Ao max P.0 mmHg MV V2 mean: 63.7 cm/sec MV dec slope: 362.5 cm/sec2 Ao V2 mean: 118.7 cm/sec MV mean P.8 mmHg Ao mean P.4 mmHg MV V2 VTI: 30.4 cm MVA(P1/2t): 3.0 cm2 Ao V2 VTI: 37.4 cm AV (velocity ratio): 0.64 LV V1 max: 105.3 cm/sec PA V2 max: 87.4 cm/sec TR max olvin: 270.4 cm/sec LV V1 max P.4 mmHg TR max P.9 mmHg LV V1 mean P.6 mmHg LV V1 mean: 74.4 cm/sec LV V1 VTI: 23.8 cm ECHO/Echo Complete Interpretation Summary Normal LV size. Left ventricular systolic function is normal. Mild focal aortic valve calcification. Stage 1 diastolic dysfunction. Pulmonary artery systolic pressure is 35 mmHg. Ordering Physician: Caio Calvert Referring Physician: Zia Alex Performed By: Marnie Terrazas, JAZMÍN, RVT
--- NOTE | 2025-03-05 22:37 | PCM.HP.STD ---
[facility] - General General Date of Admission: 03/05/25 Date of Service: 03/05/25 Chief Complaint: Fall out of Bed with Prolonged Down Time. 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 Kemp of oncology, history of aromatase inhibitor-associated arthralgia, history of urge incontinence and OA; with history of lumbar surgery and Right TKR on nabumetone twice daily who presented to [facility] ER complaining of generalized weakness with fall x 2 over the past 2 days with her last fall out of bed sometime last evening with patient unable to get up for several hours in spite of crawling on the floor trying to get up. She denies loss of consciousness or head trauma with either of her falls. During her initial ER evaluation she was noted to have a Fever of 38.8 °C with a low blood pressure of 91/47 mmHg and a subsequent UA that revealed Acute Cystitis; with microscopic hematuria with corresponding Leukocytosis of 23.2 K with Left-shift of 10% present on admission consistent with Sepsis. She was also diagnosed with Rhabdomyolysis with an elevated CPK of 4,330 U/L in addition to an elevated BNP of 2,792 pg/mL consistent with CHF complicated by elevated initial troponin of 391 ng/L that clyde to 484 ng/L suspected to be due to acute cardiac strain with patient having no symptoms of chest pain, palpitations or heart racing and EKG revealing evidence of old inferior [place] with patient in sinus rhythm. Her COVID/influenza/RSV screen was negative with CT scan of the head showing no acute intracranial abnormality, CT scan of the spine showing no acute fracture or traumatic misalignment and CXR revealing no acute process. She was then treated with a 3 L sepsis fluid bolus in addition to IV ceftriaxone with the ER physician initially contacting [facility] and [facility] with neither having ICU beds immediately available so call was subsequently made to this hospital where she was accepted in transfer for ICU level of care. Review of her records reveal she was noted to have hypokalemia of 3.1 mmol/L present on admission which was replaced with a normal creatinine of 1.4 mg/dL with suspicion for superimposed AVE in spite of normal renal indices with previous laboratory studies here revealing normal creatinine of 1.2 mg/dL on January 24, 2025. Upon arrival patient was noted to be afebrile with a blood pressure of 108/80 mmHg and no other acute complaints. The patient's daughter was present at the bedside and her questions were answered to the best of my ability. She was then admitted to the ICU for ongoing care for stay that is expected to extend beyond 2 midnights. [facility] Medical History (Updated 03/06/25 @ 00:[address] Caio Calvert, ) Urge incontinence Urgency of micturition Aromatase inhibitor-associated arthralgia Encounter for education Wears hearing aid Post-menopausal Restless legs Non-smoker Sleep apnea History of pain when walking History of edema History of echocardiogram Home Medications Medication Instructions Recorded Last Taken Type multivitamin 1 tab PO DAILY 01/06/22 Unknown History omega-3 fatty acids 1,000 mg PO DAILY 01/06/22 Unknown History Held on 01/14/22. Instructions: Resume on 02/05/22. Right breast prosthesis #1 ea 05/24/23 Unknown Rx mastectomy bra #3 ea 05/24/23 Unknown Rx potassium chloride 20 mEq 20 meq PO DAILY #7 tabs 11/15/23 Unknown Rx tablet,extended release gabapentin 600 mg tablet 600 mg PO QHS 05/15/24 Unknown History nabumetone 750 mg tablet 750 mg PO BID 05/15/24 Unknown History ropinirole 5 mg tablet 0.5 mg PO QHS 05/15/24 Unknown History lidocaine 4 % topical patch 1 patch topical QDAY PRN pain #10 05/27/24 Unknown Rx ea tamoxifen 20 mg tablet 20 mg PO BID 90 days #180 tabs 11/26/24 Unknown Rx celecoxib 200 mg capsule mg PO 02/11/25 Unknown History desmopressin 0.2 mg tablet 0.2 mg PO ONCE #90 tabs 02/11/25 Unknown Rx nystatin 100,000 unit/gram topical topical 02/11/25 Unknown History ointment oxyquinoline 0.025 %-sodium lauryl 1 ea vaginal 2XW #113.4 grams 02/11/25 Unknown Rx sulfate 0.01 % vaginal gel (Trimo-Huertas Jelly) oxyquinoline 0.025 %-sodium lauryl ea vaginal 02/11/25 Unknown History sulfate 0.01 % vaginal gel (Trimo-Huertas Jelly) Allergy/AdvReac Type Severity Reaction Status Date / Time No Known Allergies Allergy Verified 11/26/24 14:42 Family History Father Diabetes Kidney disease Daughter Cancer Mets ovarian Surgical History History of right mastectomy (~01/2022) History of lumbar surgery History of colonoscopy (~09/2020) History of total right knee replacement Social History Smoking Status: Never smoker ROS ROS Narrative Review of Systems: Constitutional: Patient was confirmed to have fever as per HPI but she denies chills. Eyes: Patient denies changes in vision or discharge from eyes. ENT: Patient denies runny nose, sore throat or ear pain. Resp: Patient admits to mild nonproductive cough but she denies shortness of breath. CV: Patient denies chest pain, palpitations, heart racing or lower extremity edema. GI: Patient denies abdominal pain, nausea, vomiting, diarrhea or constipation. : Patient admits to discolored urine but she denies dysuria or hematuria. MSK: Patient admits to generalized weakness with falls x 2 in the past 24 hours as per HPI. Skin: Patient denies rash, abscess, wounds or jaundice. Psych: Patient denies symptoms uncontrolled depression or anxiety. Neuro: Patient denies headache, paresthesias or focal neurologic deficits. Allergy: Patient denies lip swelling, tongue swelling or urticaria. Hematology: Patient denies easy bleeding or easy bruisability. Endocrinology: Patient denies polyuria, polydipsia, polyphagia or heat/cold intolerance. 14 point ROS otherwise negative except for positives noted above in HPI. Physical Exam Const alert, oriented x3, no apparent distress, average body habitus and healthy appearing Constitutional Narrative: Elderly patient who is mentally sharp and in good spirits with nontoxic appearance. General Appearance: cooperative HEENT normocephalic, head/scalp atraumatic, hearing grossly normal bilaterally and moist oral mucous membranes Eyes PERRL, EOMs intact bilaterally and conjunctivae normal Neck no lymphadenopathy, supple and no JVD Resp normal respiratory effort, no retractions, no use of accessory muscles and clear to auscultation bilaterally Cardio regular rate and regular rhythm GI normal to inspection, nondistended, normoactive bowel sounds, soft to palpation, non-tender and non-distended Extremity normal to inspection, full ROM and no clubbing, cyanosis or edema Skin Skin Narrative: Patient has no evidence of rash, abscess, wounds or jaundice. Neuro oriented x3, CN's II-XII intact bilaterally, moves all extremities and no focal motor deficits Sensorium / Orientation: awake, alert, oriented to person, oriented to place and oriented to time Speech: speech normal Psych affect normal Results Medical Records Data Attestation: I reviewed the patient's medical records Lab / Micro Data Attestation: I reviewed the patient's lab results. Assessment & Plan Assessment/Plan (1) Sepsis: QUALIFIERS: Sepsis type: sepsis due to unspecified organism Sepsis acute organ dysfunction status: without acute organ dysfunction Qualified Code(s): A41.9 - Sepsis, unspecified organism (2) Acute cystitis with hematuria: (3) Leukocytosis: QUALIFIERS: Leukocytosis type: bandemia Qualified Code(s): D72.825 - Bandemia (4) Fever: QUALIFIERS: Fever type: unspecified Qualified Code(s): R50.9 - Fever, unspecified (5) Rhabdomyolysis: QUALIFIERS: Rhabdomyolysis type: traumatic Encounter type: initial encounter Qualified Code(s): T79.6XXA - Traumatic ischemia of muscle, initial encounter (6) Fall: QUALIFIERS: Encounter type: initial encounter Qualified Code(s): W19.XXXA - Unspecified fall, initial encounter (7) CHF (congestive heart failure): QUALIFIERS: Heart failure type: unspecified Heart failure chronicity: unspecified Qualified Code(s): I50.9 - Heart failure, unspecified (8) Elevated troponin: (9) Hypokalemia: (10) AVE (acute kidney injury): (11) Overweight (BMI 25.0-29.9): (12) Sleep apnea: QUALIFIERS: Sleep apnea type: unspecified type Qualified Code(s): G47.30 - Sleep apnea, unspecified PLAN: Plan 1. Fever of 38.8 °C with a blood pressure of 91/47 mmHg with a subsequent UA that revealed Acute Cystitis; with microscopic hematuria with corresponding Leukocytosis of 23.2 K with Left-shift of 10% present on admission consistent with Sepsis - Admit to ICU for treatment under the Sepsis protocol. Continue empiric IV ceftriaxone begun at previous hospital and await culture and sensitivity data. Give acetaminophen as needed for pain or fever. Give ondansetron IV as needed for nausea or vomiting. Finally, we will consult pulmonary/critical-care see this patient on rounds in the a.m. further recommendations with help appreciated in advance. 2. Rhabdomyolysis with an elevated CPK of 4,330 U/L after Fall out of bed with prolonged downtime due to Generalized Weakness with Ambulatory Dysfunction complicating #1 - Volume resuscitate and serialize CPK to follow trend. PT/OT and Case Management to consult and treat all rounds in the a.m. for further recommendations with help appreciated in advance. 3. Elevated BNP of 2,792 pg/mL consistent with AE CHF; of uncertain type likely due to stress related to #1 & #2 - Check echocardiogram to evaluate LVEF. CXR clear with no signs of volume overload at this time. 4. Elevated initial troponin of 391 ng/L that clyde to 484 ng/L suspected to be due to acute cardiac strain with patient having no symptoms of chest pain, palpitations or heart racing and EKG revealing evidence of old inferior [place] with patient in sinus rhythm compounding #1 - #3 - Give enoxaparin 80 mg sq x 1 and serialize troponin. Doubt ACS. 5. Hypokalemia of 3.1 mmol/L present on admission which was replaced adding to the medical complexity of #1 - #4 - Recheck level in to confirm repletion. 6. Suspected AVE with high-normal creatinine of 1.4 mg/dL present on admission (up from her baseline of 1.2 mg/dL on January 24, 2025) likely due to #2 - Patient volume resuscitated with plan to check renal indices daily to follow trend for improvement. 7. Overweight; BMI of 28.1 this admission plus EMIR; currently not using CPAP - Weight loss will be recommended. Check TSH. This complicates her case and may hamper recovery. 8. 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 Kemp oncology - Noted. 9. History of aromatase inhibitor-associated arthralgia - Noted. 10. Neuropathy; on gabapentin nightly - Maintain current treatment. 11. RLS; on ropinirole nightly - Continue nightly ropinirole. 12. History of urge incontinence - Noted. 13. OA; with history of lumbar surgery and Right TKR on nabumetone twice daily - Stable. We will hold nabumetone in light of #6. Give acetaminophen as needed as outlined in #1. 14. DVT prophylaxis - Patient was treated with enoxaparin x 1 as outlined in #4. Total time: Approximately (but not less than) 75 minutes.
[2025-03-05 22:45] VITALS: BP 108/45; PULSE 65; RESP 19; O2SAT 97
[2025-03-05 23:00] VITALS: BP 100/54; PULSE 64; RESP 18; O2SAT 97
[2025-03-05] MEDS: 0.9% Normal Saline (250mL Bag) 250 ML 15 ML IV (23:11)
[2025-03-05] MEDS: 0.9% Normal Saline (1000mL) 1,000 ML 100 ML IV (23:11)
[2025-03-05] MEDS: Pantoprazole Sodium 40 MG in 0.9% Normal Saline (100mL MB+) 100 ML 330 MG IV (23:11)
[2025-03-05 23:15] VITALS: BP 96/49; PULSE 66; RESP 20; O2SAT 97
--- OUTSIDE RECORDS SUMMARY | 2025-03-05 23:16 | XMS RPT_ITS | CCD ---
Author Organization [facility] Care Team Providers Care Program Schedule Clerk Name Role Phone Blaine LARRY, Augustin Olivia Unavailable [phone] JOSE ALEX MD Primary Care Physician Ubaldo [...] LEAVES; Translations: [LEAVES] allergy to substance 7 [facility] Work Phone: Medications [...] prophylaxis, # 60 tab(s), 0 Refill(s), Pharmacy: [id number], 165.1, cm, 09/22/20 16:42:00 EDT, Height, kg, [...] 0 January 13, 2025 12:00am oxyquinoline sulfate 0.39145 mg/mg / sodium dodecyl sulfate 0.0001 mg/mg vaginal gel (1 source) Start: 02-11-2025 Oxyquinoline-Sod.Pascual ryl Sulfat (Trimo-Huertas Jelly) 0.025-0.01 % gel Active NMA VAGINAL February 11, 2025 12:00am famotidine 20 mg oral tablet (2 sources) Histamine-2 Receptor Antagonist Start: 09-23-2020 famotidine 20 mg oral tablet Dose : 20 mg = 1 tab(s), Oral, qDay, # 30 tab(s), 0 Refill(s), Pharmacy: [facility]acy #[id number], 165.1, cm, 09/22/20 16:42:00 EDT, Height, [...] ointment Active TOPICAL February 11, 2025 12:00am Grandview-3 Fatty Acids (5 sources) Start: 01-06-2022 take 1000 mg by mouth once daily Grandview-3 Fatty Acids Active 1000 MG PO DAILY January 05, 2022 11:00pm Start: 01-06-2022 take 1000 mg by mouth once marcos ly Grandview-3 Fatty Acids Active 1000 MG PO DAILY January 06, 2022 12:00am Grandview-3 Fatty Acids (Fish Oil) Capsule (2 sources) Start: 01-06-2022 take 1 capsule by mouth once daily Grandview-3 Fatty Acids (Fish Oil) Capsule Active 1000 MG PO DAILY January 06, 2022 12:00am Grandview-3 Fatty Acids Capsule (5 sources) Start: 01-06-2022 take 1 capsule by mouth once daily Grandview-3 Fatty Acids Capsule Active 1000 mg PO [...] takes 1 tablet at bedtime ROPINIROLE HCL [id number] Nydia Chen LPN Completed/Discontinued Medications Medication Drug [...] D2) 1,250 mcg (50,000 unit) capsule Discontinued 09629 U PO EVERY WEEK December 28, 2021 12:00am December 07, 2022 1:56pm Start: 12-28-2021 take 23791 [IU] by m outh every week Ergocalciferol (Vitamin D2) Active 11395 UNIT PO EVERY WEEK December 28, 2021 12:00am furosemide 20 mg oral tablet (1 source) Loop Diuretic Start: 05-22-2017 FUROSEMIDE 20 MG TABS takes 1 tablet as needed for swelling FUROSEMIDE [id number] Nydia Chen GENERAL ACCOUNTING MANAGER ibuprofen 200 mg oral tablet (1 source) Nonsteroidal Anti-inflammatory Drug Start: 10-09-2017 ADVIL 200 MG TABS take 1 to 2 tablets every 6 hours as needed IBUPROFEN [id number] Augustin Valladares MD LORazepam 1 mg oral tablet (1 source) Benzodiazepine Start: 05-22-2017 LORAZEPAM 1 MG TABS takes 1 tablet at bedtime LORAZEPAM [id number] Nydia Chen GENERAL ACCOUNTING MANAGER ondansetron 8 mg disintegrating oral tablet (14 [...] 1 tablet when taking lasix POTASSIUM GLUCONATE [id number] Augustin Valladares MD predniSONE 10 mg oral [...] Lymph nodes 6/22 involved, ER positive 95%, NJ positive 2%, Her2 negative, Ki-67 positive 75%.Pathology [...] Lymph nodes 6/22 involved, ER positive 95%, NJ positive 2%, Her2 negative, Ki-67 positive 75%.Pathology [...] Interpretation Reference Range Facility MR/GAILroland 02-11-2025 MR/ELAINE [facility] [address] [place] [address], [address] [place] [address] OFFICE VISIT Date of Service: 02/11/25 MR#: [id number] Acct: [id number] Name: KYLIE ECHAVARRIA Rep #: [id number] : 1940 Provider: Dr. Nadiya Bey i, MD Age/Sex: 84/F Location: [facility] [place] Status: Signed Intake Vital Signs 11/26/24 14:38 01/13/25 11:47 02/11/25 11:01 Height 5 ft 6 in 5 ft 6 in 5 ft 6 in Weight: 164 lb 164 lb BMI 26.4 26.4 BP 116/66 122/82 H Pulse 78 64 Temp 98 F 98 F Intake Visit Reasons: PTNS Chief Complaint: PTNS [employer] Required: No Is patient in pain?: No [...] wanted her pessary put back in today. [facility] Medical History Urge incontinence Urgency of micturition [...] healthy appearing, comfortable and no acute distress [facility] Head: normocephalic and atraumatic Ears: hearing grossly normal bilaterally and external ears normal Nose: external nose normal Eyes General: appearance normal, both eyes and all related structures Neck Neck: normal visual inspection and trach (more content not included)... Normal [facility] Absolute lymphocyte countOrd ered By: Nadiya Mariano on 01-24-2025 Lymphocytes Auto (Unsp spec) [#/Vol] 3.34 10*3/uL 0.83-4.51 [facility] Absolute neutrophil countOrd ered By: Nadiya Mariano on 01-24-2025 Neutrophils (Bld) [#/Vol] 3.5 10*3/uL 2.0-7.7 [facility] Anion gap in Serum or Plasma Ordered By: Nadiya Mariano on 01-24-2025 Anion gap [Moles/Vol] 12 mmol/L 10-24 [facility] Automated lymphocyte count a s percentage of total leukocytesOrdered By: Nadiya Mariano on 01-24-2025 Lymphocytes/100 WBC Auto (Unsp spec) 41.2 % High 19-41 [facility] BUN/creatinine ratioOrdered By: Nadiya Mariano on 01-24-2025 Urea nitrogen/Creatinine [Mass ratio] 13.3 mg/mg 03-31 [facility] Basic Metabolic Profile (BMP )on 01-24-2025 BUN/CRE 13.3 RATIO Normal 03-31 [facility] Comment on above: Order Comment: DR. Lilo JEFFREY ORDERED CBCD Performed By: #### L 500.2500, L100.0100 ####[facility] [address] [place], [address] Calcium [Mass/Vol] 9.5 mg/dL Normal 7.6-11.0 [facility] Comment on above: Order Comment: DR. Lilo JEFFREY ORDERED CBCD Performed By: #### L 500.2500, L100.0100 ####[facility] [address] [place], [address] Chloride [Moles/Vol] 101 mmol/L Normal 98-108 [facility] Comment on above: Order Comment: DR. Lilo JEFFREY ORDERED CBCD Performed By: #### L 500.2500, L100.0100 ####[facility] [address] [place], [address] CO2 [Moles/Vol] 25.5 mmol/L Normal 21.0-32.0 [facility] Comment on above: Order Comment: DR. Lilo JEFFREY ORDERED CBCD Performed By: #### L 500.2500, L100.0100 ####[facility] [address] [place], [address] Creatinine [Mass/Vol] 1.20 mg/dL Normal 0.70-1.20 [facility] Comment on above: Order Comment: DR. Lilo JEFFREY ORDERED CBCD Performed By: #### L 500.2500, L100.0100 ####[facility] [address] [place], [address] GAP 12 Normal 5-15 [facility] Comment on above: Order Comment: DR. Lilo JEFFREY ORDERED CBCD Performed By: #### L 500.2500, L100.0100 ####[facility] [address] [place], [address] GFR/1.73 sq M.predicted among non-blacks MDRD (S/P/Bld) [Vol rate/Area] 45 mL/min/{1.73_m2} Low >60 [facility] Comment on above: Order Comment: DR. Lilo JEFFREY ORDERED CBCD Result Comment: mL/m in/1.73m2 CKD-EPI Creatinine Equation (2020) Performed By: #### L 500.2500, L100.0100 ####[facility] [address] [place], [address] Glucose [Mass/Vol] 104 mg/dL High 70-99 [facility] Comment on above: Order Comment: DR. Lilo JEFFREY ORDERED CBCD Performed By: #### L 500.2500, L100.0100 ####[facility] [address] [place], [address] Potassium [Moles/Vol] 3.9 mmol/L Normal 3.3-5.1 [facility] Comment on above: Order Comment: DR. Lilo JEFFREY ORDERED CBCD Performed By: #### L 500.2500, L100.0100 ####[facility] [address] [place], [address] Sodium [Moles/Vol] 138 mmol/L Normal 133-145 [facility] Comment on above: Order Comment: DR. Lilo JEFFREY ORDERED CBCD Performed By: #### L 500.2500, L100.0100 ####[facility] [address] [place], [address] Urea nitrogen [Mass/Vol] 16 mg/dL Normal 4-19 [facility] Comment on above: Order Comment: DR. Lilo JEFFREY ORDERED CBCD Performed By: #### L 500.2500, L100.0100 ####[facility] [address] [place], [address] Basophil percentageOrdered B y: Nadiya Mariano on 01-24-2025 Basophils/100 WBC (Bld) 0.7 % 0-[address] [facility] CBC W/Diff, Automatedon 01-10 Absolute Lymph 3.34 X10 3/uL Normal 0.83-4.51 [facility] Comment on above: Order Comment: DR. Lilo JEFFREY ORDERED CBCD Performed By: #### L 500.2500, L100.0100 ####[facility] [address] [place], [address] Absolute Neut 3.5 X10 3/uL Normal 2.0-7.7 [facility] Comment on above: Order Comment: DR. Lilo JEFFREY ORDERED CBCD Performed By: #### L 500.2500, L100.0100 ####[facility] [address] [place], [address] Basophils/100 WBC (Bld) 0.7 % Normal 0-[address] [facility] Comment on above: Order Comment: DR. Lilo JEFFREY ORDERED CBCD Performed By: #### L 500.2500, L100.0100 ####[facility] [address] [place], [address] Eosinophils/100 WBC (Bld) 4.8 % Normal 0-5 [facility] Comment on above: Order Comment: DR. Lilo JEFFREY ORDERED CBCD Performed By: #### L 500.2500, L100.0100 ####[facility] [address] [place], [address] Erythrocyte distribution width (RBC) [Ratio] 12.6 % Normal 11.6-14.6 [facility] Comment on above: Order Comment: DR. Lilo JEFFREY ORDERED CBCD Performed By: #### L 500.2500, L100.0100 ####[facility] [address] [place], [address] Hematocrit (Bld) [Volume fraction] 42.4 % Normal 37-47 [facility] Comment on above: Order Comment: DR. Lilo JEFFREY ORDERED CBCD Performed By: #### L 500.2500, L100.0100 ####[facility] [address] [place], [address] Hemoglobin (Bld) [Mass/Vol] 14.1 g/dL Normal 12.0-15.0 [facility] Comment on above: Order Comment: DR. Lilo JEFFREY ORDERED CBCD Performed By: #### L 500.2500, L100.0100 ####[facility] [address] [place], [address] IG% 0.200 Normal 0.0-0.9 [facility] Comment on above: Order Comment: DR. Lilo JEFFREY ORDERED CBCD Result Comment: IG% - Immature Granulocytes (promyelocytes, myelocytes and metamyelocytes) > 1% indicates that a LEFT SHIFT is Present. Performed By: #### L 500.2500, L100.0100 ####[facility] [address] [place], [address] Lymphocytes/100 WBC (Bld) 41.2 % High 19-41 [facility] Comment on above: Order Comment: DR. Lilo JEFFRYE ORDERED CBCD Performed By: #### L 500.2500, L100.0100 ####[facility] [address] [place], [address] MCH (RBC) [Entitic mass] 31.1 pg Normal 27.0-32.0 [facility] Comment on above: Order Comment: DR. Lilo JEFFREY ORDERED CBCD Performed By: #### L 500.2500, L100.0100 ####[facility] [address] [place], [address] MCHC (RBC) [Mass/Vol] 33.3 g/dL Normal 32-36 [facility] Comment on above: Order Comment: DR. Lilo JEFFREY ORDERED CBCD Performed By: #### L 500.2500, L100.0100 ####[facility] [address] [place], [address] MCV (RBC) [Entitic vol] 93.4 fL Normal 81-99 [facility] Comment on above: Order Comment: DR. Lilo JEFFREY ORDERED CBCD Performed By: #### L 500.2500, L100.0100 ####[facility] [address] [place], [address] Monocytes/100 WBC (Bld) 9.6 % Normal 0-10 [facility] Comment on above: Order Comment: DR. Lilo JEFFREY ORDERED CBCD Performed By: #### L 500.2500, L100.0100 ####[facility] [address] [place], [address] Neutrophils/100 WBC (Bld) 43.5 % Low 47-70 [facility] Comment on above: Order Comment: DR. Lilo JEFFREY ORDERED CBCD Performed By: #### L 500.2500, L100.0100 ####[facility] [address] [place], [address] Nucleated RBC (Bld) [#/Vol] 0 10*3/uL Normal 0-5 [facility] Comment on above: Order Comment: DR. Lilo JEFFREY ORDERED CBCD Performed By: #### L 500.2500, L100.0100 ####[facility] [address] [place], [address] Platelet mean volume (Bld) [Entitic vol] 9.2 fL Normal 6.2-12.0 [facility] Comment on above: Order Comment: DR. Lilo JEFFREY ORDERED CBCD Performed By: #### L 500.2500, L100.0100 ####[facility] [address] [place], [address] Platelets (Bld) [#/Vol] 197 10*3/uL Normal 150-450 [facility] Comment on above: Order Comment: DR. Lilo JEFFREY ORDERED CBCD Performed By: #### L 500.2500, L100.0100 ####[facility] [address] [place], [address] RBC (Bld) [#/Vol] 4.54 10*6/uL Normal 4.2-5.4 [facility] Comment on above: Order Comment: DR. Lilo JEFFREY ORDERED CBCD Performed By: #### L 500.2500, L100.0100 ####[facility] [address] [place], [address] RDW SD 43.2 fl Normal 35.1-43.9 [facility] Comment on above: Order Comment: DR. Lilo JEFFREY ORDERED CBCD Performed By: #### L 500.2500, L100.0100 ####[facility] [address] [place], [place], [address] WBC (Bld) [#/Vol] 8.1 10*3/uL Normal 4.4-11.0 [facility] Comment on above: Order Comment: DR. Lilo JEFFREY ORDERED CBCD Performed By: #### L 500.2500, L100.0100 ####[facility] [address] [place], [place], [address] Carbon dioxide, total [Moles /volume] in Central venous bloodOrdered By: Nadiya Mariano on 01-24-2025 CO2 [Moles/Vol] 25.5 mmol/L 21.0-32.0 [facility] Chloride assayOrdered By: Modesto Mariano on 01-24-2025 Chloride [Moles/Vol] 101 mmol/L 98-108 [facility] Eosinophil percentageOrdered By: Nadiya Mariano on 01-24-2025 Eosinophils/100 WBC (Bld) 4.8 % 0-5 [facility] Erythrocyte distribution wid th ratioOrdered By: Nadiya Mariano on 01-24-2025 Erythrocyte distribution width (RBC) [Ratio] 12.6 % 11.6-14.6 [facility] Erythrocyte distribution wid th standard deviationOrdered By: Nadiya Mariano on 01-24-2025 Erythrocyte distribution width (RBC) [Ratio] 43.2 fl 35.1-43.9 [facility] Glomerular filtration rate ( GFR) estimation/1.73 sq m using serum, plasma, or whole bOrdered By: Nadiya Mariano on 01-24-2025 GFR/1.73 sq M.predicted among non-blacks MDRD (S/P/Bld) [Vol rate/Area] 45 mL/min/{1.73_m2} Low >60 [facility] Comment on above: mL/min/1.73m2 CKD-EP I Creatinine Equation (2020) Hematocrit Auto (Bld) [Volum e fraction]Ordered By: Nadiya Mariano on 01-24-2025 Hematocrit (Bld) [Volume fraction] 42.4 % 37-47 [facility] Hemoglobin measurementOrdere d By: Nadiya Mariano on 01-24-2025 Hemoglobin (Bld) [Mass/Vol] 14.1 g/dL 12.0-15.0 [facility] Immature granulocytes/100 WB C Auto (Bld)Ordered By: Nadiya Mariano on 01-24-2025 Immature granulocytes/100 WBC (Bld) 0.200 % 0.0-0.9 [facility] Comment on above: IG% - Immature Granu locytes (promyelocytes, myelocytes and metamyelocytes) > 1% indicates that a LEFT SHIFT is Present. MCV (mean corpuscular volume ) determinationOrdered By: Nadiya Mariano on 01-24-2025 MCV (RBC) [Entitic vol] 93.4 fL 81-[address] [facility] Mean corpuscular hemoglobin (MCH) determinationOrdered By: Nadiya Mariano on 01-24-2025 MCH (RBC) [Entitic mass] 31.1 pg 27.0-32.0 [facility] Mean corpuscular hemoglobin concentration (MCHC) determinationOrdered By: Nadiya Mariano on 01-24-2025 MCHC (RBC) [Mass/Vol] 33.3 g/dL 32-36 [facility] Mean platelet volume determi nationOrdered By: Nadiya Mariano on 01-24-2025 Platelet mean volume (Bld) [Entitic vol] 9.2 fL 6.2-12.0 [facility] Monocyte percentageOrdered B y: Nadiya Mariano on 01-24-2025 Monocytes/100 WBC (Bld) 9.6 % 0-[address] [facility] Neutrophil percentageOrdered By: Nadiya Mariano on 01-24-2025 Neutrophils/100 WBC (Bld) 43.5 % Low 47-70 [facility] Nucleated red blood cell per centageOrdered By: Nadiya Mariano on 01-24-2025 Nucleated RBC/100 WBC (Bld) [Ratio] 0 % 0-5 [facility] Platelet countOrdered By: Modesto Mariano on 01-24-2025 Platelets (Bld) [#/Vol] 197 10*3/uL 150-450 [facility] Potassium measurement (mass/ volume)Ordered By: Nadiya Mariano on 01-24-2025 Potassium (Unsp spec) [Mass/Vol] 3.9 mmol/L 3.3-5.1 [facility] RBC Auto (Bld) [#/Vol]Ordere d By: Nadiya Mariano on 01-24-2025 RBC (Bld) [#/Vol] 4.54 10*6/uL 4.2-5.4 [facility] Serum creatinine measurement (mass/volume)Ordered By: Nadiya Mariano on 01-24-2025 Creatinine [Mass/Vol] 1.20 mg/dL 0.70-1.20 [facility] Serum glucose measurement (m ass/volume)Ordered By: Nadiya Mariano on 01-24-2025 Glucose [Mass/Vol] 104 mg/dL High 70-99 [facility] Serum or plasma calcium alie urement (mass/volume)Ordered By: aNdiya Mariano on 01-24-2025 Calcium [Mass/Vol] 9.5 mg/dL 7.6-11.0 [facility] Serum or plasma urea nitroge n measurement (mass/volume)Ordered By: Nadiya Mariano on 01-24-2025 Urea nitrogen [Mass/Vol] 16 mg/dL 4-19 [facility] Sodium levelOrdered By: Kosta Mariano on 01-24-2025 Sodium [Moles/Vol] 138 mmol/L 133-145 [facility] White blood cell (WBC) count Ordered By: Nadiya Mariano on 01-24-2025 WBC (Bld) [#/Vol] 8.1 10*3/uL 4.4-11.0 [facility] MR/BMSFrancine 01-13-2025 MR/BMSSHAKEEL [facility] [address], [address] [place] [address] OFFICE VISIT Date of Service: 01/13/25 MR#: [id number] Acct: [id number] Name: KYLIE ECHAVARRIA Rep #: [id number] : 1940 Provider: Dr. Nadiya Bey i, MD Age/Sex: 84/F Location: [facility] [place] Status: Signed Intake Vital Signs 11/26/24 14:38 [...] Reasons: PTNS monthly Chief Complaint: Monthly PTNS [employer] Required: No Is patient in pain?: No [...] healthy appearing, comfortable and no acute distress [facility] Head: normocephalic and atraumatic Ears: hearing grossly [...] inner aspec (more content not included)... Normal [facility] Absolute lymphocyte countOrd ered By: Gordon Kemp on 11-26-2024 Lymphocytes Auto (Unsp spec) [#/Vol] 2.98 10*3/uL 0.83-4.51 [facility] Absolute neutrophil countOrd ered By: Gordon Diopfigueroa on 11-26-2024 Neutrophils (Bld) [#/Vol] 2.9 10*3/uL 2.0-7.7 [facility] Anion gap in Serum or Plasma Ordered By: Gordon Kemp on 11-26-2024 Anion gap [Moles/Vol] 12 mmol/L 5-15 [facility] Automated lymphocyte count a s percentage of total leukocytesOrdered By: Gordon Chikisfigueroa on 11-26-2024 Lymphocytes/100 WBC Auto (Unsp spec) 43.6 % High 19-41 [facility] BUN/creatinine ratioOrdered By: [facility] on 11-26-2024 Urea nitrogen/Creatinine [Mass ratio] 7.2 mg/mg Low 10-20 [facility] Basophil percentageOrdered B y: Gordon Kemp on 11-26-2024 Basophils/100 WBC (Bld) 1.0 % 0-[address] [facility] Bilirubin, totalOrdered By: Gordon Kemp on 11-26-2024 Bilirubin [Mass/Vol] 0.30 mg/dL 0.00-1.30 [facility] CBC W/Diff, Automatedon 11-10 Absolute Lymph 2.98 X10 3/uL Normal 0.83-4.51 [facility] Comment on above: Performed By: #### L 100.0100, L500.4050, L504.2610 ####[facility] [address] [place], [address] Absolute Neut 2.9 X10 3/uL Normal 2.0-7.7 [facility] Comment on above: Performed By: #### L 100.0100, L500.4050, L504.2610 ####[facility] [address] [place], [address] Basophils/100 WBC (Bld) 1.0 % Normal 0-[address] [facility] Comment on above: Performed By: #### L 100.0100, L500.4050, L504.2610 ####[facility] [address] [place], [address] Eosinophils/100 WBC (Bld) 4.1 % Normal 0-5 [facility] Comment on above: Performed By: #### L 100.0100, L500.4050, L504.2610 ####[facility] [address] [place], [address] Erythrocyte distribution width (RBC) [Ratio] 12.8 % Normal 11.6-14.6 [facility] Comment on above: Performed By: #### L 100.0100, L500.4050, L504.2610 ####[facility] [address] [place], [address] Hematocrit (Bld) [Volume fraction] 44.6 % Normal 37-47 [facility] Comment on above: Performed By: #### L 100.0100, L500.4050, L504.2610 ####[facility] [address] [place], [address] Hemoglobin (Bld) [Mass/Vol] 14.6 g/dL Normal 12.0-15.0 [facility] Comment on above: Performed By: #### L 100.0100, L500.4050, L504.2610 ####[facility] [address] [place], [address] IG% 0.300 Normal 0.0-0.9 [facility] Comment on above: Result Comment: IG% - Immature Granulocytes (promyelocytes, myelocytes and metamyelocytes) > 1% indicates that a LEFT SHIFT is Present. Performed By: #### L 100.0100, L500.4050, L504.2610 ####[facility] [address] [place], [address] Lymphocytes/100 WBC (Bld) 43.6 % High 19-41 [facility] Comment on above: Performed By: #### L 100.0100, L500.4050, L504.2610 ####[facility] [address] [place], [address] MCH (RBC) [Entitic mass] 30.5 pg Normal 27.0-32.0 [facility] Comment on above: Performed By: #### L 100.0100, L500.4050, L504.2610 ####[facility] [address] [place], [address] MCHC (RBC) [Mass/Vol] 32.7 g/dL Normal 32-36 [facility] Comment on above: Performed By: #### L 100.0100, L500.4050, L504.2610 ####[facility] [address] [place], [address] MCV (RBC) [Entitic vol] 93.1 fL Normal 81-99 [facility] Comment on above: Performed By: #### L 100.0100, L500.4050, L504.2610 ####[facility] [address] [place], [address] Monocytes/100 WBC (Bld) 8.5 % Normal 0-10 [facility] Comment on above: Performed By: #### L 100.0100, L500.4050, L504.2610 ####[facility] [address] [place], [address] Neutrophils/100 WBC (Bld) 42.5 % Low 47-70 [facility] Comment on above: Performed By: #### L 100.0100, L500.4050, L504.2610 ####[facility] [address] [place], [address] Nucleated RBC (Bld) [#/Vol] 0 10*3/uL Normal 0-5 [facility] Comment on above: Performed By: #### L 100.0100, L500.4050, L504.2610 ####[facility] [address] [place], [address] Platelet mean volume (Bld) [Entitic vol] 8.6 fL Normal 6.2-12.0 [facility] Comment on above: Performed By: #### L 100.0100, L500.4050, L504.2610 ####[facility] [address] [place], [address] Platelets (Bld) [#/Vol] 218 10*3/uL Normal 150-450 [facility] Comment on above: Performed By: #### L 100.0100, L500.4050, L504.2610 ####[facility] [address] [place], [address] RBC (Bld) [#/Vol] 4.79 10*6/uL Normal 4.2-5.4 [facility] Comment on above: Performed By: #### L 100.0100, L500.4050, L504.2610 ####[facility] [address] [place], [address] RDW SD 43.8 fl Normal 35.1-43.9 [facility] Comment on above: Performed By: #### L 100.0100, L500.4050, L504.2610 ####[facility] [facility] [address] [place], [address] WBC (Bld) [#/Vol] 6.8 10*3/uL Normal 4.4-11.0 [facility] Comment on above: Performed By: #### L 100.0100, L500.4050, L504.2610 ####[facility] [address] [place], [address] Carbon dioxide, total [Moles /volume] in Central venous bloodOrdered By: Gordon Kemp on 11-26-2024 CO2 [Moles/Vol] 24.5 mmol/L 21.0-32.0 [facility] Chloride assayOrdered By: Karen Kemp on 11-26-2024 Chloride [Moles/Vol] 101 mmol/L 98-108 [facility] Comprehensive Metabolic Prof ilon 11-26-2024 Albumin [Mass/Vol] 4.1 g/dL Normal 3.4-4.8 [facility] Comment on above: Performed By: #### L 100.0100, L500.4050, L504.2610 ####[facility] [address] [place], [address] Albumin/Globulin [Mass ratio] 1.1 {ratio} Normal 0.9-2.4 [facility] Comment on above: Performed By: #### L 100.0100, L500.4050, L504.2610 ####[facility] [address] [place], [address] ALK PHOS 59 U/L Normal 35-104 [facility] Comment on above: Performed By: #### L 100.0100, L500.4050, L504.2610 ####[facility] [address] [place], [address] ALT [Catalytic activity/Vol] 30 U/L Normal <=34 [facility] Comment on above: Performed By: #### L 100.0100, L500.4050, L504.2610 ####[facility] [address] [place], [address] AST [Catalytic activity/Vol] 40 U/L High <=31 [facility] Comment on above: Performed By: #### L 100.0100, L500.4050, L504.2610 ####[facility] [address] [place], [address] Bilirubin [Mass/Vol] 0.30 mg/dL Normal 0.00-1.30 [facility] Comment on above: Performed By: #### L 100.0100, L500.4050, L504.2610 ####[facility] [address] [place], [address] BUN/CRE 7.2 RATIO Low 10-20 [facility] Comment on above: Performed By: #### L 100.0100, L500.4050, L504.2610 ####[facility] [address] [place], [address] Calcium [Mass/Vol] 9.5 mg/dL Normal 7.6-11.0 [facility] Comment on above: Performed By: #### L 100.0100, L500.4050, L504.2610 ####[facility] [address] [place], [address] Chloride [Moles/Vol] 101 mmol/L Normal 98-108 [facility] Comment on above: Performed By: #### L 100.0100, L500.4050, L504.2610 ####[facility] [address] [place], [address] CO2 [Moles/Vol] 24.5 mmol/L Normal 21.0-32.0 [facility] Comment on above: Performed By: #### L 100.0100, L500.4050, L504.2610 ####[facility] [address] [place], [address] Creatinine [Mass/Vol] 1.20 mg/dL Normal 0.70-1.20 [facility] Comment on above: Performed By: #### L 100.0100, L500.4050, L504.2610 ####[facility] [address] [place], [address] ECRCL 39.14 ml/min Low 50-250 [facility] Comment on above: Performed By: #### L 100.0100, L500.4050, L504.2610 ####[facility] [address] [place], [address] GAP 12 Normal 5-15 [facility] Comment on above: Performed By: #### L 100.0100, L500.4050, L504.2610 ####[facility] [address] [place], [address] GFR/1.73 sq M.predicted among non-blacks MDRD (S/P/Bld) [Vol rate/Area] 45 mL/min/{1.73_m2} Low >60 [facility] Comment on above: Result Comment: mL/m in/1.73m2 CKD-EPI Creatinine Equation (2020) Performed By: #### L 100.0100, L500.4050, L504.2610 ####[facility] [address] [place], [address] Globulin (S) [Mass/Vol] 3.6 g/dL Normal 2.2-4.2 [facility] Comment on above: Performed By: #### L 100.0100, L500.4050, L504.2610 ####[facility] [address] [place], [address] Glucose [Mass/Vol] 113 mg/dL High 70-99 [facility] Comment on above: Performed By: #### L 100.0100, L500.4050, L504.2610 ####[facility] [address] [place], [address] Potassium [Moles/Vol] 3.5 mmol/L Normal 3.3-5.1 [facility] Comment on above: Performed By: #### L 100.0100, L500.4050, L504.2610 ####[facility] [address] [place], [address] Sodium [Moles/Vol] 137 mmol/L Normal 133-145 [facility] Comment on above: Performed By: #### L 100.0100, L500.4050, L504.2610 ####[facility] [address] [place], [address] T PROT 7.7 g/dL Normal 5.9-8.4 [facility] Comment on above: Performed By: #### L 100.0100, L500.4050, L504.2610 ####[facility] [address] [place], [address] Urea nitrogen [Mass/Vol] 9 mg/dL Normal 4-19 [facility] Comment on above: Performed By: #### L 100.0100, L500.4050, L504.2610 ####[facility] [address] [place], [address] Eosinophil percentageOrdered By: Gordon Kemp on 11-26-2024 Eosinophils/100 WBC (Bld) 4.1 % 0-5 [facility] Erythrocyte distribution wid th ratioOrdered By: Gordon Kemp on 11-26-2024 Erythrocyte distribution width (RBC) [Ratio] 12.8 % 11.6-14.6 [facility] Erythrocyte distribution wid th standard deviationOrdered By: Gordon Kemp on 11-26-2024 Erythrocyte distribution width (RBC) [Ratio] 43.8 fl 35.1-43.9 [facility] Glomerular filtration rate ( GFR) estimation/1.73 sq m using serum, plasma, or whole bOrdered By: Gordon Kemp on 11-26-2024 GFR/1.73 sq M.predicted among non-blacks MDRD (S/P/Bld) [Vol rate/Area] 45 mL/min/{1.73_m2} Low >60 [facility] Comment on above: mL/min/1.73m2 CKD-EP I Creatinine Equation (2020) Hematocrit Auto (Bld) [Volum e fraction]Ordered By: Gordon Kemp on 11-26-2024 Hematocrit (Bld) [Volume fraction] 44.6 % 37-47 [facility] Hemoglobin measurementOrdere d By: Gordon Kemp on 11-26-2024 Hemoglobin (Bld) [Mass/Vol] 14.6 g/dL 12.0-15.0 [facility] Immature granulocytes/100 WB C Auto (Bld)Ordered By: Gordon Kemp on 11-26-2024 Immature granulocytes/100 WBC (Bld) 0.300 % 0.0-0.9 [facility] Comment on above: IG% - Immature Granu locytes (promyelocytes, myelocytes and metamyelocytes) > 1% indicates that a LEFT SHIFT is Present. LDHon 11-26-2024 LDH 197 U/L Normal 84-246 [facility] Comment on above: Order Comment: 1 Performed By: #### L 100.0100, L500.4050, L504.2610 ####[facility] [address] [place], [address] Laboratory - Chemistry and C hemistry - challengeOrdered By: Gordon Kemp on 11-26-2024 AST [Catalytic activity/Vol] 40 U/L High <32 [facility] Lactate dehydrogenase (LDH) measurementOrdered By: Gordon Kemp on 11-26-2024 LDH [Catalytic activity/Vol] 197 U/L 84-246 [facility] MCV (mean corpuscular volume ) determinationOrdered By: Gordon Kemp on 11-26-2024 MCV (RBC) [Entitic vol] 93.1 fL 81-[address] [facility] Mean corpuscular hemoglobin (MCH) determinationOrdered By: oGrdon Kemp on 11-26-2024 MCH (RBC) [Entitic mass] 30.5 pg 27.0-32.0 [facility] Mean corpuscular hemoglobin concentration (MCHC) determinationOrdered By: Gordon Kemp on 11-26-2024 MCHC (RBC) [Mass/Vol] 32.7 g/dL 32-36 [facility] Mean platelet volume determi nationOrdered By: Gordon Kemp on 11-26-2024 Platelet mean volume (Bld) [Entitic vol] 8.6 fL 6.2-12.0 [facility] Monocyte percentageOrdered B y: Gordon Kemp on 11-26-2024 Monocytes/100 WBC (Bld) 8.5 % 0-[address] [facility] Neutrophil percentageOrdered By: Gordon Kemp on 11-26-2024 Neutrophils/100 WBC (Bld) 42.5 % Low 47-70 [facility] Nucleated red blood cell per centageOrdered By: Gordon Kemp on 11-26-2024 Nucleated RBC/100 WBC (Bld) [Ratio] 0 % 0-5 [facility] Oncology Visit Reporton 11-10 Oncology Visit Report [facility] [place] [facility] [place] [address] OFFICE VISIT Date of Service: 11/26/24 1438 MR#: [id number] Acct: [id number] Name: KYLIE ECHAVARRIA Rep #: [id number] : 1940 From: Gordon Kemp MD Age/Sex: 83/F [place] [facility] [place] Status: Signed HPI Subjective Date of Service [...] Lymph nodes 12/01 involved, ER positive 95%, [place] positive??? 2%, Her2??? negative, Ki-67 positive 75%. [...] and comes for follow up. Feels well. [facility] Medical History Aromatase inhibitor-associat ed arthralgia Encounter [...] History He (more content not included)... Normal [facility] Platelet countOrdered By: Karen Kemp on 11-26-2024 Platelets (Bld) [#/Vol] 218 10*3/uL 150-450 [facility] Potassium measurement (mass/ volume)Ordered By: Gordon Kemp on 11-26-2024 Potassium (Unsp spec) [Mass/Vol] 3.5 mmol/L 3.3-5.1 [facility] RBC Auto (Bld) [#/Vol]Ordere d By: Gordon Kemp on 11-26-2024 RBC (Bld) [#/Vol] 4.79 10*6/uL 4.2-5.4 [facility] Serum creatinine measurement (mass/volume)Ordered By: Gordon Kemp on 11-26-2024 Creatinine [Mass/Vol] 1.20 mg/dL 0.70-1.20 [facility] Serum globulin measurementOr dered By: Gordon Kemp on 11-26-2024 Globulin (S) [Mass/Vol] 3.6 g/dL 2.2-4.2 [facility] Serum glucose measurement (m ass/volume)Ordered By: Gordon Kemp on 11-26-2024 Glucose [Mass/Vol] 113 mg/dL High 70-99 [facility] Serum or plasma alanine medel otransferase (ALT) measurementOrdered By: Gordon Kemp on 11-26-2024 ALT [Catalytic activity/Vol] 30 U/L <35 [facility] Serum or plasma albumin alie urement (mass/volume)Ordered By: Gordon Kemp on 11-26-2024 Albumin [Mass/Vol] 4.1 g/dL 3.4-4.8 [facility] Serum or plasma albumin/glob ulin mass ratioOrdered By: Gordon Kemp on 11-26-2024 Albumin/Globulin [Mass ratio] 1.1 {ratio} 0.9-2.4 [facility] Serum or plasma alkaline anthony sphatase measurementOrdered By: Gordon Kemp on 11-26-2024 ALP [Catalytic activity/Vol] 59 U/L 35-104 [facility] Serum or plasma calcium alie urement (mass/volume)Ordered By: Gordon Kemp on 11-26-2024 Calcium [Mass/Vol] 9.5 mg/dL 7.6-11.0 [facility] Serum or plasma urea nitroge n measurement (mass/volume)Ordered By: Gordon Kemp on 11-26-2024 Urea nitrogen [Mass/Vol] 9 mg/dL 4-19 [facility] Sodium levelOrdered By: Jaydon Kemp on 11-26-2024 Sodium [Moles/Vol] 137 mmol/L 133-145 [facility] Total proteinOrdered By: Felice Kemp on 11-26-2024 Protein [Mass/Vol] 7.7 g/dL 5.9-8.4 [facility] White blood cell (WBC) count Ordered By: Gordon Kemp on 11-26-2024 WBC (Bld) [#/Vol] 6.8 10*3/uL 4.4-11.0 [facility] Absolute lymphocyte countOrd ered By: Jose Alex on 10-15-2024 Lymphocytes Auto (Unsp spec) [#/Vol] 3.06 10*3/uL 0.83-4.51 [facility] Absolute neutrophil countOrd ered By: Jose Alex on 10-15-2024 Neutrophils (Bld) [#/Vol] 3.8 10*3/uL 2.0-7.7 [facility] Anion gap in Serum or Plasma Ordered By: Jose Alex on 10-15-2024 Anion gap [Moles/Vol] 12 mmol/L 5-15 [facility] Automated lymphocyte count a s percentage of total leukocytesOrdered By: Jose Alex on 10-15-2024 Lymphocytes/100 WBC Auto (Unsp spec) 39.0 % -41 [facility] BUN/creatinine ratioOrdered By: Jose Alex on 10-15-2024 Urea nitrogen/Creatinine [Mass ratio] 9.4 mg/mg Low 10-20 [facility] Basic Metabolic Profile (BMP )on 10-15-2024 BUN/CRE 9.4 RATIO Low 10-20 [facility] Comment on above: Order Comment: Order Date: 10/15/24 Order Info: 666-06 - BMP Order Info: 95564-1 - MG Order Info: 3 - TSH Order Info: 2275-09 - CARLOS Order Info: 8 - FOLS Performed By: #### L 501.5200, L501.9520, L100.0100, L503.6550, L500.2500, L501.9985 #### [facility] [address] [place], [address] Calcium [Mass/Vol] 10.1 mg/dL Normal 7.6-11.0 [facility] Comment on above: Order Comment: Order Date: 10/15/24 Order Info: 666-06 - BMP Order Info: 13824-3 - MG Order Info: 3 - TSH Order Info: 2275-09 - CARLOS Order Info: 8 - FOLS Performed By: #### L 501.5200, L501.9520, L100.0100, L503.6550, L500.2500, L501.9985 #### [facility] [address] [place], [address] Chloride [Moles/Vol] 101 mmol/L Normal 98-108 [facility] Comment on above: Order Comment: Order Date: 10/15/24 Order Info: 666-06 - BMP Order Info: 58949-0 - MG Order Info: 3 - TSH Order Info: 2275-09 - CARLOS Order Info: 8 - FOLS Performed By: #### L 501.5200, L501.9520, L100.0100, L503.6550, L500.2500, L501.9985 #### [facility] [address] [place], [address] CO2 [Moles/Vol] 26.6 mmol/L Normal 21.0-32.0 [facility] Comment on above: Order Comment: Order Date: 10/15/24 Order Info: 1 - BMP Order Info: 24520-5 - MG Order Info: 3 - TSH Order Info: 2275-09 - CARLOS Order Info: 8 - FOLS Performed By: #### L 501.5200, L501.9520, L100.0100, L503.6550, L500.2500, L501.9985 #### [facility] [address] [place], [place], [id number] (213) Creatinine [Mass/Vol] 1.20 mg/dL Normal 0.70-1.20 [facility] Comment on above: Order Comment: Order Date: 10/15/24 Order Info: 666-06 - BMP Order Info: 92918-1 - MG Order Info: 3015-3 - TSH Order Info: 2275-09 - CARLOS Order Info: 8 - FOLS Performed By: #### L 501.5200, L501.9520, L100.0100, L503.6550, L500.2500, L501.9985 #### [facility] [address] [place], [address] GAP 12 Normal 5-15 [facility] Comment on above: Order Comment: Order Date: 10/15/24 Order Info: 666-1 - BMP Order Info: 71044-6 - MG Order Info: 3015-3 - TSH Order Info: 2275-09 - CARLOS Order Info: 2288 - FOLS Performed By: #### L 501.5200, L501.9520, L100.0100, L503.6550, L500.2500, L501.9985 #### [facility] [address] [place], [address] GFR/1.73 sq M.predicted among non-blacks MDRD (S/P/Bld) [Vol rate/Area] 45 mL/min/{1.73_m2} Low >60 [facility] Comment on above: Order Comment: Order Date: 10/15/24 Order Info: 666-06 - BMP Order Info: 15851-3 - MG Order Info: 3 - TSH Order Info: 4 - CARLOS Order Info: 228-8 - FOLS Result Comment: mL/m in/1.73m2 CKD-EPI Creatinine Equation (2020) Performed By: #### L 501.5200, L501.9520, L100.0100, L503.6550, L500.2500, L501.9985 #### [facility] [address] [place], [address] Glucose [Mass/Vol] 88 mg/dL Normal 70-99 [facility] Comment on above: Order Comment: Order Date: 10/15/24 Order Info: 666-06 - BMP Order Info: 68765-4 - MG Order Info: 3 - TSH Order Info: 4 - CARLOS Order Info: 2283-8 - FOLS Performed By: #### L 501.5200, L501.9520, L100.0100, L503.6550, L500.2500, L501.9985 #### [facility] [address] [place], [address] Potassium [Moles/Vol] 3.5 mmol/L Normal 3.3-5.1 [facility] Comment on above: Order Comment: Order Date: 10/15/24 Order Info: 666-06 - BMP Order Info: 18263-3 - MG Order Info: 3 - TSH Order Info: 4 - CARLOS Order Info: 228-8 - FOLS Performed By: #### L 501.5200, L501.9520, L100.0100, L503.6550, L500.2500, L501.9985 #### [facility] [address] [place], [address] Sodium [Moles/Vol] 139 mmol/L Normal 133-145 [facility] Comment on above: Order Comment: Order Date: 10/15/24 Order Info: 06- - BMP Order Info: 14775-4 - MG Order Info: 3 - TSH Order Info: 2275-09 - CARLOS Order Info: 8 - FOLS Performed By: #### L 501.5200, L501.9520, L100.0100, L503.6550, L500.2500, L501.9985 #### [facility] [address] [place], [place], [address] Urea nitrogen [Mass/Vol] 11 mg/dL Normal 4-19 [facility] Comment on above: Order Comment: Order Date: 10/15/24 Order Info: 06 - BMP Order Info: 93580-7 - MG Order Info: 3 - TSH Order Info: 2275-09 - CARLOS Order Info: 2284-01 - FOLS Performed By: #### L 501.5200, L501.9520, L100.0100, L503.6550, L500.2500, L501.9985 #### [facility] [address] [place], [place], [id number] Basophil percentageOrdered B y: Jose Alex on 10-15-2024 Basophils/100 WBC (Bld) 0.9 % 0-[address] [facility] CBC W/Diff, Automatedon Absolute Lymph 3.06 X10 3/uL Normal 0.83-4.51 [facility] Comment on above: Order Comment: Order Date: 10/15/24 Order Info: 0184-1 - CBCD Performed By: #### L 501.5200, L501.9520, L100.0100, L503.6550, L500.2500, L501.9985 #### [facility] [address] [place], [address] Absolute Neut 3.8 X10 3/uL Normal 2.0-7.7 [facility] Comment on above: Order Comment: Order Date: 10/15/24 Order Info: 0184-1 - CBCD Performed By: #### L 501.5200, L501.9520, L100.0100, L503.6550, L500.2500, L501.9985 #### [facility] [address] [place], [address] Basophils/100 WBC (Bld) 0.9 % Normal 0-[address] [facility] Comment on above: Order Comment: Order Date: 10/15/24 Order Info: 0184-1 - CBCD Performed By: #### L 501.5200, L501.9520, L100.0100, L503.6550, L500.2500, L501.9985 #### [facility] [address] [place], [address] Eosinophils/100 WBC (Bld) 3.4 % Normal 0-5 [facility] Comment on above: Order Comment: Order Date: 10/15/24 Order Info: 0184- - CBCD Performed By: #### L 501.5200, L501.9520, L100.0100, L503.6550, L500.2500, L501.9985 #### [facility] [address] [place], [address] Erythrocyte distribution width (RBC) [Ratio] 12.6 % Normal 11.6-14.6 [facility] Comment on above: Order Comment: Order Date: 10/15/24 Order Info: 0184-1 - CBCD Performed By: #### L 501.5200, L501.9520, L100.0100, L503.6550, L500.2500, L501.9985 #### [facility] [address] [place], [address] Hematocrit (Bld) [Volume fraction] 44.6 % Normal 37-47 [facility] Comment on above: Order Comment: Order Date: 10/15/24 Order Info: 0184-1 - CBCD Performed By: #### L 501.5200, L501.9520, L100.0100, L503.6550, L500.2500, L501.9985 #### [facility] [address] [place], [address] Hemoglobin (Bld) [Mass/Vol] 15.0 g/dL Normal 12.0-15.0 [facility] Comment on above: Order Comment: Order Date: 10/15/24 Order Info: 0184-1 - CBCD Performed By: #### L 501.5200, L501.9520, L100.0100, L503.6550, L500.2500, L501.9985 #### [facility] [address] [place], [address] IG% 0.300 Normal 0.0-0.9 [facility] Comment on above: Order Comment: Order Date: 10/15/24 Order Info: 0184-1 - CBCD Result Comment: IG% - Immature Granulocytes (promyelocytes, myelocytes and metamyelocytes) > 1% indicates that a LEFT SHIFT is Present. Performed By: #### L 501.5200, L501.9520, L100.0100, L503.6550, L500.2500, L501.9985 #### [facility] [address] [place], [address] Lymphocytes/100 WBC (Bld) 39.0 % Normal 19-41 [facility] Comment on above: Order Comment: Order Date: 10/15/24 Order Info: 0184-1 - CBCD Performed By: #### L 501.5200, L501.9520, L100.0100, L503.6550, L500.2500, L501.9985 #### [facility] [address] [place], [address] MCH (RBC) [Entitic mass] 31.3 pg Normal 27.0-32.0 [facility] Comment on above: Order Comment: Order Date: 10/15/24 Order Info: 0184- - CBCD Performed By: #### L 501.5200, L501.9520, L100.0100, L503.6550, L500.2500, L501.9985 #### [facility] [address] [place], [address] MCHC (RBC) [Mass/Vol] 33.6 g/dL Normal 32-36 [facility] Comment on above: Order Comment: Order Date: 10/15/24 Order Info: 0184- - CBCD Performed By: #### L 501.5200, L501.9520, L100.0100, L503.6550, L500.2500, L501.9985 #### [facility] [address] [place], [address] MCV (RBC) [Entitic vol] 93.1 fL Normal 81-[address] [facility] Comment on above: Order Comment: Order Date: 10/15/24 Order Info: 0184- - CBCD Performed By: #### L 501.5200, L501.9520, L100.0100, L503.6550, L500.2500, L501.9985 #### [facility] [address] [place], [address] Monocytes/100 WBC (Bld) 7.5 % Normal 0-[address] [facility] Comment on above: Order Comment: Order Date: 10/15/24 Order Info: 0184- - CBCD Performed By: #### L 501.5200, L501.9520, L100.0100, L503.6550, L500.2500, L501.9985 #### [facility] [address] [place], [address] Neutrophils/100 WBC (Bld) 48.9 % Normal 47-70 [facility] Comment on above: Order Comment: Order Date: 10/15/24 Order Info: 0184-1 - CBCD Performed By: #### L 501.5200, L501.9520, L100.0100, L503.6550, L500.2500, L501.9985 #### [facility] [address] [place], [address] Nucleated RBC (Bld) [#/Vol] 0 10*3/uL Normal 0-5 [facility] Comment on above: Order Comment: Order Date: 10/15/24 Order Info: 0184- - CBCD Performed By: #### L 501.5200, L501.9520, L100.0100, L503.6550, L500.2500, L501.9985 #### [facility] [address] [place], [address] Platelet mean volume (Bld) [Entitic vol] 9.0 fL Normal 6.2-12.0 [facility] Comment on above: Order Comment: Order Date: 10/15/24 Order Info: 0184-1 - CBCD Performed By: #### L 501.5200, L501.9520, L100.0100, L503.6550, L500.2500, L501.9985 #### [facility] [address] [place], [address] Platelets (Bld) [#/Vol] 235 10*3/uL Normal 150-450 [facility] Comment on above: Order Comment: Order Date: 10/15/24 Order Info: 0184-1 - CBCD Performed By: #### L 501.5200, L501.9520, L100.0100, L503.6550, L500.2500, L501.9985 #### [facility] [address] [place], [address] RBC (Bld) [#/Vol] 4.79 10*6/uL Normal 4.2-5.4 [facility] Comment on above: Order Comment: Order Date: 10/15/24 Order Info: 0184-1 - CBCD Performed By: #### L 501.5200, L501.9520, L100.0100, L503.6550, L500.2500, L501.9985 #### [facility] [address] [place], [address] RDW SD 43.2 fl Normal 35.1-43.9 [facility] Comment on above: Order Comment: Order Date: 10/15/24 Order Info: 0184-1 - CBCD Performed By: #### L 501.5200, L501.9520, L100.0100, L503.6550, L500.2500, L501.9985 #### [facility] [address] [place], [place], [id number] [phone] WBC (Bld) [#/Vol] 7.8 10*3/uL Normal 4.4-11.0 [facility] Comment on above: Order Comment: Order Date: 10/15/24 Order Info: 0184-1 - CBCD Performed By: #### L 501.5200, L501.9520, L100.0100, L503.6550, L500.2500, L501.9985 #### [facility] [address] [place], [address] Carbon dioxide, total [Moles /volume] in Central venous bloodOrdered By: Jose Alex on 10-15-2024 CO2 [Moles/Vol] 26.6 mmol/L 21.0-32.0 [facility] Chloride assayOrdered By: Ted Alex on 10-15-2024 Chloride [Moles/Vol] 101 mmol/L 98-108 [facility] Eosinophil percentageOrdered By: Jose Alex on 10-15-2024 Eosinophils/100 WBC (Bld) 3.4 % 0-5 [facility] Erythrocyte distribution wid th ratioOrdered By: Jose Alex on 10-15-2024 Erythrocyte distribution width (RBC) [Ratio] 12.6 % 11.6-14.6 [facility] Erythrocyte distribution wid th standard deviationOrdered By: Jose Alex on 10-15-2024 Erythrocyte distribution width (RBC) [Ratio] 43.2 fl 35.1-43.9 [facility] Ferritinon 10-15-2024 Ferritin [Mass/Vol] 309 ng/mL Normal 22-378 [facility] Comment on above: Order Comment: Order Date: 10/15/24 Order Info: [id number] - BMP Order Info: [id number] - MG Order Info: [id number] - TSH Order Info: [id number] - CARLOS Order Info: [id number] - FOLS Performed By: #### L 501.5200, L501.9520, L100.0100, L503.6550, L500.2500, L501.9985 #### [facility] [address] [facility] [place], [address] Folate [Moles/volume] in Ser um or PlasmaOrdered By: Jose Alex on 10-15-2024 Folate [Moles/Vol] 11.60 ng/mL 4.60-34.80 [facility] Folates,Serum (Folic Acid)on 10-15-2024 FOLATES,SERUM 11.60 ng/mL Normal 4.60-34.80 [facility] Comment on above: Order Comment: N Performed By: #### L 503.0106, L506.0200 ####[facility] [address] [facility] [place], [place], [id number] Glomerular filtration rate ( GFR) estimation/1.73 sq m using serum, plasma, or whole bOrdered By: Jose Alex on 10-15-2024 GFR/1.73 sq M.predicted among non-blacks MDRD (S/P/Bld) [Vol rate/Area] 45 mL/min/{1.73_m2} Low >60 [facility] Comment on above: mL/min/1.73m2 CKD-EP I Creatinine Equation (2020) Hematocrit Auto (Bld) [Volum e fraction]Ordered By: Jose Alex on 10-15-2024 Hematocrit (Bld) [Volume fraction] 44.6 % 37-47 [facility] Hemoglobin A1con 10-15-2024 HbA1c (Bld) [Mass fraction] 5.6 % Normal <=5.6 [facility] Comment on above: Order Comment: Order Date: 10/15/24 Order Info: [id number] - A1C Result Comment: Norm al < 5.7 % Prediabetic 5.7 - 6.4 % Diabetic >or= 6.5 % Please note range changes. Performed By: #### L 501.5200, L501.9520, L100.0100, L503.6550, L500.2500, L501.9985 #### [facility] [address] [place], [address] Hemoglobin A1c percentageOrd ered By: Jose Alex on 10-15-2024 HbA1c (Bld) [Mass fraction] 5.6 % <5.7 [facility] Comment on above: Normal < 5.7 % Predi abetic 5.7 - 6.4 % Diabetic >or= 6.5 % Please note range changes. Hemoglobin measurementOrdere d By: Jose Alex on 10-15-2024 Hemoglobin (Bld) [Mass/Vol] 15.0 g/dL 12.0-15.0 [facility] Immature granulocytes/100 WB C Auto (Bld)Ordered By: Jose Alex on 10-15-2024 Immature granulocytes/100 WBC (Bld) 0.300 % 0.0-0.9 [facility] Comment on above: IG% - Immature Granu locytes (promyelocytes, myelocytes and metamyelocytes) > 1% indicates that a LEFT SHIFT is Present. MCV (mean corpuscular volume ) determinationOrdered By: Jose Alex on 10-15-2024 MCV (RBC) [Entitic vol] 93.1 fL 81-[address] [facility] Magnesiumon 10-15-2024 Magnesium [Mass/Vol] 2.1 mg/dL Normal 1.5-2.2 [facility] Comment on above: Order Comment: Order Date: 10/15/24 Order Info: [id number] - BMP Order Info: [id number] - MG Order Info: [id number] - TSH Order Info: [id number] - CARLOS Order Info: [id number] - FOLS Performed By: #### L 501.5200, L501.9520, L100.0100, L503.6550, L500.2816, L501.9985 #### [facility] [address] [place], [address] Magnesium measurement (mass/ volume)Ordered By: Jose Alex on 10-15-2024 Magnesium (Unsp spec) [Mass/Vol] 2.1 mg/dL 1.5-2.2 [facility] Mean corpuscular hemoglobin (MCH) determinationOrdered By: Jose Alex on 10-15-2024 MCH (RBC) [Entitic mass] 31.3 pg 27.0-32.0 [facility] Mean corpuscular hemoglobin concentration (MCHC) determinationOrdered By: Jose Alex on 10-15-2024 MCHC (RBC) [Mass/Vol] 33.6 g/dL 32-36 [facility] Mean platelet volume determi nationOrdered By: Jose Alex on 10-15-2024 Platelet mean volume (Bld) [Entitic vol] 9.0 fL 6.2-12.0 [facility] Monocyte percentageOrdered B y: Jose Alex on 10-15-2024 Monocytes/100 WBC (Bld) 7.5 % 0-[address] [facility] Neutrophil percentageOrdered By: Jose Alex on 10-15-2024 Neutrophils/100 WBC (Bld) 48.9 % 47-70 [facility] Nucleated red blood cell per centageOrdered By: Jose Alex on 10-15-2024 Nucleated RBC/100 WBC (Bld) [Ratio] 0 % 0-5 [facility] Platelet countOrdered By: Ted Alex on 10-15-2024 Platelets (Bld) [#/Vol] 235 10*3/uL 150-450 [facility] Potassium measurement (mass/ volume)Ordered By: Jose Alex on 10-15-2024 Potassium (Unsp spec) [Mass/Vol] 3.5 mmol/L 3.3-5.1 [facility] RBC Auto (Bld) [#/Vol]Ordere d By: Jose Alex on 10-15-2024 RBC (Bld) [#/Vol] 4.79 10*6/uL 4.2-5.4 [facility] Serum creatinine measurement (mass/volume)Ordered By: Jose Alex on 10-15-2024 Creatinine [Mass/Vol] 1.20 mg/dL 0.70-1.20 [facility] Serum glucose measurement (m ass/volume)Ordered By: Jose Alex on 10-15-2024 Glucose [Mass/Vol] 88 mg/dL 70-99 [facility] Serum or plasma calcium alie urement (mass/volume)Ordered By: Jose Alex on 10-15-2024 Calcium [Mass/Vol] 10.1 mg/dL 7.6-11.0 [facility] Serum or plasma ferritin mer surement (mass/volume)Ordered By: Jose Alex on 10-15-2024 Ferritin [Mass/Vol] 309 ng/mL 22-378 [facility] Serum or plasma urea nitroge n measurement (mass/volume)Ordered By: Jose Alex on 10-15-2024 Urea nitrogen [Mass/Vol] 11 mg/dL 4-19 [facility] Sodium levelOrdered By: Joes Alex on 10-15-2024 Sodium [Moles/Vol] 139 mmol/L 133-145 [facility] TSH DL <= 0.005 mIU/L QnOrde red By: Jose Alex on 10-15-2024 TSH Qn 2.080 uIU/mL 0.300-4.200 [facility] Thyroid Stim Hormone (TSH)on 10-15-2024 TSH 2.080 uIU/mL Normal 0.300-4.200 [facility] Comment on above: Order Comment: Order Date: 10/15/24 Order Info: [id number] - BMP Order Info: [id number] - MG Order Info: [id number] - TSH Order Info: [id number] - CARLOS Order Info: [id number] - FOLS Performed By: #### L 501.5200, L501.9520, L100.0100, L503.6550, L500.2500, L501.9985 #### [facility] [address] [place], [address] Vitamin B12on 10-15-2024 Cobalamin (Vitamin B12) [Mass/Vol] 527 pg/mL Normal 180-914 [facility] Comment on above: Order Comment: Order Date: 10/15/24Order Info: [id number] - BMPOrder Info: [id number] - MGOrder Info: [id number] - TSHOrder Info: [id number] - FEROrder Info: [id number] - FOLS Performed By: #### L 503.0106, L506.0200 ####[facility] [address] [place], [address] Vitamin B12 ser/plasOrdered By: Jose Alex on 10-15-2024 Cobalamin (Vitamin B12) [Mass/Vol] 527 pg/mL 180-914 [facility] White blood cell (WBC) count Ordered By: Jose Alex on 10-15-2024 WBC (Bld) [#/Vol] 7.8 10*3/uL 4.4-11.0 [facility] CBC W/Diff, Automatedon 12-0 Absolute Lymph 2.58 X10 3/uL Normal 0.83-4.51 [facility] Comment on above: Performed By: #### L 504.2610, L100.0100, L500.4050 ####[facility] [address] [place], [address] Absolute Neut 3.6 X10 3/uL Normal 2.0-7.7 [facility] Comment on above: Performed By: #### L 504.2610, L100.0100, L500.4050 ####[facility] [address] [place], [address] Basophils/100 WBC (Bld) 1.0 % Normal 0-[address] [facility] Comment on above: Performed By: #### L 504.2610, L100.0100, L500.4050 ####[facility] [address] [place], [address] Eosinophils/100 WBC (Bld) 5.1 % High 0-5 [facility] Comment on above: Performed By: #### L 504.2610, L100.0100, L500.4050 ####[facility] [address] [place], [address] Erythrocyte distribution width (RBC) [Ratio] 13.2 % Normal 11.6-14.6 [facility] Comment on above: Performed By: #### L 504.2610, L100.0100, L500.4050 ####[facility] [address] [place], [address] Hematocrit (Bld) [Volume fraction] 43.3 % Normal 37-47 [facility] Comment on above: Performed By: #### L 504.2610, L100.0100, L500.4050 ####[facility] [address] [place], [address] Hemoglobin (Bld) [Mass/Vol] 14.3 g/dL Normal 12.0-15.0 [facility] Comment on above: Performed By: #### L 504.2610, L100.0100, L500.4050 ####[facility] [address] [place], [address] IG% 0.400 Normal 0.0-0.9 [facility] Comment on above: Result Comment: IG% - Immature Granulocytes (promyelocytes, myelocytes and metamyelocytes) > 1% indicates that a LEFT SHIFT is Present. Performed By: #### L 504.2610, L100.0100, L500.4050 ####[facility] [address] [place], [address] Lymphocytes/100 WBC (Bld) 35.4 % Normal 19-41 [facility] Comment on above: Performed By: #### L 504.2610, L100.0100, L500.4050 ####[facility] [address] [place], [address] MCH (RBC) [Entitic mass] 31.0 pg Normal 27.0-32.0 [facility] Comment on above: Performed By: #### L 504.2610, L100.0100, L500.4050 ####[facility] [address] [place], [address] MCHC (RBC) [Mass/Vol] 33.0 g/dL Normal 32-36 [facility] Comment on above: Performed By: #### L 504.2610, L100.0100, L500.4050 ####[facility] [address] [place], [address] MCV (RBC) [Entitic vol] 93.7 fL Normal 81-99 [facility] Comment on above: Performed By: #### L 504.2610, L100.0100, L500.4050 ####[facility] [address] [place], [address] Monocytes/100 WBC (Bld) 8.6 % Normal 0-10 [facility] Comment on above: Performed By: #### L 504.2610, L100.0100, L500.4050 ####[facility] [address] [place], [address] Neutrophils/100 WBC (Bld) 49.5 % Normal 47-70 [facility] Comment on above: Performed By: #### L 504.2610, L100.0100, L500.4050 ####[facility] [address] [place], [address] Nucleated RBC (Bld) [#/Vol] 0 10*3/uL Normal 0-5 [facility] Comment on above: Performed By: #### L 504.2610, L100.0100, L500.4050 ####[facility] [address] [place], [address] Platelet mean volume (Bld) [Entitic vol] 8.4 fL Normal 6.2-12.0 [facility] Comment on above: Performed By: #### L 504.2610, L100.0100, L500.4050 ####[facility] [address] [place], [address] Platelets (Bld) [#/Vol] 188 10*3/uL Normal 150-450 [facility] Comment on above: Performed By: #### L 504.2610, L100.0100, L500.4050 ####[facility] [address] [place], [address] RBC (Bld) [#/Vol] 4.62 10*6/uL Normal 4.2-5.4 [facility] Comment on above: Performed By: #### L 504.2610, L100.0100, L500.4050 ####[facility] [address] [place], [address] RDW SD 44.7 fl High 35.1-43.9 [facility] Comment on above: Performed By: #### L 504.2610, L100.0100, L500.4050 ####[facility] [address] [place], [address] WBC (Bld) [#/Vol] 7.3 10*3/uL Normal 4.4-11.0 [facility] Comment on above: Performed By: #### L 504.2610, L100.0100, L500.4050 ####[facility] [address] [place], [address] Comprehensive Metabolic Prof ilon 05-15-2024 Albumin [Mass/Vol] 3.3 g/dL Normal 3.2-5.0 [facility] Comment on above: Order Comment: 1 Performed By: #### L 504.2610, L100.0100, L500.4050 ####[facility] [address] [place], [address] Albumin/Globulin [Mass ratio] 0.8 {ratio} Low 0.9-2.4 [facility] Comment on above: Order Comment: 1 Performed By: #### L 504.2610, L100.0100, L500.4050 ####[facility] [address] [place], [address] ALK P 58 U/L Normal 45-117 [facility] Comment on above: Order Comment: 1 Performed By: #### L 504.2610, L100.0100, L500.4050 ####[facility] [address] [place], [address] ALT [Catalytic activity/Vol] 26 U/L Normal 13-56 [facility] Comment on above: Order Comment: 1 Performed By: #### L 504.2610, L100.0100, L500.4050 ####[facility] [address] [place], [address] AST [Catalytic activity/Vol] 27 U/L Normal 15-37 [facility] Comment on above: Order Comment: 1 Performed By: #### L 504.2610, L100.0100, L500.4050 ####[facility] [address] [place], [address] Bilirubin [Mass/Vol] 0.50 mg/dL Normal 0.20-1.00 [facility] Comment on above: Order Comment: 1 Result Comment: For patients on eltrombopag therapy, use of Dimension [place] TBIL is not recommended. Performed By: #### L 504.2610, L100.0100, L500.4050 ####[facility] [address] [place], [address] BUN/CRE 9.2 RATIO Low 10-20 [facility] Comment on above: Order Comment: 1 Performed By: #### L 504.2610, L100.0100, L500.4050 ####[facility] [address] [place], [address] CA,Total 9.0 mg/dL Normal 8.5-10.1 [facility] Comment on above: Order Comment: 1 Performed By: #### L 504.2610, L100.0100, L500.4050 ####[facility] [address] [place], [address] Chloride [Moles/Vol] 106 mmol/L Normal 98-107 [facility] Comment on above: Order Comment: 1 Performed By: #### L 504.2610, L100.0100, L500.4050 ####[facility] [address] [place], [address] CO2 [Moles/Vol] 26.0 mmol/L Normal 21.0-32.0 [facility] Comment on above: Order Comment: 1 Performed By: #### L 504.2610, L100.0100, L500.4050 ####[facility] [address] [place], [address] Creatinine [Mass/Vol] 1.31 mg/dL High 0.55-1.02 [facility] Comment on above: Order Comment: 1 Result Comment: The validity of the calculated GFR GFRAA in patients over 70 years has not been determined. Clinical correlation is essential. Performed By: #### L 504.2610, L100.0100, L500.4050 ####[facility] [address] [place], [address] ECRCL 36.01 ml/min Normal [facility] Comment on above: Order Comment: 1 Performed By: #### L 504.2610, L100.0100, L500.4050 ####[facility] [address] [place], [address] EST GFR - AA 50 mL/min Low >60 [facility] Comment on above: Order Comment: 1 Result Comment: Afri can Jordanian GFR Calc Performed By: #### L 504.2610, L100.0100, L500.4050 ####[facility] [address] [place], [address] GAP 8 Normal 5-15 [facility] Comment on above: Order Comment: 1 Performed By: #### L 504.2610, L100.0100, L500.4050 ####[facility] [address] [place], [address] GFR/1.73 sq M.predicted among non-blacks MDRD (S/P/Bld) [Vol rate/Area] 41 mL/min/{1.73_m2} Low >60 [facility] Comment on above: Order Comment: 1 Result Comment: Non- GFR Calc Performed By: #### L 504.2610, L100.0100, L500.4050 ####[facility] [address] [place], [address] Globulin (S) [Mass/Vol] 4.4 g/dL High 2.2-4.2 [facility] Comment on above: Order Comment: 1 Performed By: #### L 504.2610, L100.0100, L500.4050 ####[facility] [address] [place], [address] Glucose [Mass/Vol] 141 mg/dL High 74-106 [facility] Comment on above: Order Comment: 1 Result Comment: Fast ing Glucose result greater than or equal to 126 mg/dL suggests DIABETES MELLITUS per A.D.A. criteria. Performed By: #### L 504.2610, L100.0100, L500.4050 ####[facility] [address] [place], [address] Potassium [Moles/Vol] 3.2 mmol/L Low 3.5-5.1 [facility] Comment on above: Order Comment: 1 Performed By: #### L 504.2610, L100.0100, L500.4050 ####[facility] [address] [place], [address] Sodium [Moles/Vol] 139 mmol/L Normal 136-145 [facility] Comment on above: Order Comment: 1 Performed By: #### L 504.2610, L100.0100, L500.4050 ####[facility] [address] [place], [address] T PROT 7.7 g/dL Normal 6.4-8.2 [facility] Comment on above: Order Comment: 1 Performed By: #### L 504.2610, L100.0100, L500.4050 ####[facility] [address] [place], [address] Urea nitrogen [Mass/Vol] 12 mg/dL Normal 7-18 [facility] Comment on above: Order Comment: 1 Performed By: #### L 504.2610, L100.0100, L500.4050 ####[facility] [address] [place], [address] LDHon 05-15-2024 LDH 185 U/L Normal 84-246 [facility] Comment on above: Order Comment: 1 Performed By: #### L 504.2610, L100.0100, L500.4050 ####[facility] [address] [place], [address] Lactate dehydrogenase (LDH) measurementOrdered By: Gordon Kemp on 05-15-2024 LDH [Catalytic activity/Vol] 185 U/L 84-246 [facility] Oncology Visit Reporton Oncology Visit Report [facility] [place] [facility] [address] [place] [address] OFFICE VISIT Date of Service: 05/15/24 1325 MR#: [id number] Acct: [id number] Name: KYLIE ECHAVARRIA Rep #: [id number] : 1940 From: Gordon Kemp MD Age/Sex: 83/F [place] [facility] [place] [facility] [place] Status: Signed HPI Subjective Date of Service [...] Lymph nodes 12/01 involved, ER positive 95%, [place] positive??? 2%, Her2??? negative, Ki-67 positive 75%. [...] and comes for follow up. Feels well. [facility] Medical History Aromatase inhibitor-associat ed arthralgia Encounter [...] in fema (more content not included)... Normal [facility] No Panel InformationOrdered By: Gordon Kemp on 03-08-2023 Miscellaneous Test Comment MAILED SPECIMEN [facility] Absolute lymphocyte countOrd ered By: Dr. Alex on 09-28-2022 Lymphocytes Auto (Unsp spec) [#/Vol] 2.18 10*3/uL 0.83-4.51 [facility] Basophil percentageOrdered B y: Dr. Alex on 09-28-2022 Basophils/100 WBC (Bld) 1.0 % 0-[address] [facility] Bilirubin [Mass/Vol] 0.30 mg/dL 0.20-1.00 [facility] Comment on above: For patients on eltr ombopag therapy, use of Dim[place] TBIL is not recommended. Chloride [Moles/Vol] 107 mmol/L 98-107 [facility] Eosinophils/100 WBC (Bld) 6.7 % 0-5 [facility] Glucose [Mass/Vol] 112 mg/dL 74-106 [facility] Comment on above: Fasting Glucose resu lt from 100 to 125 mg/dL suggests IMPAIRED HOMEOSTASIS per A.D.A. criteria. Neutrophils (Bld) [#/Vol] 5.5 10*3/uL 2.0-7.7 [facility] Neutrophils/100 WBC (Bld) 60.4 % 47-70 [facility] Potassium [Moles/Vol] 3.9 mmol/L 3.5-5.1 [facility] Protein [Mass/Vol] 7.7 g/dL 6.4-8.2 [facility] Sodium [Moles/Vol] 136 mmol/L 136-145 [facility] WBC (Bld) [#/Vol] 9.2 10*3/uL 4.4-11.0 [facility] Blood erythrocytes count (nu mber/volume)Ordered By: Dr. Alex on 09-28-2022 RBC (Bld) [#/Vol] 4.50 10*6/uL 4.2-5.4 [facility] Blood hemoglobin measurement (mass/volume)Ordered By: Dr. Alex on 09-28-2022 Hemoglobin (Bld) [Mass/Vol] 14.4 g/dL 12.0-15.0 [facility] Blood lymphocytes/100 leukoc ytesOrdered By: Dr. Alex on 09-28-2022 Lymphocytes/100 WBC (Bld) 23.8 % 19-41 [facility] Blood monocytes/100 leukocyt esOrdered By: Dr. Alex on 09-28-2022 Monocytes/100 WBC (Bld) 7.4 % 0-[address] [facility] Blood platelet mean volumeOr dered By: Dr. Alex on 09-28-2022 Platelet mean volume (Bld) [Entitic vol] 8.9 fL 6.2-12.0 [facility] Determination of erythrocyte mean corpuscular volume (MCV)Ordered By: Dr. Alex on 09-28-2022 MCV (RBC) [Entitic vol] 99.6 fL 81-[address] [facility] Hematocrit Auto (Bld) [Volum e fraction]Ordered By: Dr. Alex on 09-28-2022 Hematocrit (Bld) [Volume fraction] 44.8 % 37-47 [facility] Laboratory - Chemistry and C hemistry - challengeOrdered By: Dr. Alex on 09-28-2022 ALP [Catalytic activity/Vol] 68 U/L 45-117 [facility] ALT [Catalytic activity/Vol] 25 U/L 13-56 [facility] CO2 [Moles/Vol] 25.0 mmol/L 21.0-32.0 [facility] Globulin (S) [Mass/Vol] 4.4 g/dL 2.2-4.[address] [facility] Urea nitrogen/Creatinine [Mass ratio] 24.1 mg/mg 10-20 [facility] Laboratory - Hematology and Cell countsOrdered By: Dr. Alex on 09-28-2022 Erythrocyte distribution width (RBC) [Entitic vol] 42.3 fL 35.1-43.9 [facility] Erythrocyte distribution width (RBC) [Ratio] 11.6 % 11.6-14.6 [facility] Immature granulocytes/100 WBC (Bld) 0.700 % 0.0-0.9 [facility] Comment on above: IG% - Immature Granu locytes (promyelocytes, myelocytes and metamyelocytes) > 1% indicates that a LEFT SHIFT is Present. MCH (RBC) [Entitic mass] 32.0 pg 27.0-32.0 [facility] Nucleated RBC/100 WBC (Bld) [Ratio] 0 % 0-5 [facility] MCHC Auto (RBC) [Mass/Vol]Or dered By: Dr. Alex on 09-28-2022 MCHC (RBC) [Mass/Vol] 32.1 g/dL 32-36 [facility] No Panel InformationOrdered By: Dr. Alex on 09-28-2022 Estimated GFR (MDRD) Amer 63 mL/min >60 [facility] Comment on above: GFR Calc Estimated GFR (MDRD) Non-Af Amer 52 mL/min >60 [facility] Comment on above: Non- GFR Calc Platelets bldOrdered By: Dr. Alex on 09-28-2022 Platelets (Bld) [#/Vol] 250 10*3/uL 150-450 [facility] Serum or plasma albumin alie urement (mass/volume)Ordered By: Dr. Alex on 09-28-2022 Albumin [Mass/Vol] 3.3 g/dL 3.2-5.0 [facility] Serum or plasma albumin/glob ulin mass ratioOrdered By: Dr. Alex on 09-28-2022 Albumin/Globulin [Mass ratio] 0.8 {ratio} 0.9-2.4 [facility] Serum or plasma calcium alie urement (mass/volume)Ordered By: Dr. Alex on 09-28-2022 Calcium [Mass/Vol] 9.3 mg/dL 8.5-10.1 [facility] Serum or plasma creatinine m easurement (mass/volume)Ordered By: Dr. Alex on 09-28-2022 Creatinine [Mass/Vol] 1.08 mg/dL 0.55-1.02 [facility] Comment on above: The validity of the calculated GFR & GFRAA in patients over 70 years has not been determined. Clinical correlation is essential. Serum or plasma urea nitroge n measurement (mass/volume)Ordered By: Dr. Alex on 09-28-2022 Urea nitrogen [Mass/Vol] 26 mg/dL 7-18 [facility] Thin prep Papanicolaou smear with manual screeningOrdered By: Dr. Alex on 09-28-2022 Thin prep Papanicolaou smear with manual screening 25 U/L 15-37 [facility] Thin prep Papanicolaou smear with manual screening 4 5-15 [facility] Whole blood hemoglobin A1c/t otal hemoglobin ratio (mass fraction)Ordered By: Dr. Alex on 09-28-2022 HbA1c (Bld) [Mass fraction] 5.4 % 3.8-5.6 [facility] Comment on above: Normal < 5.7 % Predi abetic 5.7 - 6.4 % Diabetic >or= 6.5 % Please note range changes. Absolute lymphocyte countOrd ered By: Dr. Kemp on 08-31-2022 Lymphocytes Auto (Unsp spec) [#/Vol] 2.37 10*3/uL 0.83-4.51 [facility] Basophil percentageOrdered B y: Dr. Kemp on 08-31-2022 Basophils/100 WBC (Bld) 1.2 % 0-1 [facility] Bilirubin [Mass/Vol] 0.40 mg/dL 0.20-1.00 [facility] Comment on above: For patients on eltr ombopag therapy, use of [place] TBIL is not recommended. Chloride [Moles/Vol] 104 mmol/L 98-107 [facility] Eosinophils/100 WBC (Bld) 6.0 % 0-5 [facility] Glucose [Mass/Vol] 122 mg/dL 74-106 [facility] Comment on above: Fasting Glucose resu lt from 100 to 125 mg/dL suggests IMPAIRED HOMEOSTASIS per A.D.A. criteria. LDH [Catalytic activity/Vol] 225 U/L 84-246 [facility] Neutrophils (Bld) [#/Vol] 3.2 10*3/uL 2.0-7.7 [facility] Neutrophils/100 WBC (Bld) 46.8 % 47-70 [facility] Potassium [Moles/Vol] 3.5 mmol/L 3.5-5.1 [facility] Protein [Mass/Vol] 8.1 g/dL 6.4-8.2 [facility] Sodium [Moles/Vol] 138 mmol/L 136-145 [facility] WBC (Bld) [#/Vol] 6.7 10*3/uL 4.4-11.0 [facility] Blood erythrocytes count (nu mber/volume)Ordered By: Dr. Kemp on 08-31-2022 RBC (Bld) [#/Vol] 4.24 10*6/uL 4.2-5.4 [facility] Blood hemoglobin measurement (mass/volume)Ordered By: Dr. Kemp on 08-31-2022 Hemoglobin (Bld) [Mass/Vol] 14.2 g/dL 12.0-15.0 [facility] Blood lymphocytes/100 leukoc ytesOrdered By: Dr. Kemp on 08-31-2022 Lymphocytes/100 WBC (Bld) 35.3 % 19-41 [facility] Blood monocytes/100 leukocyt esOrdered By: Dr. Kemp on 08-31-2022 Monocytes/100 WBC (Bld) 10.0 % 0-[address] [facility] Blood platelet mean volumeOr dered By: Dr. Kemp on 08-31-2022 Platelet mean volume (Bld) [Entitic vol] 8.3 fL 6.2-12.0 [facility] Determination of erythrocyte mean corpuscular volume (MCV)Ordered By: Dr. Kemp on 08-31-2022 MCV (RBC) [Entitic vol] 99.8 fL 81-[address] [facility] Erythrocyte sedimentation ra teOrdered By: Dr. Kemp on 08-31-2022 ESR (Bld) [Velocity] 27 mm/h 0-30 [facility] Hematocrit Auto (Bld) [Volum e fraction]Ordered By: Dr. Kemp on 08-31-2022 Hematocrit (Bld) [Volume fraction] 42.3 % 37-47 [facility] Laboratory - Chemistry and C hemistry - challengeOrdered By: Dr. Kemp on 08-31-2022 ALP [Catalytic activity/Vol] 73 U/L 45-117 [facility] ALT [Catalytic activity/Vol] 27 U/L 13-56 [facility] CO2 [Moles/Vol] 27.0 mmol/L 21.0-32.0 [facility] Globulin (S) [Mass/Vol] 4.6 g/dL 2.2-4.[address] [facility] Urea nitrogen/Creatinine [Mass ratio] 17.1 mg/mg 10-20 [facility] Laboratory - Hematology and Cell countsOrdered By: Dr. Kemp on 08-31-2022 Erythrocyte distribution width (RBC) [Entitic vol] 42.2 fL 35.1-43.9 [facility] Erythrocyte distribution width (RBC) [Ratio] 11.5 % 11.6-14.6 [facility] Immature granulocytes/100 WBC (Bld) 0.700 % 0.0-0.9 [facility] Comment on above: IG% - Immature Granu locytes (promyelocytes, myelocytes and metamyelocytes) > 1% indicates that a LEFT SHIFT is Present. MCH (RBC) [Entitic mass] 33.5 pg 27.0-32.0 [facility] Nucleated RBC/100 WBC (Bld) [Ratio] 0 % 0-5 [facility] MCHC Auto (RBC) [Mass/Vol]Or dered By: Dr. Kemp on 08-31-2022 MCHC (RBC) [Mass/Vol] 33.6 g/dL 32-36 [facility] No Panel InformationOrdered By: Dr. Kemp on 08-31-2022 Estimated GFR (MDRD) Amer 61 mL/min >60 [facility] Comment on above: GFR Calc Estimated GFR (MDRD) Non-Af Amer 50 mL/min >60 [facility] Comment on above: Non- GFR Calc Platelets bldOrdered By: Dr. Kemp on 08-31-2022 Platelets (Bld) [#/Vol] 262 10*3/uL 150-450 [facility] Serum or plasma albumin alie urement (mass/volume)Ordered By: Dr. Kemp on 08-31-2022 Albumin [Mass/Vol] 3.5 g/dL 3.2-5.0 [facility] Serum or plasma albumin/glob ulin mass ratioOrdered By: Dr. Kemp on 08-31-2022 Albumin/Globulin [Mass ratio] 0.8 {ratio} 0.9-2.4 [facility] Serum or plasma calcium alie urement (mass/volume)Ordered By: Dr. Kemp on 08-31-2022 Calcium [Mass/Vol] 9.5 mg/dL 8.5-10.1 [facility] Serum or plasma creatinine m easurement (mass/volume)Ordered By: Dr. Kemp on 08-31-2022 Creatinine [Mass/Vol] 1.11 mg/dL 0.55-1.02 [facility] Comment on above: The validity of the calculated GFR & GFRAA in patients over 70 years has not been determined. Clinical correlation is essential. Serum or plasma urea nitroge n measurement (mass/volume)Ordered By: Dr. Kemp on 08-31-2022 Urea nitrogen [Mass/Vol] 19 mg/dL 7-18 [facility] Thin prep Papanicolaou smear with manual screeningOrdered By: Dr. eKmp on 08-31-2022 Thin prep Papanicolaou smear with manual screening 32 U/L 15-37 [facility] Thin prep Papanicolaou smear with manual screening 7 5-15 [facility] No Panel InformationOrdered By: Dr. Kemp on 08-03-2022 Miscellaneous Test Comment MAILED SPECIMEN [facility] Blood manual differential co mment interpretation (narrative result)Ordered By: Dr. Kemp on 06-02-2022 Manual differential comment Aristides (Bld) [Interp] SCANNED [facility] Comment on above: AUTO DIFF OK Absolute lymphocyte counton 05-12-2022 Lymphocytes Auto (Unsp spec) [#/Vol] 2.64 10*3/uL 0.83-4.51 [facility] Work Phone: Basophil percentageon 2021 Basophils/100 WBC (Bld) 1.9 % 0-[address] [facility] Work Phone: Bilirubin [Mass/Vol] 0.40 mg/dL 0.20-1.00 [facility] Work Phone: Comment on above: For patients on eltr ombopag therapy, use of [place] TBIL is not recommended. Chloride [Moles/Vol] 102 mmol/L 98-107 [facility] Work Phone: [phone] Eosinophils/100 WBC (Bld) 4.7 % 0-5 [facility] Work Phone: [phone] Glucose [Mass/Vol] 94 mg/dL 74-106 [facility] Work Phone: Neutrophils (Bld) [#/Vol] 2.4 10*3/uL 2.0-7.7 [facility] Work Phone: [phone] Neutrophils/100 WBC (Bld) 41.4 % 47-70 [facility] Work Phone: [phone] Potassium [Moles/Vol] 3.0 mmol/L 3.5-5.1 [facility] Work Phone: [phone] Protein [Mass/Vol] 8.3 g/dL 6.4-8.2 [facility] Work Phone: Sodium [Moles/Vol] 139 mmol/L 136-145 [facility] Work Phone: [phone] WBC (Bld) [#/Vol] 5.8 10*3/uL 4.4-11.0 [facility] Work Phone: [phone] Blood erythrocytes count (nu mber/volume)on 05-12-2022 RBC (Bld) [#/Vol] 4.22 10*6/uL 4.2-5.4 [facility] Work Phone: [phone] Blood hemoglobin measurement (mass/volume)on 05-12-2022 Hemoglobin (Bld) [Mass/Vol] 13.2 g/dL 12.0-15.0 [facility] Work Phone: Blood lymphocytes/100 leukoc yteson 05-12-2022 Lymphocytes/100 WBC (Bld) 45.9 % 19-41 [facility] Work Phone: Blood monocytes/100 leukocyt eson 05-12-2022 Monocytes/100 WBC (Bld) 5.4 % 0-[address] [facility] Work Phone: Blood platelet adequacy dete ction by light microscopyOrdered By: Dr. Kemp on 05-12-2022 Platelets LM Ql (Bld) ADEQUATE ADEQ [facility] Blood platelet mean volumeon 05-12-2022 Platelet mean volume (Bld) [Entitic vol] 8.8 fL 6.2-12.0 [facility] Work Phone: Determination of erythrocyte mean corpuscular volume (MCV)on 05-12-2022 MCV (RBC) [Entitic vol] 95.7 fL 81-[address] [facility] Work Phone: Hematocrit Auto (Bld) [Volum e fraction]on 05-12-2022 Hematocrit (Bld) [Volume fraction] 40.4 % 37-47 [facility] Work Phone: Laboratory - Chemistry and C hemistry - challengeon 05-12-2022 ALP [Catalytic activity/Vol] 74 U/L 45-117 [facility] Work Phone: ALT [Catalytic activity/Vol] 23 U/L 13-56 [facility] Work Phone: CO2 [Moles/Vol] 31.0 mmol/L 21.0-32.0 [facility] Work Phone: Globulin (S) [Mass/Vol] 4.8 g/dL 2.2-4.[address] [facility] Work Phone: Urea nitrogen/Creatinine [Mass ratio] 10.9 mg/mg 10-20 [facility] Work Phone: Laboratory - Hematology and Cell countsOrdered By: Dr. Kemp on 05-12-2022 Anisocytosis Ql (Bld) RARE [facility] Laboratory - Hematology and Cell countson 05-12-2022 Erythrocyte distribution width (RBC) [Entitic vol] 51.2 fL 35.1-43.9 [facility] Work Phone: Erythrocyte distribution width (RBC) [Ratio] 14.6 % 11.6-14.6 [facility] Work Phone: Immature granulocytes/100 WBC (Bld) 0.700 % 0.0-0.9 [facility] Work Phone: Comment on above: IG% - Immature Granu locytes (promyelocytes, myelocytes and metamyelocytes) > 1% indicates that a LEFT SHIFT is Present. MCH (RBC) [Entitic mass] 31.3 pg 27.0-32.0 [facility] Work Phone: Nucleated RBC/100 WBC (Bld) [Ratio] 0 % 0-5 [facility] Work Phone: MCHC Auto (RBC) [Mass/Vol]on 05-12-2022 MCHC (RBC) [Mass/Vol] 32.7 g/dL 32-36 [facility] Work Phone: Macrocytes detectionOrdered By: Dr. Kemp on 05-12-2022 Macrocytes Ql (Bld) RARE [facility] No Panel InformationOrdered By: Dr. Kemp on 05-12-2022 Atypical Lymphocytes 1+ % [facility] Reactive Lymphocytes 1+ [facility] No Panel Informationon 05-12 Estimated GFR (MDRD) Amer 51 mL/min >60 [facility] Work Phone: Comment on above: GFR Calc Estimated GFR (MDRD) Non-Af Amer 42 mL/min >60 [facility] Work Phone: Comment on above: Non- GFR Calc Platelets bldon 05-12-2022 Platelets (Bld) [#/Vol] 223 10*3/uL 150-450 [facility] Work Phone: RBC morphologyOrdered By: Dr Alize Kemp on 05-12-2022 RBC morphology finding Nom (Bld) N CHROM NORMAL NORM C&C [facility] Serum or plasma albumin alie urement (mass/volume)on 05-12-2022 Albumin [Mass/Vol] 3.5 g/dL 3.2-5.0 [facility] Work Phone: Serum or plasma albumin/glob ulin mass ratioon 05-12-2022 Albumin/Globulin [Mass ratio] 0.7 {ratio} 0.9-2.4 [facility] Work Phone: Serum or plasma calcium alie urement (mass/volume)on 05-12-2022 Calcium [Mass/Vol] 9.9 mg/dL 8.5-10.1 [facility] Work Phone: Serum or plasma creatinine m easurement (mass/volume)on 05-12-2022 Creatinine [Mass/Vol] 1.29 mg/dL 0.55-1.02 [facility] Work Phone: Comment on above: The validity of the calculated GFR & GFRAA in patients over 70 years has not been determined. Clinical correlation is essential. Serum or plasma urea nitroge n measurement (mass/volume)on 05-12-2022 Urea nitrogen [Mass/Vol] 14 mg/dL 7-18 [facility] Work Phone: Thin prep Papanicolaou smear with manual screeningon 05-12-2022 Thin prep Papanicolaou smear with manual screening 25 U/L 15-37 [facility] Work Phone: Thin prep Papanicolaou smear with manual screening 6 5-15 [facility] Work Phone: Thin prep Papanicolaou smear with manual screening 218 U/L 84-246 [facility] Work Phone: Laboratory - Chemistry and C hemistry - challengeOrdered By: Tisha Dixon on 04-28-2022 Magnesium [Mass/Vol] 2.3 mg/dL 1.6-2.6 [facility] Albumin Elph [Mass/Vol]Order ed By: Dr. Kemp on 03-31-2022 Albumin [Mass/Vol] 4.0 g/dL 2.9-4.4 [facility] Erythrocyte sedimentation ra lizbeth 03-31-2022 ESR (Bld) [Velocity] 70 mm/h 0-30 [facility] Work Phone: Interpretation of serum or p lasma protein pattern by immunofixation (narrative resultOrdered By: Dr. Kemp on 03-31-2022 Protein Fractions Immunofixation Aristides [Interp] See comment [facility] Comment on above: Result: Not Observed No Panel InformationOrdered By: Dr. Kemp on 03-31-2022 Addendum Document Comment . [facility] Comment on above: Protein electrophore sis scan will follow via computer,mail, or cytopathologist delivery. Free Lambda Light Chains, Quant 36.3 mg/L High 5.7-26.3 [facility] Serum [id number] measu rement by electrophoresisOrdered By: Dr. Kemp on 03-31-2022 Alpha 1 globulin Elph [Mass/Vol] 0.3 g/dL 0.0-0.4 [facility] Alpha 1 globulin Elph [Mass/Vol] 1.1 g/dL High 0.4-1.0 [facility] Serum immunoglobulin kappa l ight chains/immunoglobulin lambda light chains mass ratioOrdered By: Dr. Kemp on 03-31-2022 Immunoglobulin light chains.kappa/Immunoglobul in light chains.lambda (S) [Mass ratio] 1.46 0.26-1.65 [facility] Comment on above: Performed at: [address] Director: Juan Luis Carrillo PhD, Phone: [phone] Serum or plasma IgA measurem ent (mass/volume)Ordered By: Dr. Kemp on 03-31-2022 IgA [Mass/Vol] 586 mg/dL High 64-422 [facility] Serum or plasma IgG measurem ent (mass/volume)Ordered By: Dr. Kemp on 03-31-2022 IgG [Mass/Vol] 1658 mg/dL High 586-1602 [facility] Serum or plasma IgM measurem ent (mass/volume)Ordered By: Dr. Kemp on 03-31-2022 IgM [Mass/Vol] 119 mg/dL 26-217 [facility] Serum or plasma beta globuli n measurement by electrophoresis (mass/volume)Ordered By: Dr. Kemp on 03-31-2022 Beta globulin Elph [Mass/Vol] 1.4 g/dL High 0.7-1.3 [facility] Serum or plasma gamma globul in measurement by electrophoresis (mass/volume)Ordered By: Dr. Kemp on 03-31-2022 Gamma globulin Elph [Mass/Vol] 1.7 g/dL 0.4-1.8 [facility] Serum or plasma immunoelectr ophoresis interpretation (nominal result)Ordered By: Dr. Kemp on 03-31-2022 Interpretation IEP [Interp] Comment . [facility] Comment on above: No monoclonality det ected. Serum or plasma immunoglobul in kappa light chains measurement (mass/volume)Ordered By: Dr. Kemp on 03-31-2022 Immunoglobulin light chains.kappa [Mass/Vol] 53.0 mg/L High 3.3-19.4 [facility] Thin prep Papanicolaou smear with manual screeningOrdered By: Dr. Kemp on 03-31-2022 Thin prep Papanicolaou smear with manual screening 0.9 0.7-1.7 [facility] Total protein bloodOrdered B y: Dr. Kemp on 03-31-2022 Protein [Mass/Vol] 8.5 g/dL 6.0-8.5 [facility] Basophil percentageon 2021 Basophil percentage < 0.9 mg/dL 0.55-1.02 [facility] Work Phone: No Panel Informationon 01-06 Bedside Estimated GFR (eGFR) > 60.0000 mL/min >60 [facility] Work Phone: Absolute lymphocyte counton 01-05-2022 Lymphocytes Auto (Unsp spec) [#/Vol] 2.22 10*3/uL 0.83-4.51 [facility] Work Phone: Basophil percentageon 2021 Basophils/100 WBC (Bld) 0.4 % 0-[address] [facility] Work Phone: Bilirubin [Mass/Vol] 0.50 mg/dL 0.20-1.00 [facility] Work Phone: [phone] Comment on above: For patients on eltr ombopag therapy, use of [place] TBIL is not recommended. Chloride [Moles/Vol] 104 mmol/L 98-107 [facility] Work Phone: [phone] Eosinophils/100 WBC (Bld) 3.7 % 0-5 [facility] Work Phone: [phone] Glucose [Mass/Vol] 145 mg/dL 74-106 [facility] Work Phone: Comment on above: Fasting Glucose resu lt greater than or equal to 126 mg/dL suggests DIABETES MELLITUS per A.D.A. criteria. Neutrophils (Bld) [#/Vol] 5.9 10*3/uL 2.0-7.7 [facility] Work Phone: [phone] Neutrophils/100 WBC (Bld) 64.3 % 47-70 [facility] Work Phone: [phone] Potassium [Moles/Vol] 3.4 mmol/L 3.5-5.1 [facility] Work Phone: [phone] Protein [Mass/Vol] 8.5 g/dL 6.4-8.2 [facility] Work Phone: [phone] Sodium [Moles/Vol] 138 mmol/L 136-145 [facility] Work Phone: WBC (Bld) [#/Vol] 9.2 10*3/uL 4.4-11.0 [facility] Work Phone: Blood erythrocytes count (nu mber/volume)on 01-05-2022 RBC (Bld) [#/Vol] 4.80 10*6/uL 4.2-5.4 [facility] Work Phone: [phone] Blood hemoglobin measurement (mass/volume)on 01-05-2022 Hemoglobin (Bld) [Mass/Vol] 14.9 g/dL 12.0-15.0 [facility] Work Phone: [phone] Blood lymphocytes/100 leukoc yteson 01-05-2022 Lymphocytes/100 WBC (Bld) 24.2 % 19-41 [facility] Work Phone: Blood monocytes/100 leukocyt eson 01-05-2022 Monocytes/100 WBC (Bld) 6.7 % 0-[address] [facility] Work Phone: Blood platelet mean volumeon 01-05-2022 Platelet mean volume (Bld) [Entitic vol] 8.7 fL 6.2-12.0 [facility] Work Phone: Determination of erythrocyte mean corpuscular volume (MCV)on 01-05-2022 MCV (RBC) [Entitic vol] 93.1 fL 81-[address] [facility] Work Phone: Hematocrit Auto (Bld) [Volum e fraction]on 01-05-2022 Hematocrit (Bld) [Volume fraction] 44.7 % 37-47 [facility] Work Phone: Laboratory - Chemistry and C hemistry - challengeon 01-05-2022 ALP [Catalytic activity/Vol] 78 U/L 45-117 [facility] Work Phone: ALT [Catalytic activity/Vol] 27 U/L 13-56 [facility] Work Phone: CO2 [Moles/Vol] 29.0 mmol/L 21.0-32.0 [facility] Work Phone: Globulin (S) [Mass/Vol] 4.8 g/dL 2.2-4.[address] [facility] Work Phone: Urea nitrogen/Creatinine [Mass ratio] 11.7 mg/mg 10-20 [facility] Work Phone: Laboratory - Hematology and Cell countson 01-05-2022 Erythrocyte distribution width (RBC) [Entitic vol] 43.5 fL 35.1-43.9 [facility] Work [facility]: Erythrocyte distribution width (RBC) [Ratio] 12.7 % 11.6-14.6 [facility] Work Phone: Immature granulocytes/100 WBC (Bld) 0.700 % 0.0-0.9 [facility] Work Phone: Comment on above: IG% - Immature Granu locytes (promyelocytes, myelocytes and metamyelocytes) > 1% indicates that a LEFT SHIFT is Present. MCH (RBC) [Entitic mass] 31.0 pg 27.0-32.0 [facility] Work Phone: Nucleated RBC/100 WBC (Bld) [Ratio] 0 % 0-5 [facility] Work Phone: MCHC Auto (RBC) [Mass/Vol]on 01-05-2022 MCHC (RBC) [Mass/Vol] 33.3 g/dL 32-36 [facility] Work Phone: No Panel Informationon 01-05 Estimated GFR (MDRD) Amer 55 mL/min >60 [facility] Work Phone: Comment on above: GFR Calc Estimated GFR (MDRD) Non-Af Amer 46 mL/min >60 [facility] Work Phone: Comment on above: Non- GFR Calc Platelets bldon 01-05-2022 Platelets (Bld) [#/Vol] 230 10*3/uL 150-450 [facility] Work Phone: Serum or plasma albumin alie urement (mass/volume)on 01-05-2022 Albumin [Mass/Vol] 3.7 g/dL 3.2-5.0 [facility] Work Phone: Serum or plasma albumin/glob ulin mass ratioon 01-05-2022 Albumin/Globulin [Mass ratio] 0.8 {ratio} 0.9-2.4 [facility] Work Phone: Serum or plasma calcium alie urement (mass/volume)on 01-05-2022 Calcium [Mass/Vol] 9.7 mg/dL 8.5-10.1 [facility] Work Phone: Serum or plasma creatinine m easurement (mass/volume)on 01-05-2022 Creatinine [Mass/Vol] 1.20 mg/dL 0.55-1.02 [facility] Work Phone: Comment on above: The validity of the calculated GFR & GFRAA in patients over 70 years has not been determined. Clinical correlation is essential. Serum or plasma urea nitroge n measurement (mass/volume)on 01-05-2022 Urea nitrogen [Mass/Vol] 14 mg/dL 7-18 [facility] Work Phone: Thin prep Papanicolaou smear with manual screeningon 01-05-2022 Thin prep Papanicolaou smear with manual screening 25 U/L 15-37 [facility] Work Phone: Thin prep Papanicolaou smear with manual screening 5 5-15 [facility] Work Phone: Thin prep Papanicolaou smear with manual screening 217 U/L 84-246 [facility] Work Phone: SPEon 10-20-2021 SPE Interpretation Normal serum protein electrophoresis pattern. No abnormality detected. Normal [facility] ([place]) Comment on above: Result Comment: Elec tronically Signed by: NIXON HICKS 10/20/2021 10:07 EDT Performed By: #### E NA1, TSH, VITB6, A1C, MMA #### [address] [address] #### IFES, SPE, B12, FOL #### [address] [address] SPEon 10-19-2021 Albumin 3.8 G/dL Normal 3.3-5.0 [facility] ([place]) Comment on above: Performed By: #### E NA1, TSH, VITB6, A1C, MMA #### [address] [address] #### IFES, SPE, B12, FOL #### [address] [address] Alpha 1 0.2 G/dL Normal 0.1-0.4 [facility] ([place]) Comment on above: Performed By: #### E NA1, TSH, VITB6, A1C, MMA #### [place] [address] #### IFES, SPE, B12, FOL #### [place] [address] Alpha 2 1.0 G/dL Normal 0.6-1.2 [facility] ([place]) Comment on above: Performed By: #### E NA1, TSH, VITB6, A1C, MMA #### [place] [address] #### IFES, SPE, B12, FOL #### [place] [address] Beta 1.0 G/dL Normal 0.6-1.3 [facility] ([place]) Comment on above: Performed By: #### E NA1, TSH, VITB6, A1C, MMA #### [place] [address] #### IFES, SPE, B12, FOL #### [place] [address] Gamma 1.5 G/dL Normal 0.7-1.6 [facility] ([place]) Comment on above: Performed By: #### E NA1, TSH, VITB6, A1C, MMA #### [place] [address] #### IFES, SPE, B12, FOL #### [place] [address] IFESon 10-18-2021 IFES Interpretation Immunofixation electrophoresis of serum shows the presence of only polyclonal immunoglobulins (IgG,A,M,Novice and Lambda), No monoclonal protein detected. Normal [facility] ([place]) Comment on above: Result Comment: Elec tronically Signed by: NIXON HICKS 10/18/2021 14:49 EDT Performed By: #### E NA1, TSH, VITB6, A1C, MMA #### [place] [address] #### IFES, SPE, B12, FOL #### [address] [address] [id number] 10-16-2021 Vitamin B6 Lvl 77.8 nmol/L Normal 20.0-125.0 [facility] ([place]) Comment on above: Result Comment: INTE RPRETIVE INFORMATION: Vitamin B6 (Pyridoxal 5-Phosphate) Pyridoxal 5'-phosphate measured in a specimen collected following an 8-hour or overnight fast accurately indicates vitamin B6 nutritional status. Non-fasting specimen concentration reflects recent vitamin intake. This test was developed and its performance characteristics determined by [facility]. It has not been cleared or approved by the [place] Food and Drug Administration. This test was performed in a CLIA certified laboratory and is intended for clinical purposes. Performed By: [facility] [address] [place] [id number] [employer] [place] Head Assistant: Anju Lamb MD Performed By: #### E NA1, TSH, VITB6, A1C, MMA #### [address] [address] #### IFES, SPE, B12, FOL #### [place] [id number] METon 10-14-2021 Methylmalonic Acid 297 nmol/L Normal 79-376 [facility] ([place]) Comment on above: Result Comment: This test was developed and its performance characteristics determined by [facility] [place] ([facility]). It has not been cleared or approved by the FDA. [facility] is regulated under CLIA as qualified to perform high-complexity testing. This test is used for clinical purposes. It should not be regarded as investigational or for research. Performed By: [facility] [address] [place] [address] [employer]icopter Pilot Instructor: Marco Antonio Kirby III, M.D. CLIA#: [id number] Performed By: #### E NA1, TSH, VITB6, A1C, MMA #### [address] [address] #### IFES, SPE, B12, FOL #### [address] [address] ENA1on 10-13-2021 Centromere <0.2 Normal <1.0 [facility] ([place]) Comment on above: Result Comment: Anti -centromere antibody is used as in aid in diagnosis of systemic sclerosis. Clinical correlation is required. Test Methodology: Multiplex flow immunoassay. Performed By: [place] [address] Helicopter Pilot Instructor: Marco Antonio Kirby III, M.D. CLIA#: [id number] Performed By: #### E NA1, TSH, VITB6, A1C, MMA #### [place] [address] #### IFES, SPE, B12, FOL #### [place] [address] Centromere Ab Qualitative Negative Normal Negative [facility] ([place]) Comment on above: Result Comment: Perf ormed By: [place] [address] Helicopter Pilot Instructor: Marco Antonio Kirby III, M.D. CLIA#: [id number] Performed By: #### E NA1, TSH, VITB6, A1C, MMA #### [place] [address] #### IFES, SPE, B12, FOL #### [place] [address] Chromatin Ab Qualitative Negative Normal Negative [facility] ([place]) Comment on above: Result Comment: Perf ormed By: [place] [address] Helicopter Pilot Instructor: Marco Antonio Kirby III, M.D. CLIA#: [id number] Performed By: #### E NA1, TSH, VITB6, A1C, MMA #### [place] [address] #### IFES, SPE, B12, FOL #### [place] [address] Chromatin Antibody <0.2 Normal <1.0 [facility] ([place]) Comment on above: Result Comment: Test Methodology: Multiplex flow immunoassay. Anti-chromatin antibody is used as an aid in diagnosis of systemic lupus erythematosus. Clinical correlation is required. Test Methodology: Multiplex flow immunoassay. Performed By: [place] [address] Helicopter Pilot Instructor: Marco Antonio Kirby III, M.D. CLIA#: [id number] Performed By: #### E NA1, TSH, VITB6, A1C, MMA #### [place] [address] #### IFES, SPE, B12, FOL #### [address] [address] KAREN 1 Antibody <0.2 Normal <1.0 [facility] ([place]) Comment on above: Result Comment: Perf ormed By: [place] [address] Helicopter Pilot Instructor: Marco Antonio Kirby III, M.D. CLIA#: [id number] Performed By: #### E NA1, TSH, VITB6, A1C, MMA #### [place] [address] #### IFES, SPE, B12, FOL #### [place] [address] KAREN 1 Antibody Qual Negative Normal Negative [facility] ([place]) Comment on above: Result Comment: Anti -KAREN-1 antibody is used as an aid in diagnosis of polymyositis and dermatomyositis especially with pulmonary involvement. A negative result cannot rule out polymyositis or dermatomyositis. Clinical correlation is required. Test Methodology: Multiplex flow immunoassay. Performed By: [place] [address] Helicopter Pilot Instructor: Marco Antonio Kirby III, M.D. CLIA#: [id number] Performed By: #### E NA1, TSH, VITB6, A1C, MMA #### [place] [address] #### IFES, SPE, B12, FOL #### [address] [address] Ribosomal DISPLAY FABRICATION SUPERVISOR <0.2 Normal <1.0 [facility] ([place]) Comment on above: Result Comment: Perf ormed By: [place] [address] Helicopter Pilot Instructor: Marco Antonio Kirby III, M.D. CLIA#: [id number] Performed By: #### E NA1, TSH, VITB6, A1C, MMA #### [address] [address] #### IFES, SPE, B12, FOL #### [address] [address] Ribosomal DISPLAY FABRICATION SUPERVISOR Qualitative Negative Normal Negative [facility] ([place]) Comment on above: Result Comment: Anti -Ribosomal RNA (Ribosomal P) antibody is used as an aid in diagnosis of systemic autoimmune diseases especially systemic lupus erythematosus and mixed connective tissue disease. Cross-reactivity with Anti-alex antibody is not uncommon. Clinical correlation is required. Test Methodology: Multiplex flow immunoassay. Performed By: [place] [address] Helicopter Pilot Instructor: Marco Antonio Kirby III, M.D. CLIA#: [id number] Performed By: #### E NA1, TSH, VITB6, A1C, MMA #### [address] [address] #### IFES, SPE, B12, FOL #### [address] [address] DISPLAY FABRICATION SUPERVISOR Antibody <0.2 Normal <1.0 [facility] ([place]) Comment on above: Result Comment: Anti -DISPLAY FABRICATION SUPERVISOR antibody is used as an aid in diagnosis of systemic autoimmune diseases especially systemic lupus erythematosus and mixed connective tissue disease. Cross-reactivity with Anti-alex antibody is not uncommon. Clinical correlation is required. Test Methodology: Multiplex flow immunoassay. Performed By: [facility] [email or web address] [address] [place] [address] Helicopter Pilot Instructor: Marco Antonio Kirby III, M.D. CLIA#: [id number] Performed By: #### E NA1, TSH, VITB6, A1C, MMA #### [address] [address] #### IFES, SPE, B12, FOL #### [address] [address] DISPLAY FABRICATION SUPERVISOR Antibody Qualitative Negative Normal Negative [facility] ([place]) Comment on above: Result Comment: Perf ormed By: [place] [address] Helicopter Pilot Instructor: Marco Antonio Kirby III, M.D. CLIA#: [id number] Performed By: #### E NA1, TSH, VITB6, A1C, MMA #### [address] [address] #### IFES, SPE, B12, FOL #### [address] [address] Scleroderma Ab, IgG Qualitative Negative Normal Negative [facility] ([place]) Comment on above: Result Comment: Perf ormed By: [place] [address] Helicopter Pilot Instructor: Marco Antonio Kirby III, M.D. CLIA#: [id number] Performed By: #### E NA1, TSH, VITB6, A1C, MMA #### [place] [address] #### IFES, SPE, B12, FOL #### [address] [address] Scleroderma IgG Ab <0.2 Normal <1.0 [facility] ([place]) Comment on above: Result Comment: Scl- 70/Scleroderma antibody test is used as an aid in diagnosis of systemic sclerosis especially the diffuse cutaneous form. A negative result cannot rule out systemic sclerosis. The final interpretation should consider clinical picture and other test results such as anti-centromere antibody. Test Methodology: Multiplex flow immunoassay. Performed By: [email or web address] [address] [place] [address] Helicopter Pilot Instructor: Marco Antonio Kirby III, M.D. CLIA#: [id number] Performed By: #### E NA1, TSH, VITB6, A1C, MMA #### [place] [address] #### IFES, SPE, B12, FOL #### [address] [address] Sm Antibody <0.2 Normal <1.0 [facility] ([place]) Comment on above: Result Comment: Perf ormed By: [place] [address] Helicopter Pilot Instructor: Marco Antonio Kirby III, M.D. CLIA#: [id number] Performed By: #### E NA1, TSH, VITB6, A1C, MMA #### [address] [address] #### IFES, SPE, B12, FOL #### [address] [address] Sm Antibody Qual Negative Normal Negative [facility] ([place]) Comment on above: Result Comment: Anti -Sm (Alex) antibody is used as an aid in diagnosis of systemic lupus erythematosus and its presence is associated with renal disease. A negative result cannot rule out systemic lupus erythematosus. Clinical correlation is required. Test Methodology: Multiplex flow immunoassay. Performed By: [place] [address] Helicopter Pilot Instructor: Marco Antonio Kirby III, M.D. CLIA#: [id number] Performed By: #### E NA1, TSH, VITB6, A1C, MMA #### [address] [address] #### IFES, SPE, B12, FOL #### [address] [address] SS-A Antibody 0.3 AI Normal <1.0 [facility] ([place]) Comment on above: Result Comment: Test Methodology: Multiplex flow immunoassay. Anti-SSA (anti-Ro) antibody is used as an aid in diagnosis of a variety of systemic autoimmune diseases, Sjogren's syndrome among others. Clinical correlation is required. Test Methodology: Multiplex flow immunoassay. Performed By: [place] [address] Helicopter Pilot Instructor: Marco Antonio Kirby III, M.D. CLIA#: [id number] Performed By: #### E NA1, TSH, VITB6, A1C, MMA #### [address] [address] #### IFES, SPE, B12, FOL #### [address] [address] SS-B Antibody <0.2 Normal <1.0 [facility] ([place]) Comment on above: Result Comment: Anti -SSB (anti-La) antibody is used as an aid in diagnosis of a variety of systemic autoimmune diseases, especially for Sjogren's syndrome and systemic lupus erythematosus. Clinical correlation is required. Test Methodology: Multiplex flow immunoassay. Performed By: [place] [address] Helicopter Pilot Instructor: Marco Antonio Kirby III, M.D. CLIA#: [id number] Performed By: #### E NA1, TSH, VITB6, A1C, MMA #### [place] [address] #### IFES, SPE, B12, FOL #### [address] [address] SSA Antibody Qualitative Negative Normal Negative [facility] ([place]) Comment on above: Result Comment: Perf ormed By: [place] [address] Helicopter Pilot Instructor: Marco Antonio Kirby III, M.D. CLIA#: [id number] Performed By: #### E NA1, TSH, VITB6, A1C, MMA #### [place] [address] #### IFES, SPE, B12, FOL #### [address] [address] SSB Antibody Qualitative Negative Normal Negative [facility] ([place]) Comment on above: Result Comment: Perf ormed By: [place] [address] Helicopter Pilot Instructor: Marco Antonio Kirby III, M.D. CLIA#: [id number] Performed By: #### E NA1, TSH, VITB6, A1C, MMA #### [place] [address] #### IFES, SPE, B12, FOL #### [address] [address] A1Con 10-12-2021 HbA1c (Bld) [Mass fraction] 5.8 % Normal 4.3-6.4 [facility] ([place]) Comment on above: Performed By: #### E NA1, TSH, VITB6, A1C, MMA #### [address] [address] #### IFES, SPE, B12, FOL #### [address] [address] B12on 10-12-2021 Cobalamin (Vitamin B12) [Mass/Vol] 521 pg/mL Normal 211-911 [facility] ([place]) Comment on above: Performed By: #### E NA1, TSH, VITB6, A1C, MMA #### [address] [address] #### IFES, SPE, B12, FOL #### [address] [address] FOLon 10-12-2021 Folate 15.77 ng/mL Normal 5.38-24.00 [facility] ([place]) Comment on above: Performed By: #### E NA1, TSH, VITB6, A1C, MMA #### [address] [address] #### IFES, SPE, B12, FOL #### [place] [address] LABORATORYOrdered By: [employer] SYSTEM on 10-12-2021 Cobalamin (Vitamin B12) [Mass/Vol] [...] 10-12-2021 Total Protein 7.6 G/dL Normal 5.7-8.2 [facility] ([place]) Comment on above: Result Comment: No te - New Reference Range in effect 19 Performed By: #### E NA1, TSH, VITB6, A1C, MMA #### [place] [address] [place], [place] [address] #### IFES, SPE, B12, FOL #### [place] [address] TSHon 10-12-2021 TSH Qn 1.72 m[IU]/L Normal 0.36-3.74 [facility] ([place]) Comment on above: Performed By: #### E NA1, TSH, VITB6, A1C, MMA #### [place] [address] [place], [place] [address] #### IFES, SPE, B12, FOL #### [place] [address] Clinical Summary: HMSPatient IDon 10-09-2017 OOP Invalid Interpretation Code [facility] Work Phone: Office Visit: Postop - subse quent visit, Rm: 23on 10-09-2017 NEGATED: Highlighted rowDocumentation of current medications (procedure) Done Invalid Interpretation Code [facility] Work Phone: Gram stain for investigation of transfusion reaction Microscopic observation Gram stain Nom (Unsp spec) [facility] Work Phone: Vital Signs Date Time Vital Sign Value Performing Clinician Facility 02-11-2025 11:01-0400 Body height 167.[address] Jose Alex MD Work Phone: [facility] 02-11-2025 11:01-0400 Body mass index (BMI) [Ratio] 26.4 kg/m2 Dr. Jose Alex MD Work Phone: [facility] 02-11-2025 11:01-0400 Body temperature 98 [degF] Dr. Jose Alex MD Work Phone: [facility] 02-11-2025 11:01-0400 Body weight 74.[address] Jose Alex MD Work Phone: [facility] 02-11-2025 11:01-0400 Diastolic blood pressure 82 mm[Hg] Dr. Jose Alex MD Work Phone: [facility] 02-11-2025 11:01-0400 Heart rate 64 /min Dr. Jose Alex MD Work Phone: 8(077)478-247711 [place] [address] 02-11-2025 11:01-0400 Systolic blood pressure 122 mm[Hg] Dr. Jose Alex MD Work Phone: 3(280)035-064419 [address] 01-13-2025 11:47-0400 Body height 167.[address] Jose Alex MD Work Phone: 2(249)772-349445 [place] [address] 01-13-2025 11:47-0400 Body mass index (BMI) [Ratio] 26.4 kg/m2 Dr. Jose Alex MD Work Phone: 8(002)999-413919 [address] 01-13-2025 11:47-0400 Body temperature 98 [degF] Dr. Jose Alex MD Work Phone: 2(454)379-102719 [address] 01-13-2025 11:47-0400 Body weight 74.[address] Jose Alex MD Work Phone: 6(335)958-407811 [place] [address] 01-13-2025 11:47-0400 Diastolic blood pressure 66 mm[Hg] Dr. Jose Alex MD Work Phone: 2(750)309-496511 [place] [address] 01-13-2025 11:47-0400 Heart rate 78 /min Dr. Jose Alex MD Work Phone: 2(686)749-370611 [place] [address] 01-13-2025 11:47-0400 Systolic blood pressure 116 mm[Hg] Dr. Jose Alex MD Work Phone: 9(665)631-042111 [place] [address] 11-26-2024 14:38-0400 Body height 167.[address] Jose Alex MD Work Phone: 8(360)131-420111 [place] [address] 11-26-2024 14:38-0400 Body mass index (BMI) [Ratio] 28 kg/m2 Dr. Jose Alex MD Work Phone: 0(045)996-070711 [place] [address] 11-26-2024 14:38-0400 Body temperature 98.1 [degF] Dr. Jose Alex MD Work Phone: 3(677)134-156145 [place] [address] 11-26-2024 14:38-0400 Body weight 78.[address] Jose Alex MD Work Phone: 8(259)079-701245 [place] [address] 11-26-2024 14:38-0400 Diastolic blood pressure 68 mm[Hg] Dr. Jose Alex MD Work Phone: 1(736)913-013745 [place] [address] 11-26-2024 14:38-0400 Heart rate 94 /min Dr. Jose Alex MD Work Phone: 8(515)625-983845 [place] [address] 11-26-2024 14:38-0400 Respiratory rate 18 /min Dr. Jose Alxe MD Work Phone: 0(193)558-868745 [place] [address] 11-26-2024 14:38-0400 SaO2% (BldA) [Mass fraction] 96 % Dr. Jose Alex MD Work Phone: 4(696)978-209045 [place] [address] 11-26-2024 14:38-0400 Systolic blood pressure 149 mm[Hg] Dr. Jose Alex MD Work Phone: 1(566)475-411245 [place] [address] 09-14-2022 15:09-0400 Body height 168.[address] Jsoe Alex Work Phone: 2(855)318-047045 [place] [address] 09-14-2022 15:03-0400 Body mass index (BMI) [Ratio] 28.3 kg/m2 Dr. Jose Alex Work Phone: 9(433)610-890145 [place] [address] 09-14-2022 15:03-0400 Body temperature 98.2 [degF] Dr. Jose Alex Work Phone: 9(343)454-555645 [place] [address] 09-14-2022 15:03-0400 Body weight 80.[address] Jose Alex Work Phone: 4(109)092-993111 [place] [address] 09-14-2022 15:03-0400 Diastolic blood pressure 87 mm[Hg] Dr. Jose Alex Work Phone: [facility] 09-14-2022 15:03-0400 Heart rate 90 /min Dr. Jose Alex Work Phone: [facility] 09-14-2022 15:03-0400 Respiratory rate 17 /min Dr. Jose Alex Work Phone: [facility] 09-14-2022 15:03-0400 SaO2% (BldA) [Mass fraction] 97 % Dr. Jose Alex Work Phone: [facility] 09-14-2022 15:03-0400 Systolic blood pressure 160 mm[Hg] Dr. Jose Alex Work Phone: [facility] 08-31-2022 14:48-0400 Body mass index (BMI) [Ratio] 28.1 kg/m2 Dr. Jose Alex Work Phone: [facility] 08-31-2022 14:48-0400 Body temperature 98.2 [degF] Dr. Jose Alex Work Phone: [facility] 08-31-2022 14:48-0400 Body weight 80.[address] Jose Alex Work Phone: [facility] 08-31-2022 14:48-0400 Diastolic blood pressure 91 mm[Hg] Dr. Jose Alex Work Phone: [facility] 08-31-2022 14:48-0400 Heart rate 92 /min Dr. Jose Alex Work Phone: [facility] 08-31-2022 14:48-0400 Respiratory rate 17 /min Dr. Jose Alex Work Phone: [facility] 08-31-2022 14:48-0400 SaO2% (BldA) [Mass fraction] 94 % Dr. Jose Alex Work Phone: [facility] 08-31-2022 14:48-0400 Systolic blood pressure 157 mm[Hg] Dr. Jose Alex Work Phone: [facility] 08-03-2022 13:19-0500 Body mass index (BMI) [Ratio] 27.3 kg/m2 Dr. Jose Alex Work Phone: [facility] 08-03-2022 13:19-0500 Body temperature 98.2 [degF] Dr. Jsoe Alex Work Phone: [facility] 08-03-2022 13:19-0500 Body weight 78.[address] Jose Alex Work Phone: [facility] 08-03-2022 13:19-0500 Diastolic blood pressure 73 mm[Hg] Dr. Jose Alex Work Phone: 8(230)834-354811 [place] [address] 08-03-2022 13:19-0500 Heart rate 80 /min Dr. Jose Alex Work Phone: 9(865)811-130011 [place] [address] 08-03-2022 13:19-0500 Respiratory rate 17 /min Dr. Jose Alex Work Phone: [facility] 08-03-2022 13:19-0500 SaO2% (BldA) [Mass fraction] 97 % Dr. Jose Alex Work Phone: [facility] 08-03-2022 13:19-0500 Systolic blood pressure 151 mm[Hg] Dr. Jose Alex Work Phone: [facility] 07-20-2022 14:56-0500 Body mass index (BMI) [Ratio] 27.5 kg/m2 Dr. Jose Alex Work Phone: [facility] 07-20-2022 14:56-0500 Body temperature 97.5 [degF] Dr. Jose Alex Work Phone: [facility] 07-20-2022 14:56-0500 Body weight 78.[address] Jose Alex Work Phone: [facility] 07-20-2022 14:56-0500 Diastolic blood pressure 87 mm[Hg] Dr. Jose Alex Work Phone: [facility] 07-20-2022 14:56-0500 Heart rate 95 /min Dr. Jose Alex Work Phone: [facility] 07-20-2022 14:56-0500 Respiratory rate 17 /min Dr. Jose Alex Work Phone: [facility] 07-20-2022 14:56-0500 SaO2% (BldA) [Mass fraction] 94 % Dr. Jose Alex Work Phone: [facility] 07-20-2022 14:56-0500 Systolic blood pressure 144 mm[Hg] Dr. Jose Alex Work Phone: [facility] 05-12-2022 16:12-0500 Body height 168.[address] Jose Alex Work Phone: [facility] Work Phone: 05-12-2022 16:03-0500 Body mass index (BMI) [Ratio] 29.2 kg/m2 Dr. Jose Alex Work Phone: [facility] Work Phone: 05-12-2022 16:03-0500 Body temperature 98.2 [degF] Dr. Jose Alex Work Phone: [facility] Work Phone: 05-12-2022 16:03-0500 Body weight 83.[address] Jose Alex Work Phone: [facility] Work Phone: 05-12-2022 16:03-0500 Diastolic blood pressure 88 mm[Hg] Dr. Jose Alex Work Phone: [facility] Work Phone: 05-12-2022 16:03-0500 Heart rate 105 /min Dr. Jose Alex Work Phone: [facility] Work Phone: 05-12-2022 16:03-0500 Respiratory rate 16 /min Dr. Jose Alex Work Phone: [facility] Work Phone: 05-12-2022 16:03-0500 Systolic blood pressure 169 mm[Hg] Dr. Jose Alex Work Phone: [facility] Work Phone: 04-28-2022 16:19-0500 Body mass index (BMI) [Ratio] 28.3 kg/m2 Dr. Jose Alex Work Phone: [facility] Work Phone: 04-28-2022 16:19-0500 Body temperature 89.6 [degF] Dr. Jose Alex Work Phone: [facility] Work Phone: 04-28-2022 16:19-0500 Body weight 80.[address] Jose Alex Work Phone: [facility] Work Phone: 04-28-2022 16:19-0500 Diastolic blood pressure 79 mm[Hg] Dr. Jose Alex Work Phone: [facility] Work Phone: 04-28-2022 16:19-0500 Heart rate 82 /min Dr. Jose Alex Work Phone: [facility] Work Phone: 04-28-2022 16:19-0500 Respiratory rate 16 /min Dr. Jose Alex Work Phone: [facility] Work Phone: 04-28-2022 16:19-0500 SaO2% (BldA) [Mass fraction] 98 % Dr. Jose Alex Work Phone: [facility] Work Phone: 04-28-2022 16:19-0500 Systolic blood pressure 131 mm[Hg] Dr. Jose Alex Work Phone: [facility] Work Phone: 04-14-2022 15:55-0400 Body mass index (BMI) [Ratio] 29.2 kg/m2 Dr. Jose Alex Work Phone: [facility] Work Phone: 04-14-2022 15:55-0400 Body temperature 97.4 [degF] Dr. Jose Alex Work Phone: [facility] Work Phone: 04-14-2022 15:55-0400 Body weight 83.[address] Jose Alex Work Phone: [facility] Work Phone: 04-14-2022 15:55-0400 Diastolic blood pressure 78 mm[Hg] Dr. Jose Alex Work Phone: [facility] Work Phone: 04-14-2022 15:55-0400 Heart rate 87 /min Dr. Jose Alex Work Phone: [facility] Work Phone: 04-14-2022 15:55-0400 Respiratory rate 16 /min Dr. Jose Alex Work Phone: [facility] Work Phone: 04-14-2022 15:55-0400 SaO2% (BldA) [Mass fraction] 94 % Dr. Jose Alex Work Phone: [facility] Work Phone: 04-14-2022 15:55-0400 Systolic blood pressure 144 mm[Hg] Dr. Jose Alex Work Phone: [facility] Work Phone: 03-31-2022 15:43-0400 Body mass index (BMI) [Ratio] 28.5 kg/m2 Dr. Jose Alex Work Phone: [facility] Work Phone: 03-31-2022 15:43-0400 Body temperature 97.3 [degF] Dr. Jose Alex Work Phone: [facility] Work Phone: 03-31-2022 15:43-0400 Body weight 81.[address] Jose Alex Work Phone: [facility] Work Phone: 03-31-2022 15:43-0400 Diastolic blood pressure 83 mm[Hg] Dr. Jose Alex Work Phone: [facility] Work Phone: 03-31-2022 15:43-0400 Heart rate 99 /min Dr. Jose Alex Work Phone: [facility] Work Phone: 03-31-2022 15:43-0400 Respiratory rate 15 /min Dr. Jose Alex Work Phone: [facility] Work Phone: 03-31-2022 15:43-0400 SaO2% (BldA) [Mass fraction] 98 % Dr. Jose Alex Work Phone: [facility] Work Phone: 03-31-2022 15:43-0400 Systolic blood pressure 136 mm[Hg] Dr. Jose Alex Work Phone: [facility] Work Phone: 03-17-2022 16:00-0400 Body mass index (BMI) [Ratio] 28.8 kg/m2 Dr. Jose Alex Work Phone: [facility] Work Phone: 03-17-2022 16:00-0400 Body temperature 98.3 [degF] Dr. Jose Alex Work Phone: [facility] Work Phone: 03-17-2022 16:00-0400 Body weight 82.[address] Jose Alex Work Phone: [facility] Work Phone: 03-17-2022 16:00-0400 Heart rate 90 /min Dr. Jose Alex Work Phone: [facility] Work Phone: 03-17-2022 16:00-0400 Respiratory rate 16 /min Dr. Jose Alex Work Phone: [facility] Work Phone: 03-17-2022 16:00-0400 SaO2% (BldA) [Mass fraction] 96 % Dr. Jose Alex Work Phone: [facility] Work Phone: 02-24-2022 15:37-0400 Body mass index (BMI) [Ratio] 28.8 kg/m2 Dr. Jose Alex Work Phone: [facility] Work Phone: 02-24-2022 15:37-0400 Body temperature 98.5 [degF] Dr. oJse Alex Work Phone: [facility] Work Phone: 02-24-2022 15:37-0400 Body weight 82.[address] Jose Alex Work Phone: [facility] Work Phone: 02-24-2022 15:37-0400 Diastolic blood pressure 72 mm[Hg] Dr. Jose Alex Work Phone: [facility] Work Phone: 02-24-2022 15:37-0400 Heart rate 81 /min Dr. Jose Alex Work Phone: [facility] Work Phone: 02-24-2022 15:37-0400 Respiratory rate 16 /min Dr. Jose Alex Work Phone: [facility] Work Phone: 02-24-2022 15:37-0400 SaO2% (BldA) [Mass fraction] 98 % Dr. Jose Alex Work Phone: [facility] Work Phone: 02-24-2022 15:37-0400 Systolic blood pressure 127 mm[Hg] Dr. Jose Alex Work Phone: [facility] Work Phone: 02-16-2022 16:32-0400 Body mass index (BMI) [Ratio] 28.8 kg/m2 Dr. Jose Alex Work Phone: [facility] Work Phone: 02-16-2022 16:32-0400 Body temperature 98.2 [degF] Dr. Jose Alex Work Phone: [facility] Work Phone: 02-16-2022 16:32-0400 Body weight 82.[address] Jose Alex Work Phone: [facility] Work Phone: 02-16-2022 16:32-0400 Diastolic blood pressure 74 mm[Hg] Dr. Jose Alex Work Phone: [facility] Work Phone: 02-16-2022 16:32-0400 Heart rate 92 /min Dr. Jose Alex Work Phone: [facility] Work Phone: 02-16-2022 16:32-0400 Respiratory rate 16 /min Dr. Jose Alex Work Phone: [facility] Work Phone: 02-16-2022 16:32-0400 SaO2% (BldA) [Mass fraction] 98 % Dr. Jose Alex Work Phone: [facility] Work Phone: 02-16-2022 16:32-0400 Systolic blood pressure 126 mm[Hg] Dr. Jose Alex Work Phone: [facility] Work Phone: 02-10-2022 10:24-0400 Body mass index (BMI) [Ratio] 28.7 kg/m2 Dr. Jose Alex Work Phone: [facility] Work Phone: 02-10-2022 10:24-0400 Body temperature 98.6 [degF] Dr. Jose Alex Work Phone: [facility] Work Phone: 02-10-2022 10:24-0400 Body weight 81.[address] Jose Alex Work Phone: [facility] Work Phone: 02-10-2022 10:24-0400 Diastolic blood pressure 87 mm[Hg] Dr. Jose Alex Work Phone: [facility] Work Phone: 02-10-2022 10:24-0400 Heart rate 92 /min Dr. Jose Alex Work Phone: [facility] Work Phone: 02-10-2022 10:24-0400 Respiratory rate 15 /min Dr. Jose Alex Work Phone: [facility] Work Phone: 02-10-2022 10:24-0400 SaO2% (BldA) [Mass fraction] 98 % Dr. Jose Alex Work Phone: [facility] Work Phone: 02-10-2022 10:24-0400 Systolic blood pressure 147 mm[Hg] Dr. Jose Alex Work Phone: [facility] Work Phone: 01-21-2022 09:51-0400 Body temperature 97.6 [degF] Dr. Jose Alex Work Phone: [facility] Work Phone: 01-21-2022 09:51-0400 Diastolic blood pressure 78 mm[Hg] Dr. Jose Alex Work Phone: [facility] Work Phone: 01-21-2022 09:51-0400 Heart rate 105 /min Dr. Jose Alex Work Phone: [facility] Work Phone: 01-21-2022 09:51-0400 Respiratory rate 16 /min Dr. Jose Alex Work Phone: [facility] Work Phone: 01-21-2022 09:51-0400 SaO2% (BldA) [Mass fraction] 96 % Dr. Jose Alex Work Phone: [facility] Work Phone: 01-21-2022 09:51-0400 Systolic blood pressure 138 mm[Hg] Dr. Jose Alex Work Phone: [facility] Work Phone: 01-14-2022 11:27-0400 Body temperature 98.2 [degF] Dr. Jose Alex Work Phone: [facility] Work Phone: 01-14-2022 11:27-0400 Diastolic blood pressure 68 mm[Hg] Dr. Jose Alex Work Phone: [facility] Work Phone: 01-14-2022 11:27-0400 Heart rate 74 /min Dr. Jose Alex Work Phone: [facility] Work Phone: 01-14-2022 11:27-0400 Respiratory rate 18 /min Dr. Jose Alex Work Phone: [facility] Work Phone: 01-14-2022 11:27-0400 SaO2% (BldA) [Mass fraction] 94 % Dr. Jose Alex Work Phone: [facility] Work Phone: 01-14-2022 11:27-0400 Systolic blood pressure 117 mm[Hg] Dr. Jose Alex Work Phone: [facility] Work Phone: 01-13-2022 16:44-0400 Body height 168.[address] Jose Alex Work Phone: [facility] Work Phone: 01-13-2022 16:44-0400 Body mass index (BMI) [Ratio] 29.4 kg/m2 Dr. Jose Alex Work Phone: [facility] Work Phone: 01-13-2022 16:44-0400 Body weight 83.[address] Jose Alex Work Phone: [facility] Work Phone: 01-03-2022 16:15-0400 Body height 168.[address] Jose Alex Work Phone: [facility] Work Phone: 01-03-2022 16:15-0400 Body mass index (BMI) [Ratio] 29.5 kg/m2 Dr. Jose Alex Work Phone: [facility] Work Phone: 01-03-2022 16:15-0400 Body temperature 98.2 [degF] Dr. Jose Alex Work Phone: [facility] Work Phone: 01-03-2022 16:15-0400 Body weight 84.[address] Jose Alex Work Phone: [facility] Work Phone: 01-03-2022 16:15-0400 Diastolic blood pressure 83 mm[Hg] Dr. Jose Alex Work Phone: [facility] Work Phone: 01-03-2022 16:15-0400 Heart rate 85 /min Dr. Jose Alex Work Phone: [facility] Work Phone: 01-03-2022 16:15-0400 Respiratory rate 15 /min Dr. Jose Alex Work Phone: [facility] Work Phone: 01-03-2022 16:15-0400 SaO2% (BldA) [Mass fraction] 97 % Dr. Jose Alex Work Phone: [facility] Work Phone: 01-03-2022 16:15-0400 Systolic blood pressure 140 mm[Hg] Dr. Jose Alex Work Phone: [facility] Work Phone: 12-28-2021 07:03-0400 Body height 168.[address] Jose Alex Work Phone: [facility] Work Phone: 12-28-2021 07:03-0400 Body mass index (BMI) [Ratio] 29.6 kg/m2 Dr. Jose Alex Work Phone: [facility] Work Phone: 12-28-2021 07:03-0400 Body temperature 97.8 [degF] Dr. Jose Alex Work Phone: [facility] Work Phone: 12-28-2021 07:03-0400 Body weight 84.[address] Jose Alex Work Phone: [facility] Work Phone: 12-28-2021 07:03-0400 Diastolic blood pressure 76 mm[Hg] Dr. Jose Alex Work Phone: [facility] Work Phone: 12-28-2021 07:03-0400 Heart rate 96 /min Dr. Jose Alex Work Phone: [facility] Work Phone: 12-28-2021 07:03-0400 Respiratory rate 18 /min Dr. Jose Alex Work Phone: [facility] Work Phone: 12-28-2021 07:03-0400 SaO2% (BldA) [Mass fraction] 98 % Dr. Jose Alex Work Phone: [facility] Work Phone: 12-28-2021 07:03-0400 Systolic blood pressure 136 mm[Hg] Dr. Jose Alex Work Phone: [facility] Work Phone: NEGATED: Highlighted [id number] 08:53-0400 BMI (Body Mass Index) 33.8 kg/m2 Kaliemarisela Corona GENERAL ACCOUNTING MANAGER [facility] Work Phone: NEGATED: Highlighted [id number] 08:53-0400 BP Diastolic 79 mm[Hg] Kalie Chloe GENERAL ACCOUNTING MANAGER [facility] Work Phone: NEGATED: Highlighted [id number] 08:53-0400 BP Diastolic 83 mm[Hg] Kalie Chloe GENERAL ACCOUNTING MANAGER [facility] Work Phone: NEGATED: Highlighted [id number] 08:53-0400 BP Systolic 146 mm[Hg] Kalie Chloe GENERAL ACCOUNTING MANAGER [facility] Work Phone: NEGATED: Highlighted [id number] 08:53-0400 BP Systolic 135 mm[Hg] Kalie Chloe GENERAL ACCOUNTING MANAGER [facility] Work Phone: NEGATED: Highlighted [id number] 08:53-0400 Height 170.18 cm Kalie Chloe GENERAL ACCOUNTING MANAGER [facility] Work Phone: NEGATED: Highlighted [id number] 08:53-0400 Height 170 cm Kalie Chloe GENERAL ACCOUNTING MANAGER [facility] Work Phone: NEGATED: Highlighted [id number] 08:53-0400 Pulse (Heart Rate) 81 /min Kalie Chloe GENERAL ACCOUNTING MANAGER [facility] Work Phone: NEGATED: Highlighted [id number] 08:53-0400 Weight 97.52 kg Kalie Chloe GENERAL ACCOUNTING MANAGER [facility] Work Phone: NEGATED: Highlighted [id number] 08:53-0400 Weight 98 kg Kalie Chloe GENERAL ACCOUNTING MANAGER [facility] Work Phone: Encounters Encounter Date Encounter Type Care Provider Facility Start: 02-11-2025 End: 02-11-[address] Nadiya Mariano MD -[facility] Work Phone: Start: 02-11-2025 End: 02-11-[address] Jose Alex MD Work Phone: -[facility] Start: 01-24-2025 End: 01-24-[address] Jose Alex MD Work Phone: -[facility] Start: 01-24-2025 End: 01-24-[address] Nadiya Mariano MD -[facility] Work Phone: Start: 01-24-2025 End: 01-24-2025 ambulatory Nadiya Mariano Facility:[facility] Start: 01-13-2025 End: 01-13-[address] Nadiya Mariano MD -[facility] Work Phone: Start: 01-13-2025 End: 01-13-[address] Jose Alex MD Work Phone: -[facility] Start: 12-10-2024 Non-patient / Non-visit Dr. Nadiya osorio MD -[facility] Work Phone: Start: 11-26-[address] Gordon Kemp MD -[facility] Start: 11-26-2024 End: 11-26-[address] Gordon Kemp MD -[facility] Work Phone: Start: 11-26-2024 End: 11-26-[address] Jose Alex MD Work Phone: [facility] Work Phone: Start: 10-15-2024 End: 10-15-[address] Jose Alex MD Work Phone: [facility] Work Phone: Start: 10-15-2024 End: 10-15-[address] [facility] Start: 10-15-2024 End: 10-15-2024 ambulatory Jose Alex Facility:[facility] Start: 05-15-2024 End: 05-15-2024 ambulatory Gordon Chikisfigueroa [place] Start: 09-28-2022 End: 09-28-[address] Jose Alex Work Phone: [facility] Work Phone: Start: 09-28-2022 End: 09-28-[address] Jose Alex Work Phone: [facility] Start: 09-14-2022 End: 09-14-[address] Jose Alex Work Phone: [facility] Start: 08-31-[address] Jose Alex Work Phone: [facility] Start: 08-31-2022 End: 08-31-[address] Jose Alex Work Phone: [facility] Start: 08-03-2022 End: 08-03-[address] Jose Alex Work Phone: [facility] Start: 07-20-2022 End: 07-20-[address] Jose Alex Work Phone: [facility] Start: 05-12-2022 End: 05-12-[address] Jose Alex Work Phone: [facility] Start: 05-12-[address] Jose Alex Work Phone: [facility] Start: 04-28-2022 End: 04-28-[address] Jose Alex Work Phone: [facility] Start: 04-14-2022 End: 04-14-[address] Jose Alex Work Phone: [facility] Start: 03-31-2022 End: 03-31-[address] Jose Alex Work Phone: [facility] Start: 03-17-2022 End: 03-17-[address] Jose Alex Work Phone: [facility] Start: 03-08-2022 End: 03-08-[address] Jose Alex Work Phone: [facility] Work Phone: Start: 03-08-2022 End: 03-08-[address] Jose Alex Work Phone: [facility]-Occupational Therapy Start: 03-01-2022 End: 03-01-[address] Jose Alex Work Phone: [facility] Start: 02-24-2022 End: 02-24-[address] Jose Alex Work Phone: [facility] Start: 02-16-2022 End: 02-16-[address] Jose Alex Work Phone: [facility] Start: 02-10-2022 End: 02-10-[address] Jose Alex Work Phone: [facility] Start: 02-10-2022 End: 02-10-[address] Jose Alex Work Phone: [facility] Start: 02-01-2022 End: 02-01-[address] Jose Alex Work Phone: [facility] Start: 01-27-2022 End: 01-27-[address] Jose Alex Work Phone: [facility] Start: 01-24-2022 End: 01-24-[address] Jose Alex Work Phone: [facility] Start: 01-21-2022 End: 01-21-[address] Jose Alex Work Phone: [facility]-Laboratory, Specimen Start: 01-21-2022 Non-patient / Non-visit Dr. Ted Alex Work Phone: [facility] Start: 01-21-2022 End: 01-21-[address] Jose Alex Work Phone: [facility] Start: 01-19-2022 End: 01-19-[address] Jose Alex Work Phone: [facility] Start: 01-14-2022 Non-patient / Non-visit Dr. Ted Alex Work Phone: [facility] Start: 01-13-2022 End: 01-14-2022 Evaluation and management of inpatient Dr. Jose Alex Work Phone: [facility]-Medical Surgical 3 Start: 01-13-2022 Non-patient / Non-visit Dr. Ted Alex Work Phone: [facility] Start: 01-11-2022 End: 01-11-[address] Jose Alex Work Phone: [facility]-Nuclear Medicine, [facility] Start: 01-06-2022 End: 01-06-[address] Jose Alex Work Phone: [facility]-Cat Scan, [facility] Start: 01-05-2022 End: 01-05-[address] Jose Alex Work Phone: [facility]-Outpatient Bone Densitometry Start: 01-05-[address] Jose Alex Work Phone: [facility] Start: 01-03-2022 End: 01-03-[address] Jose Alex Work Phone: [facility] Start: 12-30-2021 End: 12-30-[address] Jose Alex Work Phone: [facility] Start: 12-28-2021 End: 12-28-[address] Jose Alex Work Phone: [facility]-Laboratory, Specimen Start: 12-28-2021 End: 12-28-[address] Jose Alex Work Phone: [facility] Start: 12-27-2021 End: 12-27-[address] Jose Alex Work Phone: [facility]-Outpatient Pavilion Ultrasound Start: 12-21-2021 End: 12-21-2021 Patient encounter procedure [facility]-Outpatient Breast Imaging Start: 10-29-2021 End: 11-16-2021 Physical therapy management MARIANGEL BOOTHE PA-C [facility] Start: 10-12-2021 End: 10-12-2021 Patient encounter procedure ARIEL ROMAN MD [facility] Start: 10-09-2017 End: 10-09-2017 Patient encounter procedure Augustin Valladares MD Work Phone: [facility] Work Phone: Start: 10-09-2017 [...] Date Care Activity Detail Author Start: 11-26-2024 [facility] Start: 02-17-2022 Patient referral [facility] Work Phone: Start: 01-21-2022 Bacteria identified in Body fluid by Culture [facility] Work Phone: Start: 01-14-2022 Patient discharge [facility] Work Phone: Start: 01-14-2022 [facility] Work Phone: Start: 01-13-2022 Following clinical pathway protocol [facility] Work Phone: Start: 01-13-2022 End: 01-13-2022 [facility] Work Phone: Start: 01-13-2022 Catheterization of vein [facility] Work Phone: Start: 01-13-2022 Deep breathing and coughing exercises [facility] Work Phone: Start: 01-13-2022 Elevation of head of bed [facility] Work Phone: Start: 01-13-2022 Following clinical pathway protocol [facility] Work Phone: Start: 01-13-2022 Incentive spirometry [facility] Work Phone: Start: 01-13-2022 Patient education [facility] Work Phone: Start: 01-13-2022 Taking patient vital signs [facility] Work Phone: Start: 01-13-2022 Vital signs measurements [facility] Work Phone: Start: 01-13-2022 Wound care [facility] Work Phone: Start: 01-13-2022 Admission procedure [facility] Work Phone: Start: 01-13-2022 Anesthesia radical/modified radical breast ANESTH SURGERY OF BREAST [facility] Work Phone: Start: 01-13-2022 Mast modf rad w/ax lymph nod w/wo pect/marc min MAST MOD RAD [facility] Work Phone: Start: 01-13-2022 Patient referral to dietitian [facility] Work Phone: Start: 12-28-2021 Patient referral [facility] Work Phone: Start: 10-09-2017 End: 10-09-2017 Appointment [facility] Work Phone: Anaerobic microbial culture [facility] Work Phone: Basic metabolic 2008 panel with ionized calcium - Serum or Plasma [facility] Blood chemistry [facility] Work Phone: Cancer Ag 125 [Units/volume] in Serum or Plasma [facility] Cancer Ag 15-3 [Pres ence] in Serum or Plasma [facility] Cancer Ag 27-29 [Pre sence] in Serum or Plasma [facility] Carcinoembryonic Ag [Mass/volume] in Serum or Plasma [facility] CBC W Auto Different ial panel - Blood [facility] Work Phone: CBC W Auto Different ial panel - Blood [facility] Comprehensive metabo lic 2000 panel - Serum or Plasma [facility] Lactate dehydrogenas e measurement [facility] Lactate dehydrogenas e measurement [facility] LDH [facility] Work Phone: MR Breast - bilatera l WO and W contrast IV [facility] Work Phone: NM Lymph node Views [facility] Work Phone: NM Whole body Bone Views [facility] Work Phone: Patient Education [email or web address] [email or web address] [facility] Work Phone: Patient referral [facility] Work Phone: Immunizations Immunization Date Immunization Notes Care Provider Fa cility 08-21-2020 Covid ([facility]) [facility] 07-21-2020 Covid ([facility]) [facility] No information available. Kalie Corona LPN [facility] Work Phone: Payers Date Payer Category Payer Self-pay [id number] 2013 Medicare [id number] Medicare [id number] Unknown [id number] Unknown [id number] Unknown [id number] [id number] Unknown [id number] Unknown [id number] [id number] Unknown [id number] Unknown [id number] Social History Date Type Detail Facility Start: 07-15-2019 End: 01-24-2022 Assertion Unknown if ever smoked [facility] Work Phone: Start: 09-07-2020 End: 01-24-2022 Tobacco smoking status Never smoked tobacco (finding) [facility] Sex Assigned At Sex [facility] Start: 07-15-2019 None [facility] Start: 07-15-2019 Spouse/ Signif icant Other [facility] Start: 1940 Sex Assigned At Female [facility] Medical Equipment Procedure Code Equipment Code Equipment [...] Activity Abili ty With Assist of 1 [facility] Work Phone: 01-13-2022 Functional status Patient Activity Ambula rickie [facility] Work Phone: 10-29-2021 Functional Status Objective: Cardiovascular [...] redness noted or obvious signs of infection. [facility] Mental Status Date Assessment Result Facility 01-14-2022 Cognitive function Voice/Name [facility] Work Phone: Clinical Notes 10-12-2021 to 11-26-2024 Note Date & Type Note Facility 11-26-2024 Evaluation note Diagnosis Onset Date Resolution Breast cancer chronic November 26, 2024 1:38pm Urgency of micturition acute 2024 11:08am [facility] Work Phone: 1(258) 517-915206-17-2025 Evaluation note* Diagnosis Onset Date Resolution Status Admit Date Breast cancer chronic November 26, 2024 1:38pm Nocturia acute January 13 11:08am Urge incontinence acute January 13, 2025 11:08am [facility] Work Phone: [id number] Evaluation note* Diagnosis Onset Date Resolution Status Admit Date Breast cancer chronic November 26, 2024 1:38pm Nocturia acute January 13 11:08am Urge incontinence acute January 13, 2025 11:08am Nocturia acute February 11, 2025 9:22am Urge incontinence acute Sept2024 9:22am [facility] Work Phone: 1(272) 805-493105-03-2022 Evaluation + Plan note Diagnostic Tests Pending * NIMCO (serum) 10/12/21 * Methylmalonic Acid 10/12/21 * ENA1 Panel 10/12/21 * Vitamin B6 Level 10/12/21 [facility] Evaluation noteNo assessment information available [facility] Work Phone: evaluation note* Diagnosis Onset Date Resolution Status Lump of right breast acute [facility] Work Phone: evaluation note* Diagnosis Onset Date Resolution Status Lump of right breast acute Breast cancer acute [facility] Work Phone: Evaluation note* Diagnosis Onset Date Resolution Status Lump of right breast acute Breast cancer acute Breast cancer acute [facility] Work Phone: evaluation note* Diagnosis Onset Date Resolution Status Lump of right breast acute Breast cancer acute Breast cancer acute Breast cancer acute [facility] Work Phone: Evaluation note* Diagnosis Onset Date Resolution Status Lump of right breast acute Breast cancer acute Breast cancer acute Breast cancer acute Breast cancer acute Post-mastectomy pain acute Breast cancer acute Seroma, postoperative acute [facility] Work Phone: Evaluation note* Diagnosis Onset Date [...] Aromatase inhibitor-associated arthralgia acute Breast cancer acute [facility] Work Phone: Evaluation note* Diagnosis Onset Date Resolution Status Loss of hair acute 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 Work Phone: Evaluation note* Diagnosis Onset Date Resolution Status Admit Date Breast cancer chronic November 26, 2024 1:38pm [facility] Work Phone: Hospital course Narrative No data available for this section [facility] Hospital Discharge instructions No data available for this section [facility] Progress note No data available for this section [facility] Reason for referral (narrative)No [facility] for [facility] Work [facility]: Instructions Instruction Description Start Date CompletedPlease follow-up wi th Primary Care Physician or [employer] Dehydrator Operator for treatment or adjustment of medication regarding elevated blood pressure.Patient advised to follow-up with Primary Care Physician for BMI management. Advance Directives No Advanced Directives Records Found Advance Directive Response Recorded Date/ Time Living Will Yes July 15 11:04am Power of Roll Hand Yes July 15, 2019 11:04am Advance Directive Response Recorded Date/ Time Living Will Yes January 06, 2022 1:08pm Power of Roll Hand Yes January 06 1:08pm Advance Directive Response Recorded Date/ Time Name of Medical Power of Roll Hand DAUGHTER-PARUL STANLEY January 13, 2022 4:44pm Living Will Yes January 13, 2022 4:44pm Power of Roll Hand Yes January 13 4:44pm Advance Directive Response Recorded Date/ Time Living Will Yes January 13, 2022 3:44pm Power of Roll Hand Yes January 13 3:44pm Advance Directive Response Recorded Date/ Time Living Will Yes January 13, 2022 4:44pm Power of Roll Hand Yes January 13 4:44pm Advance Directive Response Recorded Date/ Time Living Will Yes July 15 11:04am Do you have a Healthcare Power of Roll Hand? Yes July 15, 2019 11:04am Assessments There [...] 13, 2025 End: January 13, 2025 Dr. Jose Alex MD Referring Provider [...] section and content) DATE CREATED AUTHOR 11/17/2021 [facility] ([place]) DATE CREATED AUTHOR AUTHOR'S ORGANIZ ATION 03/01/2025 [facility] Goals (unrecognized section and content) Goals may [...] BE BASED ON THE PRIMARY CLINICAL RECORDS. [facility]. provides no warranty or guarantee of the accuracy or completeness of information in this document.
[2025-03-05] MEDS: 0.9% Saline Lock 10 ML Syringe IV (23:35)
[2025-03-05 23:39] LABS: Hematocrit 33.8 % (37-47); Hemoglobin 11.7 g/dL (12.0-15.0); Immature Granulocytes Count 0.140 X10^3/uL (0.0-0.0); Mean Corp Hgb Conc 34.6 g/dL (32-36); Mean Corpuscular Volume 92.9 fL (81-99); Mean Platelet Vol. 9.5 fl (6.2-12.0); NRBC Flagged by Analyzer 0 % (0-5); Platelet Count 119 K/mm3 (150-450); RBC Distribution Width CV 13.3 % (11.6-14.6); RBC Distribution Width SD 45.4 fl (35.1-43.9); Red Blood Count 3.64 M/mm3 (4.2-5.4); White Blood Count 19.2 K/mm3 (4.4-11.0)
[2025-03-05 23:45] VITALS: BP 111/47; PULSE 69; RESP 24; O2SAT 100
[2025-03-06] VITALS (14 sets, daily range): BP systolic 96–127; BP diastolic 47–82; PULSE 65–78; RESP 14–24; TEMP 36.6–36.9; O2SAT 93–100; BMI 28.1
[2025-03-06 00:03] LABS: Mucous, Urine 0 SEEN /hpf (<or=2+)
[2025-03-06 00:04] LABS: Color, Urine Yellow (Yellow); Glucose, Dipstick Normal (Normal); Ketone-Dipstick Negative (Negative); Leukocyte Esterase-Dipstick 500 /ul (Negative); Nitrite-Dipstick Positive (Negative); Occult Blood-Urine 150 /ul (Negative); Protein-Dipstick 30 mg/dl (Negative); Specific Gravity, Urine 1.010 (1.002-1.030); Urine Bilirubin Dipstick Negative (Negative)
[2025-03-06 00:08] LABS: Troponin T High Sensitivity 89 ng/L (<=14)
--- NOTE | 2025-03-06 00:09 | NURSING ---
0029- dr. Fields notified that patient troponin was 89. Previous troponins 484, [address] at [facility]. Fields ordered that this RN cancel remaining troponin labs and obtain an EKG for baseline
[2025-03-06 00:10] LABS: D-Dimer Quantitative (DVT/PE) 1.47 FEU/ug/m (0.27-0.49)
--- NOTE | 2025-03-06 00:12 | NURSING ---
2332- Pt's daughter, with permission of patient took patient's watch home with her from bedside
[2025-03-06 00:18] LABS: AST(SGOT) 179 U/L (<=31); Alanine Aminotransfer ALT/SGPT 57 U/L (<=34); Albumin, Serum 3.5 g/dL (3.4-4.8); Alkaline Phosphatase 49 U/L (35-104); Anion Gap 12 (5-15); BUN 17 mg/dL (4-19); BUN/Creat Ratio 13.2 RATIO (10-20); Calcium,Total 7.7 mg/dL (7.6-11.0); Carbon Dioxide 22.4 mmol/L (21.0-32.0); Chloride 107 mmol/L (98-108); Estimated Creatinine Clearance 36.19 ml/min (50-250); Globulin 2.7 g/dL (2.2-4.2); Glucose 122 mg/dL (70-99); Magnesium 2.2 mg/dL (1.5-2.2); Potassium 3.9 mmol/L (3.3-5.1)
[2025-03-06 00:30] LABS: CPK Total, Creatine Kinase 3219 U/L (24-195)
[2025-03-06 00:33] LABS: Red Blood Cells-Urine 5-10 SEEN /hpf (0-5); Squamous Epithelial Cells - UA 0-5 SEEN /hpf (5-10)
[2025-03-06] MEDS: 0.9% Saline Lock 10 ML Syringe IV (06:25)
[2025-03-06 06:28] LABS: Hematocrit 32.9 % (37-47); Hemoglobin 11.3 g/dL (12.0-15.0); Immature Granulocytes Count 0.140 X10^3/uL (0.0-0.0); Mean Corp Hgb Conc 34.3 g/dL (32-36); Mean Corpuscular Volume 92.9 fL (81-99); Mean Platelet Vol. 10.0 fl (6.2-12.0); NRBC Flagged by Analyzer 0 % (0-5); POSITIVE DIFFERENTIAL YES; Platelet Count 115 K/mm3 (150-450); RBC Distribution Width CV 13.3 % (11.6-14.6); RBC Distribution Width SD 45.9 fl (35.1-43.9); Red Blood Count 3.54 M/mm3 (4.2-5.4); White Blood Count 18.1 K/mm3 (4.4-11.0)
[2025-03-06 06:38] LABS: Cholesterol 73 mg/dL (<=200); Low Density Lipoprotein Calc. 25 mg/dL; Triglycerides 75 mg/dL; Very Low Density Lipoprotein 15 mg/dL (5-40); cholesterol:hdl ratio screen 2.19
[2025-03-06 06:39] LABS: AST(SGOT) 153 U/L (<=31); Alanine Aminotransfer ALT/SGPT 51 U/L (<=34); Albumin, Serum 3.1 g/dL (3.4-4.8); Alkaline Phosphatase 44 U/L (35-104); Anion Gap 9 (5-15); BUN 16 mg/dL (4-19); BUN/Creat Ratio 13.4 RATIO (10-20); Calcium,Total 7.3 mg/dL (7.6-11.0); Carbon Dioxide 22.0 mmol/L (21.0-32.0); Chloride 111 mmol/L (98-108); Estimated Creatinine Clearance 39.62 ml/min (50-250); Globulin 2.6 g/dL (2.2-4.2); Glucose 121 mg/dL (70-99); Potassium 3.5 mmol/L (3.3-5.1)
[2025-03-06 06:51] LABS: CPK Total, Creatine Kinase 2454 U/L (24-195)
[2025-03-06 06:58] LABS: Differential Indicated SCAN CRITERIA MET
[2025-03-06 06:59] LABS: Differential Comment SCANNED
--- NOTE | 2025-03-06 07:36 | EX.PCM.CONCC ---
Assessment & Plan Assessment/Plan (1) Cystitis: PLAN: Plan RECOMMENDATIONS: 1. Antimicrobials, pending infectious workup. 2. IV fluid hydration until CK levels normalized. 3. Echocardiogram is pending. 4. Encourage incentive spirometer use and mobilize patient as tolerated. 5. PT/OT evaluations 6. The patient is medically stable for transfer out of the ICU. Will sign off from a critical care perspective. IMPRESSIONS: 1. Acute cystitis Continue empiric antimicrobials, pending infectious workup. The patient remains otherwise hemodynamically stable on room air. 2. Generalized weakness with fall, complicated by rhabdomyolysis CK levels are improving with IV fluid resuscitation. Continue to trend CPK levels. 3. Elevated troponin/BNP Unclear cardiac history. Troponin elevation likely secondary to demand ischemia. However, echocardiogram is currently pending. 4. History of breast CVA/restless leg syndrome/obstructive sleep apnea Complicates care, management, recovery and prognosis. Continue supportive measures as noted above. PT/OT to evaluate the patient. This note was generated with [employer] (formerly [employer]) dictation software. It may contain incorrect words, spelling, and punctuation that were not noted in checking the note before signing. HPI Consult Data Date of Consult: 03/06/25 HPI Narrative Reason for Consultation: "Sepsis" HPI Narrative: The patient is an 84-year-old female, with a history as outlined below, who presented as a transfer of care from [facility] with suspected sepsis. The patient has a known history of breast CVA, restless leg syndrome, and obstructive sleep apnea who initially presented to the outside the emergency department with generalized weakness and fall after laying on the ground for multiple hours. According to documentation, the patient was noted to be febrile on presentation to the outside ED with a blood pressure of 91/47 mmHg. She had elevated white blood cell count along with an elevated CK at 4330. CT head was unremarkable. CT C-spine was also unremarkable. Chest x-ray demonstrated no acute cardiopulmonary process. The patient was ultimately fluid resuscitated and placed on antimicrobials. On presentation to our intensive care unit, the patient was noted to be afebrile and hemodynamically stable. She was maintaining appropriate oxygen saturations on room air. Blood and urine cultures are pending. White blood cell count is elevated at 18,000. Platelet count is stable at 115,000. Creatinine is normal. Total CK has improved to 2454. Echocardiogram is currently pending. The patient has no specific complaints. [facility] Medical History (Updated 03/06/25 @ 09:[address] Se Starkey DO) Urge incontinence Urgency of micturition Aromatase inhibitor-associated arthralgia Encounter for education Wears hearing aid Post-menopausal Restless legs Non-smoker Sleep apnea History of pain when walking History of edema History of echocardiogram Home Medications Medication Instructions Recorded Last Taken Type multivitamin 1 tab PO DAILY 01/06/22 Unknown History omega-3 fatty acids 1,000 mg PO DAILY 01/06/22 Unknown History Held on 01/14/22. Instructions: Resume on 02/05/22. Right breast prosthesis #1 ea 05/24/23 Unknown Rx mastectomy bra #3 ea 05/24/23 Unknown Rx potassium chloride 20 mEq 20 meq PO DAILY #7 tabs 11/15/23 Unknown Rx tablet,extended release gabapentin 600 mg tablet 600 mg PO QHS 05/15/24 Unknown History nabumetone 750 mg tablet 750 mg PO BID 05/15/24 Unknown History ropinirole 5 mg tablet 0.5 mg PO QHS 05/15/24 Unknown History lidocaine 4 % topical patch 1 patch topical QDAY PRN pain #10 05/27/24 Unknown Rx ea tamoxifen 20 mg tablet 20 mg PO BID 90 days #180 tabs 11/26/24 Unknown Rx celecoxib 200 mg capsule mg PO 02/11/25 Unknown History desmopressin 0.2 mg tablet 0.2 mg PO ONCE #90 tabs 02/11/25 Unknown Rx nystatin 100,000 unit/gram topical topical 02/11/25 Unknown History ointment oxyquinoline 0.025 %-sodium lauryl 1 ea vaginal 2XW #113.4 grams 02/11/25 Unknown Rx sulfate 0.01 % vaginal gel (Trimo-Huertas Jelly) oxyquinoline 0.025 %-sodium lauryl ea vaginal 02/11/25 Unknown History sulfate 0.01 % vaginal gel (Trimo-Huertas Jelly) Allergy/AdvReac Type Severity Reaction Status Date / Time No Known Allergies Allergy Verified 11/26/24 14:42 Family History Father Diabetes Kidney disease Daughter Cancer Mets ovarian Surgical History History of right mastectomy (~01/2022) History of lumbar surgery History of colonoscopy (~09/2020) History of total right knee replacement Social History Smoking Status: Never smoker ROS ROS Narrative 10 systems were reviewed with pertinent positives as noted in the HPI above. Physical Exam Const alert, oriented x3 and no apparent distress General Appearance: cooperative HEENT normocephalic and head/scalp atraumatic Eyes PERRL, EOMs intact bilaterally and conjunctivae normal Neck supple General: trachea midline Chest inspection of chest normal Resp normal respiratory effort Cardio regular rate and regular rhythm GI normal to inspection, nondistended, normoactive bowel sounds Extremity no clubbing, cyanosis or edema Skin no rashes or lesions noted Neuro CN's II-XII intact bilaterally, moves all extremities and no focal motor deficits Psych cooperative and affect normal Lab / Micro Data 03/06/25 04:50 03/06/25 04:50 Labs: Laboratory Results - last 24 hr 03/05/25 23:22: WBC 19.2 H, RBC 3.64 L, Hgb 11.7 L, Hct 33.8 L, MCV 92.9, MCH 32.1 H, MCHC 34.6, RDW Std Deviation 45.4 H, RDW Coeff of Austyn 13.3, Plt Count 119 L, MPV 9.5, Immature Gran % (Auto) 0.700, Neut % (Auto) 84.6 H, Lymph % (Auto) 11.4 L, [place] % (Auto) 2.8, Eos % (Auto) 0.1, Baso % (Auto) 0.4, Absolute Neuts (auto) 16.2 H, Absolute Lymphs (auto) 2.18, Nucleated RBC % 0, D-Dimer Quant (PE/DVT) 1.47 H*, Sodium 141, Potassium 3.9, Chloride 107, Carbon Dioxide 22.4, Anion Gap 12, BUN 17, Creatinine 1.27 H, Estim Creat Clear Calc 36.19 L, Est GFR (MDRD) Non-Af 42 L, BUN/Creatinine Ratio 13.2, Glucose 122 H, Lactic Acid 1.9, Calcium 7.7, Phosphorus 2.6 L, Magnesium 2.2, Total Bilirubin 0.65, AST 179 H, ALT 57 H, Alkaline Phosphatase 49, Total Creatine Kinase 3219 H, Troponin T High Sens 89 H*, Total Protein 6.2, Albumin 3.5, Globulin 2.7, Albumin/Globulin Ratio 1.3, TSH 4.180 03/05/25 23:32: Urine Color Yellow, Urine Clarity Clear, Urine pH 6.0, Ur Specific [place] 1.010, Urine Protein 30 H, Urine Glucose (UA) Normal, Urine Ketones Negative, Urine Occult Blood 150 H, Urine Nitrite Positive H, Urine Bilirubin Negative, Urine Urobilinogen Normal, Ur Leukocyte Esterase 500 H, Urine RBC 5-10 SEEN, Urine WBC 25-50 SEEN, Ur Squamous Epith Cells 0-5 SEEN, Amorphous Sediment 1+, Urine Bacteria 2+, Urine Mucus 0 SEEN 03/06/25 04:50: WBC 18.1 H, RBC 3.54 L, Hgb 11.3 L, Hct 32.9 L, MCV 92.9, MCH 31.9, MCHC 34.3, RDW Std Deviation 45.9 H, RDW Coeff of Austyn 13.3, Plt Count 115 L, MPV 10.0, Immature Gran % (Auto) 0.800, Neut % (Auto) 71.1 H, Lymph % (Auto) 16.7 L, [place] % (Auto) 10.4 H, Eos % (Auto) 0.7, Baso % (Auto) 0.3, Absolute Neuts (auto) 12.8 H, Absolute Lymphs (auto) 3.01, Nucleated RBC % 0, Differential Comment SCANNED, Sodium 142, Potassium 3.5, Chloride 111 H, Carbon Dioxide 22.0, Anion Gap 9, BUN 16, Creatinine 1.16, Estim Creat Clear Calc 39.62 L, Est GFR (MDRD) Non-Af 46 L, BUN/Creatinine Ratio 13.4, Glucose 121 H, Calcium 7.3 L, Total Bilirubin 0.44, AST 153 H, ALT 51 H, Alkaline Phosphatase 44, Total Creatine Kinase 2454 H, Total Protein 5.7 L, Albumin 3.1 L, Globulin 2.6, Albumin/Globulin Ratio 1.2, Triglycerides 75, Cholesterol 73, LDL Cholesterol, Calc 25, VLDL Cholesterol 15, HDL Cholesterol 33 L, Cholesterol/HDL Ratio 2.19 Charges/Coding Visit Charges Inpatient E&M: 44765 Init Hosp L2
[2025-03-06] MEDS: Pantoprazole Sodium 40 MG in 0.9% Normal Saline (100mL MB+) 100 ML 330 MG IV (08:22)
[2025-03-06] MEDS: Lactobacillis Acidophilus 1 CAP PO ×4 (08:27→21:06)
--- NOTE | 2025-03-06 09:38 | PCM.PN.HOSP ---
Subjective Subjective Doing well, no issues overnight. Feeling better than when she came in. Objective Data Objective Data Vital Signs: Vital Signs Temp Pulse Resp BP Pulse Ox O2 Del Method 98.1 F 76 20 H 127/63 H 96 Room Air 03/06/25 08:00 03/06/25 08:00 03/06/25 08:00 03/06/25 08:00 03/06/25 08:00 03/06/25 08:00 Oxygen Delivery Method Room Air Weight: 179 lb 7.3 oz Body Mass Index (BMI) 28.1 Intake & Output: Intake and Output for Last 24 Hours 03/05/25 03/06/25 03/07/25 03:59 03:59 03:59 Intake Total 100 / 100 460 / 460 Output Total 400 / 400 Balance 100 / 100 60 / 60 Lab / Micro Data 03/06/25 04:50 03/06/25 04:50 Labs: Laboratory Results - last 24 hr 03/05/25 23:22: WBC 19.2 H, RBC 3.64 L, Hgb 11.7 L, Hct 33.8 L, MCV 92.9, MCH 32.1 H, MCHC 34.6, RDW Std Deviation 45.4 H, RDW Coeff of Austyn 13.3, Plt Count 119 L, MPV 9.5, Immature Gran % (Auto) 0.700, Neut % (Auto) 84.6 H, Lymph % (Auto) 11.4 L, [place] % (Auto) 2.8, Eos % (Auto) 0.1, Baso % (Auto) 0.4, Absolute Neuts (auto) 16.2 H, Absolute Lymphs (auto) 2.18, Nucleated RBC % 0, D-Dimer Quant (PE/DVT) 1.47 H*, Sodium 141, Potassium 3.9, Chloride 107, Carbon Dioxide 22.4, Anion Gap 12, BUN 17, Creatinine 1.27 H, Estim Creat Clear Calc 36.19 L, Est GFR (MDRD) Non-Af 42 L, BUN/Creatinine Ratio 13.2, Glucose 122 H, Lactic Acid 1.9, Calcium 7.7, Phosphorus 2.6 L, Magnesium 2.2, Total Bilirubin 0.65, AST 179 H, ALT 57 H, Alkaline Phosphatase 49, Total Creatine Kinase 3219 H, Troponin T High Sens 89 H*, Total Protein 6.2, Albumin 3.5, Globulin 2.7, Albumin/Globulin Ratio 1.3, TSH 4.180 03/05/25 23:32: Urine Color Yellow, Urine Clarity Clear, Urine pH 6.0, Ur Specific [place] 1.010, Urine Protein 30 H, Urine Glucose (UA) Normal, Urine Ketones Negative, Urine Occult Blood 150 H, Urine Nitrite Positive H, Urine Bilirubin Negative, Urine Urobilinogen Normal, Ur Leukocyte Esterase 500 H, Urine RBC 5-10 SEEN, Urine WBC 25-50 SEEN, Ur Squamous Epith Cells 0-5 SEEN, Amorphous Sediment 1+, Urine Bacteria 2+, Urine Mucus 0 SEEN 03/06/25 04:50: WBC 18.1 H, RBC 3.54 L, Hgb 11.3 L, Hct 32.9 L, MCV 92.9, MCH 31.9, MCHC 34.3, RDW Std Deviation 45.9 H, RDW Coeff of Austyn 13.3, Plt Count 115 L, MPV 10.0, Immature Gran % (Auto) 0.800, Neut % (Auto) 71.1 H, Lymph % (Auto) 16.7 L, [place] % (Auto) 10.4 H, Eos % (Auto) 0.7, Baso % (Auto) 0.3, Absolute Neuts (auto) 12.8 H, Absolute Lymphs (auto) 3.01, Nucleated RBC % 0, Differential Comment SCANNED, Sodium 142, Potassium 3.5, Chloride 111 H, Carbon Dioxide 22.0, Anion Gap 9, BUN 16, Creatinine 1.16, Estim Creat Clear Calc 39.62 L, Est GFR (MDRD) Non-Af 46 L, BUN/Creatinine Ratio 13.4, Glucose 121 H, Calcium 7.3 L, Total Bilirubin 0.44, AST 153 H, ALT 51 H, Alkaline Phosphatase 44, Total Creatine Kinase 2454 H, Total Protein 5.7 L, Albumin 3.1 L, Globulin 2.6, Albumin/Globulin Ratio 1.2, Triglycerides 75, Cholesterol 73, LDL Cholesterol, Calc 25, VLDL Cholesterol 15, HDL Cholesterol 33 L, Cholesterol/HDL Ratio 2.19 Physical Exam Narrative General: Alert, Oriented x3, Cooperative, No apparent distress HEENT: Atraumatic, PERRLA, EOMI, Normocephalic Oral: Moist Mucosa Neck: Supple, No JVD Lungs: Diminished, Normal air movement, No rhonchi, No wheeze, No rales Cardiovascular: Regular rate, Regular Rhythm, Normal S1, Normal S2, No murmurs Abdomen: Soft, Non Tender, Non-Distended, No Hepato-splenomegaly Extremities: No edema, Capillary Refill Less than 3 Seconds Skin: No rashes, No breakdown Musculoskeletal: No Tenderness to Palpation of Joints or Extremities Neurological: No focal neurological deficits, moves all extremities Psych/Mental Status: Normal Affect, Appropriate Assessment & Plan Assessment/Plan (1) Sepsis: QUALIFIERS: Sepsis type: sepsis due to unspecified organism Sepsis acute organ dysfunction status: without acute organ dysfunction Qualified Code(s): A41.9 - Sepsis, unspecified organism (2) Acute cystitis with hematuria: (3) Rhabdomyolysis: QUALIFIERS: Rhabdomyolysis type: traumatic Encounter type: initial encounter Qualified Code(s): T79.6XXA - Traumatic ischemia of muscle, initial encounter PLAN: Plan 1. UTI with gram-negative rohith bacteremia/rhabdomyolysis/hypokalemia – She does not meet septic criteria based on insurance – Continue with IV fluids her, her CPK is improving but she does have rhabdo on admission – It is likely of the muscle degradation from rhabdo that is also leading to the elevation in her troponin however an echo is pending, troponin elevation is of no cardiac significance – Awaiting cultures from outside hospital, they did note gram-negative rods in her blood – Potassium has resolved and no AVE on admission – Continue with Rocephin 2. Right-sided breast cancer history – Continue with tamoxifen though her home med list has not been verified yet Awaiting for her medications to be further verified DVT: Lovenox Charges/Coding Visit Charges Inpatient E&M: 38354 Subs Hosp L2
--- NOTE | 2025-03-06 11:10 | CASEMGMT ---
Addendum entered by Angus Colon 03/06/25 11:32: Pt also states that her daughter lives next door and is able to provide pt with support at home. Original Note: SATHISH MCKNIGHT Assessment Face to Face with patient for initial transition planning/care coordination assessment. SATHISH MCKNIGHT introduced self and role at [facility], pt voices understanding. Pt is A&Ox4 and is resting comfortably in the chair and is calm. Care providers, pharmacy, and demographics verified. Admitting dx: Sepsis, UTI LACE Strata: 2 PCP: Zia Alex Specialists: [place] ([place]) Preferred Pharmacy[facility] Insurance: [employer] [facility] Prescription Benefit: Yes LNOK: Yareli (Daughter) Living Arrangements: Pt lives alone in a 2 story home with 3 steps to enter ADLs/IADLs: Pt states that she is indep at baseline. PT is currently ordered and pending Transportation: Self, daughter DME: Pt states that her daughter is working on getting the pt a medical alert system. Pt states that she is in the process of getting a walk-in shower installed with grab bars and shower chair. Pt states that she has access to a cane and FWW. HHC/SNF: denies hx of Pt’s goal: Return to PLOF Plan: TBD. Anticipate SNF vs home with HHC. At this time, the pt states that she prefers to go home @ the time of DC but is open to further rehab in a facility if warranted. Pt states that she does not want to go to the TCU. Pt states that she had a poor experience in the TCU in the past with her . Current 6-Click score is 20. During ICU rounds, pt's daughter states that she prefers the pt to go to the [facility] Rehab Unit at the time of DC. Daughter states that the pt has the ability to SP. Daughter is aware that the choice is up to the pt as she is A&Ox4. Pt denies further questions or concerns at this time. Awaiting PT evaluation. CM to follow. Joey Colon RN, CM
--- NOTE | 2025-03-06 14:55 | CASEMGMT ---
Social Work Pt's dgt requesting that advance directives be completed with pt. SW met with pt after pt's dgt left the hospital to discuss advance directives. Pt states she has already completed living will and HCPOA naming her daughter Yareli Lee with an spring tacker several years ago. Pt denies need to make changes or update documents. SW informed pt that if dgt has additional questions once she returns, SW can return and answer questions. ZULY Rondon
[2025-03-06] MEDS: Nystatin Ointment 1 APPLIC TOPICAL (21:07)
[2025-03-07 03:05] VITALS: BP 125/49; PULSE 72; RESP 16; TEMP 36.3; O2SAT 94
[2025-03-07 05:14] VITALS: BMI 28.6
[2025-03-07 05:58] LABS: Hematocrit 31.9 % (37-47); Hemoglobin 10.7 g/dL (12.0-15.0); Immature Granulocytes Count 0.040 X10^3/uL (0.0-0.0); Mean Corp Hgb Conc 33.5 g/dL (32-36); Mean Corpuscular Volume 92.2 fL (81-99); Mean Platelet Vol. 9.8 fl (6.2-12.0); NRBC Flagged by Analyzer 0 % (0-5); Platelet Count 112 K/mm3 (150-450); RBC Distribution Width CV 13.7 % (11.6-14.6); RBC Distribution Width SD 46.8 fl (35.1-43.9); Red Blood Count 3.46 M/mm3 (4.2-5.4); White Blood Count 10.3 K/mm3 (4.4-11.0)
[2025-03-07 06:14] LABS: Anion Gap 9 (5-15); BUN 12 mg/dL (4-19); BUN/Creat Ratio 11.8 RATIO (10-20); Calcium,Total 7.9 mg/dL (7.6-11.0); Carbon Dioxide 20.5 mmol/L (21.0-32.0); Chloride 111 mmol/L (98-108); Estimated Creatinine Clearance 45.92 ml/min (50-250); Glucose 128 mg/dL (70-99); Potassium 3.7 mmol/L (3.3-5.1)
[2025-03-07 09:00] VITALS: BP 141/63; PULSE 78; RESP 16; TEMP 36.8; O2SAT 98
[2025-03-07] MEDS: Lactobacillis Acidophilus 1 CAP PO ×3 (09:06→21:13)
--- NOTE | 2025-03-07 09:41 | CASEMGMT ---
Social Work SW spoke with the patient. Patient reported she would like to discharge to inpatient rehab at [facility]. She denied a list of other inpatient rehab facilities. SW explained patient may not be approved for inpatient rehab. Patient reported she might private pay. SW explained other options might being going to a SNF or going home with HH. Patient reported her daughter lives 5 minutes away. Plan: SW to make referral [facility] inpatient rehab and provide the patient a list of SNF facilities. DAIANA No
--- NOTE | 2025-03-07 09:56 | CASEMGMT ---
Discharge Planning A list of SNF providers including quality and resource use data and consistent with the patient's preferred geographic region, medical needs, and insurance network was created in [employer] Guide. This list was provided to the SW. Ifeoma Carpio Discharge Planning Asst.
[2025-03-07] MEDS: 0.9% Normal Saline (250mL Bag) 250 ML 15 ML IV (09:59)
[2025-03-07] MEDS: 0.9% Saline Lock 10 ML Syringe IV ×2 (10:05→21:13)
--- NOTE | 2025-03-07 10:13 | CASEMGMT ---
NANETTE A list of SNF providers including quality and resource use data and consistent with the patient's preferred geographic region, medical needs, and insurance network was created in [employer] Guide. This list was provided to the patient. NANETTE explained the cost of [facility] inpatient rehab private pay is $1581/day 7 days up front. $11,067.00 on admission if insurance does not approve and she still wants to go there. DAIANA Bravo
--- NOTE | 2025-03-07 11:22 | PCM.PN.HOSP ---
Subjective Subjective Doing well, feels much better. Currently awaiting culture data from outside hospital Objective Data Objective Data Vital Signs: Vital Signs Temp Pulse Resp BP Pulse Ox O2 Del Method 98.2 F 78 16 141/63 H 98 Room Air 03/07/25 09:00 03/07/25 09:00 03/07/25 09:00 03/07/25 09:00 03/07/25 09:00 03/07/25 09:00 Oxygen Delivery Method Room Air Weight: 182 lb 15.739 oz Body Mass Index (BMI) 28.6 Intake & Output: Intake and Output for Last 24 Hours 03/06/25 03/07/25 03/08/25 03:59 03:59 03:59 Intake Total 100 / 100 2240 / 2240 50 / 50 Output Total 400 / 400 Balance 100 / 100 1840 / 1840 50 / 50 Lab / Micro Data 03/07/25 05:02 03/07/25 05:02 Labs: Laboratory Results - last 24 hr 03/07/25 05:02: WBC 10.3, RBC 3.46 L, Hgb 10.7 L, Hct 31.9 L, MCV 92.2, MCH 30.9, MCHC 33.5, RDW Std Deviation 46.8 H, RDW Coeff of Austyn 13.7, Plt Count 112 L, MPV 9.8, Immature Gran % (Auto) 0.400, Neut % (Auto) 59.1, Lymph % (Auto) 23.4, [place] % (Auto) 12.4 H, Eos % (Auto) 4.1, Baso % (Auto) 0.6, Absolute Neuts (auto) 6.1, Absolute Lymphs (auto) 2.42, Nucleated RBC % 0, Sodium 141, Potassium 3.7, Chloride 111 H, Carbon Dioxide 20.5 L, Anion Gap 9, BUN 12, Creatinine 1.01, Estim Creat Clear Calc 45.92 L, Est GFR (MDRD) Non-Af 55 L, BUN/Creatinine Ratio 11.8, Glucose 128 H, Calcium 7.9 Physical Exam Narrative General: Alert, Oriented x3, Cooperative, No apparent distress HEENT: Atraumatic, PERRLA, EOMI, Normocephalic Oral: Moist Mucosa Neck: Supple, No JVD Lungs: Diminished, Normal air movement, No rhonchi, No wheeze, No rales Cardiovascular: Regular rate, Regular Rhythm, Normal S1, Normal S2, No murmurs Abdomen: Soft, Non Tender, Non-Distended, No Hepato-splenomegaly Extremities: No edema, Capillary Refill Less than 3 Seconds Skin: No rashes, No breakdown Musculoskeletal: No Tenderness to Palpation of Joints or Extremities Neurological: No focal neurological deficits, moves all extremities Psych/Mental Status: Normal Affect, Appropriate Assessment & Plan Assessment/Plan (1) Sepsis: QUALIFIERS: Sepsis type: sepsis due to unspecified organism Sepsis acute organ dysfunction status: without acute organ dysfunction Qualified Code(s): A41.9 - Sepsis, unspecified organism (2) Acute cystitis with hematuria: (3) Rhabdomyolysis: QUALIFIERS: Rhabdomyolysis type: traumatic Encounter type: initial encounter Qualified Code(s): T79.6XXA - Traumatic ischemia of muscle, initial encounter PLAN: Plan 1. UTI with gram-negative rohith bacteremia/rhabdomyolysis/hypokalemia – She does not meet septic criteria based on insurance – Continue with IV fluids her, her CPK is improving but she does have rhabdo on admission – It is likely of the muscle degradation from rhabdo that is also leading to the elevation in her troponin however an echo is pending, troponin elevation is of no cardiac significance – Awaiting cultures from outside hospital, they did note gram-negative rods in her blood – Potassium has resolved and no AVE on admission – Continue with Rocephin – PT/OT 2. Right-sided breast cancer history – Continue with tamoxifen though her home med list has not been verified yet Awaiting for her medications to be further verified DVT: Lovenox Charges/Coding Visit Charges Inpatient E&M: 20605 Subs Hosp L2
--- NOTE | 2025-03-07 12:47 | CASEMGMT ---
Social Work SW spoke with the daughter. The daughter wants her mother to discharge to inpatient rehab at [facility]. SW explained the request has been submitted to the insurance company. The daughter has the cost of [facility] inpatient rehab if they decide to pay private pay. SW explained that the patient may not be approved for inpatient rehab by the insurance company. SW explained other options might being going to a SNF or going home with HH. The daughter wants her mother to update her LW. DAIANA No
--- NOTE | 2025-03-07 15:37 | CASEMGMT ---
Social Work Insurance denied the patient going to [facility] inpatient rehab. Physician denied doing a peer to peer. Patient is going to private pay at the inpatient rehab hospital. Patient maybe able to discharge on Monday to the [facility] inpatient rehab unit. SW assisted the patient completing a LW. DAIANA No
--- NOTE | 2025-03-07 16:04 | CASEMGMT ---
Social Work SW spoke with the patient and informed her if she is medically ready for discharge she will go the inpatient rehab unit Monday. NANETTE explained to the patient that she must pay the gas station cashier on Monday a total of $11,067.00. The daughter is aware of cost as well. DAIANA No
[2025-03-07 21:20] VITALS: BP 131/71; PULSE 71; RESP 18; TEMP 36.4; O2SAT 96
[2025-03-08 05:25] VITALS: BP 119/61; PULSE 67; RESP 16; TEMP 36.6; O2SAT 94
[2025-03-08 05:34] VITALS: BMI 28.7
[2025-03-08 05:36] LABS: Hematocrit 33.6 % (37-47); Hemoglobin 11.2 g/dL (12.0-15.0); Immature Granulocytes Count 0.050 X10^3/uL (0.0-0.0); Mean Corp Hgb Conc 33.3 g/dL (32-36); Mean Corpuscular Volume 93.3 fL (81-99); Mean Platelet Vol. 9.8 fl (6.2-12.0); NRBC Flagged by Analyzer 0 % (0-5); Platelet Count 139 K/mm3 (150-450); RBC Distribution Width CV 13.3 % (11.6-14.6); RBC Distribution Width SD 45.6 fl (35.1-43.9); Red Blood Count 3.60 M/mm3 (4.2-5.4); White Blood Count 7.6 K/mm3 (4.4-11.0)
[2025-03-08 06:22] LABS: Anion Gap 9 (5-15); BUN 14 mg/dL (4-19); BUN/Creat Ratio 14.2 RATIO (10-20); Calcium,Total 8.2 mg/dL (7.6-11.0); Carbon Dioxide 21.9 mmol/L (21.0-32.0); Chloride 111 mmol/L (98-108); Estimated Creatinine Clearance 46.88 ml/min (50-250); Glucose 109 mg/dL (70-99); Potassium 3.6 mmol/L (3.3-5.1)
[2025-03-08 08:24] VITALS: BP 126/78; PULSE 67; RESP 18; TEMP 36.6; O2SAT 96
--- NOTE | 2025-03-08 09:13 | PN.HOSP_ITS ---
Subjective Subjective Doing well, no issues overnight. Currently awaiting culture data from outside hospital. Objective Data Objective Data Vital Signs: Vital Signs Temp Pulse Resp BP Pulse Ox O2 Del Method 98 F 67 18 126/78 H 96 Room Air 03/08/25 08:24 03/08/25 08:24 03/08/25 08:24 03/08/25 08:24 03/08/25 08:24 03/08/25 08:24 Oxygen Delivery Method Room Air Weight: 183 lb 3.266 oz Body Mass Index (BMI) 28.7 Intake & Output: Intake and Output for Last 24 Hours 03/07/25 03/08/25 03/09/25 03:59 03:59 03:59 Intake Total 2240 / 2240 1264 / 1264 450 / 450 Output Total 400 / 400 800 / 800 Balance 1840 / 1840 1264 / 1264 -350 / -350 Lab / Micro Data 03/08/25 04:48 03/08/25 04:48 Labs: Laboratory Results - last 24 hr 03/08/25 04:48: WBC 7.6, RBC 3.60 L, Hgb 11.2 L, Hct 33.6 L, MCV 93.3, MCH 31.1, MCHC 33.3, RDW Std Deviation 45.6 H, RDW Coeff of Austyn 13.3, Plt Count 139 L, MPV 9.8, Immature Gran % (Auto) 0.700, Neut % (Auto) 48.6, Lymph % (Auto) 31.2, Ulster % (Auto) 13.2 H, Eos % (Auto) 5.5 H, Baso % (Auto) 0.8, Absolute Neuts (auto) 3.7, Absolute Lymphs (auto) 2.37, Nucleated RBC % 0, Sodium 142, Potassium 3.6, Chloride 111 H, Carbon Dioxide 21.9, Anion Gap 9, BUN 14, Creatinine 0.99, Estim Creat Clear Calc 46.88 L, Est GFR (MDRD) Non-Af 56 L, BUN/Creatinine Ratio 14.2, Glucose 109 H, Calcium 8.2 Micro: Microbiology 03/05/25 23:32 Urine, Clean Catch Urine Culture - Final Mixed Gram Pos & Gram Neg Org Physical Exam Narrative General: Alert, Oriented x3, Cooperative, No apparent distress HEENT: Atraumatic, PERRLA, EOMI, Normocephalic Oral: Moist Mucosa Neck: Supple, No JVD Lungs: Diminished, Normal air movement, No rhonchi, No wheeze, No rales Cardiovascular: Regular rate, Regular Rhythm, Normal S1, Normal S2, No murmurs Abdomen: Soft, Non Tender, Non-Distended, No Hepato-splenomegaly Extremities: No edema, Capillary Refill Less than 3 Seconds Skin: No rashes, No breakdown Musculoskeletal: No Tenderness to Palpation of Joints or Extremities Neurological: No focal neurological deficits, moves all extremities Psych/Mental Status: Normal Affect, Appropriate Assessment & Plan Assessment/Plan (1) Sepsis: QUALIFIERS: Sepsis type: sepsis due to unspecified organism S epsis acute organ dysfunction status: without acute organ dysfunction Qualified Code(s): A41.9 - Sepsis, unspecified organism (2) Acute cystitis with hematuria: (3) Rhabdomyolysis: QUALIFIERS: Rhabdomyolysis type: traumatic Encounter type: i nitial encounter Qualified Code(s): T79.6XXA - Traumatic ischemia of muscle, initial encounter PLAN: Plan 1. UTI with gram-negative rohith bacteremia/rhabdomyolysis/hypokalemia – She does not meet septic criteria based on insurance – Continue with IV fluids her, her CPK is improving but she does have rhabdo on admission – It is likely of the muscle degradation from rhabdo that is also leading to the elevation in her troponin however an echo was ordered with a normal EF and stage I diastolic dysfunction with a PASP of 35 mmHg, troponin elevation is of no cardiac significance – Awaiting cultures from outside hospital, they did note gram-negative rods in her blood – Potassium has resolved and no AVE on admission – Continue with Rocephin – PT/OT 2. Right-sided breast cancer history – Continue with tamoxifen though her home med list has not been verified yet Thanks DVT: Lovenox Charges/Coding Visit Charges Inpatient E&M: 78594 Subs Hosp L2
[2025-03-08] MEDS: Lactobacillis Acidophilus 1 CAP PO ×4 (09:41→22:04)
[2025-03-08] MEDS: 0.9% Saline Lock 10 ML Syringe IV (09:45)
[2025-03-08] MEDS: FLU VACCINE HIGH DOSE 25-26(65YR UP) 180 MCG/0.5 ML SYRINGE IM (09:46)
[2025-03-08 14:32] VITALS: BP 121/55; PULSE 73; RESP 16; TEMP 36.8; O2SAT 98
[2025-03-08 22:02] VITALS: BP 140/79; PULSE 70; RESP 16; TEMP 36.8
[2025-03-09 03:09] VITALS: BMI 28.8
[2025-03-09 03:22] VITALS: BP 131/60; PULSE 66; RESP 18; TEMP 36.7; O2SAT 96
[2025-03-09 09:30] VITALS: BP 126/70; PULSE 75; RESP 18; TEMP 36.9; O2SAT 96
[2025-03-09] MEDS: Lactobacillis Acidophilus 1 CAP PO (10:07)
[2025-03-09] MEDS: Nystatin Ointment 1 APPLIC TOPICAL (10:07)
[2025-03-09] MEDS: 0.9% Saline Lock 10 ML Syringe IV (10:08)
--- NOTE | 2025-03-09 10:38 | DCINST_ITS ---
Discharge Instructions DC O2, CPAP, BIPAP needs Home O2 Discharge instructions: No Dressing / Incision Discharge Activity: Return to Normal Activity Dressing / Incision Call your doctor if you observe: Fever of 101 or Higher, Shortness of breath, Dizziness, Fainting spells, Swelling in the ankles, Chest pain and Increased palpitations (irregular heartbeat) Follow Up Care Test Results: Test results from this visit will be discussed in further detail at your follow- up appointment, if applicable. Discharge Plan Admission Admit Date/Time: 03/05/25 22:20 Attending Provider: Benito Au Primary Care Provider: Zia Alex Consulting Providers: Caio Calvert Discharge Orders/Prescriptions Prescriptions: New cefdinir 300 mg capsule 300 mg PO BID Qty: 14 0RF Continued ropinirole 5 mg tablet 0.5 mg PO QHS Rx Instructions: 1 tab in am, 1 tab in evening, and 2 tabs at bedtime potassium chloride 20 mEq tablet extended release 20 meq PO DAILY Qty: 7 0RF gabapentin 600 mg tablet 600 mg PO QHS tamoxifen 20 mg tablet 20 mg PO BID 90 Days Qty: 180 3RF nystatin 100,000 unit/gram ointment topical multivitamin Tablet 1 tab PO DAILY omega-3 fatty acids Capsule 1,000 mg PO DAILY lidocaine 4 % adhesive patch,medicated 1 patch topical QDAY PRN (Reason: pain) Qty: 10 0RF desmopressin 0.2 mg tablet 0.2 mg PO ONCE Qty: 90 3RF Discontinued nabumetone 750 mg tablet 750 mg PO BID celecoxib 200 mg capsule PO Patient Comments: [NO ORIGINAL SIG] No Action Trimo-Huertas Jelly 0.025-0.01 % gel vaginal (DME) Right breast prosthesis See Rx Instructions .Route .MEDSUPPLY Qty: 1 0RF Rx Instructions: As directed (DME) mastectomy bra See Rx Instructions .Route .MEDSUPPLY Qty: 3 0RF Rx Instructions: As directed Trimo-Huertas Jelly 0.025-0.01 % gel 1 ea vaginal 2XW Qty: 113.4 3RF Referrals / Follow Up: Zia Alex MD [Primary Care Provider, Family Practice] Disposition Disposition (needs filled in before D/C Order can be placed): Inpatient Rehab Unit/Facility
--- NOTE | 2025-03-10 14:12 | PCM.DC.SUM ---
Providers Date of Admission: 03/05/25 Date of Discharge: 03/09/25 Primary Care Physician: Dr. Zia Alex MD Consultations 03/05/25 22:30 Consult: Enamel Shader / Pulmonary Medicine Routine Consulting Provider: Intensivists/Pulmonary Med Reason for Consult: Sepsis 2/2 UTI with Rhabdomyolysis after Fall. EMERGENT Consult: No MD Notified: Yes Date Notified: 03/06/25 Time Notified: 05:54 Method of Notification: Text Reason For Visit: SEPSIS, UTI Diagnosis Discharge Diagnosis (1) Sepsis: Status: Acute Code(s): A41.9 - Sepsis, unspecified organism Qualifiers: Sepsis type: sepsis due to unspecified organism Sepsis acute organ dysfunction status: without acute organ dysfunction Qualified Code(s): A41.9 - Sepsis, unspecified organism (2) Acute cystitis with hematuria: Status: Acute Code(s): N30.01 - Acute cystitis with hematuria (3) Rhabdomyolysis: Status: Acute Code(s): M62.82 - Rhabdomyolysis Qualifiers: Rhabdomyolysis type: traumatic Encounter type: initial encounter Qualified Code(s): T79.6XXA - Traumatic ischemia of muscle, initial encounter Plan 1. UTI with gram-negative rohith bacteremia/rhabdomyolysis/hypokalemia – She does not meet septic criteria based on insurance – Continue with IV fluids her, her CPK is improving but she does have rhabdo on admission – It is likely of the muscle degradation from rhabdo that is also leading to the elevation in her troponin however an echo was ordered with a normal EF and stage I diastolic dysfunction with a PASP of 35 mmHg, troponin elevation is of no cardiac significance – Awaiting cultures from outside hospital, they did note gram-negative rods in her blood – Potassium has resolved and no AVE on admission – Continue with Rocephin – PT/OT 2. Right-sided breast cancer history – Continue with tamoxifen though her home med list has not been verified yet Thanks DVT: Lovenox Medications at Discharge Home Medications multivitamin 1 tab PO DAILY vitamin 01/06/22 omega-3 fatty acids 1,000 mg PO DAILY vitamin 01/06/22 potassium chloride 20 mEq tablet,extended release 20 meq PO DAILY vitamin #7 tabs 11/15/23 gabapentin 600 mg tablet 600 mg PO QHS pain 05/15/24 ropinirole 5 mg tablet 0.5 mg PO QHS RLS 05/15/24 lidocaine 4 % topical patch 1 patch topical QDAY PRN pain #10 ea 05/27/24 tamoxifen 20 mg tablet 20 mg PO BID breast cancer 90 days #180 tabs 11/26/24 desmopressin 0.2 mg tablet 0.2 mg PO ONCE vasopressor #90 tabs 02/11/25 nystatin 100,000 unit/gram topical ointment 1 applic topical BID PRN rash 02/11/25 cefdinir 300 mg capsule 300 mg PO BID atb #14 caps 03/09/25 Hospital Course Operations None Procedures None Summary of Care Provided Minutes Spent on Discharge: 33 Hospital Course: Per HPI: KYLIE ECHAVARRIA, is a 84 F with a past medical history of being overweight; BMI of 28.1 this admission, EMIR; currently not using CPAP, neuropathy; on gabapentin nightly, RLS; on ropinirole nightly, history of Right-sided breast cancer with ~3 cm retroareolar mass with pathology positive for invasive ductal carcinoma grade 1, 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 Kemp of oncology, history of aromatase inhibitor-associated arthralgia, history of urge incontinence and OA; with history of lumbar surgery and Right TKR on nabumetone twice daily who presented to [facility] ER complaining of generalized weakness with fall x 2 over the past 2 days with her last fall out of bed sometime last evening with patient unable to get up for several hours in spite of crawling on the floor trying to get up. She denies loss of consciousness or head trauma with either of her falls. During her initial ER evaluation she was noted to have a Fever of 38.8 °C with a low blood pressure of 91/47 mmHg and a subsequent UA that revealed Acute Cystitis; with microscopic hematuria with corresponding Leukocytosis of 23.2 K with Left-shift of 10% present on admission consistent with Sepsis. 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 Her COVID/influenza/RSV screen was negative with CT scan of the head showing no acute intracranial abnormality, CT scan of the spine showing no acute fracture or traumatic misalignment and CXR revealing no acute process. She was then treated with a 3 L sepsis fluid bolus in addition to IV ceftriaxone with the ER physician initially contacting [facility] and [facility] with neither having ICU beds immediately available so call was subsequently made to this hospital where she was accepted in transfer for ICU level of care. Review of her records reveal she was noted to have hypokalemia of 3.1 mmol/L present on admission which was replaced with a normal creatinine of 1.4 mg/dL with suspicion for superimposed AVE in spite of normal renal indices with previous laboratory studies here revealing normal creatinine of 1.2 mg/dL on January 24, 2025. Upon arrival patient was noted to be afebrile with a blood pressure of 108/80 mmHg and no other acute complaints. The patient's daughter was present at the bedside and her questions were answered to the best of my ability. She was then admitted to the ICU for ongoing care for stay that is expected to extend beyond 2 midnights. Hospital Course: 1. UTI with E. coli bacteremia/rhabdomyolysis/hypokalemia – She does not meet septic criteria based on insurance – Continue with IV fluids her, her CPK is improving but she does have rhabdo on admission – It is likely of the muscle degradation from rhabdo that is also leading to the elevation in her troponin however an echo was ordered with a normal EF and stage I diastolic dysfunction with a PASP of 35 mmHg, troponin elevation is of no cardiac significance – Awaiting cultures from outside hospital, they did note gram-negative rods in her blood – Potassium has resolved and no AVE on admission – Continue with Rocephin – PT/OT – She did not meet criteria for rehab placement or SNF placement however she is willing to pay [id number] for rehab and accepted her on Monday. Will continue with cefdinir p.o. 300 mg twice daily since she improved on Rocephin despite the lack of culture data from the outside hospital which should be ready on Monday, will complete another 7 days on discharge as she had E. coli bacteremia. I discussed with her the plan for discharge she expressed understanding of the risks and benefits of going to the rehab and would like to go today. 2. Right-sided breast cancer history – Continue with tamoxifen though her home med list has not been verified yet Weight / BMI Weight Weight: 183 lb 10.321 oz Body Mass Index (BMI) 28.8 ABG / Lab / Microbiology Data 03/08/25 04:48 03/08/25 04:48 Microbiology: Microbiology 03/05/25 23:50 Blood Culture (Wb) - Left Forearm Blood Culture - Preliminary No growth in 48 hours. 03/05/25 23:20 Blood Culture (Wb) - Anticubital Left Blood Culture - Preliminary No growth in 48 hours. 03/05/25 23:32 Urine, Clean Catch Urine Culture - Final Mixed Gram Pos & Gram Neg Org D/C Instructions Call your doctor if you observe: Fever of 101 or Higher, Shortness of breath, Dizziness, Fainting spells, Swelling in the ankles, Chest pain and Increased palpitations (irregular heartbeat) DC O2, CPAP, BIPAP Needs Home O2 Discharge instructions: No Meaningful Use Info Meaningful Use Meaningful Use Diagnoses (Choose all that apply): None applicable Discharge Plan Admission Admit Date/Time: 03/05/25 22:20 Attending Provider: Benito Au Primary Care Provider: Zia Alex Consulting Providers: Caio Calvert Discharge Orders/Prescriptions Prescriptions: New cefdinir 300 mg capsule 300 mg PO BID Qty: 14 0RF Continued ropinirole 5 mg tablet 0.5 mg PO QHS Rx Instructions: 1 tab in am, 1 tab in evening, and 2 tabs at bedtime potassium chloride 20 mEq tablet extended release 20 meq PO DAILY Qty: 7 0RF gabapentin 600 mg tablet 600 mg PO QHS tamoxifen 20 mg tablet 20 mg PO BID 90 Days Qty: 180 3RF nystatin 100,000 unit/gram ointment 1 applic topical BID PRN multivitamin Tablet 1 tab PO DAILY omega-3 fatty acids Capsule 1,000 mg PO DAILY lidocaine 4 % adhesive patch,medicated 1 patch topical QDAY PRN (Reason: pain) Qty: 10 0RF desmopressin 0.2 mg tablet 0.2 mg PO ONCE Qty: 90 3RF Discontinued nabumetone 750 mg tablet 750 mg PO BID celecoxib 200 mg capsule PO Patient Comments: [NO ORIGINAL SIG] Referrals / Follow Up: Zia Alex MD [Primary Care Provider, Family Practice] Disposition Disposition (needs filled in before D/C Order can be placed): Inpatient Rehab Unit/Facility Charges/Coding Visit Charges Inpatient E&M: 38448 Disch Hosp >30min
== END 2025-03-09 13:13 | DRG 690 ==
LOC: ICU 03-06 10:22 → PCU 03-06 15:55
PROVIDERS: Admitting Provider Internal Medicine; PCP Family Medicine; Visit Provider Family Medicine
DX: N30.01 Acute cystitis with hematuria (principal); R78.81 Bacteremia; I24.89 Other forms of acute ischemic heart disease; T79.6XXA Traumatic ischemia of muscle, initial encounter; C50.111 Malignant neoplasm of central portion of right female breast; E87.6 Hypokalemia; E66.3 Overweight; B96.20 Unspecified Escherichia coli [E. coli] as the cause of diseases classified elsewhere; I50.9 Heart failure, unspecified; G25.81 Restless legs syndrome; G62.9 Polyneuropathy, unspecified; G47.33 Obstructive sleep apnea (adult) (pediatric); W06.XXXA Fall from bed, initial encounter; I25.2 Old myocardial infarction; R79.89 Other specified abnormal findings of blood chemistry; Z11.52 Encounter for screening for COVID-19; Z68.28 Body mass index [BMI] 28.0-28.9, adult; Z79.810 Long term (current) use of selective estrogen receptor modulators (SERMs); Z79.899 Other long term (current) drug therapy; Z17.0 Estrogen receptor positive status [ER+]; Z90.11 Acquired absence of right breast and nipple
CPT/HCPCS: 36415; 80048; 80053; 80061; 81001; 82550; 83605; 83735; 84100; 84443; 84484; 85025; 85379; 87040; 87086; 87088; 93306; 97116; 97162; 97166; 97530; 97535; Q9957; A4216

== ENCOUNTER 2025-03-09 13:30 | Inpatient (IN) | payer SELFPAY ==
--- OUTSIDE RECORDS SUMMARY | 2025-03-05 17:06 | XMS RPT_ITS ---
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 Name Role Phone NEEL LARRY, JOSE [place] Primary Care Unavailable ANDREEA MAN DO Attending Unavailable PROBLEMS No Problem Records Found PROCEDURES No Procedure Records Found RESULTS LAC Collected: 03/05/2025 8:17 PM Status: F Source: [facility] Order Comment: Ordered secon joe to Lactic Acid result greater than or equal to 2.0 TYPE CODE TESTS RESULT OUT OF RANGE REFERENCE UNITS LAB LAC(LOINC) Lactic Acid Lvl 1.4 0.4-2.0 mmol/L Performed By: #### LAC #### [facility] [address], [place] [address] CUR Observed: 03/05/2025 7:10 PM Status: F Source: [facility] . MICRO - Microbiology PROCEDURE: Urine Culture [O1 *1] SOURCE: Urine BODY SITE: COLLECTED DATE/TIME: 03/05/2025 19:10 EDT RECEIVED DATE/TIME: 03/06/2025 16:07 EDT START DATE/TIME: 03/06/2025 16:07 EDT FREE TEXT SOURCE: FINAL REPORTS Final Report [] Verified Date/Time/Personnel: 03/09/2025 08:29 EDT >100,000 cfu/ml Escherichia coli >100,000 cfu/ml Escherichia coli #2 PRELIMINARY REPORTS Preliminary Report [] Verified Date/Time/Personnel: 03/08/2025 09:23 EDT >100,000 cfu/ml Escherichia coli EDEN to follow >100,000 cfu/ml Escherichia coli #2 EDEN to follow Preliminary Report [] Verified Date/Time/Personnel: 03/07/2025 10:33 EDT Culture results pending. Preliminary Report [] Verified Date/Time/Personnel: 03/06/2025 16:59 EDT Specimen received in lab. SUSCEPTIBILITY RESULTS Escherichia coli Antibiotic EDEN Dilut EDEN Inter Ampicillin >16 Resistant Ampicillin/ 8/4 Susceptible Sulbactam Aztreonam <=4 Susceptible Cefazolin <=2 Susceptible Cefepime <=2 Susceptible Ceftolozane/ <=2 Susceptible Tazobactam Ciprofloxacin <=0.25 Susceptible Ertapenem <=0.5 Susceptible Gentamicin <=2 Susceptible ID Panel Not Not Applicable Applicable Imipenem <=1 Susceptible Levofloxacin <=0.5 Susceptible Meropenem <=1 Susceptible Minocycline <=4 Susceptible Nitrofurantoin <=32 Susceptible Piperacillin/ <=8 Susceptible Tazobactam Trimethoprim/ <=0.5/9.5 Susceptible Sulfa Escherichia coli #2 Antibiotic EDEN Dilut EDEN Inter Ampicillin >16 Resistant Ampicillin/ 16/8 Intermediate Sulbactam Aztreonam <=4 Susceptible Cefazolin <=2 Susceptible Cefepime <=2 Susceptible MICRO - Microbiology SUSCEPTIBILITY RESULTS Escherichia coli #2 Antibiotic EDEN Dilut EDEN Inter Ceftolozane/ <=2 Susceptible Tazobactam Ciprofloxacin <=0.25 Susceptible Ertapenem <=0.5 Susceptible Gentamicin <=2 Susceptible ID Panel Not Not Applicable Applicable Imipenem <=1 Susceptible Levofloxacin <=0.5 Susceptible Meropenem <=1 Susceptible Minocycline <=4 Susceptible Nitrofurantoin <=32 Susceptible Piperacillin/ <=8 Susceptible Tazobactam Trimethoprim/ <=0.5/9.5 Susceptible Sulfa Order Comments O1: Urine Culture Added by Discern Performing Locations *1: This test was performed at: [facility], [address] [place] [address], [id number] , UA Collected: 03/05/2025 6:49 PM Status: F Source: [facility] TYPE CODE TESTS RESULT OUT OF RANGE REFERENCE UNITS LAB SPCUA(LOINC) UA Specimen Type Clean Catch LAB CLRUA(LOINC) UA Color Yellow Yellow LAB APPUA(LOINC) UA Appear Cloudy Abnormal Clear LAB SGUA(LOINC) UA Spec Grav 1.015 1.015-1.025 LAB GLUA(LOINC) UA Glucose Negative Negative mg/dL LAB BILUA(LOINC) UA Bili Negative Negative LAB KETUA(LOINC) UA Ketones 15 Abnormal Negative mg/dL LAB BLDUA(LOINC) UA Blood Large Abnormal Negative LAB PHUA(LOINC) UA pH 6.0 5.0 - 8.0 LAB PROUA(LOINC) UA Protein 30 Negative mg/dL LAB UROUA(LOINC) UA Urobilinogen 0.2 0.2-1.0 E.U ./dL LAB NITUA(LOINC) UA Nitrite Negative Negative LAB LEUUA(LOINC) UA Leuk Est Moderate Abnormal Negative Performed By: #### UA, UAMIC #### [address] [address] UAMIC Collected: 03/05/2025 6:49 PM Status: F Source: [facility] TYPE CODE TESTS RESULT OUT OF RANGE REFERENCE UNITS LAB RBCUA(LOINC) UA RBC 5-10 Abnormal 0-2 /hpf LAB WBCUA(LOINC) UA WBC 50-100 Abnormal 0-5 /hpf LAB EPIUA(LOINC) UA Squam Epithelial 3-5 0-20 /hpf LAB BACUA(LOINC) UA Bacteria 4+ Abnormal Negative /hpf Performed By: #### UA, UAMIC #### [address] [address] TROPHS Collected: 03/05/2025 5:45 PM Status: F Source: [facility] TYPE CODE TESTS RESULT OUT OF RANGE REFERENCE UNITS LAB HSTROP(LOINC) High Sensitivity Troponin I 391 High 0-51 ng/L Result Comment: High Sensiti ve Troponin I Reference Ranges: Female: 0-51 ng/L Male: 0-76 ng/L Testing performed on Snipi using a homogeneous sandwich chemiluminescent immunoassay based on Room n House technology. Performed By: #### TROPHS ## ## [address] [address] [address] SPINE CERVICAL W/O CONTRAST Observed: 03/05/2025 5:21 PM Status: F Source: [facility] ORIGINAL EXAMINATION: CT OF THE CERVICAL SPINE WITHOUT CONTRAST 03/05/2025 5:40 pm TECHNIQUE: CT of the cervical spine was performed without the administration of intravenous contrast. Multiplanar reformatted images are provided for review. Automated exposure control, iterative reconstruction, and/or weight based adjustment of the mA/kV was utilized to reduce the radiation dose to as low as reasonably achievable. COMPARISON: None. HISTORY: ORDERING SYSTEM PROVIDED HISTORY: Reason for Exam: fall, unwitnessed FINDINGS: BONES/ALIGNMENT: There is no acute fracture or traumatic malalignment. DEGENERATIVE CHANGES: Multilevel degenerative changes of the spine. Difficult to reliably evaluate the spinal canal due to artifact although there appears to be multilevel spinal canal stenoses, with at least moderate to severe spinal canal stenosis at C3-C4. Variable bilateral neural foraminal narrowing up to severe. SOFT TISSUES: Chronic interstitial changes. IMPRESSION: No acute fracture of the cervical spine. Interpreted by: Nawaf Lozano Preliminary Report By: Nawaf Lozano Electronically signed By Nawaf Lozano Dictated Date: 03/05/2025 5:53:08 PM Prelim Date: 03/05/2025 5:57:01 PM Sign Date: 03/05/2025 5:57:01 PM Ordering Provider: MARCELINO BELL CT HEAD OR BRAIN W/O CONTRAST Observed: 03/05/2025 5:21 PM Status: F Source: [facility] ORIGINAL EXAMINATION: CT OF THE HEAD WITHOUT CONTRAST 03/05/2025 5:40 pm TECHNIQUE: CT of the head was performed without the administration of intravenous contrast. Automated exposure control, iterative reconstruction, and/or weight based adjustment of the mA/kV was utilized to reduce the radiation dose to as low as reasonably achievable. COMPARISON: None. HISTORY: ORDERING SYSTEM PROVIDED HISTORY: Reason for Exam: fall, unwitnessed FINDINGS: BRAIN/VENTRICLES: There is no acute intracranial hemorrhage, mass effect or midline shift. No abnormal extra-axial fluid collection. The bennett-white differentiation is maintained without evidence of an acute infarct. There are nonspecific hypoattenuating foci in the subcortical and periventricular white matter that most likely represent chronic microangiopathic ischemic changes in a patient of this age. Mild generalized volume loss is appreciated with associated prominence of the sulci and ventricles. There is no evidence of hydrocephalus. ORBITS: The visualized portion of the orbits demonstrate no acute abnormality. SINUSES: Mild left maxillary mucosal thickening with hyperostosis. Changes status post left maxillary antrostomy. No mastoid effusions. SOFT TISSUES/SKULL: No acute abnormality of the visualized skull or soft tissues. IMPRESSION: No acute intracranial abnormality. Interpreted by: Ashish Cruz Preliminary Report By: Ashish Cruz Electronically signed By Ashish Cruz Dictated Date: 03/05/2025 5:51:34 PM Prelim Date: 03/05/2025 5:53:12 PM Sign Date: 03/05/2025 5:53:12 PM Ordering Provider: MARCELINO BELL RP XR CHEST 1 VIEW Observed: 03/05/2025 5:21 PM Status: F Source: [facility] ORIGINAL EXAMINATION: ONE XRAY VIEW OF THE CHEST 03/05/2025 5:40 pm COMPARISON: None. HISTORY: ORDERING SYSTEM PROVIDED HISTORY: Reason for Exam: fever, pain or tachypnea FINDINGS: The lungs are without acute focal process. There is no effusion or pneumothorax. The cardiomediastinal silhouette is without acute process. The osseous structures are without acute process. Surgical changes of the right adnexa are noted. IMPRESSION: No acute process. Interpreted by: Ashish Cruz Preliminary Report By: Ashish Cruz Electronically signed By Ashish Cruz Dictated Date: 03/05/2025 5:51:01 PM Prelim Date: 03/05/2025 5:51:27 PM Sign Date: 03/05/2025 5:51:27 PM Ordering Provider: MARCELINO CHAVEZ Observed: 03/05/2025 5:16 PM Status: F Source: [facility] . MICRO - Microbiology PROCEDURE: Blood Culture (bacterial) [*1] SOURCE: Blood BODY SITE: COLLECTED DATE/TIME: 03/05/2025 17:16 EDT RECEIVED DATE/TIME: 03/05/2025 18:59 EDT START DATE/TIME: 03/05/2025 18:59 EDT FREE TEXT SOURCE: FINAL REPORTS Final Report [] Verified Date/Time/Personnel: 03/09/2025 09:06 EDT Escherichia coli Isolated from anaerobe bottle only. Refer to previous culture for susceptibility. [id number] PRELIMINARY REPORTS Preliminary Report [] Verified Date/Time/Personnel: 03/08/2025 11:39 EDT Escherichia coli Isolated from anaerobe bottle only. Final report to follow. Preliminary Report [] Verified Date/Time/Personnel: 03/05/2025 19:59 EDT Culture has been received in lab and is no growth to date. Routine cultures are held for 5 days. STAINS GSANA [] Verified Date/Time/Personnel: 03/06/2025 08:31 EDT Gram Negative Rods Performing Locations *1: This test was performed at: [facility], [address] [place] [address], [id number]- , CBC Collected: 5:16 PM Status: C Source: [facility] TYPE CODE TESTS RESULT OUT OF RANGE REFERENCE UNITS LAB WBC(LOINC) WBC 23.2 High 4.5-10.8 10 3/mcL LAB RBCCT(LOINC) RBC 4.59 4.10-5.30 10 6/mcL LAB HGB(LOINC) Hgb 14.0 12.0-16.0 G/dL LAB HCT(LOINC) Hct 41.5 34.0-46.0 % LAB MCV(LOINC) MCV 90.5 80.0-99.0 fL LAB MCH(LOINC) MCH 30.5 27.0-33.0 pg LAB MCHC(LOINC) MCHC 33.7 32.0-36.0 G/dL LAB RDW(LOINC) RDW 13.6 11.5-15.5 % LAB PLT(LOINC) Platelet 151 150-450 10 3/mcL LAB MPV(LOINC) MPV 7.2 6.6-10.5 fL Performed By: #### PBNP, GFR , CBC, TROPHS, MDW, MORPH, DIFF, LAC, CMP #### [facility] [address], [place] [address] TROPHS Collected: 03/05/2025 5:16 PM Status: F Source: [facility] TYPE CODE TESTS RESULT OUT OF RANGE REFERENCE UNITS LAB HSTROP(LOINC) High Sensitivity Troponin I 484 High 0-51 ng/L Result Comment: High Sensiti ve Troponin I Reference Ranges: Female: 0-51 ng/L Male: 0-76 ng/L Testing performed on Snipi using a homogeneous sandwich chemiluminescent immunoassay based on Room n House technology. Performed By: #### PBNP, GFR , CBC, TROPHS, MDW, MORPH, DIFF, LAC, CMP #### [address] [address] .MDW Collected: 03/05/2025 5:16 PM Status: F Source: [facility] TYPE CODE TESTS RESULT OUT OF RANGE REFERENCE UNITS LAB MDW(LOINC) Monocyte Distribution Width 28.96 High 0.00-20.00 Result Comment: For adults i n ED, MDW>20.0 may be associated with a higher risk of sepsis during the first 12hrs of hospital admission The predictive value of MDW for identifying sepsis in patients with hematological abnormalities has not been established Performed By: #### PBNP, GFR , CBC, TROPHS, MDW, MORPH, DIFF, LAC, CMP #### [address] [address] .MORPH Collected: 03/05/2025 5:16 PM Status: F Source: [facility] TYPE CODE TESTS RESULT OUT OF RANGE REFERENCE UNITS LAB RBCM(LOINC) RBC Morph Normal LAB PLTE(LOINC) Platelet Estimate Normal Performed By: #### PBNP, GFR , CBC, TROPHS, MDW, MORPH, DIFF, LAC, CMP #### [address] [address] .MANUAL DIFF Collected: 03/05/2025 5:16 PM Status: F Source: [facility] TYPE CODE TESTS RESULT OUT OF RANGE REFERENCE UNITS LAB NEUM(LOINC) Neutrophil %, Manual 77.0 High 50.0-75.0 % LAB LYMM(LOINC) Lymphocyte %, Manual 6.0 Low 20.0-40.0 % LAB MONM(LOINC) Monocyte %, Manual 7.0 2.0-13.0 % LAB EOM(LOINC) Eosinophil %, Manual 0.0 0.0-6.0 % LAB BASM(LOINC) Basophil %, Manual 0.0 0.0-2.5 % LAB BAND(LOINC) Bands 10.0 High 0.0-5.0 % LAB NRBC(LOINC) Nucleated RBC 0.0 /100 W BC LAB ANEUM(LOINC) Neutrophil, Abs Manual 20.2 High 2.3-8.1 10 3/mcL LAB ABLYMM(LOINC) Lymphocyte, Abs Manual 1.4 0.9-4.3 10 3/mcL LAB AMONM(LOINC) Monocyte, Abs Manual 1.6 High 0.1-1.4 10 3/mcL LAB AEOSM(LOINC) Eosinophil, Abs Manual 0.0 0.0-0.7 10 3/mcL LAB ABASM(LOINC) Basophil, Abs Manual 0.0 0.0-0.3 10 3/mcL Performed By: #### PBNP, GFR , CBC, TROPHS, MDW, MORPH, DIFF, LAC, CMP #### [address] [address] LAC Collected: 03/05/2025 5:16 PM Status: F Source: [facility] TYPE CODE TESTS RESULT OUT OF RANGE REFERENCE UNITS LAB LAC([facility]) Lactic Acid Lvl 2.0 0.4-2.0 mmol/L Performed By: #### PBNP, GFR , CBC, TROPHS, MDW, MORPH, DIFF, LAC, CMP #### [address] [address] CMP Collected: 03/05/2025 5:16 PM Status: F Source: [facility] TYPE CODE TESTS RESULT OUT OF RANGE REFERENCE UNITS LAB GLU(LOINC) Glucose Level 177 High 83-110 mg/dL LAB NA(LOINC) Sodium Level 134 Low 136-145 mmol/L LAB K(LOINC) Potassium Level 3.1 Low 3.5-5.1 mmol/L LAB CL(LOINC) Chloride 98 98-107 mmol/L LAB CO2(LOINC) CO2 27 23-31 mmol/L LAB EBAL(LOINC) Electrolyte Balance 9.0 4.0-15.0 mEq/L LAB BUN(LOINC) BUN 21 High 7-18 mg/dL LAB CRE(LOINC) Creatinine Lvl (s) 1.44 High 0.51-0.95 mg/dL LAB BC(LOINC) BUN/Creatinine Ratio 15 7-27 ratio LAB CA(LOINC) Calcium Lvl 8.5 8.4-10.2 mg/dL LAB PROT(LOINC) Total Protein 7.3 6.4-8.2 G/dL LAB ALB(LOINC) Albumin Level 3.1 Low 3.4-4.8 G/dL LAB GLB(LOINC) Globulin 4.2 2.7-4.4 G/dL LAB AG(LOINC) A/G Ratio 0.7 Low 1.1-2.5 ratio LAB BILT(LOINC) Bili Total 1.0 0.2-1.0 mg/dL Result Comment: Use of this assay is not recommended for patients undergoing treatment with eltrombopag due to the potential for falsely elevated results. LAB AP(LOINC) Alk Phos 75 40-135 U/L LAB AST(LOINC) AST/SGOT 228 High 10-40 U/L LAB ALT(LOINC) ALT/SGPT 77 High 14-59 U/L Performed By: #### PBNP, GFR , CBC, TROPHS, MDW, MORPH, DIFF, LAC, CMP #### [address] [address] PBNP Collected: 03/05/2025 5:16 PM Status: F Source: [facility] TYPE CODE TESTS RESULT OUT OF RANGE REFERENCE UNITS LAB PBNP(LOINC) N-Terminal proBNP 2792 High 0-450 pg/mL Result Comment: NT-proBNP re sults of less than 300 pg/mL effectively rules out acute congestive heart failure with 99% negative predictive value. Performed By: #### PBNP, GFR , CBC, TROPHS, MDW, MORPH, DIFF, LAC, CMP #### [address] [address] .GFR Collected: 03/05/2025 5:16 PM Status: F Source: [facility] TYPE CODE TESTS RESULT OUT OF RANGE REFERENCE UNITS LAB eGFR(LOINC) Estimated Glomerular Filtration Rate 36 ml/min/1. 73sqm Result Comment: Stages of Chronic Kidney Disease (CKD) Stage Description eGFR(ml/min/1.73 sq.m.) CKD 1 Normal kidney function or >=90 normal kindney function with possible kidney damage (ex. Proteinuria) CKD 2 Kidney damage with mild loss 60-89 of kidney function CKD 3a Mild to moderate loss of kidney 45-59 function CKD 3b Moderate to severe loss of 30-44 of kindey function CKD 4 Severe loss of kidney function 15-29 CKD 5 Kidney failure <15 Note: (go live 2024) the eGFR calculation was updated to the 2020 CKD-EPI creatinine equation without a race factor to calculate the eGFR results. Performed By: #### PBNP, GFR , CBC, TROPHS, MDW, MORPH, DIFF, LAC, CMP #### [address] [address] CVFLURV Collected: 5:16 PM Status: F Source: [facility] TYPE CODE TESTS RESULT OUT OF RANGE REFERENCE UNITS LAB TML9IWE(LOINC) SARS-CoV-2 PCR Negative Negative Result Comment: Results from the Xpert Xpress CoV-2/Flu/RSV plus test should be correlated with the clinical history, epidemiological data, and other data available to the clinical evaluating the patient. Performance of the Xpert Xpress CoV- 2/Flu/RSV plus test has only been established in nasopharyngeal swab specimen. Erroneous test results might occur from improper specimen collection, failure to follow the recommended sample collection, handling and storage procedures, technical error, or sample mix-up. False negative results may occur if a virus is present at a level below the analytical limit of detection. Viral nucleic acid may persist in vivo, independent of virus viability. Detection of analyte target(s) does not imply that the corresponding virus(es) are infectious or are the causative agents for clinical symptoms. Recent patient exposure to FluMist or other live attenuated influenza vaccines may cause inaccurate positive results. LAB FLUAPCR(LOINC) FLU A PCR Negative Negative LAB FLUBPCR(LOINC) FLU B PCR Negative Negative LAB RSVPCR(LOINC) RSV PCR Negative Negative Performed By: #### CVFLURV # ### [address] [address] BCID Collected: 03/05/2025 5:16 PM Status: F Source: [facility] Order Comment: [id number] aer TYPE CODE TESTS RESULT OUT OF RANGE REFERENCE UNITS LAB BCIDCOM(LOINC) BCID Comment See Comment Result Comment: Antimicrobia l resistance can occur via multiple mechanisms. A Not Detected result for antimicrobial resistance gene(s) does not indicate antimicrobial susceptibility. Culture identification and susceptibility results to follow. All BIOFIRE BCID2 Panel results are intended to be interpreted in conjunction with the Gram stain results. In some cases, the Gram stain result and the BIOFIRE BCID2 Panel result may be discrepant. In these cases, the BIOFIRE BCID2 Panel results should be confirmed by culture or other laboratory, epidemiological, or clinical findings. Blood culture media may contain non-viable organisms and/or nucleic acids that may lead to false positive BIOFIRE BCID2 Panel results. Typically, these false positives present with more than one positive result from the BIOFIRE BCID2 Panel. If BCID panel was negative (Not Detected) for all targets, this does not exclude a blood stream infection. Our blood culture system detected growth. Culture identification and susceptibility testing (if appropriate) to follow. LAB [id number](LOINC ) CTX-M (ESBL) Not Detected Not Detected LAB [id number](LOINC ) IMP (Carbapenemase) Not Detected Not Detected LAB [id number](LOINC ) KPC (Carbapenemase) Not Detected Not Detected LAB [id number](LOINC ) MCR-1 (Colistin Resistance) Not Detected Not Detected LAB [id number](LOINC ) Mec A/C Not Applicable Not Detected LAB [id number](LOINC ) Mec A/C-MREJ (MRSA) Not Applicable Not Detected LAB [id number](LOINC ) NDM (Carbapenemase) Not Detected Not Detected LAB [id number](LOINC ) OXA-48 like (Carbapenemase) Not Detected Not Detected LAB VANAB(LOINC) Van A/B Not Applicable Not Detected LAB [id number](LOINC ) VIM (Carbapenemase) Not Detected Not Detected LAB [id number](LOINC ) Enterococcus faecalis Not Detected Not Detected LAB [id number](LOINC ) Enterococcus faecium Not Detected Not Detected LAB LISMOC(LOINC) Listeria monocytogenes Not Detected Not Detected LAB STAPHYL(LOINC) Staphylococcus Not Detected Not Detected LAB STAAUR(LOINC) Staphylococcus aureus Not Detected Not Detected Result Comment: If Staphyloc occus aureus is Detected, an Infectious Disease physician consult is required on identification. LAB [id number](LOINC ) Staphylococcus epidermidis Not Detected Not Detected LAB [id number](LOINC ) Staphylococcus lugdunensis Not Detected Not Detected LAB STREPTOC(LOINC) Streptococcus Not Detected Not Detected LAB STRAGA(LOINC) Streptococcus agalactiae Not Detected Not Detected LAB [id number](LOINC ) Acinetobacter eda-baumanii complex Not Detected Not Detected LAB STRPNE(LOINC) Streptococcus pneumoniae Not Detected Not Detected LAB ENTCLO(LOINC) Enterobacter cloacae Complex Not Detected Not Detected LAB Streptococcus pyogenes(LOINC) Streptococcus pyogenes Not Detected Not Detected LAB [id number](LOINC ) Bacteroides fragilis Not Detected Not Detected LAB ENTBAC(LOINC) Enterobacterales Detected Abnormal Not Detected LAB ESCCOL(LOINC) E. Coli Detected Abnormal Not Detected LAB [id number](LOINC ) Klebsiella aerogenes Not Detected Not Detected LAB KLEOXY(LOINC) Klebsiella oxytoca Not Detected Not Detected LAB [id number](LOINC ) Klebsiella pneumoniae group Not Detected Not Detected LAB PROTEUS(LOINC) Proteus Not Detected Not Detected LAB [id number](LOINC ) Salmonella species Not Detected Not Detected LAB SERMAR(LOINC) Serratia marcescens Not Detected Not Detected LAB HAEINF(LOINC) Haemophilus influenzae Not Detected Not Detected LAB NEIMEN(LOINC) Neisseria meningitidis (Encapsalated) Not Detected Not Detected LAB PSEAER(LOINC) Pseudomonas aeruginosa Not Detected Not Detected LAB [id number](LOINC ) Stenotrophomonas maltophilia Not Detected Not Detected LAB CANALB(LOINC) Sera albicans Not Detected Not Detected LAB [id number](LOINC ) Sera auris Not Detected Not Detected LAB CANGLA(LOINC) Sera glabrata Not Detected Not Detected LAB CANKRU(LOINC) Sera krusei Not Detected Not Detected LAB CANPAR(LOINC) Sera parapsilosis Not Detected Not Detected LAB CANTRO(LOINC) Sera tropicalis Not Detected Not Detected LAB [id number](LOINC ) Cryptococcus neoformans-gattii Not Detected Not Detected Performed By: #### BCID #### [facility] [address] [place] [address] CK Collected: 5:16 PM Status: F Source: [facility] TYPE CODE TESTS RESULT OUT OF RANGE REFERENCE UNITS LAB CK(LOINC) CPK 4336 High 26-192 U/L Performed By: #### CK #### [facility] [address] [place], [place] [address] CBL Observed: 03/05/2025 5:16 PM Status: F Source: [facility] . MICRO - Microbiology PROCEDURE: Blood Culture (bacterial) [*1] SOURCE: Blood BODY SITE: COLLECTED DATE/TIME: 03/05/2025 17:16 EDT RECEIVED DATE/TIME: 03/05/2025 18:59 EDT START DATE/TIME: 03/05/2025 18:59 EDT FREE TEXT SOURCE: FINAL REPORTS Final Report [] Verified Date/Time/Personnel: 03/09/2025 09:06 EDT Escherichia coli Isolated from aerobe and anaerobe bottles. PRELIMINARY REPORTS Preliminary Report [] Verified Date/Time/Personnel: 03/08/2025 11:34 EDT Escherichia coli Isolated from aerobe and anaerobe bottles. EDEN to follow Preliminary Report [] Verified Date/Time/Personnel: 03/05/2025 19:59 EDT Culture has been received in lab and is no growth to date. Routine cultures are held for 5 days. STAINS GSANA [] Verified Date/Time/Personnel: 03/06/2025 09:04 EDT Gram Negative Rods GSAER [] Verified Date/Time/Personnel: 03/06/2025 05:58 EDT Gram Negative Rods SUSCEPTIBILITY RESULTS Escherichia coli Antibiotic EDEN Dilut EDEN Inter Amikacin <=16 Susceptible Amoxicillin/ <=8/4 Susceptible Clavulanate Ampicillin >16 Resistant Ampicillin/ 8/4 Susceptible Sulbactam Aztreonam <=4 Susceptible Cefazolin <=2 Susceptible Cefepime <=2 Susceptible Ceftolozane/ <=2 Susceptible Tazobactam Ceftriaxone <=1 Susceptible Ciprofloxacin <=0.25 Susceptible Ertapenem <=0.5 Susceptible Gentamicin <=2 Susceptible ID Panel Not Not Applicable Applicable Imipenem <=1 Susceptible Levofloxacin <=0.5 Susceptible Meropenem <=1 Susceptible Minocycline <=4 Susceptible Moxifloxacin <=2 Susceptible Piperacillin/ <=8 Susceptible Tazobactam Tetracycline <=4 Susceptible Trimethoprim/ <=0.5/9.5 Susceptible Sulfa Performing Locations *1: This test was performed at: [facility], [address] [place], [address]- , ALLERGIES No Allergies Records Found ENCOUNTERS ADMIT/DISCHARGE ACCOUNT NUMBER ADMITTING ENCOUNTER CLASS LOCATION SOURCE 03/05/2025/ [id number] Emergency [facility]: [facility] ENCOUNTER GUARANTOR PAYER SUBSCRIBER SOURCE 03/05/2025 KYLIE NEGRO: [address] [place], [place] [address]Ykw: () Primary Insurance:[facility]: [id number] Date:[id number] Name:TAMIKA BEASLEY [address] [place] [id number]: KYLIE NEGRO: [id number] [address] [facility] [place], [place] [address]Jvb: () () [facility]
[2025-03-09 14:43] VITALS: BP 123/57; PULSE 79; RESP 17; TEMP 37; O2SAT 94; BMI 28.8
--- NOTE | 2025-03-09 15:52 | NURSING ---
Admit to the rehab floor, alert and oriented. Aware of call crump use to use for staff assist. Patient verbalized and understood DNR status.
[2025-03-09 16:45] VITALS: O2SAT 98
[2025-03-09 17:54] VITALS: BP 109/74; PULSE 77; RESP 17; TEMP 36.4; O2SAT 99
[2025-03-09] MEDS: 0.9% Saline Lock 10 ML Syringe IV (21:03)
[2025-03-09] MEDS: Senna/Docusate Sodium 1 Tablet 2 TABLET PO (21:04)
[2025-03-09 21:51] VITALS: PULSE 68; O2SAT 93
[2025-03-09 22:00] VITALS: PULSE 77; RESP 17; O2SAT 99
[2025-03-10 00:55] VITALS: BP 111/78; PULSE 76; RESP 16; TEMP 36.4; O2SAT 93
[2025-03-10 05:51] VITALS: BP 99/50; PULSE 61; RESP 17; TEMP 36.5; O2SAT 96
[2025-03-10 06:10] VITALS: BMI 28.7
[2025-03-10 06:12] VITALS: BP 100/50; PULSE 61; RESP 17; TEMP 36.5; O2SAT 96
[2025-03-10 07:05] LABS: Hematocrit 40.0 % (37-47); Hemoglobin 13.0 g/dL (12.0-15.0); Mean Corp Hgb Conc 32.5 g/dL (32-36); Mean Corpuscular Volume 94.8 fL (81-99); Mean Platelet Vol. 9.4 fl (6.2-12.0); Platelet Count 207 K/mm3 (150-450); RBC Distribution Width CV 13.3 % (11.6-14.6); RBC Distribution Width SD 45.9 fl (35.1-43.9); Red Blood Count 4.22 M/mm3 (4.2-5.4); White Blood Count 8.6 K/mm3 (4.4-11.0)
[2025-03-10 07:30] LABS: AST(SGOT) 56 U/L (<=31); Alanine Aminotransfer ALT/SGPT 45 U/L (<=34); Albumin, Serum 3.2 g/dL (3.4-4.8); Alkaline Phosphatase 44 U/L (35-104); Anion Gap 10 (5-15); BUN 20 mg/dL (4-19); BUN/Creat Ratio 18.1 RATIO (10-20); Calcium,Total 9.0 mg/dL (7.6-11.0); Carbon Dioxide 24.3 mmol/L (21.0-32.0); Chloride 105 mmol/L (98-108); Estimated Creatinine Clearance 41.61 ml/min (50-250); Globulin 3.3 g/dL (2.2-4.2); Glucose 101 mg/dL (70-99); Magnesium 2.4 mg/dL (1.5-2.2); Potassium 4.3 mmol/L (3.3-5.1)
[2025-03-10] MEDS: Potassium Chloride Oral Tablet 20 MEQ PO (07:48)
[2025-03-10] MEDS: Senna/Docusate Sodium 1 Tablet 2 TABLET PO (07:48)
--- NOTE | 2025-03-10 09:41 | PCM.HP.STD ---
Documented by User: LAURO Vigil 03/10/25 12:14 HPI - General General Date of Admission: 03/09/25 Date of Service: 03/10/25 Chief Complaint: debility-following hospitalization for sepsis HPI Narrative LIZETH ECHAVARRIA, is a 84 F who presented to [facility] on 03/05/25 with complaint of generalized weakness with falls x 2 over 2 days. Her last fall, she fell out of bed and spent several hours on the floor and unable to get up. She denied LOC or striking her head during her falls. During her eval in the ED, she was found to be febrile with a temp of 38.8 C and hypotensive. UA revealed acute cystitis/UTI. Labs, at that time, did indicate sepsis. She also had an elevated CPK of 4,330 which was consistent with time spend on the floor, resulting in Rhabdomyolysis. Her BNP at that time was, also, elevated at 2,792 along with an elevated trop. She received 3l of colloid solution as well Ceftriaxone prior to transfer to [facility] for higher level of care and ICU. At [facility], she did have hypokalemia in which her potassium was replaced and an AVE. She was normotensive on arrival, following her fluid resuscitation. She did have leukocytosis with WBC's > 18.000. She did receive ABX. Trop was elevated most likely related to demand ischemia. She did have elevated liver enzymes which have since significantly improved. 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 ER + and HER - with CT showing R breast mass with no evidence of metastatic disease, s/p R MRM and axillary dissection 01/16/2022. She is on Tamoxifen twice daily. She follows with Dr. Kemp with Oncology. She also has a hx of OA with having had a lumbar surgery and R TKR on Nabumetone twice daily. Pt was discharged to the inpatient rehab unit at the families request. She was denied by rehab by insurance. Noted ECHO that was completed showed a gr 1 diastolic dysfunction. She does have a slightly higher pulmonary pressure at 35mmHg. Noted to have 2+ pitting edema to the RLE and 1+ to the LLE. LIMA hose are in place. She has a hx of EMIR. She is not on CPAP or O2 at night. Trending overnight pulse ox was ordered and completed, showing she does desaturate during sleep. Pt will require a sleep study on an outpatient basis. Will order O2 at night. She does have hx of RLS. She is on high does Mirapex at night. Her RLS may be related to her EMIR. Will discontinue her Mirapex at night as she does have bradycardia in the AM with frequent hypotension, which can lead to falls. She has a STOP-BANG score of 3, making her a high risk for EMIR. Changed her Gabapentin to 100mg PO twice daily with 300mg at night. Dr. Shaikh and myself met with Lizeth at bedside to discuss the changes in her medications, which she states agreement. Will continue to monitor. Liver enzymes are showing improvement with her AST 56, ALT 45 and Alk phos in now WNL at 44. AVE is resolving with at creatinine of 1.08 and WNL. Pt does follow with Urology and has a pessary in place. This may be contributing to her UTI. All questions answered. [facility] Medical History Urge incontinence Urgency of micturition Aromatase inhibitor-associated arthralgia Encounter for education Wears hearing aid Post-menopausal Restless legs Non-smoker Sleep apnea History of pain when walking History of edema History of echocardiogram Home Medications ?Medication ?Instructions ?Recorded ?Last Taken ?Type multivitamin 1 tab PO DAILY vitamin 01/06/22 Unknown History omega-3 fatty acids 1,000 mg PO DAILY vitamin 01/06/22 Unknown History potassium chloride 20 mEq 20 meq PO DAILY vitamin #7 tabs 11/15/23 Unknown Rx tablet,extended release gabapentin 600 mg tablet 600 mg PO QHS pain 05/15/24 Unknown History ropinirole 5 mg tablet 0.5 mg PO QHS RLS 05/15/24 Unknown History lidocaine 4 % topical patch 1 patch topical QDAY PRN pain #10 05/27/24 Unknown Rx ea tamoxifen 20 mg tablet 20 mg PO BID breast cancer 90 days 11/26/24 Unknown Rx #180 tabs desmopressin 0.2 mg tablet 0.2 mg PO ONCE vasopressor #90 tabs 02/11/25 Unknown Rx nystatin 100,000 unit/gram topical 1 applic topical BID PRN rash 02/11/25 Unknown History ointment cefdinir 300 mg capsule 300 mg PO BID atb #14 caps 03/09/25 Unknown Rx Allergy/AdvReac Type Severity Reaction Status Date / Time No Known Allergies Allergy Verified 11/26/24 14:42 Family History Father Diabetes Kidney disease Daughter Cancer Mets ovarian Surgical History History of right mastectomy (~01/2022) History of lumbar surgery History of colonoscopy (~09/2020) History of total right knee replacement Social History Smoking Status: Never smoker ROS ROS Narrative pt currently denies pain Constitutional Constitutional: Reports as per HPI, daytime sleepiness, frequent falls and stops breathing during sleep Eyes Eyes: Reports systems reviewed and no addt'l complaints, except as documented ENT HEENT: Reports hearing loss, nasal congestion and other Details: takes Valerie at home Cardiovascular Cardiovascular: Reports as per HPI and pedal edema Respiratory/Chest Respiratory/Chest: Reports cough and other Details: allergies, per pt Gastrointestinal Gastrointestinal: Reports constipation Genitourinary Genitourinary: Reports urinary frequency and urinary incontinence Musculoskeletal Musculoskeletal: Reports joint pain Integumentary Integumentary: Reports systems reviewed and no addt'l complaints, except as documented Neurologic Neurologic: Reports restless legs Psychiatric Psychiatric: Reports systems reviewed and no addt'l complaints, except as documented Endocrine Endocrinology: Reports systems reviewed and no addt'l complaints, except as documented Hematologic/Lymphatic Hematologic/Lymphatic: Reports other Details: R mastectomy Allergic/Immunologic Allergic/Immunologic: Reports itchy eyes and other Details: allergies per pt Vital Signs Vital Signs Vital Signs: 03/09/25 14:43 03/09/25 16:45 03/09/25 17:54 Temperature 98.6 F 97.5 F L Temperature Source Oral Oral Pulse Rate 79 77 Respiratory Rate 17 17 Respiratory Effort Respiratory Depth Respiratory Pattern Blood Pressure 123/57 H 109/74 Blood Pressure Mean 79 85 Blood Pressure Source Monitor Monitor Blood Pressure Position Sitting Sitting Blood Pressure Location Left Arm Left Arm Pulse Ox 94 98 99 Oxygen Delivery Method Room Air Room Air Room Air Fraction of Inspired Oxygen (FIO2) 03/09/25 21:51 03/09/25 22:00 03/10/25 00:55 Temperature 97.6 F L Temperature Source Temporal Pulse Rate 68 77 76 Respiratory Rate 17 16 Respiratory Effort Normal Non-Labored Respiratory Depth Normal Respiratory Pattern Normal Blood Pressure 111/78 Blood Pressure Mean 89 Blood Pressure Source Blood Pressure Position Blood Pressure Location Pulse Ox 93 99 93 Oxygen Delivery Method Room Air Room Air Fraction of Inspired Oxygen (FIO2) 03/10/25 05:51 03/10/25 06:12 Temperature 97.7 F L 97.7 F L Temperature Source Temporal Temporal Pulse Rate 61 61 Respiratory Rate 17 17 Respiratory Effort Respiratory Depth Respiratory Pattern Blood Pressure 99/50 L 100/50 L Blood Pressure Mean 66 66 Blood Pressure Source Monitor Blood Pressure Position Semi-Fowlers Blood Pressure Location Left Arm Pulse Ox 96 96 Oxygen Delivery Method Room Air Room Air Fraction of Inspired Oxygen (FIO2) Weight Weight: 178 lb 9.191 oz Body Mass Index (BMI) 28.7 Physical Exam Const alert, oriented x3 and no apparent distress Constitutional Narrative: Making good eye contact, appropriate General Appearance: cooperative and comfortable Orientation / Consciousness: awake, oriented to person, oriented to place and oriented to time Exam Limitations: no limitations Nutritional Appearance: overweight HEENT moist oral mucous membranes HEENT Narrative: nasal congestion Mouth: oral and palatal mucosa normal Eyes PERRL Neck supple, no JVD and no carotid bruits Lymph Lymphatic Narrative: R mastectomy Chest Chest: other R mastectomy Breast/Axilla Inspection: other Resp normal respiratory effort, no use of accessory muscles and clear to auscultation bilaterally Resp Narrative: Not tachypneic and no conversational dyspnea. Cardio regular rate, regular rhythm, S1 normal heart sound, S2 normal heart sound, no murmurs, no rub and no gallops Cardio Narrative: 2+ pitting edema RLE, 1+ to LLE Rate: bradycardia GI normal to inspection, nondistended, normoactive bowel sounds, soft to palpation and non-tender GI Narrative: No guarding with palpation. no CVA tenderness Back/Spine no CVA tenderness Extremity no clubbing, cyanosis or edema Extremity Narrative: Negative Richard's and Qi's signs Peripheral Pulses: Yes pulses 2+ throughout Skin Skin Narrative: No rashes, no skin breakdown. Neuro oriented x3, CN's II-XII intact bilaterally and no focal motor deficits Motor Exam: strength 5/5 throughout Psych affect normal Psych Narrative: Appropriate, making good eye contact. Able to stay on topic and focus. No flight of ideas. Does not appear anxious or depressed. Conversant and relating well to staff. Results Medical Records Data Attestation: I reviewed the patient's medical records Lab / Micro Data Attestation: I reviewed the patient's lab results. 03/10/25 06:55 03/10/25 06:55 Labs: Laboratory Results - last 24 hr 03/10/25 06:55: WBC 8.6, RBC 4.22, Hgb 13.0, Hct 40.0, MCV 94.8, MCH 30.8, MCHC 32.5, RDW Std Deviation 45.9 H, RDW Coeff of Austyn 13.3, Plt Count 207, MPV 9.4, Sodium 140, Potassium 4.3, Chloride 105, Carbon Dioxide 24.3, Anion Gap 10, BUN 20 H, Creatinine 1.08, Estim Creat Clear Calc 41.61 L, Est GFR (MDRD) Non-Af 51 L, BUN/Creatinine Ratio 18.1, Glucose 101 H, Calcium 9.0, Phosphorus 4.0, Magnesium 2.4 H, Total Bilirubin 0.29, AST 56 H, ALT 45 H, Alkaline Phosphatase 44, Total Protein 6.5, Albumin 3.2 L, Globulin 3.3, Albumin/Globulin Ratio 0.9 Imaging ECHO: Gr 1 diastolic dysfunction, Pulmonary artery pressure slightly elevated at 35mmHg Assessment & Plan Assessment/Plan (1) Debility: PLAN: *continue therapies *PT per protocol *OT per protocol *fall precautions *DVT prophylaxis: Lovenox 40mg SQ daily (2) Sleep apnea: QUALIFIERS: Sleep apnea type: unspecified type Qualified Code(s): G47.30 - Sleep apnea, unspecified PLAN: *over night trending pulse ox *will require outpatient sleep study at discharge *O2 delivery at night via NC, per protocol *Stop-Bang score 3 (3) Restless leg syndrome: PLAN: *decrease Mirapex 0.25 bid and discontinue the night time dose RT morning bradycardia and Augmentation *Gabapentin 100mg PO twice daily *Gabapentin 300mg PO at bedtime. (4) Acute cystitis with hematuria: PLAN: *encourage fluid intake *Omnicef 300mg PO twice daily x 14 doses *I and O's (5) Breast cancer: QUALIFIERS: Breast location: central portion of breast Estrogen receptor status: positive Laterality: right Patient sex: female Qualified Code(s): C50.111 - Malignant neoplasm of central portion of right female breast; Z17.0 - Estrogen receptor positive status [ER+] PLAN: * no BP or needle pokes to the RUE * Tamoxifen 20mg PO twice daily. (home dose) PLAN: Plan *Claritin 5mg PO daily *Tylenol 650mg PO every 6 hours as needed for fever or pain 1-10 *Lidocaine patch daily as needed for joint pain *Multi vitamin 1 tab PO daily *Nystatin 1 application topical to skin folds *Camden 3 fatty acid 1 g PO daily *K+CL- 20meq PO daily *Senna/Docusate sodium 2 tabs PO twice daily Charges/Coding Visit Charges Inpatient E&M: 51710 Init Hosp L2 Documented by User: Dr. Eduarda Shaikh DO 03/10/25 15:29 HPI - General General Date of Admission: 03/09/25 [facility] Medical History Urge incontinence Urgency of micturition Aromatase inhibitor-associated arthralgia Encounter for education Wears hearing aid Post-menopausal Restless legs Non-smoker Sleep apnea History of pain when walking History of edema History of echocardiogram Home Medications ?Medication ?Instructions ?Recorded ?Last Taken ?Type multivitamin 1 tab PO DAILY vitamin 01/06/22 Unknown History omega-3 fatty acids 1,000 mg PO DAILY vitamin 01/06/22 Unknown History potassium chloride 20 mEq 20 meq PO DAILY vitamin #7 tabs 11/15/23 Unknown Rx tablet,extended release gabapentin 600 mg tablet 600 mg PO QHS pain 05/15/24 Unknown History ropinirole 5 mg tablet 0.5 mg PO QHS RLS 05/15/24 Unknown History lidocaine 4 % topical patch 1 patch topical QDAY PRN pain #10 05/27/24 Unknown Rx ea tamoxifen 20 mg tablet 20 mg PO BID breast cancer 90 days 11/26/24 Unknown Rx #180 tabs desmopressin 0.2 mg tablet 0.2 mg PO ONCE vasopressor #90 tabs 02/11/25 Unknown Rx nystatin 100,000 unit/gram topical 1 applic topical BID PRN rash 02/11/25 Unknown History ointment cefdinir 300 mg capsule 300 mg PO BID atb #14 caps 03/09/25 Unknown Rx Allergy/AdvReac Type Severity Reaction Status Date / Time No Known Allergies Allergy Verified 11/26/24 14:42 Family History Father Diabetes Kidney disease Daughter Cancer Mets ovarian Surgical History History of right mastectomy (~01/2022) History of lumbar surgery History of colonoscopy (~09/2020) History of total right knee replacement Social History Smoking Status: Never smoker ROS ENT HEENT: Reports abnormal hearing and other Details: takes Valerie at home... HAs hearing aids. Genitourinary Genitourinary: Reports nocturia and urinary urgency; Denies dysuria Integumentary Integumentary: Denies alopecia or jaundice Allergic/Immunologic Allergic/Immunologic: Reports other Details: allergies per pt.....has been getting allergy shots for years but, ENT retired and she has to find a new ENT to follow with. Wears hearing aids. Results Lab / Micro Data 03/10/25 06:55 03/10/25 06:55 Assessment & Plan Assessment/Plan (1) Debility: (2) Sleep apnea: QUALIFIERS: Sleep apnea type: unspecified type Qualified Code(s): G47.30 - Sleep apnea, unspecified PLAN: *over night trending pulse ox *will require outpatient sleep study at discharge to qualify for home O2 *O2 delivery at night via MS, per protocol *Stop-Bang score 3 (3) Restless leg syndrome: PLAN: *decrease Mirapex 0.25 bid and discontinue the night time dose RT morning bradycardia and Augmentation *Gabapentin 100mg PO twice daily *Gabapentin 300mg PO at bedtime. * O2 at 2 LPM when sleeping/napping. (4) Acute cystitis with hematuria: PLAN: *encourage fluid intake *Omnicef 300mg PO twice daily x 14 doses *I and O's More likely than not related to use of a purewick catheter prior to admission to rehab. (5) Breast cancer: QUALIFIERS: Breast location: central portion of breast Estrogen receptor status: positive Laterality: right Patient sex: female Qualified Code(s): C50.111 - Malignant neoplasm of central portion of right female breast; Z17.0 - Estrogen receptor positive status [ER+] PLAN: Plan *Claritin 5mg PO daily *Tylenol 650mg PO every 6 hours as needed for fever or pain 1-10 *Lidocaine patch daily as needed for joint pain *Multi vitamin 1 tab PO daily *Nystatin 1 application topical to skin folds *Camden 3 fatty acid 1 g PO daily *K+CL- 20meq PO daily *Senna/Docusate sodium 2 tabs PO twice daily I reviewed the documentation by the CO[employer] SUPERVISOR and agree with her findings. I also reviewed the EMR. We discussed treatment and orders were written. D/W the sleep lab and they have an opening for Wednesday 03/14 so will DC Monday to the sleep lab and then she will go home the next morning.
--- NOTE | 2025-03-10 12:00 | PCM.RU.PYE ---
Admission Information Primary Diagnosis:: debility following sepsis Status Changes from Prescreening?: No changes Identified Actual Problem List:: Infection, UTI, Falls, Bladder Incontinence, Bowel, Constipation, Alteration in Sleep, Mobility Impaired, Self Care Deficit, Know.Dfct/Disease Process, Know.Dfct of Medicaitons, BP, Hypotension and Alteration-Leisure Activ. Potential Problem List:: DVT, Bleeding, Infection, UTI, Falls, Skin Integrity and Depression Risk of Complications DVT: LMWH and LIMA Hose Bleeding: Monitor Lab Values and Nursing to Teach Precautions for anti-coagulation therapy. Infection: Clinical Staff to Monitor for S/S of infection: and S/S of infection include fever, redness, warmth, etc. Urinary Tract Infection: Monitor for frequency, burning, discomfort, or incontinence. and Nursing will obtain urine sample for urinalysis and C&S when ordered. Aspiration: Clinical staff will monitor for coughing, drooling, congestion., Speech will evaluate swallowing and dsyphasia. and Nursing will monitor patient swallowing during meals. Falls: Patient will be evaluated for Fall Precautions and Patient will be placed on Fall Precautions as indicated per protocol. Skin Breakdown: Nursing will assess skin daily using assessment tool. and Nursing will place on Skin Breakdown Precautions as indicated. Pain: Clinical staff will assess patient's pain level per protocol., Medications will be given, if needed, and the pain level reassessed. and Other methods: Massage, distraction, decrease stimulus, etc. used PRN. Plan of Care Patient requires physician specializing in physical medicine and rehab oversight to provide close medical supervision of rehab issues including: Sleep Problems, Bowel and Bladder, Medical and co-morbidity Management, DVT prophylaxis and Coordination of treatment team Patient needs Physical Therapy to improve:: Mobility, Strengthening, Transfers, Endurance, Stairs, Gait and Balance Patient needs Occupational Therapy: For a minimum of 1 hour and At least 5 out of 7 days Patient needs Occupational Therapy to improve ADL's incl.: Toileting, Toilet transfers, Higher functioning activities, Household tasks, Adaptive Equipment and Other activities as determined Patient requires 24/7 Rehabilitation Nursing for: Identifying and preventing risk factors, Monitoring and reporting current medical conditions, Assisting with ambulation, transfer, and all ADL's, Teaching patients about disease process and medications, Family teaching, Providing safe environment, Bowel and Bladder Issues and Medication Management Patient needs Freight Handler/ Case Management for: Discharge Planning Patient needs Dietary and Nutrition Services for: Adequate Nutrition Goals Goals Patient will remain: free from falls and or injury at time of discharge. Patient will perform bed mobility at: MOD I level of assist. Patient will complete transfers from bed to chair at: MOD I level of assist. Patient will ambulate: 100 feet and with LRD Patient will complete upper body dressing at: MOD I level of assist. Patient will complete lower body dressing at: MOD I level of assist. Patient will complete toilet transfer at: Standby Assist. Patient will complete toileting at: MOD I level of assist. Patient will perform bathing at: MOD I level of assist. Patient will perform Tub/Shower transfer at: Standby Assist. Patient will complete grooming at: MOD I level of assist. Patient will complete home management skills at: MOD I level of assist. Patient will achieve: 12 stairs, at MOD I assist and - (1 curb step) Patient will have pain level of: of 3 or less Patient's skin will: remain intact Patient will receive: adequate nutrition. Discharge Planning Pt Prognosis for Sig. Practical Improv. w/in Reasonable Time: Good Estimated Length of stay (days): 14 Anticipated D/C Destination: Home Was Preadmission Assessment Accurate?: Yes
[2025-03-10] MEDS: 0.9% Saline Lock 10 ML Syringe IV (13:27)
--- NOTE | 2025-03-10 16:05 | CASEMGMT ---
Social Work SW met with patient to complete initial assessment. Pt admitted private pay, but does have [employer] as her health insurance. Dr completed overnight trending pulse ox, which showed desaturations, and pt has undiagnosed sleep apnea. Dr is ordering a sleep study for DC and overnight O2. Pt has paid privately for 7 days, though doing well in therapy. Sleep lab has an opening on 03/14. Pt agreeable to DC to sleep study on 03/14, then physically home on 03/15. SW discussed HHC vs OP therapy. Pt prefers [facility] d/t transportation. SW offered list of skilled HHC agencies within geographical area, INN with insurance, that include quality and resource data via [employer] guide. Pt denied as pt's dtr retired from [employer], and is electing [facility]. Pt denied any DME needs, outside of O2. Dtr can transport from sleep lab. Pt appreciative. - NANETTE sent referral to [facility] [place] [facility] for O2. SW phoned referral to [facility] for PT/OT/SN. They accepted with SOC 03/17 Plan: DC home alone 03/14, to sleep study, [facility] PT/OT/SN, overnight O2 Latisha HINDS [employer]
--- NOTE | 2025-03-10 17:05 | NURSING ---
Neck circumference is 40.5 cm
[2025-03-10 17:27] VITALS: BP 116/57; PULSE 71; RESP 18; TEMP 36.8; O2SAT 96
[2025-03-10 19:43] VITALS: PULSE 71; RESP 16
[2025-03-11 06:00] VITALS: BP 112/60; PULSE 82; RESP 16; TEMP 36.6; O2SAT 97
[2025-03-11 07:00] VITALS: BP 111/52; BP 112/60; BP 112/64; PULSE 65; PULSE 82
[2025-03-11] MEDS: Potassium Chloride Oral Tablet 20 MEQ PO (08:02)
[2025-03-11] MEDS: Senna/Docusate Sodium 1 Tablet 2 TABLET PO ×2 (08:03→21:08)
[2025-03-11 08:50] LABS: CORTISOL AM 22.00 ug/dL (6.02-18.40)
--- NOTE | 2025-03-11 10:12 | PCM.PROGNOTE ---
Subjective Subjective Afebrile VSS -blood pressure is better today. Maintaining appropriate oxygen saturation on RA Oral intake - FOOD good FLUIDS intake and output are not accurate because she has urine incontinence. Good oral fluid intake yesterday. Discussed with nursing - no problems that need addressed Reviewed the THERAPY notes Medication list reviewed. Free T4 today is normal at 0.8. A.m. cortisol is 22. Tells me she slept well last night. Denies headache, lightheadedness, vertigo, chest pain, shortness of breath, nausea/vomiting/abdominal pain, dysuria and calf tenderness. She did have a large bowel movement last night. She rarely cough during the day yesterday but at night when she lies down she has postnasal drainage and coughing frequently last night. Denies vaginal discharge or itching and also denies soreness in her mouth or painful swallowing. UA on 03/05 was positive for nitrite and showed 25-50 WBCs per high-power field with 2+ bacteria however, This was done after she had already received IV antibiotics at the previous hospital. Objective Data Objective Data Vital Signs: Vital Signs Temp Pulse Resp BP Pulse Ox O2 Del Method FiO2 97.9 F 65 16 111/52 L 97 Room Air 21 03/11/25 06:00 03/11/25 07:00 03/11/25 06:00 03/11/25 07:00 03/11/25 06:00 03/11/25 07:55 03/09/25 21:51 Oxygen Delivery Method Room Air Weight: 178 lb 9.191 oz Body Mass Index (BMI) 28.7 Intake & Output: Intake and Output for Last 24 Hours 03/09/25 03/10/25 03/11/25 23:59 23:59 23:59 Intake Total 660 / 660 2120 / 2120 940 / 940 Output Total 620 / 620 503 / 503 450 / 450 Balance 40 / 40 1617 / 1617 490 / 490 Lab / Micro Data 03/10/25 06:55 03/10/25 06:55 Labs: Laboratory Results - last 24 hr 03/11/25 07:11: Free T4 0.80, Cortisol AM Sample 22.00 H Physical Exam Const alert, oriented x3 and no apparent distress Constitutional Narrative: Good eye contact with me. Pleasant and appropriate. Not anxious. General Appearance: cooperative Resp normal respiratory effort and clear to auscultation bilaterally Resp Narrative: I have not heard her cough at all today. Effort and Inspection: Negative for tachypneic Cardio regular rate, regular rhythm and no gallops Cardio Narrative: No ectopy GI normal to inspection, nondistended, normoactive bowel sounds, soft to palpation and non-tender GI Narrative: + BM last night. No guarding with palpation. Extremity no calf tenderness Extremity Narrative: Trace ankle edema of the R ankle only Assessment & Plan Assessment/Plan (1) Debility: (2) Sepsis: QUALIFIERS: Sepsis type: sepsis due to unspecified organism Sepsis acute organ dysfunction status: without acute organ dysfunction Qualified Code(s): A41.9 - Sepsis, unspecified organism (3) Bacteremia: (4) Acute cystitis with hematuria: PLAN: Fever and leukocytosis at admission to the hospital. She received Rocephin at [facility] prior to coming to [facility]. She had GM negative rods in the blood at previous hospital. Culture with E. Coli and Enterobacter. (5) Sleep apnea: QUALIFIERS: Sleep apnea type: unspecified type Qualified Code(s): G47.30 - Sleep apnea, unspecified PLAN: Diagnosed several years ago with obstructive sleep apnea. Not currently being treated. (6) Restless leg syndrome: PLAN: Sx have not resolved with ropinirole and gabapentin. She has known sleep apnea and is not currently being treated for this. (7) Breast cancer: QUALIFIERS: Breast location: central portion of breast Estrogen receptor status: positive Patient sex: female Laterality: right Qualified Code(s): C50.111 - Malignant neoplasm of central portion of right female breast; Z17.0 - Estrogen receptor positive status [ER+] PLAN: Continue tamoxifen. (8) Urinary incontinence: QUALIFIERS: Urinary Incontinence type: unspecified incontinence Qualified Code(s): R32 - Unspecified urinary incontinence PLAN: Stress and urge incontinence. Will continue to follow-up with Dr. Mariano. PLAN: Plan 1. Continue therapy 2. Increase Claritin to 10 mg p.o. nightly 3. Add Flonase nasal spray and also add Robitussin with codeine 10 cc p.o. nightly as needed cough 4. Did not get oxygen applied last night. D/W nursing. 5. DC Mirapex. 6. Continue gabapentin 100 mg twice daily and 300 mg at at bedtime. 7. I phoned her daughter Rayshawn and asked if she would bring in the desmopressin nasal spray to use at bedtime. 8. this is day 7 of antibiotics. Will DC after the last dose on Day #10. We never got the urine culture from [facility] and we got no sensitivities. Since she is better I assume the bacteria were sensitive to Rocephin and Cefdinir. Will try and get the reports. Charges/Coding Visit Charges Inpatient E&M: 09612 Subs Hosp L2
[2025-03-11] MEDS: Fluticasone 0.05% 1 SPRAY NASAL.SRY NASAL ×2 (11:56→21:08)
[2025-03-11 18:00] VITALS: BP 121/65; PULSE 78; RESP 16; TEMP 35.9; O2SAT 97
[2025-03-11 20:08] VITALS: PULSE 78; RESP 16
[2025-03-12 00:35] VITALS: RESP 15; O2SAT 97
[2025-03-12 05:44] VITALS: BP 115/64; PULSE 74; RESP 16; TEMP 36.4
[2025-03-12 05:50] VITALS: BMI 28.6
[2025-03-12] MEDS: Fluticasone 0.05% 1 SPRAY NASAL.SRY NASAL ×2 (08:50→20:51)
[2025-03-12] MEDS: Potassium Chloride Oral Tablet 20 MEQ PO (08:50)
[2025-03-12 17:25] VITALS: BP 124/38; PULSE 77; RESP 16; TEMP 36.6; O2SAT 94
[2025-03-12 20:45] VITALS: BP 111/46; PULSE 70; RESP 16; TEMP 36.7; O2SAT 93
[2025-03-12] MEDS: DESMOPRESSIN ACETATE 0.2 MG TABLET PO (20:52)
[2025-03-12 22:00] VITALS: PULSE 70; RESP 16
[2025-03-13 06:00] VITALS: BP 112/55; PULSE 63; RESP 16; TEMP 36.4; O2SAT 99
[2025-03-13 06:54] VITALS: BMI 28.4
[2025-03-13] MEDS: Fluticasone 0.05% 1 SPRAY NASAL.SRY NASAL ×2 (07:49→20:21)
[2025-03-13] MEDS: Potassium Chloride Oral Tablet 20 MEQ PO (07:50)
--- NOTE | 2025-03-13 11:03 | PN_ITS ---
Subjective Subjective Afebrile VSS -blood pressure is within normal limits. She is not on any antihypertensives. Heart rate is within normal limits. She is afebrile. Maintaining appropriate oxygen saturation on RA Oral intake - FOOD good FLUIDS good Discussed with nursing - no problems that need addressed Reviewed the THERAPY notes Medication list reviewed. She tells me she was up last to urinate last night since she has restarted desmopressin tablets that were prescribed by Dr. Mariano. It may also have to do with wearing oxygen at night and preventing the desaturations. The cough at night is much better with the Robitussin with codeine. Denies lightheadedness, shortness of breath, chest pain, palpitations, abdominal pain, dysuria and calf pain. She is sleeping very well at night now. Objective Data Objective Data Vital Signs: Vital Signs Temp Pulse Resp BP Pulse Ox O2 Del Method O2 Flow Rate 97.5 F L 63 16 112/55 L 99 Nasal Cannula 2 03/13/25 06:00 03/13/25 06:00 03/13/25 06:00 03/13/25 06:00 03/13/25 06:00 03/13/25 06:00 03/13/25 06:00 FiO2 21 03/09/25 21:51 Oxygen Flow Rate (L/min) 2 Oxygen Delivery Method Nasal Cannula Weight: 176 lb 12.972 oz Body Mass Index (BMI) 28.4 Intake & Output: Intake and Output for Last 24 Hours 03/11/25 03/12/25 03/13/25 23:59 23:59 23:59 Intake Total 2660 / 2660 2009 640 / 640 Output Total 1051 / 1051 1750 / 1750 450 / 450 Balance 1609 / 1609 260 / 260 190 / 190 Lab / Micro Data 03/10/25 06:55 03/10/25 06:55 Physical Exam Const alert, oriented x3 and no apparent distress Resp normal respiratory effort and clear to auscultation bilaterally Effort and Inspection: Negative for tachypneic Cardio regular rate, regular rhythm and no gallops Cardio Narrative: No ectopy GI normal to inspection, nondistended, normoactive bowel sounds, soft to palpation and non-tender Extremity no calf tenderness Extremity Narrative: Trace ankle edema of the R ankle only Assessment & Plan Assessment/Plan (1) Debility: (2) Sepsis: QUALIFIERS: Sepsis type: sepsis due to unspecified organism S epsis acute organ dysfunction status: without acute organ dysfunction Qualified Code(s): A41.9 - Sepsis, unspecified organism (3) Bacteremia: (4) Acute cystitis with hematuria: PLAN: Fever and leukocytosis at admission to the hospital. She received Rocephin at [facility] prior to coming to [facility]. She had GM negative rods in the blood at previous hospital. Culture with E. Coli and Enterobacter. (5) Sleep apnea: QUALIFIERS: Sleep apnea type: unspecified type Qualified Code(s): G47.30 - Sleep apnea, unspecified PLAN: Diagnosed several years ago with obstructive sleep apnea. Not currently being treated. (6) Restless leg syndrome: PLAN: Sx have not resolved with ropinirole and gabapentin. She has known sleep apnea and is not currently being treated for this. (7) Breast cancer: QUALIFIERS: Breast location: central portion of breast Estrogen receptor status: positive Patient sex: female Laterality: right Qualified Code(s): C50.111 - Malignant neoplasm of central portion of right female breast; Z17.0 - Estrogen receptor positive status [ER+] PLAN: Continue tamoxifen. (8) Urinary incontinence: QUALIFIERS: Urinary Incontinence type: unspecified incontinence Q ualified Code(s): R32 - Unspecified urinary incontinence PLAN: Stress and urge incontinence. Will continue to follow-up with Dr. Mariano. PLAN: Plan 1. Continue therapy today. 2. Plan to discharge tomorrow and she will go to the sleep lab for a split- night sleep study prior to going home on Monday morning. 3. Overnight trending pulse ox tonight and social services director will arrange for home O2. 4. [facility] Home health care for PT/OT/SN at discharge. 5. No DME needs outside of oxygen. 6. Prescriptions to be faxed to [facility] Charges/Coding Visit Charges Inpatient E&M: 18315 [facility] Hosp L1
--- NOTE | 2025-03-13 13:15 | CASEMGMT ---
Social Work IDT met with patient and dtr for Team meeting. Discussed patient's progress in PT/OT/SN/MD/CHIMNEY REPAIRER. Pt is private pay and DC date is set for 03/14 to sleep lab. Pt needs a FWW to use at DC and cane is not the safest device for her. SW will refer to [facility] for FWW. - SW sent referral to [facility] via [employer]. Plan: DC home alone 03/14 to sleep lab, [facility] PT/OT/SN, FWW Latisha Espinoza DAYCARE MANAGER BUSINESS INTEGRATION MANAGER
--- NOTE | 2025-03-13 16:49 | DS.PCM_ITS ---
Providers Date of Admission: 03/09/25 Date of Discharge: 03/14/25 Primary Care Physician: Dr. Zia Alex MD none Reason For Visit: generalized weakness due to sepsis with bacteremia Diagnosis Discharge Diagnosis (1) Debility: Status: Acute Code(s): R53.81 - Other malaise Plan: Still has some debility at [place]. Needing a FWW for ambulation/stabilliy and prior to the recent hospital admission she was not using a device. She loses her balance mostly in the bathroom where most accidents in the home happen and she is CGA when she is in the BR. She will be getting [facility] at [place] for PT/OT. (2) Sepsis: Status: Resolved Code(s): A41.9 - Sepsis, unspecified organism Qualifiers: Sepsis acute organ dysfunction status: without acute organ dysfunction Sepsis type: sepsis due to unspecified organism Qualified Code(s): A41.9 - Sepsis, unspecified organism Plan: Due to pyelonephritis with bacteremia. Urine culture grew 2 different strains of E. Coli and the blood culture also grew E. Coli. E. Coli R to ampicillin and only intermediate to Rocephin so we treated with 10 days of Cefdinir. She had no adverse reactions to Cefdinir. She told me she thought she might be allergic to PCN but, she did not know the reaction. (3) Bacteremia: Status: Resolved Code(s): R78.81 - Bacteremia Plan: Due to E. coli. (4) Acute cystitis with hematuria: Status: Resolved Code(s): N30.01 - Acute cystitis with hematuria Plan: Fever and leukocytosis at admission to the hospital. She received Rocephin at [facility] prior to coming to [facility]. She had GM negative rods in the blood that were identified as E. coli at previous hospital. Urine culture culture with 2 different strains of E. coli. (5) Rhabdomyolysis: Status: Resolved Code(s): M62.82 - Rhabdomyolysis Qualifiers: Rhabdomyolysis type: non-traumatic Qualified Code(s): M62.82 - Rhabdomyolysis Plan: She had 2 falls prior to admission to the hospital. She had fell out of bed on the second fall and laid on the floor in her house for many hours prior to being found by her coat joiner. Rhabdomyolysis has resolved. (6) Generalized weakness: Status: Acute Code(s): R53.1 - Weakness Plan: Prior to recent sepsis patient was driving and independent with all activities of daily living without the use of a assistive device for ambulation and living by herself. At the time of discharge she is still requiring a front wheeled walker due to generalized weakness and gait instability. She still loses her balance even with the front wheel walker. (7) Elevated troponin: Status: Acute Code(s): R79.89 - Other specified abnormal findings of blood chemistry Plan: More likely than not secondary to demand ischemia and/or rhabdomyolysis related to sepsis with hypotension due to pyelonephritis and fall with prolonged time on the floor prior to being found by a coat joiner several hours after her fall. (8) Sleep apnea: Status: Chronic Code(s): G47.30 - Sleep apnea, unspecified Qualifiers: Sleep apnea type: unspecified type Qualified Code(s): G47.30 - Sleep apnea, unspecified Plan: Diagnosed several years ago with obstructive sleep apnea. Not currently being treated. Having restless and treated with Ropinirole and Gabapentin and had persistent sx. Suspect the untreated EMIR contributes significantly to RLS. She has been wearing 2 LPM of oxygen at night. Ropinirole has been discontinued and the dose of Gabapentin has been changed to 100 mg BID and 300 mg at HS and she is sleeping well and has not complained of RLS sx at night. Ropinirole may have been causing augmentation. (9) Restless leg syndrome: Status: Chronic Code(s): G25.81 - Restless legs syndrome (10) Breast cancer: Status: Chronic Code(s): C50.919 - Malignant neoplasm of unspecified site of unspecified female breast Qualifiers: Breast location: central portion of breast Estrogen receptor status: p ositive Laterality: right Patient sex: female Qualified Code(s): C50.111 - Malignant neoplasm of central portion of right female breast; Z17.0 - Estrogen receptor positive status [ER+] Plan: Continue tamoxifen. (11) Urinary incontinence: Status: Chronic Code(s): R32 - Unspecified urinary incontinence Qualifiers: Urinary Incontinence type: unspecified incontinence Qualified Code(s): R32 - Unspecified urinary incontinence Plan: Stress and urge incontinence. Will continue to follow-up with Dr. Mariano. Continue desmopressin at bedtime. She has been taking caffeine tablets at home for quite some time because she feels tired. It is likely that the caffeine contributes to urinary urgency, urinary frequency, urge incontinence and bladder spasms. She was advised to discontinue all caffeine products. Treating sleep apnea and discontinuing caffeine may help with nocturia significantly. she has been getting up less while on rehab. She has been taking the caffeine tablets for quite somne time to give her energy. I suspect the lack of energy had everything to do with sleep apnea. (12) Chronic cough: Status: Chronic Code(s): R05.3 - Chronic cough Plan: She was taking Valerie and ipratropium nasal spray at home prior to admission to the hospital. In the hospital she told us that she was taking Flonase so we started that and Claritin because Valerie is not on the formulary. She feels like the ipratropium nasal spray worked better. She will resume ipratropium nasal spray and Valerie 60 mg twice daily following discharge from rehab. She was up frequently coughing at night while on rehab and we have been giving her Robitussin with codeine 5 to 10 cc at bedtime and she is sleeping very well now. Her lungs have been consistently clear to auscultation. (13) Postnasal drip: Status: Chronic Code(s): R09.82 - Postnasal drip (14) Disequilibrium: Status: Acute Code(s): R42 - Dizziness and giddiness Plan: Still requiring an assistive device, front wheeled walker, at discharge from rehab due to generalized weakness and loss of balance with ambulation, especially in the bathroom. She will need home health care for PT/OT postdischarge. (15) Urge incontinence: Status: Chronic Code(s): N39.41 - Urge incontinence (16) Nocturia: Status: Chronic Code(s): R35.1 - Nocturia Plan 1. Discharged on 03/14/2025 and scheduled for a overnight split sleep study on the day of discharge. Recommended follow-up with pulmonary medicine. INSURANCE COMPANY HAS NOT APPROVED REQUEST FOR SLEEP STUDY YET. wILL RESCHEDULE AN op WHEN WE HAVE APPROVAL. 2. The overnight trending pulse ox shows that approximately 13% of the time she was monitored her oxygen saturation was 89% or less. Home O2 is being arranged by through [facility]. 4. [facility] Home health care for PT/OT/SN at discharge. She is still having LOB when going into the and we recommended family stay with her for at least the first week after DC from rehab until Lizeth and family feels she is going to be safe at home alone. She has a nonfarm animal caretaker she hires to help her at home. 5. No DME needs outside of oxygen. 6. Prescriptions faxed to [facility] Medications at Discharge Home Medications multivitamin 1 tab PO DAILY vitamin 01/06/22 omega-3 fatty acids 1,000 mg PO DAILY vitamin 01/06/22 tamoxifen 20 mg tablet 20 mg PO BID breast cancer 90 days #180 tabs 11/26/24 nystatin 100,000 unit/gram topical ointment 1 applic topical BID PRN rash 02/11/25 desmopressin 0.2 mg tablet 0.2 mg PO QHS hormone replacement 03/12/25 acetaminophen 325 mg tablet 650 mg (2 x 325 mg) PO Q6H PRN PRN Pain Score 1-10 #1 TAB 03/13/25 codeine 10 mg-guaifenesin 100 mg/5 mL oral liquid 5 - 10 ml PO QHS PRN PRN Cough 1 month #4 oz 03/13/25 fexofenadine 60 mg tablet (Valerie Allergy) 60 mg PO BID #60 tabs 03/13/25 gabapentin 100 mg capsule 100 mg PO BIDCM #60 caps 03/13/25 gabapentin 300 mg capsule 300 mg PO QHS #30 caps 03/13/25 ipratropium bromide 42 mcg (0.06 %) nasal spray 2 spray intranasal TID #15 mL 03/13/25 Hospital Course Operations None Procedures None Summary of Care Provided Minutes Spent on Discharge: 45 Hospital Course: Lizeth Moore is an 84-year-old female with a past medical history of restless leg syndrome (treated with ropinirole and gabapentin but still symptomatic), obstructive sleep apnea (not being treated at the time of admission to the hospital), breast cancer (on tamoxifen), urge urinary incontinence (she follows with Dr. Nadiya Mariano) osteoarthritis, presbycusis, neuropathy in her feet with a history of lumbar spinal surgery in the past, stage I diastolic dysfunction and mild pulmonary hypertension with a PA systolic on recent transthoracic echocardiogram estimated at 35 LV size was normal and left ventricular systolic function was also normal. She presented to the [facility] emergency department on 03/05/2025 with a complaint of 2 falls in the recent 2 days. She was not seen in the emergency room after the first fall. The second fall occurred when she fell out of bed. she could not get up and she had no way to summon anyone. She was found by a coat joiner the next morning and EMT was summoned. She complained of generalized weakness. She was found to have a temp of 38.8 ?C and she had hypotension which fortunately responded to IV hydration. The white blood cell count was elevated with a left shift. UA showed pyuria, microscopic hematuria and bacteria. CPK was elevated at 4330 likely consistent with mild rhabdomyolysis from lying on the floor for an extended period of time. She was started on IV Rocephin. Other abnormalities include an elevated troponin which was most likely secondary to demand ischemia. She was transferred from [facility] to [facility] and admitted to the hospitalist service in the ICU. A UA ordered at admission showed pyuria but the urine culture grew mixed gram- positive's and gram-negative organisms. A blood culture was negative. She was eventually transitioned from Rocephin to cefdinir. We were able to obtain the results of urine and blood cultures from [facility] and she had E. coli in the blood. There were 2 different strains of E. coli that grew in the urine and both were sensitive to cefdinir. She received a total of 10 days of antibiotic treatment for probable pyelonephritis with sepsis/bacteremia. She was markedly weak and she is lives by herself. She was previously independent with ADL's and walking without an assistive device. She was able to climb 13 steps without difficulty. At the time she was evaluated by PT/OT in the hospital she required a front wheel walker to ambulate and still had episodes of loss of balance. She fatigues easily and required assistance with her ADLs. We did not feel she was safe to go home however her insurance company denied admission to rehab. The patient elected to come private pay and she was admitted to acute inpatient rehab on the evening of 03/10/2025 for 3 hours of therapy daily to restore function/independence after near her level prior to the recent episode of sepsis. She was not sleeping well at the time of admission to rehab and she was c/o severe RLS at night and also frequent nocturia with urinary incontinence. She was taking gabapentin 600 mg at bedtime and ropinirole 0.25 mg twice daily and 0.5 mg at night. The ropinirole was changed to 0.25 mg twice daily and after a few days was discontinued. She was placed on gabapentin 100 mg twice daily and gabapentin 300 mg at at bedtime and she is sleeping well with no complaints of restless leg. I suspect the ropinirole was causing augmentation. Because of the history of obstructive sleep apnea and the severe restless leg symptoms an overnight trending pulse ox was obtained and was abnormal. She was placed on 2 L of nasal O2 at night and was able to maintain oxygen saturation greater than 90% throughout the night with the supplementation. CBC at arrival to rehab showed a normal white blood cell count of 7.6 with 48.6% neutrophils. Hemoglobin was 11.2 which was down from 14.1 on 01/24/2025. At the time of discharge from rehab it is 13. Creatinine at discharge is 1.08 with a GFR of 51 which is consistent with stage IIIa chronic renal failure. eGFR has ranged from 44-56 over the past 3 years. Lizeth improved on rehab but, at the time of DC she still is requiring a front wheel walker for ambulation and she is still having loss of balance. She lives alone but, her dtr Yareli lives 3 minutes away and will be providing assistance following DC. We placed an order for a split sleep study that was to be done on the night of 03/14/25 but, the insurance company has not approved the test yet on 03/14 so she will be discharged home and the sleep lab will call her to schedule when They hear from the insurance company. Prescriptions were faxed to [facility] in [place] the day prior to her discharge. The oxygen will be delivered to her room on the date of discharge. She needs a follow-up BMP in 1 week and this can be drawn by home health care. I has a follow-up scheduled with Dr. Zia Alex on 03/17/2025 at 4 PM Pt had to private pay for admission to inpt rehab because she was denied by her insurance company. She is 84 YO with sepsis with hypotension at admission to the hospital. She had rhabdomyolysis, dehydration, and elevated troponin and bacteremia. Prior to this episode she was completely independent with her activities of daily living and driving. She required no assistive device. At the time of transfer to rehab she was using a front wheel walker and will still require a walker at discharge because she is unsteady with ambulation and loses her balance, especially when in the bathroom and tighter spaces. She will need home health care at discharge for ongoing PT/OT. I am completely confounded as to why this admission was denied by insurance and have advised the pt and her family to appeal. Physical Exam Const alert, oriented x3 and no apparent distress Constitutional Narrative: Good eye contact with me. Pleasant and appropriate. Not anxious. General Appearance: cooperative and comfortable Orientation / Consciousness: awake, oriented to person, oriented to place and oriented to time Exam Limitations: no limitations Nutritional Appearance: overweight HEENT moist oral mucous membranes HEENT Narrative: No evidence of thrush and she denies mouth pain, painful swallowing and vaginal discharge. Eyes PERRL, EOMs intact bilaterally, conjunctivae normal and no scleral icterus Eyes Narrative: No discharge from the eyes. Neck supple, no JVD and no carotid bruits Lymph Lymphatic Narrative: R mastectomy Chest Chest: symmetrical chest wall rise and other R mastectomy Resp normal respiratory effort, no use of accessory muscles and clear to auscultation bilaterally Resp Narrative: I have not heard her cough at all today. She coughs primarily at night. This is more likely than not secondary to chronic postnasal drip. Effort and Inspection: able to speak in complete sentences; Negative for tachypneic Cardio regular rate, regular rhythm, S1 normal heart sound, S2 normal heart sound, no murmurs, no rub and no gallops Cardio Narrative: No ectopy GI normal to inspection, nondistended, normoactive bowel sounds, soft to palpation and non-tender GI Narrative: Having regular bowel movements. No guarding with palpation. no CVA tenderness Extremity no clubbing, cyanosis or edema and no calf tenderness Extremity Narrative: Trace ankle edema of the R ankle only Skin Skin Narrative: No rashes, no skin breakdown. Neuro oriented x3, CN's II-XII intact bilaterally and no focal motor deficits Neuro Narrative: Generalized weakness. Disequilibrium with loss of balance secondary to generalized weakness and history of neuropathy. Motor Exam: strength 5/5 throughout Psych affect normal Psych Narrative: Appropriate, making good eye contact. Able to stay on topic and focus. No flight of ideas. Does not appear anxious or depressed. Conversant and relating well to staff. Weight / BMI Weight Weight: 177 lb 14.609 oz Body Mass Index (BMI) 28.5 ABG / Lab / Microbiology Data 03/10/25 06:55 03/10/25 06:55 D/C Instructions DC O2, CPAP, BIPAP Needs Home O2 Discharge instructions: Yes Type of respiratory needs?: Oxygen Oxygen frequency: With Sleeping Oxygen liters per minute when sleepin DC home with Oxygen: Yes Home O2 MD Review: I have reviewed the oxygen testing, and the patient qualifies for home oxygen equipment and portability. The patient is mobile in the home and the community. Meaningful Use Info Meaningful Use Meaningful Use Diagnoses (Choose all that apply): None applicable Discharge Plan Admission Admit Date/Time: 03/09/25 13:30 Primary Reason for Your Visit: Debility due to sepsis/generalized weakness Attending Provider: Eduarda Shaikh Primary Care Provider: Zia Alex Instructions Additional Instructions / Restrictions: 1. Caffeine causes urinary urgency, urinary frequency and bladder spasms with urge incontinence. You should eliminate caffein from your diet. Leaving a wet pad soaked with urine in place for a prolonged period of time increases risk for urinary tract infections. If the depends or pad is wet change it as soon as possible. 2. You are not safe walking without a device. Please use the walker until physical therapy tells you it safe to use a different device (like a cane) or safe to walk without a device. You do not want to fall and end up back in the hospital. 3. Ask for help when you need it........your family would love to help if you just tell them what you need help with. They are mot mind reminders so you have to ask. you will be getting home health care for continued therapy. You are no longer taking ropinirole and you have not had restless leg for the past few days. You will now be taking gabapentin 100 mg twice daily and 300 mg at bedtime. 4. You have a chronic cough but I suspect that this is secondary to allergies and postnasal drip. I sent in a prescription for Valerie 60 mg tablets and you were to take 1 twice daily. You were not taking Flonase at home you were taking Atrovent nasal spray which is also called ipratropium nasal spray. This helps dry the secretions in your nose up better and helps prevent postnasal drainage better than Flonase. You will use 2 sprays in each nostril 2-3 times daily. The cough is always worse at night and so I have given you a prescription for a few ounces of Robitussin with codeine. Try 1 teaspoon at bedtime and if this does not work you can increase to 2 teaspoons. 5. You were very sick and had sepsis. It takes a lot out of you and it is going to take a while for you to get back to your baseline. Don't be in a hurry........do your therapy and be safe. 6. You have not had any low potassium since arriving on rehab and so I am stopping your potassium supplement and giving you a lab slip to have your potassium rechecked in 1 week. Call me for the results 1 day after you have the lab drawn or you could call Dr. Zia Alex also. 7. It has been a pleasure meeting you Lizeth. If you or your family have any questions after you leave rehab please do not hesitate to call me. OFFICE: [phone] CELL: [phone] NURSES STATION ON REHAB: [phone] Discharge Orders/Prescriptions Prescriptions: New acetaminophen 325 mg Tablet 650 mg PO Q6H PRN PRN (Reason: Pain Score 1-10) Qty: 1 0RF gabapentin 300 mg Capsule 300 mg PO QHS Qty: 30 0RF codeine-guaifenesin 10-100 mg/5 mL Liquid 5 - 10 ml PO QHS PRN PRN (Reason: Cough) 30 Days Qty: 4 0RF gabapentin 100 mg Capsule 100 mg PO BIDCM Qty: 60 0RF ipratropium bromide 42 mcg (0.06 %) spray,non-aerosol 2 spray intranasal TID Qty: 15 2RF Rx Instructions: administer into each nostril fexofenadine [Valerie Allergy] 60 mg tablet 60 mg PO BID Qty: 60 0RF Continued tamoxifen 20 mg tablet 20 mg PO BID 90 Days Qty: 180 3RF nystatin 100,000 unit/gram ointment 1 applic topical BID PRN multivitamin Tablet 1 tab PO DAILY omega-3 fatty acids Capsule 1,000 mg PO DAILY desmopressin 0.2 mg tablet 0.2 mg PO QHS Discontinued ropinirole 5 mg tablet 0.5 mg PO QHS Rx Instructions: 1 tab in am, 1 tab in evening, and 2 tabs at bedtime potassium chloride 20 mEq tablet extended release 20 meq PO DAILY Qty: 7 0RF gabapentin 600 mg tablet 600 mg PO QHS cefdinir 300 mg capsule 300 mg PO BID Qty: 14 0RF lidocaine 4 % adhesive patch,medicated 1 patch topical QDAY PRN (Reason: pain) Qty: 10 0RF desmopressin 0.2 mg tablet 0.2 mg PO ONCE Qty: 90 3RF Other Ambulatory Orders: Basic Metabolic Profile (BMP) (Routine) Timeframe: 1 Week Facility: [facility] - Location: Laboratory Ordered By: Dr. Eduarda Shaikh Referrals / Follow Up: Zia Alex MD [Primary Care Provider, Family Practice] - 03/17/25 4:00 pm Disposition Disposition (needs filled in before D/C Order can be placed): Home Health Service Charges/Coding Visit Charges Inpatient E&M: 20762 Disch Hosp >30min
[2025-03-13 17:42] VITALS: BP 122/78; PULSE 75; RESP 16; TEMP 36.2; O2SAT 97
[2025-03-13 19:30] VITALS: BP 115/56; PULSE 73; RESP 16; TEMP 36.9; O2SAT 92
[2025-03-13] MEDS: DESMOPRESSIN ACETATE 0.2 MG TABLET PO (20:21)
[2025-03-13 20:55] VITALS: PULSE 70; O2SAT 95
[2025-03-13 22:00] VITALS: PULSE 73
[2025-03-14 06:00] VITALS: BP 135/65; PULSE 66; RESP 16; TEMP 35.9; O2SAT 96
[2025-03-14 06:57] VITALS: O2SAT 95
[2025-03-14 06:59] VITALS: BMI 28.5
[2025-03-14 08:30] VITALS: BP 126/54; PULSE 70
[2025-03-14] MEDS: Potassium Chloride Oral Tablet 20 MEQ PO (08:34)
[2025-03-14] MEDS: Fluticasone 0.05% 1 SPRAY NASAL.SRY NASAL (08:36)
--- NOTE | 2025-03-14 10:51 | CASEMGMT ---
Social Work Sleep lab has not received precert yet and it is not anticipated to be received today, thus, pt will DC home and once precert is approved, sleep lab will contact the pt to reschedule sleep study. [facility] updated. Dtr will transport home this evening. Latisha ELLINGTONW
--- NOTE | 2025-03-14 15:50 | NURSING ---
Discharge instructions provided to patient and verbalized understanding.
== END 2025-03-14 15:50 | disposition home health service (06) | DRG 690 ==
PROVIDERS: Nurse Practitioner Family; Admitting Provider Internal Medicine; PCP Family Medicine; Visit Provider Internal Medicine
DX: N30.01 Acute cystitis with hematuria (principal); M62.82 Rhabdomyolysis; Z16.11 Resistance to penicillins; I27.20 Pulmonary hypertension, unspecified; C50.111 Malignant neoplasm of central portion of right female breast; B96.20 Unspecified Escherichia coli [E. coli] as the cause of diseases classified elsewhere; B96.89 Other specified bacterial agents as the cause of diseases classified elsewhere; G25.81 Restless legs syndrome; G47.33 Obstructive sleep apnea (adult) (pediatric); I44.30 Unspecified atrioventricular block; G62.9 Polyneuropathy, unspecified; M19.90 Unspecified osteoarthritis, unspecified site; N39.46 Mixed incontinence; Z17.0 Estrogen receptor positive status [ER+]; Z79.810 Long term (current) use of selective estrogen receptor modulators (SERMs); R29.6 Repeated falls; Z79.899 Other long term (current) drug therapy; R05.3 Chronic cough; R09.82 Postnasal drip; R35.1 Nocturia
CPT/HCPCS: 36415; 80053; 82533; 83735; 84100; 84439; 85027; 94668; 94762; 97110; 97116; 97162; 97167; 97530; 97535; 97802; A4216

== ENCOUNTER → 2025-03-26 | Outpatient (CLI) | payer MEDICARE, SELFPAY ==
--- NOTE | 2025-03-26 11:52 | US_ITS ---
PROCEDURE: KIDNEY AND BLADDER 03/26/2025 REASON FOR EXAM: UTI WITH SEPSIS TECHNIQUE: Procedure Code: USKI Modality: US Procedure: KIDNEY AND BLADDER FINDINGS: Right kidney measures 10.3 cm and left kidney measures 10.0 cm. Normal echotexture of bilateral kidneys. No hydronephrosis. No renal stones. Cyst at the inferior pole of the left kidney measuring 0.9 x 1.4 x 1.0 cm. Post void residual volume of 91 mL. US/Kidney and Bladder IMPRESSION: Postvoid residual volume of 91 mL which may reflect borderline urinary retentio n. No hydronephrosis. Reading Location: [id number]
[2025-03-26 13:14] LABS: Anion Gap 8 (5-15); BUN 15 mg/dL (4-19); BUN/Creat Ratio 15.1 RATIO (10-20); Calcium,Total 8.9 mg/dL (7.6-11.0); Carbon Dioxide 25.5 mmol/L (21.0-32.0); Chloride 102 mmol/L (98-108); Glucose 122 mg/dL (70-99); Potassium 3.8 mmol/L (3.3-5.1)
== END | disposition home or self-care (01) ==
PROVIDERS: Internal Medicine; PCP Family Medicine; Referring Provider Urology; Visit Provider Urology
DX: A41.9 Sepsis, unspecified organism (principal); N39.0 Urinary tract infection, site not specified; E87.6 Hypokalemia
CPT/HCPCS: 36415; 76770; 80048

== ENCOUNTER → 2025-04-11 | Outpatient (CLI) | payer MEDICARE, SELFPAY ==
[2025-04-11 15:00] LABS: Hematocrit 42.0 % (37-47); Hemoglobin 13.5 g/dL (12.0-15.0); Immature Granulocytes Count 0.020 X10^3/uL (0.0-0.0); Mean Corp Hgb Conc 32.1 g/dL (32-36); Mean Corpuscular Volume 94.4 fL (81-99); Mean Platelet Vol. 8.9 fl (6.2-12.0); NRBC Flagged by Analyzer 0 % (0-5); Platelet Count 214 K/mm3 (150-450); RBC Distribution Width CV 13.2 % (11.6-14.6); RBC Distribution Width SD 45.8 fl (35.1-43.9); Red Blood Count 4.45 M/mm3 (4.2-5.4); White Blood Count 7.3 K/mm3 (4.4-11.0)
[2025-04-11 15:34] LABS: AST(SGOT) 33 U/L (<=31); Alanine Aminotransfer ALT/SGPT 22 U/L (<=34); Albumin, Serum 3.8 g/dL (3.4-4.8); Alkaline Phosphatase 49 U/L (35-104); Anion Gap 10 (5-15); BUN 15 mg/dL (4-19); BUN/Creat Ratio 14.1 RATIO (10-20); CPK Total, Creatine Kinase 49 U/L (24-195); Calcium,Total 9.1 mg/dL (7.6-11.0); Carbon Dioxide 25.7 mmol/L (21.0-32.0); Chloride 104 mmol/L (98-108); Globulin 3.7 g/dL (2.2-4.2); Glucose 91 mg/dL (70-99); Magnesium 2.4 mg/dL (1.5-2.2); Potassium 3.9 mmol/L (3.3-5.1)
== END | disposition home or self-care (01) ==
LOC: MFPLAB 12:18
PROVIDERS: PCP Family Medicine; Visit Provider Family Medicine
DX: M62.82 Rhabdomyolysis (principal)
CPT/HCPCS: 36415; 80053; 82550; 83735; 85025